=== PATIENT | male | born 1940 | race Caucasian/White ===

== ENCOUNTER 2016-11-15 06:06 | Day surgery (SDC) | payer MEDICARE, MEDICAID ==
[2016-11-15] MEDS ORDERED: LIDOCAINE 1% 50 ML VIAL INJ ONE (07:49)
[2016-11-15] MEDS ORDERED: SODIUM BICARBONATE VIAL 50 MEQ/50 ML VIAL ONE (07:49)
[2016-11-15] MEDS ORDERED: NEOMYCIN-BACITRACIN-POLYMYXIN 0.9 GM UD TOP ONE (10:30)
[2016-11-15 11:06] VITALS: BP 183/75; TEMP 98.1; O2SAT 96
--- NOTE | 2016-11-15 12:01 | OP ---
DATE OF PROCEDURE: 11/15/16 PREOPERATIVE DIAGNOSIS: 1. Lesion, preauricular, left ear. POSTOPERATIVE DIAGNOSIS: 1. Lesions, preauricular, left ear. PROCEDURE: 1. Excision, preauricular lesion, left ear. SURGEON: Rashaun Brown MD. ANESTHESIA: Local infiltration of 1% lidocaine with bicarb. INDICATION: The patient is a 76-year-old male who has a mass in the preauricular area that extends to the edge of the ear canal. It is soft, mildly tender, but causes problems when he sleeps on that side. It actually extends into his ear canal, blocking off his ear causing discomfort. He was brought to the Surgical Suite today for excision of same after the risks, benefits and alternatives to the procedure were discussed and accepted. FINDINGS: Pathology is pending. The closed incision is approximately 1.2 cm. PROCEDURE: After the patient was brought to the Surgical Suite and placed in the supine position, surgical time-out was taken. The patient was then prepped with Betadine and draped with towels. A sterile cotton ball was stuck into the ear. Local infiltration of anesthesia was obtained with 1% lidocaine after the incision was marked with a marking pen. The skin was then incised with a knife and dissection was carried down through the skin and subcutaneous tissue to excise the lesion using electrocautery. Hemostasis was then obtained with electrocautery and the wound was then loosely approximated with interrupted 5-0 Prolene vertical mattress sutures. There was a small area in the ear canal which was not approximated at all. Hemostasis was noted to be adequate. The wound was dressed with triple antibiotic ointment and the patient was then taken back to the Ambulatory Unit in stable condition. Estimated blood loss was less than 25 mL. All sponge, needle and instrument counts were correct. #[id number] [facility]
== END 2016-11-15 10:20 | disposition home or self-care (01) ==
LOC: AMB 06:06
PROVIDERS: ATTEND Surgery
DX: D23.22 Other benign neoplasm of skin of left ear and external auricular canal (principal); J44.9 Chronic obstructive pulmonary disease, unspecified; E03.9 Hypothyroidism, unspecified; E11.9 Type 2 diabetes mellitus without complications; E78.5 Hyperlipidemia, unspecified; F32.9 Major depressive disorder, single episode, unspecified; I50.9 Heart failure, unspecified; K21.9 Gastro-esophageal reflux disease without esophagitis; I25.10 Atherosclerotic heart disease of native coronary artery without angina pectoris; Z95.5 Presence of coronary angioplasty implant and graft; Z86.73 Personal history of transient ischemic attack (TIA), and cerebral infarction without residual deficits; Z88.8 Allergy status to other drugs, medicaments and biological substances; Z79.02 Long term (current) use of antithrombotics/antiplatelets; Z79.82 Long term (current) use of aspirin; Z79.899 Other long term (current) drug therapy

== ENCOUNTER → 2016-11-22 | Outpatient (CLI) | payer MEDICARE, OTHER | END | disposition home or self-care (01) | LOC: BFHH 10:10 | PROVIDERS: ATTEND Nurse Practitioner Family | DX: I11.0 Hypertensive heart disease with heart failure (principal); I50.9 Heart failure, unspecified; E11.40 Type 2 diabetes mellitus with diabetic neuropathy, unspecified ==

== ENCOUNTER 2016-12-05 13:23 | Emergency (ER) | payer MEDICARE, MEDICAID ==
--- NOTE | 2016-12-05 13:43 | ED.PDOC ---
History of Present Illness - General Chief Complaint: Trauma Stated Complaint: fall Time Seen by Provider: 12/05/16 13:32 Source: patient Exam Limitations: no limitations - History of Present Illness Initial Comments: Patient complains of right hip and lower back pain after a fall. He lost his balance at home and fell, landing on his right side. The pain is in the lumbar area and right hip with radiation down the right leg to the ankle. Worse with movement, better with rest. Multiple previous episodes of back and hip pain. No associated symptoms. Patient was unable to get up on his own. Timing/Duration: 1/2 hour Severity: moderate Improving Factors: rest Worsening Factors: movement Associated Symptoms: denies symptoms Allergies/Adverse Reactions: Allergies NO KNOWN ALLERGY Allergy (Verified 12/05/16 13:34) Home Medications: Ambulatory Orders Glipizide 10 mg PO BID 11/06/13 Lisinopril 40 mg PO DAILY 11/06/13 hydrALAZINE HCl [HydrALAzine HCl] 50 mg PO TID 11/06/13 Isosorbide Mononitrate [Imdur] 60 mg PO DAILY 06/24/14 amLODIPine BESYLATE [Norvasc] 10 mg PO DAILY 06/24/14 Albuterol Sulfate [Proair Hfa] 2 puff INH Q6H PRN #1 04/25/16 Furosemide [Lasix] 40 mg PO DAILY 04/25/16 Levothyroxine Sodium [Synthroid] 50 mcg PO DAILY 04/25/16 Citalopram Hydrobromide [Celexa] 30 mg PO DAILY 07/27/16 Ranolazine [Ranexa] 500 mg PO BID 07/27/16 Carvedilol [Coreg] 25 mg PO BID 08/01/16 Pregabalin [Lyrica] 75 mg PO BID 08/01/16 Aspirin [Nancy Low Dose] 162 mg PO DAILY 08/15/16 Clopidogrel Bisulfate [Plavix] 75 mg PO BEDTIME 08/15/16 Duloxetine HCl [Cymbalta] 60 mg PO 11/12/16 Pantoprazole Sodium 40 mg PO 11/12/16 Ranitidine HCl 150 mg PO 11/12/16 Simvastatin [Zocor] 40 mg PO 11/12/16 Review of Systems - Review of Systems Constitutional: States: no symptoms reported EENTM: States: no symptoms reported Respiratory: States: no symptoms reported Cardiology: States: no symptoms reported Gastrointestinal/Abdominal: States: no symptoms reported Genitourinary: States: no symptoms reported Musculoskeletal: States: see HPI Skin: States: no symptoms reported Neurological: States: no symptoms reported Endocrine: States: no symptoms reported Hematologic/Lymphatic: States: no symptoms reported Past Medical History (General) - Patient Medical History Hx Seizures: No Hx Stroke: Yes - 2013, Jun 2016 Hx Dementia: No Hx Asthma: No Hx of COPD: No Hx Cardiac Disorders: Yes - 15 cardiac stents Hx Congestive Heart Failure: No Hx Pacemaker: No Hx Hypertension: Yes Hx Thyroid Disease: No Hx Diabetes: Yes Hx Gastroesophageal Reflux: Yes Hx Renal Disease: No Hx Cancer: No Hx of HIV: No Hx Hepatitis C: No Hx MRSA: No Surgical History: cholecystectomy, other - Vaccination History Hx Tetanus, Diphtheria Vaccination: - unknown Hx Influenza Vaccination: - unknown Hx Pneumococcal Vaccination: - unknown - Social History Hx Tobacco Use: No Hx Chewing Tobacco Use: No Hx Alcohol Use: No Hx Substance Use: No Hx Substance Use Treatment: No Hx Depression: No Hx Physical Abuse: No Hx Emotional Abuse: No Hx Suspected Abuse: No - Activities of Daily Living Hospice Agency (if applicable):: None - Female History Patient is a Female of Child Bearing Age (10 -59 yrs old): No Patient : No Family Medical History - Family History Mother Family History: Unknown Age (years): 86 Living Status: Age at (years of age): 86 Cause of : [place] Hx Family Asthma: No Hx Family Congestive Heart Failure: No Hx Family Hypertension: No Hx Family Stroke: No Hx Cardiac Disease: Yes - Mother Hx Family Diabetes: Yes - Sons Hx Family Cancer: No Physical Exam - Physical Exam General Appearance: Alert Respiratory: lungs clear Cardiovascular/Chest: regular rate, rhythm Gastrointestinal/Abdominal: normal bowel sounds, non tender, soft Extremity: other - Flexion of the right hip elicits lumbar pain. Straight and cross leg raises are positive. Valgus and varus tests are negative. Juan F's negative. Ankle is NTTP both medially and laterally. Full AROM and PROM of the right hip,knee, ankle, and foot. Neurologic: no motor/sensory deficits Progress - Progress Progress: 12/05/16 16:57 5 view of the lumbar vertebrae and left hip 2 view were negative for acute fracture. Patient was able to ambulate well and without pain after 30 mg of toradol. Departure - Departure Clinical Impression: Lumbar pain Disposition: Discharge to Home or Self Care Condition: Good Departure Forms: ED Discharge - Pt. Copy, Patient Portal Self Enrollment Diet: resume usual diet Activity: increase activity as tolerated Home Medications: Ambulatory Orders Glipizide 10 mg PO BID 11/06/13 Lisinopril 40 mg PO DAILY 11/06/13 hydrALAZINE HCl [HydrALAzine HCl] 50 mg PO TID 11/06/13 Isosorbide Mononitrate [Imdur] 60 mg PO DAILY 06/24/14 amLODIPine BESYLATE [Norvasc] 10 mg PO DAILY 06/24/14 Albuterol Sulfate [Proair Hfa] 2 puff INH Q6H PRN #1 04/25/16 Furosemide [Lasix] 40 mg PO DAILY 04/25/16 Levothyroxine Sodium [Synthroid] 50 mcg PO DAILY 04/25/16 Citalopram Hydrobromide [Celexa] 30 mg PO DAILY 07/27/16 Ranolazine [Ranexa] 500 mg PO BID 07/27/16 Carvedilol [Coreg] 25 mg PO BID 08/01/16 Pregabalin [Lyrica] 75 mg PO BID 08/01/16 Aspirin [Nancy Low Dose] 162 mg PO DAILY 08/15/16 Clopidogrel Bisulfate [Plavix] 75 mg PO BEDTIME 08/15/16 Duloxetine HCl [Cymbalta] 60 mg PO 11/12/16 Pantoprazole Sodium 40 mg PO 11/12/16 Ranitidine HCl 150 mg PO 11/12/16 Simvastatin [Zocor] 40 mg PO 11/12/16 Additional Instructions: Follow up with your primary doctor this week.
[2016-12-05] MEDS ORDERED: KETOROLAC TROMETHAMINE INJ 30 MG/ML VIAL IM ONE (15:38)
--- NOTE | 2016-12-05 15:57 | RAD ---
PROCEDURE: Hip,Right 2 Views Clinical History: fall, pain Indication: Status post fall and right hip pain Comparison: None. Technique: 2.0 views of the right hip. Findings: There is no evidence of acute fractures or dislocations involving the bones of the right hip joint and the adjacent pelvic bones. There are no visualization of radiopaque foreign bodies visualized in the soft tissues. The bone mineralization is normal for patient's age and sex. The right femoral acetabular joint space is well-maintained. There are no periosteal reactions. The soft tissues are radiographically unremarkable. Impression: Negative for acute bony trauma involving the right hip. Location of Interpretation: Teleradiology Electronically signed by: Abdi Plaza MD 12/05/2016 3:57 PM [employer]
[2016-12-05 17:59] VITALS: BP 138/72; TEMP 98.5; O2SAT 95
--- NOTE | 2016-12-13 00:27 | RAD ---
PROCEDURE: Lumbar Spine 5 Views Clinical History: back pain after fall Indication: Same as above Comparison: None . Technique: 5.0 views of the lumbar spine were done. Findings: There is no loss of vertebral body height. There is no evidence of spondylolisthesis or spondylolyses in the lumbosacral spine. There is reduction in the intervertebral disc space height at L5/S1 level along with significant anterolateral osteophyte formation seen at this level. Anterolateral osteophyte formation is additionally seen at multiple levels in the lower thoracic and the upper lumbar spine. Right facet arthropathy seen at L5/S1 level. Bilateral facet arthropathy seen at L4/L5 level There is no significant scoliotic curvature of the lumbar spine. The bone mineralization is normal for patient's age. The thoracolumbar and the lumbosacral junction are intact. The visualized portions of the bilateral sacroiliac joints are unremarkable. The paravertebral soft tissues are radiographically unremarkable. The posterior elements are normal. There is no visualization of any radiopaque foreign bodies in the soft tissues. Impression: Negative for acute bony trauma involving the lumbar spine. Degenerative changes in the lumbar spine, as described above Location of Interpretation: Teleradiology Electronically signed by: Abdi Plaza MD 12/05/2016 2:17 PM FINANCIAL DIRECTOR
--- NOTE | 2016-12-13 00:28 | RAD ---
PROCEDURE: X-ray left hip two views Clinical History: Left hip pain following fall Indication: Same as above Comparison: None. Technique: 2.0 views of the left hip. Findings: There is no evidence of acute fractures or dislocations involving the bones of the left hip joint and the adjacent pelvic bones. There are no visualization of radiopaque foreign bodies visualized in the soft tissues. The bone mineralization is normal for patient's age and sex. Mild degenerative changes seen in the greater trochanter There are no periosteal reactions. The soft tissues are radiographically unremarkable. Impression: Negative for acute bony trauma involving the left hip joint Location of Interpretation: Teleradiology Electronically signed by: Abdi Plaza MD 12/05/2016 2:14 PM ASSISTANT ANALYST
== END 2016-12-05 17:10 | disposition home or self-care (01) ==
LOC: ER 13:23
DX: M54.5 Low back pain (principal); M25.551 Pain in right hip; I10 Essential (primary) hypertension; E11.9 Type 2 diabetes mellitus without complications; Z79.899 Other long term (current) drug therapy; Z86.73 Personal history of transient ischemic attack (TIA), and cerebral infarction without residual deficits; Z98.61 Coronary angioplasty status; Z79.82 Long term (current) use of aspirin; W01.0XXA Fall on same level from slipping, tripping and stumbling without subsequent striking against object, initial encounter; Y92.009 Unspecified place in unspecified non-institutional (private) residence as the place of occurrence of the external cause
CPT/HCPCS: 72114; 73502; J1885

== ENCOUNTER → 2017-01-04 | Outpatient (CLI) | payer MEDICARE, OTHER | LOC: BFHH 09:41 | PROVIDERS: ATTEND Nurse Practitioner Family | DX: R30.0 Dysuria (principal) ==

== ENCOUNTER 2017-02-09 13:32 | Emergency (ER) | payer MEDICARE, OTHER ==
[2017-02-09 14:01] VITALS: TEMP 96.7; O2SAT 97
[2017-02-09] MEDS ORDERED: SODIUM CHLORIDE 0.9% (FLUSH) 10 ML SYG IV PRN (14:28)
[2017-02-09] MEDS ORDERED: ASPIRIN TABLET 325 MG TAB PO ONE (14:28)
[2017-02-09] MEDS ORDERED: MORPHINE SULFATE INJ 10 MG/ML VIAL IV ONE ×2 (14:41→16:30)
--- NOTE | 2017-02-09 14:44 | ED.PDOC ---
History of Present Illness - General Chief Complaint: Chest Pain/MO Stated Complaint: chest pain Time Seen by Provider: 02/09/17 14:28 Source: patient, family Exam Limitations: no limitations - History of Present Illness Initial Comments: 76 YO MALE WHO REPORTS ONSET OF LEFT SIDED CHEST PAIN DESCRIBED SHARP, SHOOTING, AND INTERMITTENT, ASSOCIATED WITH DULL CONSTANT PAIN IN THE L ARM AND JAW. ALSO ASSOCIATED WITH SOB AND DIAPHORESIS. PT HAS H/O OF SEVERAL MO'S AND 15 STENTS. PT REPORTS PAIN IS SIMILAR TO CARDIAC CHEST PAIN IN THE PAST. Timing/Duration: 1-3 hours Severity/Quality: moderate - 6/10 Location: substernal Chest Pain Radiation: jaw, arms Activities at Onset: none, emotional stress Improving Factors: nothing - PT TOOK 4 SL NTG AT HOME WITHOUT RELIEF. Worsening Factors: nothing Nitro Today/Relief: 0.4 mg x 4 Aspirin Treatment Today: unknown Associated Symptoms: diaphoresis, shortness of breath Allergies/Adverse Reactions: Allergies NO KNOWN ALLERGY Allergy (Verified 12/05/16 13:34) Home Medications: Ambulatory Orders Glipizide 10 mg PO BID 11/06/13 Lisinopril 40 mg PO DAILY 11/06/13 hydrALAZINE HCl [HydrALAzine HCl] 50 mg PO TID 11/06/13 Isosorbide Mononitrate [Imdur] 60 mg PO DAILY 06/24/14 amLODIPine BESYLATE [Norvasc] 10 mg PO DAILY 06/24/14 Albuterol Sulfate [Proair Hfa] 2 puff INH Q6H PRN #1 04/25/16 Furosemide [Lasix] 40 mg PO DAILY 04/25/16 Levothyroxine Sodium [Synthroid] 50 mcg PO DAILY 04/25/16 Citalopram Hydrobromide [Celexa] 30 mg PO DAILY 07/27/16 Ranolazine [Ranexa] 500 mg PO BID 07/27/16 Carvedilol [Coreg] 25 mg PO BID 08/01/16 Pregabalin [Lyrica] 75 mg PO BID 08/01/16 Aspirin [Nancy Low Dose] 162 mg PO DAILY 08/15/16 Clopidogrel Bisulfate [Plavix] 75 mg PO BEDTIME 08/15/16 Duloxetine HCl [Cymbalta] 60 mg PO 11/12/16 Pantoprazole Sodium 40 mg PO 11/12/16 Ranitidine HCl 150 mg PO 11/12/16 Simvastatin [Zocor] 40 mg PO 11/12/16 Past Medical History (General) - Patient Medical History Hx Seizures: No Hx Stroke: Yes - 2013, Jun 2016 Hx Dementia: No Hx Asthma: No Hx of COPD: No Hx Cardiac Disorders: Yes - 15 cardiac stents, SEVERAL MO'S Hx Congestive Heart Failure: No Hx Pacemaker: No Hx Hypertension: Yes Hx Thyroid Disease: No Hx Diabetes: Yes Hx Gastroesophageal Reflux: Yes Hx Renal Disease: No Hx Cancer: No Hx of HIV: No Hx Hepatitis C: No Hx MRSA: No Surgical History: cholecystectomy - Vaccination History Hx Tetanus, Diphtheria Vaccination: - unknown Hx Influenza Vaccination: No Hx Pneumococcal Vaccination: Yes - Social History Hx Tobacco Use: Yes Hx Chewing Tobacco Use: No Hx Alcohol Use: No Hx Substance Use: No Hx Substance Use Treatment: No Hx Depression: No Hx Physical Abuse: No Hx Emotional Abuse: No Hx Suspected Abuse: No - Female History Patient : No Family Medical History - Family History Mother Family History: Unknown Age (years): 86 Living Status: Age at (years of age): 86 Cause of : [place] Hx Family Asthma: No Hx Family Congestive Heart Failure: No Hx Family Hypertension: No Hx Family Stroke: No Hx Cardiac Disease: Yes - Mother Hx Family Diabetes: Yes - Sons Hx Family Cancer: No Physical Exam - Physical Exam General Appearance: Alert, Obese Eyes, Ears, Nose, Throat Exam: normal ENT inspection Neck: full range of motion Respiratory: normal breath sounds, no respiratory distress Cardiovascular/Chest: regular rate, rhythm, no murmur Gastrointestinal/Abdominal: non tender, soft Extremity: normal range of motion, normal inspection Neurologic: alert, normal mood/affect, oriented x 3 Skin Exam: normal color, warm/dry Progress - Progress Progress: 02/09/17 16:08 PT REPORTS ONLY MINIMAL IMPROVEMENT IN PAIN FROM 6/10 TO 5/10 AFTER 4MG IV MORPHINE. ARRANGEMENTS MADE TO TRANSFER PT TO [facility]. - EKG/XRAY/CT EKG: Sinus - 60BPM, Abnormal Q waves - IN THE INFERIOR/ANTERIOR LEADS, Unchanged from 08/15/2016 Comments: NL INTERVAL, NL AXIS Xray Comments: UNREMARKABLE PER RAD Departure - Departure Clinical Impression: Acute angina, Coronary arteriosclerosis Time of Disposition: 15:50 - CASE DISCUSSED WITH DR. CEDILLO WHO AGREES TO ACCEPT PT IN TRANSFER Disposition: Transfer to Hospital Condition: Fair Departure Forms: ED Discharge - Pt. Copy, Patient Portal Self Enrollment Referrals: Lashay Levy NP [Primary Care Provider] - 1-2 Weeks Home Medications: Ambulatory Orders Glipizide 10 mg PO BID 11/06/13 Lisinopril 40 mg PO DAILY 11/06/13 hydrALAZINE HCl [HydrALAzine HCl] 50 mg PO TID 11/06/13 Isosorbide Mononitrate [Imdur] 60 mg PO DAILY 06/24/14 amLODIPine BESYLATE [Norvasc] 10 mg PO DAILY 06/24/14 Albuterol Sulfate [Proair Hfa] 2 puff INH Q6H PRN #1 04/25/16 Furosemide [Lasix] 40 mg PO DAILY 04/25/16 Levothyroxine Sodium [Synthroid] 50 mcg PO DAILY 04/25/16 Citalopram Hydrobromide [Celexa] 30 mg PO DAILY 07/27/16 Ranolazine [Ranexa] 500 mg PO BID 07/27/16 Carvedilol [Coreg] 25 mg PO BID 08/01/16 Pregabalin [Lyrica] 75 mg PO BID 08/01/16 Aspirin [Nancy Low Dose] 162 mg PO DAILY 08/15/16 Clopidogrel Bisulfate [Plavix] 75 mg PO BEDTIME 08/15/16 Duloxetine HCl [Cymbalta] 60 mg PO 11/12/16 Pantoprazole Sodium 40 mg PO 11/12/16 Ranitidine HCl 150 mg PO 11/12/16 Simvastatin [Zocor] 40 mg PO 11/12/16 Transfer to Outside Facility - Transfer Information Accepting Provider:: DR. CEDILLO Accepting Facility: [facility] Reason for Transfer: required specialist not available - [facility], DR. TERRELL.
--- NOTE | 2017-02-09 14:47 | RAD ---
EXAM DESCRIPTION: Chest,1 View CLINICAL HISTORY: 76 years,Male,chest pain COMPARISON: August 15, 2016 FINDINGS: Lung allred are clear, no consolidation, effusions, or nodules. Heart size and pulmonary vascularity are normal. Bony elements are unremarkable for age. IMPRESSION: Unremarkable chest. Stable Electronically signed by: Michael Vega MD 02/09/2017 2:46 PM CDT
[2017-02-09 17:52] VITALS: BP 148/68
== END 2017-02-09 17:52 | disposition short-term general hospital (02) ==
LOC: ER 13:32
DX: I20.9 Angina pectoris, unspecified (principal); I10 Essential (primary) hypertension; I25.2 Old myocardial infarction; E11.9 Type 2 diabetes mellitus without complications; K21.9 Gastro-esophageal reflux disease without esophagitis; Z98.61 Coronary angioplasty status; Z79.82 Long term (current) use of aspirin; Z79.899 Other long term (current) drug therapy; Z86.73 Personal history of transient ischemic attack (TIA), and cerebral infarction without residual deficits; Z87.891 Personal history of nicotine dependence
CPT/HCPCS: 36415; 71010; 80048; 82550; 82553; 83880; 84484; 85025; 85610; 85730; 93005; J2270

== ENCOUNTER 2017-02-21 13:27 | Emergency (ER) | payer MEDICARE, OTHER ==
--- NOTE | 2017-02-21 14:11 | CT ---
EXAM DESCRIPTION: Cervical Spine CLINICAL HISTORY: 76 years,Male,fall from own height COMPARISON: None TECHNIQUE: CT performed multiple axial helical tomographic images of the cervical spine from the skull base through C7-T1. Then reconstructed sagittal coronal planes. This exam was performed using radiation doses that are As Low As Reasonably Achievable (ALARA). FINDINGS: No evidence of fracture of the cervical spine. Surrounding soft tissues unremarkable. Dense and arch of C1: Demonstrates severe hypertrophy and ossified changes. The lung apices and superior mediastinum unremarkable. Skull base and included paranasal sinuses unremarkable. On the left at C4-C6-7 there is moderate facet sclerosis and hypertrophy and on the right only mild. There is moderate loss of disc height at C5-6 and mild at C4-5. There is mild foreshortening of the C4-5 and six vertebral body most likely degenerative. And mild neuroforaminal stenosis on the left at C5-6 and to lesser degree C4-5. IMPRESSION: No acute findings seen in the cervical spine. There are severe arthritic changes seen in the arch C1 and the dens. And moderate facet nephropathy on the left at C4 through C6-7. With some mild neural foraminal stenosis at C4-5 and C5-6. And moderate disc disease at C5-6. Electronically signed by: Michael Vega MD 02/21/2017 2:11 PM CDT
--- NOTE | 2017-02-21 14:12 | RAD ---
EXAM DESCRIPTION: Humerus,Right CLINICAL HISTORY: 76 years, Male, fall from own height COMPARISON: None. FINDINGS: No acute fracture seen in the right humerus. Patchy cloudlike opacifications in the medullary canal of the proximal third of the diaphysis. Soft tissues unremarkable IMPRESSION: No acute lines. 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 Electronically signed by: Michael Vega MD 02/21/2017 2:11 PM CDT
--- NOTE | 2017-02-21 14:12 | CT ---
EXAM DESCRIPTION: Head CLINICAL HISTORY: fall from own height COMPARISON: 07/27/2016 TECHNIQUE: Multiple axial images of the head without contrast. This exam was performed according to our departmental dose-optimization program, which includes automated exposure control, adjustment of the mA and/or kV according to patient size and/or use of iterative reconstruction technique. FINDINGS: There is no CT evidence of intracranial hemorrhage, mass effect, or large territory infarction. Moderate to severe supratentorial white matter hypodensities. Mild generalized volume loss. There are no abnormal extra-axial fluid collections. Calcific plaque in the visualized arteries. There is no acute calvarial defect. The visualized paranasal sinuses and the mastoids are clear. IMPRESSION: 1. No CT evidence of an acute intracranial abnormality. 2. Senescent changes. Electronically signed by: Angelo Diallo MD 02/21/2017 2:11 PM CDT
--- NOTE | 2017-02-21 14:13 | RAD ---
EXAM DESCRIPTION: Shoulder,Right 2 or More Views CLINICAL HISTORY: 76 years,Male,fall from own height COMPARISON: None FINDINGS: The right shoulder demonstrates no evidence of fractures or dislocations or acute abnormalities. The acromial clavicular joint mildly hypertrophic. The included lung allred are unremarkable. There is no significant lateral down sloping of the acromion with no significant narrowing of the supraspinatus outlet. Small enchondromas in the proximal humerus. IMPRESSION: Right shoulder demonstrates no acute findings. Electronically signed by: Michael Vega MD 02/21/2017 2:12 PM CDT
[2017-02-21] MEDS ORDERED: KETOROLAC TROMETHAMINE INJ 30 MG/ML VIAL IM ONE (14:33)
--- NOTE | 2017-02-21 14:39 | ED.PDOC ---
History of Present Illness - General Chief Complaint: Trauma Stated Complaint: FALL Time Seen by Provider: 02/21/17 13:31 Source: patient Exam Limitations: no limitations - History of Present Illness Initial Comments: The patient is a 76-year-old male presenting to the emergency room by EMS after having fallen at home while going down his whole with his walker. The patient had a stroke not too long ago and has had a difficult time getting around since then. He did not pass out but did hit his right shoulder on the wall in the ground and is having some pain there. There is no obvious deformity. He does appear to be neurovascularly intact in that upper extremity. He also did bump the right side of his head for there is a small contusion. He is also reporting some mild diffuse neck pain. He does take blood thinners. No other injuries are obvious. The patient is able to convey his discomforts pretty well. Allergies/Adverse Reactions: Allergies NO KNOWN ALLERGY Allergy (Verified 12/05/16 13:34) Home Medications: Ambulatory Orders Glipizide 10 mg PO BID 11/06/13 Lisinopril 40 mg PO DAILY 11/06/13 hydrALAZINE HCl [HydrALAzine HCl] 50 mg PO TID 11/06/13 Isosorbide Mononitrate [Imdur] 60 mg PO DAILY 06/24/14 amLODIPine BESYLATE [Norvasc] 10 mg PO DAILY 06/24/14 Albuterol Sulfate [Proair Hfa] 2 puff INH Q6H PRN #1 04/25/16 Furosemide [Lasix] 40 mg PO DAILY 04/25/16 Levothyroxine Sodium [Synthroid] 50 mcg PO DAILY 04/25/16 Citalopram Hydrobromide [Celexa] 30 mg PO DAILY 07/27/16 Ranolazine [Ranexa] 500 mg PO BID 07/27/16 Carvedilol [Coreg] 25 mg PO BID 08/01/16 Pregabalin [Lyrica] 75 mg PO BID 08/01/16 Aspirin [Nancy Low Dose] 162 mg PO DAILY 08/15/16 Clopidogrel Bisulfate [Plavix] 75 mg PO BEDTIME 08/15/16 Duloxetine HCl [Cymbalta] 60 mg PO 11/12/16 Pantoprazole Sodium 40 mg PO 11/12/16 Ranitidine HCl 150 mg PO 11/12/16 Simvastatin [Zocor] 40 mg PO 11/12/16 Review of Systems - Review of Systems Constitutional: States: no symptoms reported EENTM: States: no symptoms reported Respiratory: States: no symptoms reported Cardiology: States: no symptoms reported Gastrointestinal/Abdominal: States: no symptoms reported Genitourinary: States: no symptoms reported Musculoskeletal: States: see HPI Skin: States: see HPI Neurological: States: see HPI All other Systems: No Change from Baseline Past Medical History (General) - Patient Medical History Hx Seizures: No Hx Stroke: Yes - 2013, Jun 2016 Hx Dementia: No Hx Asthma: No Hx of COPD: No Hx Cardiac Disorders: Yes - 15 cardiac stents, SEVERAL [place]'S Hx Congestive Heart Failure: No Hx Pacemaker: No Hx Hypertension: Yes Hx Thyroid Disease: No Hx Diabetes: Yes Hx Gastroesophageal Reflux: Yes Hx Renal Disease: No Hx Cancer: No Hx of HIV: No Hx Hepatitis C: No Hx MRSA: No - Vaccination History Hx Tetanus, Diphtheria Vaccination: - unknown Hx Influenza Vaccination: No Hx Pneumococcal Vaccination: Yes - Social History Hx Tobacco Use: Yes Hx Chewing Tobacco Use: No Hx Alcohol Use: No Hx Substance Use: No Hx Substance Use Treatment: No Hx Depression: No Hx Physical Abuse: No Hx Emotional Abuse: No Hx Suspected Abuse: No - Female History Patient : No Family Medical History - Family History Mother Family History: Unknown Age (years): 86 Living Status: Age at (years of age): 86 Cause of : [place] Hx Family Asthma: No Hx Family Congestive Heart Failure: No Hx Family Hypertension: No Hx Family Stroke: No Hx Cardiac Disease: Yes - Mother Hx Family Diabetes: Yes - Sons Hx Family Cancer: No Physical Exam - Physical Exam General Appearance: Alert, Anxious, No apparent distress Eye Exam: bilateral normal Ears, Nose, Throat: hearing grossly normal, normal ENT inspection, normal pharynx, other - speech is slowed but this is apparently been that way since the stroke Neck: full range of motion, supple, other - mild diffuse discomfort to palpation around the neck but no gross deformity. No bruising. No new neurological changes. Respiratory: chest non-tender, lungs clear, normal breath sounds, no respiratory distress, no accessory muscle use Cardiovascular/Chest: normal peripheral pulses, no edema Peripheral Pulses: radial,right: 2+, radial,left: 2+, dorsalis pedis,right: 2+, dorsalis pedis,left: 2+ Gastrointestinal/Abdominal: non tender, soft Rectal Exam: deferred Back Exam: normal inspection, no CVA tenderness, no vertebral tenderness Extremity: other - right shoulder is uncomfortable to palpation. There is some mild superficial bruising. Passive range of motion appears to be preserved. He is neurovascularly intact otherwise, at his new baseline since his stroke. Neurologic: alert, oriented x 3 Skin Exam: normal color - with the exception of the bruising as stated above Comments: Vital Signs - 24 hr 02/21/17 13:30 Temperature 99.0 F Pulse Rate [ 16 L RIGHT BRACHIAL] Respiratory 20 Rate Blood Pressure 152/66 [RIGHT BRACHIAL ] O2 Sat by Pulse 96 Oximetry Progress - Progress Progress: 02/21/17 14:41 the patient is a 76-year-old male presenting after a fall at home. He does not appear to have any significant dislocation or fractures present. there appears to only be soft tissue injury of the right shoulder. No evidence of intracranial bleed or cervical spine fracture. The patient will be allowed to go back home. He does need ambulate carefully with his walker to prevent further falls or use a wheelchair. ER warnings were given for any acute worsening. he can follow-up with his primary care doctor towards the end of the week. - Results/Orders Results/Orders: head CT shows no evidence of any acute trauma but there are chronic senescent changes .CT scan of the cervical spine shows no evidence of fracture or acute dislocation. There are multiple degenerative changes present. X-ray of the right shoulder and humerus show no evidence of fracture or dislocation. There does appear to be evidence of an endochondroma present. Departure - Departure Clinical Impression: Contusion, shoulder or upper arm Fall at home Qualifiers: Encounter type: initial encounter Qualified Code(s): W19.XXXA - Unspecified fall, initial encounter Disposition: Discharge to Home or Self Care Condition: Fair Departure Forms: ED Discharge - Pt. Copy, Patient Portal Self Enrollment Instructions: How to Prevent Falls Diet: regular diet Activity: ambulate only with walker Referrals: Lashay Levy NP [Primary Care Provider] - 1-5 Days Home Medications: Ambulatory Orders Glipizide 10 mg PO BID 11/06/13 Lisinopril 40 mg PO DAILY 01/21/14 hydrALAZINE HCl [HydrALAzine HCl] 50 mg PO TID 11/06/13 Isosorbide Mononitrate [Imdur] 60 mg PO DAILY 06/24/14 amLODIPine BESYLATE [Norvasc] 10 mg PO DAILY 06/24/14 Albuterol Sulfate [Proair Hfa] 2 puff INH Q6H PRN #1 04/25/16 Furosemide [Lasix] 40 mg PO DAILY 04/25/16 Levothyroxine Sodium [Synthroid] 50 mcg PO DAILY 04/25/16 Citalopram Hydrobromide [Celexa] 30 mg PO DAILY 07/27/16 Ranolazine [Ranexa] 500 mg PO BID 07/27/16 Carvedilol [Coreg] 25 mg PO BID 08/01/16 Pregabalin [Lyrica] 75 mg PO BID 08/01/16 Aspirin [Nancy Low Dose] 162 mg PO DAILY 08/15/16 Clopidogrel Bisulfate [Plavix] 75 mg PO BEDTIME 08/15/16 Duloxetine HCl [Cymbalta] 60 mg PO 11/12/16 Pantoprazole Sodium 40 mg PO 11/12/16 Ranitidine HCl 150 mg PO 11/12/16 Simvastatin [Zocor] 40 mg PO 11/12/16 Additional Instructions: the patient is a 76-year-old male presenting after a fall at home. He does not appear to have any significant dislocation or fractures present. there appears to only be soft tissue injury of the right shoulder. No evidence of intracranial bleed or cervical spine fracture. The patient will be allowed to go back home. He does need ambulate carefully with his walker to prevent further falls or use a wheelchair. ER warnings were given for any acute worsening. he can follow-up with his primary care doctor towards the end of the week.
[2017-02-21 15:09] VITALS: BP 122/74; TEMP 98; O2SAT 99
== END 2017-02-21 15:09 | disposition home or self-care (01) ==
LOC: ER 13:27
DX: S40.011A Contusion of right shoulder, initial encounter (principal); I25.2 Old myocardial infarction; I10 Essential (primary) hypertension; E11.9 Type 2 diabetes mellitus without complications; K21.9 Gastro-esophageal reflux disease without esophagitis; Z86.73 Personal history of transient ischemic attack (TIA), and cerebral infarction without residual deficits; Z98.61 Coronary angioplasty status; Z87.891 Personal history of nicotine dependence; Y92.008 Other place in unspecified non-institutional (private) residence as the place of occurrence of the external cause; Z79.899 Other long term (current) drug therapy; Z79.02 Long term (current) use of antithrombotics/antiplatelets; Z79.82 Long term (current) use of aspirin; W19.XXXA Unspecified fall, initial encounter
CPT/HCPCS: 70450; 72125; 73030; 73060; J1885

== ENCOUNTER 2017-03-31 13:48 | Emergency (ER) | payer MEDICARE, MEDICAID ==
[2017-03-31] MEDS ORDERED: ASPIRIN TABLET 325 MG TAB PO ONE (13:57)
[2017-03-31] MEDS ORDERED: SODIUM CHLORIDE 0.9% (FLUSH) 10 ML SYG IV PRN (13:57)
[2017-03-31] MEDS ORDERED: NITROGLYCERIN 0.4 MG 25 EA TAB SL ONE (13:57)
--- NOTE | 2017-03-31 13:57 | ED.PDOC ---
History of Present Illness - General Chief Complaint: Cardiovascular Problem Stated Complaint: chest pain Time Seen by Provider: 03/31/17 13:55 Source: patient Exam Limitations: no limitations - History of Present Illness Initial Comments: Bonifacio Reyna 76 y/o male with recent cardiac stents one week ago stated that while he was at home resting had onset of chest heaviness and had taken 2 nitro and aspirin but symptoms not better so decided to come here.Also was short of breath.Had total of 17 stents overall. he has dm2,cad,htn,old cva. Timing/Duration: 1-3 hours Severity: moderate Location: central Activities at Onset: rest Prior Chest Pain/Cardiac Workup: other - recent cardiac stent one week ago Improving Factors: nothing Worsening Factors: nothing Nitro Today/Relief: 0.4 mg x 3 Aspirin Treatment Today: 325 mg x 1, provided at home, provided by ED Associated Symptoms: shortness of breath Allergies/Adverse Reactions: Allergies NO KNOWN ALLERGY Allergy (Verified 03/31/17 14:07) Home Medications: Ambulatory Orders Glipizide 10 mg PO BID 11/06/13 Lisinopril 40 mg PO DAILY 11/06/13 hydrALAZINE HCl [HydrALAzine HCl] 50 mg PO TID 11/06/13 Isosorbide Mononitrate [Imdur] 60 mg PO DAILY 06/24/14 amLODIPine BESYLATE [Norvasc] 10 mg PO DAILY 06/24/14 Albuterol Sulfate [Proair Hfa] 2 puff INH Q6H PRN #1 04/25/16 Furosemide [Lasix] 40 mg PO DAILY 04/25/16 Levothyroxine Sodium [Synthroid] 50 mcg PO DAILY 04/25/16 Citalopram Hydrobromide [Celexa] 30 mg PO DAILY 07/27/16 Ranolazine [Ranexa] 500 mg PO BID 07/27/16 Carvedilol [Coreg] 25 mg PO BID 08/01/16 Pregabalin [Lyrica] 75 mg PO BID 08/01/16 Aspirin [Nancy Low Dose] 162 mg PO DAILY 08/15/16 Clopidogrel Bisulfate [Plavix] 75 mg PO BEDTIME 08/15/16 Duloxetine HCl [Cymbalta] 60 mg PO 11/12/16 Pantoprazole Sodium 40 mg PO 11/12/16 Ranitidine HCl 150 mg PO 11/12/16 Simvastatin [Zocor] 40 mg PO 11/12/16 Review of Systems - Review of Systems Constitutional: States: no symptoms reported EENTM: States: no symptoms reported Respiratory: States: no symptoms reported Cardiology: States: see HPI Gastrointestinal/Abdominal: States: no symptoms reported Genitourinary: States: no symptoms reported Musculoskeletal: States: no symptoms reported Skin: States: no symptoms reported Neurological: States: no symptoms reported Endocrine: States: no symptoms reported Hematologic/Lymphatic: States: no symptoms reported Past Medical History (General) - Patient Medical History Hx Seizures: No Hx Stroke: Yes - 2013, Jun 2016 Hx Dementia: No Hx Asthma: No Hx of COPD: No Hx Cardiac Disorders: Yes - 15 cardiac stents, SEVERAL [place]'S Hx Congestive Heart Failure: No Hx Pacemaker: No Hx Hypertension: Yes Hx Thyroid Disease: No Hx Diabetes: Yes Hx Gastroesophageal Reflux: Yes Hx Renal Disease: No Hx Cancer: No Hx of HIV: No Hx Hepatitis C: No Hx MRSA: No Surgical History: cholecystectomy, other - cataract,middle finger - Vaccination History Hx Tetanus, Diphtheria Vaccination: - unknown Hx Influenza Vaccination: No Hx Pneumococcal Vaccination: Yes - Social History Hx Tobacco Use: Yes - quit 30 years ago Hx Chewing Tobacco Use: No Hx Alcohol Use: No Hx Substance Use: No Hx Substance Use Treatment: No Hx Depression: No Hx Physical Abuse: No Hx Emotional Abuse: No Hx Suspected Abuse: No - Activities of Daily Living Patient Lives Alone: No - family Grooming Ability: Independent Eating (Feeding) Ability: Independent Toileting Ability: Independent - Female History Patient : No Family Medical History - Family History Mother Family History: Unknown Age (years): 86 Living Status: Age at (years of age): 86 Cause of : [place] Hx Family Asthma: No Hx Family Congestive Heart Failure: No Hx Family Hypertension: No Hx Family Stroke: No Hx Cardiac Disease: Yes - Mother Hx Family Diabetes: Yes - Sons Hx Family Cancer: Yes - cervical cancer-mom Physical Exam - Physical Exam General Appearance: Alert, No apparent distress Eyes, Ears, Nose, Throat Exam: PERRL/EOMI, normal ENT inspection, TMs normal, pharynx normal Neck: non-tender, full range of motion, supple, normal inspection Respiratory: chest non-tender, lungs clear, normal breath sounds, no respiratory distress Cardiovascular/Chest: normal peripheral pulses, regular rate, rhythm, no edema, no murmur Peripheral Pulses: radial,right: 2+, radial,left: 2+ Gastrointestinal/Abdominal: normal bowel sounds, non tender, soft, no organomegaly Extremity: normal range of motion, non-tender, no calf tenderness, pedal edema - +1 bilaterally Neurologic: alert, oriented x 3 Skin Exam: normal color, warm/dry Lymphatic: no adenopathy Progress - Progress Progress: 03/31/17 15:46 Vital Signs - 8 hr 03/31/17 03/31/17 13:55 14:07 Temperature 97.7 F Pulse Rate [ 62 pulse ox] Respiratory 20 22 Rate Blood Pressure 152/75 [Left Arm] O2 Sat by Pulse 94 L Oximetry - Results/Orders Results/Orders: 03/31/17 13:57 IV Care:Saline Lock per Protoc QSHIFT Telemetry .ONCE Sodium Chloride 0.9% (Flush) [Saline Flush Syringe] 10 ml IV PRN PRN EKG Stat Pulse Ox Stat 03/31/17 16:15 Heparin Premix [Heparin/D5w 25,000U/500ML] 25,000 units Premix Bag 1 bag IVS PRN 03/31/17 16:30 Nitroglycerin/D5w IV 50,000 mcg Premix Bottle 1 bottle IVS PRN Laboratory Results - last 24 hr 03/31/17 03/31/17 14:15 14:15 WBC 7.8 RBC 3.88 L Hgb 10.9 L Hct 32.3 L MCV 83.3 MCH 28.0 MCHC 33.8 RDW 14.5 Plt Count 159 MPV 8.7 Absolute Neuts (auto) 4.50 Absolute Lymphs (auto) 2.10 Absolute Monos (auto) 0.70 Absolute Eos (auto) 0.40 Absolute Basos (auto) 0.10 Neutrophils % 58.0 Lymphocytes % 26.9 Monocytes % 8.8 Eosinophils % 5.2 H Basophils % 1.1 PT 11.7 INR 1.040 PTT (SP) 31.9 D-Dimer, Quantitative 298 H* Sodium 139 Potassium 3.8 Chloride 104 Carbon Dioxide 26 Anion Gap 12.8 BUN 19 H Creatinine 1.88 H BUN/Creatinine Ratio 10.1 Random Glucose 175 H Serum Osmolality 284.0 Calcium 8.8 Magnesium 1.8 Total Bilirubin 0.5 Direct Bilirubin < 0.1 Indirect Bilirubin 0.4 AST 14 ALT 15 Alkaline Phosphatase 69 Creatine Kinase 69 CK-MB (CK-2) 1.8 CK-MB (CK-2) % Not Reportable Troponin I 0.03 B-Natriuretic Peptide 96.6 Serum Total Protein 6.9 Albumin 3.7 - EKG/XRAY/CT EKG: Sinus, nonspecific ST T wave Chg Comments: heart rate 64 XRAY: chest - no acute changes Departure - Departure Clinical Impression: Acute coronary syndrome Coronary artery disease Qualifiers: Coronary Disease-Associated Artery/Lesion type: unspecified vessel or lesion type [place] vs. transplanted heart: [place] heart Associated angina: with unstable angina Qualified Code(s): I25.110 - Atherosclerotic heart disease of [place] coronary artery with unstable angina pectoris Time of Disposition: 17:43 - D/[facility] Disposition: Transfer to Hospital Condition: Fair Referrals: Lashay Levy, [employer] [Primary Care Provider] - 1-2 Weeks Home Medications: Ambulatory Orders Glipizide 10 mg PO BID 11/06/13 Lisinopril 40 mg PO DAILY 11/06/13 hydrALAZINE HCl [HydrALAzine HCl] 50 mg PO TID 11/06/13 Isosorbide Mononitrate [Imdur] 60 mg PO DAILY 06/24/14 amLODIPine BESYLATE [Norvasc] 10 mg PO DAILY 06/24/14 Albuterol Sulfate [Proair Hfa] 2 puff INH Q6H PRN #1 04/25/16 Furosemide [Lasix] 40 mg PO DAILY 04/25/16 Levothyroxine Sodium [Synthroid] 50 mcg PO DAILY 04/25/16 Citalopram Hydrobromide [Celexa] 30 mg PO DAILY 07/27/16 Ranolazine [Ranexa] 500 mg PO BID 07/27/16 Carvedilol [Coreg] 25 mg PO BID 08/01/16 Pregabalin [Lyrica] 75 mg PO BID 08/01/16 Aspirin [Nancy Low Dose] 162 mg PO DAILY 08/15/16 Clopidogrel Bisulfate [Plavix] 75 mg PO BEDTIME 08/15/16 Duloxetine HCl [Cymbalta] 60 mg PO 11/12/16 Pantoprazole Sodium 40 mg PO 11/12/16 Ranitidine HCl 150 mg PO 11/12/16 Simvastatin [Zocor] 40 mg PO 11/12/16
--- NOTE | 2017-03-31 14:24 | RAD ---
Portable chest INDICATION: Chest pain COMPARISON: February 09, 2017 IMPRESSION: Normal heart size. Lungs are clear. No acute chest process. Stable chest Electronically signed by: Aubrey Gupta MD 03/31/2017 2:23 PM CDT
[2017-03-31] MEDS ORDERED: HEPARIN PREMIX 500 ML ONE (16:08)
[2017-03-31] MEDS ORDERED: HEPARIN PREMIX 25,000 UNITS in PREMIX BAG 1 BAG IVS SCH (16:15)
[2017-03-31] MEDS ORDERED: NITROGLYCERIN/D5W IV 250 ML IVS ONE (16:29)
[2017-03-31] MEDS ORDERED: NITROGLYCERIN/D5W IV 50,000 MCG in PREMIX BOTTLE 1 BOTTLE IVS SCH (16:30)
[2017-03-31] MEDS ORDERED: MORPHINE SULFATE INJ 10 MG/ML VIAL IV ONE (17:39)
[2017-03-31 18:34] VITALS: BP 153/75; TEMP 98.5; O2SAT 95
== END 2017-03-31 19:00 | disposition short-term general hospital (02) ==
LOC: ER 13:48
DX: I24.9 Acute ischemic heart disease, unspecified (principal); I25.110 Atherosclerotic heart disease of native coronary artery with unstable angina pectoris; I25.2 Old myocardial infarction; I10 Essential (primary) hypertension; E11.9 Type 2 diabetes mellitus without complications; K21.9 Gastro-esophageal reflux disease without esophagitis; Z87.891 Personal history of nicotine dependence; Z86.73 Personal history of transient ischemic attack (TIA), and cerebral infarction without residual deficits; Z98.61 Coronary angioplasty status; Z79.82 Long term (current) use of aspirin; Z79.02 Long term (current) use of antithrombotics/antiplatelets; Z79.899 Other long term (current) drug therapy
CPT/HCPCS: 36415; 71010; 80048; 80076; 82550; 82553; 83880; 84484; 85025; 85379; 85610; 85730; 93005; J1644; J2270

== ENCOUNTER 2017-05-03 15:15 | Emergency (ER) | payer MEDICARE, MEDICAID ==
[2017-05-03] MEDS ORDERED: SODIUM CHLORIDE 0.9% (FLUSH) 10 ML SYG IV PRN (15:28)
--- NOTE | 2017-05-03 15:45 | RAD ---
Study: Single Frontal View of the Chest. Indication:SOB Comparison: March 31, 2017. Impression: Mild cardiomegaly without failure. Lungs clear. No acute osseous abnormality. Electronically signed by: Peter Monsalve MD 05/03/2017 3:42 PM CDT
[2017-05-03 16:14] VITALS: TEMP 98.6
--- NOTE | 2017-05-03 16:27 | ED.PDOC ---
History of Present Illness - General Chief Complaint: General Stated Complaint: dizziness,fever,shortness of breath Time Seen by Provider: 05/03/17 15:28 Source: patient Exam Limitations: no limitations - History of Present Illness Initial Comments: SX STARTED TODAY. LIGHT HEADEDNESS WITH STANDING AND WALKING. NO LIGHT HEADEDNESS AT REST. C/O EARS AND NOSE FEELING "PLUGGED" STARTING TODAY. Improving Factors: rest Worsening Factors: nothing Allergies/Adverse Reactions: Allergies NO KNOWN ALLERGY Allergy (Verified 03/31/17 14:07) Home Medications: Ambulatory Orders Glipizide 10 mg PO BID 11/06/13 Lisinopril 40 mg PO DAILY 11/06/13 hydrALAZINE HCl [HydrALAzine HCl] 50 mg PO TID 11/06/13 Isosorbide Mononitrate [Imdur] 60 mg PO DAILY 06/24/14 amLODIPine BESYLATE [Norvasc] 10 mg PO DAILY 06/24/14 Albuterol Sulfate [Proair Hfa] 2 puff INH Q6H PRN #1 04/25/16 Furosemide [Lasix] 40 mg PO DAILY 04/25/16 Levothyroxine Sodium [Synthroid] 50 mcg PO DAILY 04/25/16 Citalopram Hydrobromide [Celexa] 30 mg PO DAILY 07/27/16 Ranolazine [Ranexa] 500 mg PO BID 07/27/16 Carvedilol [Coreg] 25 mg PO BID 08/01/16 Pregabalin [Lyrica] 75 mg PO BID 08/01/16 Aspirin [Nancy Low Dose] 162 mg PO DAILY 08/15/16 Clopidogrel Bisulfate [Plavix] 75 mg PO BEDTIME 08/15/16 Duloxetine HCl [Cymbalta] 60 mg PO 11/12/16 Pantoprazole Sodium 40 mg PO 11/12/16 Ranitidine HCl 150 mg PO 11/12/16 Simvastatin [Zocor] 40 mg PO 11/12/16 Amoxicillin & Pot Clavulanate [Augmentin] 875 mg PO BID #20 tab 05/03/17 Review of Systems - Review of Systems Constitutional: Denies: diaphoresis, fever EENTM: States: ear pain, nose congestion. Denies: throat pain Respiratory: States: short of breath. Denies: cough, stridor, wheezing Cardiology: Denies: chest pain, palpitations Gastrointestinal/Abdominal: States: no symptoms reported Genitourinary: States: no symptoms reported Musculoskeletal: States: no symptoms reported Skin: States: no symptoms reported Neurological: States: no symptoms reported Endocrine: States: no symptoms reported Hematologic/Lymphatic: States: no symptoms reported All other Systems: Reviewed and Negative Past Medical History (General) - Patient Medical History Hx Seizures: No Hx Stroke: Yes - 2013, Jun 2016 Hx Dementia: No Hx Asthma: No Hx of COPD: No Hx Cardiac Disorders: Yes - 15 cardiac stents, SEVERAL [place]'S Hx Congestive Heart Failure: No Hx Pacemaker: No Hx Hypertension: Yes Hx Thyroid Disease: No Hx Diabetes: Yes Hx Gastroesophageal Reflux: Yes Hx Renal Disease: No Hx Cancer: No Hx of HIV: No Hx Hepatitis C: No Hx MRSA: No Surgical History: cholecystectomy - Vaccination History Hx Tetanus, Diphtheria Vaccination: - unknown Hx Influenza Vaccination: No Hx Pneumococcal Vaccination: Yes - Social History Hx Tobacco Use: Yes - quit 30 years ago Hx Chewing Tobacco Use: No Hx Alcohol Use: No Hx Substance Use: No Hx Substance Use Treatment: No Hx Depression: No Hx Physical Abuse: No Hx Emotional Abuse: No Hx Suspected Abuse: No - Female History Patient : No Family Medical History - Family History Mother Family History: Unknown Age (years): 86 Living Status: Age at (years of age): 86 Cause of : [place] Hx Family Asthma: No Hx Family Congestive Heart Failure: No Hx Family Hypertension: No Hx Family Stroke: No Hx Cardiac Disease: Yes - Mother Hx Family Diabetes: Yes - Sons Hx Family Cancer: Yes - cervical cancer-mom Physical Exam - Physical Exam General Appearance: Alert, Well Nourished Eye Exam: bilateral normal Ears, Nose, Throat: hearing grossly normal, normal pharynx, sinus pain/drainage - BL MAXILLARY SINUSES TTP. Neck: non-tender, full range of motion, supple Respiratory: chest non-tender, lungs clear, normal breath sounds, no respiratory distress, no accessory muscle use Cardiovascular/Chest: normal peripheral pulses, regular rate, rhythm, no edema, no gallop, no JVD, no murmur Peripheral Pulses: radial,right: 2+, radial,left: 2+ Gastrointestinal/Abdominal: normal bowel sounds, non tender, soft Extremity: normal range of motion, normal inspection, no calf tenderness Neurologic: claim rep [id number] nml as tested, alert, oriented x 3 Skin Exam: normal color, warm/dry Lymphatic: no adenopathy Progress - Progress Progress: 05/03/17 16:29 ORTHOSTATICS NEG. 05/03/17 16:55 CBC: HGB 11.3 (MILE ANEMIA). WBC NL. CMP UNREMARKABLE (GLUCOSE 238, HAS DM). BNP NEG, CXR NEG, EKG NSR. DYSPNEA - O2 SATS NL, NO TACHYCARDIA, NO HYPOXIA, THUS NOT CLINICALLY C/W PE THUS D-DIMER NOT INDICATED. PT HAS EXTENSIVE COMORBIDITIES THUS EXTENSIVE DYSPNEA W/U WAS INDICATED. SX D/ T BL ACUTE MAX SINUSITIS. RX ABX. - EKG/XRAY/CT EKG: Sinus Departure - Departure Clinical Impression: Acute maxillary sinusitis, Light-headedness, Dyspnea Disposition: Discharge to Home or Self Care Condition: Good Departure Forms: ED Discharge - Pt. Copy, Patient Portal Self Enrollment Instructions: DI for Sinusitis Diet: resume usual diet Activity: increase activity as tolerated Referrals: Lashay Levy NP [Primary Care Provider] - 1 Week Prescriptions: Amoxicillin & Pot Clavulanate [Augmentin] 875 mg PO BID #20 tab Home Medications: Ambulatory Orders Glipizide 10 mg PO BID 11/06/13 Lisinopril 40 mg PO DAILY 11/06/13 hydrALAZINE HCl [HydrALAzine HCl] 50 mg PO TID 11/06/13 Isosorbide Mononitrate [Imdur] 60 mg PO DAILY 06/24/14 amLODIPine BESYLATE [Norvasc] 10 mg PO DAILY 06/24/14 Albuterol Sulfate [Proair Hfa] 2 puff INH Q6H PRN #1 04/25/16 Furosemide [Lasix] 40 mg PO DAILY 04/25/16 Levothyroxine Sodium [Synthroid] 50 mcg PO DAILY 04/25/16 Citalopram Hydrobromide [Celexa] 30 mg PO DAILY 07/27/16 Ranolazine [Ranexa] 500 mg PO BID 07/27/16 Carvedilol [Coreg] 25 mg PO BID 08/01/16 Pregabalin [Lyrica] 75 mg PO BID 08/01/16 Aspirin [Nancy Low Dose] 162 mg PO DAILY 08/15/16 Clopidogrel Bisulfate [Plavix] 75 mg PO BEDTIME 08/15/16 Duloxetine HCl [Cymbalta] 60 mg PO 11/12/16 Pantoprazole Sodium 40 mg PO 11/12/16 Ranitidine HCl 150 mg PO 11/12/16 Simvastatin [Zocor] 40 mg PO 11/12/16 Amoxicillin & Pot Clavulanate [Augmentin] 875 mg PO BID #20 tab 05/03/17
[2017-05-03 17:01] VITALS: BP 137/65; O2SAT 95
[2017-05-03] MEDS ORDERED: AMOXICILLIN & POT CLAVULANATE 875 MG TAB PO ONE (17:10)
== END 2017-05-03 17:23 | disposition home or self-care (01) ==
LOC: ER 15:15
DX: J01.00 Acute maxillary sinusitis, unspecified (principal); R42 Dizziness and giddiness; R06.00 Dyspnea, unspecified; I25.2 Old myocardial infarction; I10 Essential (primary) hypertension; E11.9 Type 2 diabetes mellitus without complications; K21.9 Gastro-esophageal reflux disease without esophagitis; Z86.73 Personal history of transient ischemic attack (TIA), and cerebral infarction without residual deficits; Z98.61 Coronary angioplasty status; Z87.891 Personal history of nicotine dependence; Z79.899 Other long term (current) drug therapy; Z79.82 Long term (current) use of aspirin; Z79.02 Long term (current) use of antithrombotics/antiplatelets

== ENCOUNTER 2017-05-17 10:12 | Observation (INO) | payer MEDICARE, MEDICAID ==
[2017-05-17] MEDS ORDERED: NITROGLYCERIN 0.4 MG 25 EA TAB SL ONE (10:24)
[2017-05-17] MEDS ORDERED: ASPIRIN (CHEWABLE) 81 MG TAB PO ONE (10:24)
--- NOTE | 2017-05-17 10:27 | ED.PDOC ---
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 Timing/Duration: 1-3 hours Location: substernal, shoulder Activities at Onset: rest Prior Chest Pain/Cardiac Workup: angina, cardiac cath, cardiolye scan, heart attack Improving Factors: nothing Worsening Factors: nothing Nitro Today/Relief: provided at home Aspirin Treatment Today: provided at home Associated Symptoms: shortness of breath Allergies/Adverse Reactions: Allergies NO KNOWN ALLERGY Allergy (Verified 03/31/17 14:07) Home Medications: Ambulatory Orders Lisinopril 40 mg PO DAILY 11/06/13 hydrALAZINE HCl [HydrALAzine HCl] 50 mg PO TID 11/06/13 Isosorbide Mononitrate [Imdur] 60 mg PO BEDTIME 06/24/14 amLODIPine BESYLATE [Norvasc] 10 mg PO DAILY 06/24/14 Furosemide [Lasix] 40 mg PO DAILY 04/25/16 Levothyroxine Sodium [Synthroid] 50 mcg PO DAILY 04/25/16 Citalopram Hydrobromide [Celexa] 30 mg PO DAILY 07/27/16 Ranolazine [Ranexa] 500 mg PO BID 07/27/16 Carvedilol [Coreg] 25 mg PO BID 08/01/16 Pregabalin [Lyrica] 75 mg PO BID 08/01/16 Aspirin [Nancy Low Dose] 325 mg PO DAILY 08/15/16 Clopidogrel Bisulfate [Plavix] 75 mg PO BEDTIME 08/15/16 Pantoprazole Sodium 40 mg PO BEDTIME 11/12/16 Albuterol Sulfate [Proair Hfa] 1 puff INH Q6H PRN 05/17/17 Docusate Sodium 100 mg PO DAILY 05/17/17 Ferrous Sulfate [Iron] 65 mg PO DAILY 05/17/17 Insulin Glargine [Lantus Solostar] 26 unit SC .EVENING 05/17/17 Insulin Glargine [Lantus Solostar] 27 unit SC DAILY 05/17/17 Meclizine HCl 25 mg PO DAILY PRN 05/17/17 Nitroglycerin 0.4 mg Tab [Nitrostat] 1 ea SL PRN 05/17/17 Polyethylene Glycol 3350 [Miralax] 17 gm PO DAILY PRN 05/17/17 Review of Systems - Review of Systems Constitutional: States: no symptoms reported EENTM: States: no symptoms reported Respiratory: States: no symptoms reported Cardiology: States: see HPI Gastrointestinal/Abdominal: States: no symptoms reported Genitourinary: States: no symptoms reported Musculoskeletal: States: no symptoms reported Skin: States: no symptoms reported Neurological: States: other - neuropathy Endocrine: States: no symptoms reported Past Medical History (General) - Patient Medical History Hx Seizures: No Hx Stroke: Yes - 2013, Jun 2016 Hx Dementia: No Hx Asthma: No Hx of COPD: No Hx Cardiac Disorders: Yes - 15 cardiac stents, SEVERAL [place]'S Hx Congestive Heart Failure: No Hx Pacemaker: No Hx Hypertension: Yes Hx Thyroid Disease: No Hx Diabetes: Yes Hx Gastroesophageal Reflux: Yes Hx Renal Disease: No Hx Cancer: No Hx of HIV: No Hx Hepatitis C: No Hx MRSA: No Surgical History: other - cardiac stent,finger,cataract - Vaccination History Hx Tetanus, Diphtheria Vaccination: - unknown Hx Influenza Vaccination: No Hx Pneumococcal Vaccination: Yes - Social History Hx Tobacco Use: Yes - quit 30 years ago Hx Chewing Tobacco Use: No Hx Alcohol Use: No Hx Substance Use: No Hx Substance Use Treatment: No Hx Depression: No Hx Physical Abuse: No Hx Emotional Abuse: No Hx Suspected Abuse: No - Activities of Daily Living Patient Lives Alone: No - Grooming Ability: Independent Eating (Feeding) Ability: Independent Toileting Ability: Independent - Female History Patient : No Family Medical History - Family History Mother Family History: Unknown Age (years): 86 Living Status: Age at (years of age): 86 Cause of : [place] Hx Family Asthma: No Hx Family Congestive Heart Failure: No Hx Family Hypertension: No Hx Family Stroke: No Hx Cardiac Disease: Yes - Mother Hx Family Diabetes: Yes - Sons Hx Family Cancer: Yes - cervical cancer-mom Physical Exam - Physical Exam General Appearance: Alert, No apparent distress Eyes, Ears, Nose, Throat Exam: PERRL/EOMI, normal ENT inspection Neck: non-tender, full range of motion Respiratory: chest non-tender, lungs clear, normal breath sounds Cardiovascular/Chest: normal peripheral pulses, regular rate, rhythm, no murmur Peripheral Pulses: radial,right: 1+, radial,left: 1+ Gastrointestinal/Abdominal: non tender, soft, no organomegaly Extremity: normal range of motion, non-tender, no calf tenderness Neurologic: no motor/sensory deficits, alert, oriented x 3 Skin Exam: normal color, warm/dry Lymphatic: no adenopathy Progress - Progress Progress: 05/17/17 12:18 Vital Signs - 8 hr 05/17/17 10:34 Temperature 97.8 F Pulse Rate [ 64 Left Brachial] Respiratory 20 Rate Blood Pressure 132/57 [Left Arm] O2 Sat by Pulse 95 Oximetry - Results/Orders Results/Orders: Laboratory Tests 05/17/17 05/17/17 05/17/17 10:30 10:30 10:30 WBC 9.5 RBC 4.15 L Hgb 11.5 L Hct 34.6 L MCV 83.3 MCH 27.7 MCHC 33.2 RDW 15.2 H Plt Count 189 MPV 8.5 Absolute Neuts (auto) 6.40 Absolute Lymphs (auto) 2.00 Absolute Monos (auto) 0.80 Absolute Eos (auto) 0.20 Absolute Basos (auto) 0.10 Neutrophils % 67.8 Lymphocytes % 20.8 Monocytes % 8.1 Eosinophils % 2.5 Basophils % 0.8 PT 12.1 INR 1.070 PTT (SP) 31.9 D-Dimer, Quantitative < 200 Sodium 139 Potassium 3.7 Chloride 105 Carbon Dioxide 24 Anion Gap 13.7 BUN 15 Creatinine 1.87 H BUN/Creatinine Ratio 8.0 L Random Glucose 229 H Serum Osmolality 285.6 Calcium 8.6 Magnesium 1.7 L Total Bilirubin 0.6 Direct Bilirubin < 0.1 Indirect Bilirubin 0.5 AST 16 ALT 12 Alkaline Phosphatase 72 Creatine Kinase 69 CK-MB (CK-2) 1.6 CK-MB (CK-2) % Not Reportable Troponin I < 0.02 B-Natriuretic Peptide 35.9 Serum Total Protein 7.1 Albumin 3.8 05/17/17 12:30 WBC RBC Hgb Hct MCV MCH MCHC RDW Plt Count MPV Absolute Neuts (auto) Absolute Lymphs (auto) Absolute Monos (auto) Absolute Eos (auto) Absolute Basos (auto) Neutrophils % Lymphocytes % Monocytes % Eosinophils % Basophils % PT INR PTT (SP) D-Dimer, Quantitative Sodium Potassium Chloride Carbon Dioxide Anion Gap BUN Creatinine BUN/Creatinine Ratio Random Glucose Serum Osmolality Calcium Magnesium Total Bilirubin Direct Bilirubin Indirect Bilirubin AST ALT Alkaline Phosphatase Creatine Kinase CK-MB (CK-2) CK-MB (CK-2) % Troponin I < 0.02 B-Natriuretic Peptide Serum Total Protein Albumin - EKG/XRAY/CT EKG: Sinus, nonspecific ST T wave Chg Comments: Heart rate -60 XRAY: chest - stable chest Departure - Departure Clinical Impression: Chest pain Qualifiers: Chest pain type: chest pain due to myocardial ischemia Ischemic chest pain type : unspecified angina pectoris type Qualified Code(s): I20.9 - Angina pectoris, unspecified Coronary atherosclerosis Qualifiers: Coronary Disease-Associated Artery/Lesion type: unspecified vessel or lesion type [place] vs. transplanted heart: koi heart Associated angina: with unspecified angina Qualified Code(s): I25.119 - Atherosclerotic heart disease of koi coronary artery with unspecified angina pectoris Time of Disposition: 14:09 - D/W Dr. Abraham-Hospitalist for admit Disposition: Admit Patient Referrals: Lashay Levy NP [Primary Care Provider] - 1-2 Weeks Home Medications: Ambulatory Orders Lisinopril 40 mg PO DAILY 11/06/13 hydrALAZINE HCl [HydrALAzine HCl] 50 mg PO TID 11/06/13 Isosorbide Mononitrate [Imdur] 60 mg PO BEDTIME 06/24/14 amLODIPine BESYLATE [Norvasc] 10 mg PO DAILY 06/24/14 Furosemide [Lasix] 40 mg PO DAILY 04/25/16 Levothyroxine Sodium [Synthroid] 50 mcg PO DAILY 04/25/16 Citalopram Hydrobromide [Celexa] 30 mg PO DAILY 07/27/16 Ranolazine [Ranexa] 500 mg PO BID 07/27/16 Carvedilol [Coreg] 25 mg PO BID 08/01/16 Pregabalin [Lyrica] 75 mg PO BID 08/01/16 Aspirin [Nancy Low Dose] 325 mg PO DAILY 08/15/16 Clopidogrel Bisulfate [Plavix] 75 mg PO BEDTIME 08/15/16 Pantoprazole Sodium 40 mg PO BEDTIME 11/12/16 Albuterol Sulfate [Proair Hfa] 1 puff INH Q6H PRN 05/17/17 Docusate Sodium 100 mg PO DAILY 05/17/17 Ferrous Sulfate [Iron] 65 mg PO DAILY 05/17/17 Insulin Glargine [Lantus Solostar] 26 unit SC .EVENING 05/17/17 Insulin Glargine [Lantus Solostar] 27 unit SC DAILY 05/17/17 Meclizine HCl 25 mg PO DAILY PRN 05/17/17 Nitroglycerin 0.4 mg Tab [Nitrostat] 1 ea SL PRN 05/17/17 Polyethylene Glycol 3350 [Miralax] 17 gm PO DAILY PRN 05/17/17
[2017-05-17] MEDS ORDERED: NITROGLYCERIN 0.4 MG/HR PATCH TOP ONE (10:45)
--- NOTE | 2017-05-17 10:53 | RAD ---
EXAM DESCRIPTION: Chest,1 View CLINICAL HISTORY: pain COMPARISON: May 03, 2017 FINDINGS: The heart is at the upper limits of normal size for AP technique. Mediastinal contours are otherwise unremarkable. There is no airspace consolidation or pleural effusion. The bronchovascular markings are within normal limits, and the lungs are not hyperinflated. There is no pneumothorax or acute fracture. IMPRESSION: Stable borderline heart size, otherwise unremarkable exam. Electronically signed by: Luis Alberto Johnson MD 05/17/2017 10:52 AM CDT Workstation: [email or web address]
[2017-05-17] MEDS ORDERED: LISINOPRIL 10 MG TAB PO ONE (12:33)
--- NOTE | 2017-05-17 14:39 | HP ---
HISTORY OF PRESENT ILLNESS: This 76 year-old white male is placed in the hospital for overnight observation because of significant chest pain. Onset of the left anterior chest discomfort was noted last evening and persisted today. He lives at home with his . He had associated shortness of breath and it awoke him while he was sleeping. He is on oxygen at home and required extra oxygen. Some light-headedness yet no syncope evident. No palpitations or rhythm changes noted. He is a diabetic on twice daily insulin dosing. He has had a significant history of coronary artery disease with at least 3 myocardial infarctions and vessels that have required at least 17 stents and at this time his cardiology team states that nothing further can be done. The patient is quite anxious and is concerned about the presence of his discomfort. Nitroglycerin and aspirin had no significant effect. Slight tenderness is noted over the left anterior lateral chest wall upon palpation. Initial enzymes were within normal limits and the patient is placed in the hospital for overnight stay and to more adequately determine whether ischemic conditions are contributing to his current symptoms. Most recently in July of last year he had Tenecteplase for right sided weakness requiring shelter placement and rehabilitation following his acute treatment at [facility]. He is now better though still weak. PAST MEDICAL HISTORY: 1. Diabetes mellitus on insulin. 2. Hypertension. 3. Myocardial infarction in 1999, also in April of 2015 and another one even before that. 4. Gastroesophageal reflux disease. 5. History of an acute cerebrovascular accident with right sided weakness. 6. Bilateral cataracts. 7. Arthritis. 8. Multiple stents. PAST SURGICAL HISTORY: 1. Gallbladder removal. 2. Metacarpal phalangeal joint replacement on the right middle finger. 3. Colonoscopy. 4. Multiple cardiac catheterizations with approximately 17 stents. 5. Cataract surgery. CURRENT MEDICATIONS: Please refer to nurses' notes for an up to date verified list of home medications. ALLERGIES: PLEASE REFER TO LIST. CODE STATUS: FULL CODE. FAMILY HISTORY: Unknown as far as his father knows and his mother from heavy smoking in her 80s. SOCIAL HISTORY: He is . 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 Stopped smoking about 30 years ago. REVIEW OF SYSTEMS: Weight is stable. No fever or chills. HEENT: Vision is better after the cataract surgery. Hearing is fairly good. LUNGS: Shortness of breath with the patient getting tired and dyspneic quite easily. He coughs but no sputum produced. No hemoptysis. CARDIOVASCULAR: History of recurrent chest pains with no arrhythmia. History of recurring strokes and unstable angina by history with medical treatment being offered. GASTROINTESTINAL: Appetite is fairly good. No vomiting and no blood in the stools. GENITOURINARY: No dysuria. EXTREMITIES: Trace of edema noted chronically. NEUROLOGIC: No headaches. No focal weakness other than his right sided weakness which has shown some improvement after rehabilitation last fall. PHYSICAL EXAMINATION: VITAL SIGNS: Afebrile, pulse 57, blood pressure 165/74, room air saturation 97% . Weight 111.8 kilos. GENERAL: The patient is awake, alert and oriented and communicative. He was feeling a little bit better after resting in the Emergency Room and is placed in the hospital for overnight observation with repeat enzymes and EKG in the morning. HEENT: Within normal limits. NECK: Supple. No adenopathy. CHEST: Lungs have diminished breath sounds, otherwise clear. CARDIOVASCULAR: Heart tones regular. There is some slight chest discomfort upon palpation over the upper as well as inferolateral chest watkins. ABDOMEN: Slightly obese yet soft. No organomegaly evident. EXTREMITIES: 1+ pitting edema, good range of motion otherwise. NEUROLOGIC: No focal neurological deficits otherwise evident. The patient is awake, alert and oriented, and communicative. LABORATORY: White count 9,500, hemoglobin 11.5. INR 1.07, D-dimer zero. Chemistry shows potassium 3.7, BUN 15, creatinine elevated at 1.87, glucose 229 , calcium 8.6, magnesium 1.7 with normal 1.8 to 2.5. Liver enzymes normal. Troponin zero on repeat. Beta natriuretic peptide 36, albumin 3.8. Await urinalysis. No cultures obtained. Chest x-ray shows slight enlargement of the heart. ASSESSMENT: 1. Acute chest pain with serial EKG and cardiac enzymes to assist with ruling out underlying ischemic coronary disease contributing to his current symptoms. 2. Significant coronary artery disease with multiple stents and now being offered medical treatment since the cardiology group is unable to provide any additional interventional treatments at this time. Close followup necessary. 3. History of angina, unstable. 4. Anxiety disorder. 5. Chronic diabetes mellitus on insulin therapy. 6. History of hypertension. 7. History of gastroesophageal reflux disease. 8. History of cerebrovascular accident last fall with right sided weakness. PLAN: The patient will be observed overnight with repeat enzymes in the morning and EKG. Observe closely for any progression of symptoms. Continue current home medications and follow closely in diabetes control. Will have close followup with Dr. Gibson, corporate director talent assessment, and with Susan Levy in the [facility] upon discharge. Close followup necessary. #[id number] [facility]
[2017-05-17] MEDS ORDERED: NITROGLYCERIN 0.4 MG 25 EA TAB SL PRN (16:56)
[2017-05-17] MEDS ORDERED: ACETAMINOPHEN 325 MG TAB PO PRN (16:56)
[2017-05-17] MEDS ORDERED: MORPHINE SULFATE INJ 10 MG/ML VIAL IV PRN (16:56)
[2017-05-17] MEDS ORDERED: DEXTROSE 50% 25 GM/50 ML SYG IV PRN (16:56)
[2017-05-17] MEDS ORDERED: GLUCAGON INJ 1 MG VIAL SUBCU PRN (16:56)
[2017-05-17] MEDS ORDERED: SODIUM CHLORIDE 0.9% (FLUSH) 10 ML SYG IV PRN (16:56)
[2017-05-17] MEDS ORDERED: IV SET AND CAP CHANGE INJ INJ SCH (17:00)
[2017-05-17] MEDS ORDERED: CARBOXYMETHYLCELLULOSE 0.5% OPHTH SOL 0.4 ML UD BOTH_EYES PRN (17:08)
[2017-05-17] MEDS ORDERED: POLYETHYLENE GLYCOL 3350 17 GM PCKT PO PRN (17:12)
--- NOTE | 2017-05-17 17:17 | PCM.CORE ---
Physician DVT/VTE - Prophylaxis Currently: Patient already on anticoagulation therapy - Nurse DVT Assessment & Total Each Risk Factor Represents 3 Points: Age over 75 years, Medical PT with Hx of [place], CHF, Severe infection/sepsis Each Risk Factor is 1 Point: Obesity (BMI >25) DVT Assessment Score: 7
[2017-05-17] MEDS ORDERED: ENOXAPARIN SODIUM 40 MG/0.4 ML SYG SUBCU SCH (17:30)
[2017-05-17] MEDS: LEVALBUTEROL NEBS 1.25 MG/3 ML VIAL NEB SCH ×2 (17:43→23:50)
[2017-05-17] MEDS ORDERED: CARVEDILOL 12.5 MG TAB ONE (19:24)
[2017-05-17] MEDS ORDERED: ISOSORBIDE MONONITRATE (IMDUR) 30 MG TAB ONE (19:25)
[2017-05-17] MEDS ORDERED: CLOPIDOGREL 75 MG TAB PO SCH (21:00)
[2017-05-17] MEDS ORDERED: INSULIN DETEMIR 100 UNITS/ML PEN SUBCU SCH (21:00)
[2017-05-17] MEDS ORDERED: ISOSORBIDE MONONITRATE 60 MG PO SCH (21:00)
[2017-05-17] MEDS ORDERED: NON-FORMULARY MEDICATION 1 EA MIS (Carvedilol [Coreg] 25 MG) PO SCH (21:00)
[2017-05-17] MEDS: RANOLAZINE 500 MG TAB PO SCH (21:16)
[2017-05-17] MEDS: PREGABALIN 75 MG CAP PO SCH (21:17)
[2017-05-17] MEDS: LISINOPRIL 10 MG TAB PO SCH (21:17)
[2017-05-17] MEDS: INSULIN LISPRO 100 UNITS/ML PEN SUBCU SCH (21:19)
[2017-05-17] MEDS: SODIUM CHLORIDE 0.9% (FLUSH) 10 ML SYG IV SCH (21:20)
[2017-05-18] MEDS ORDERED: OMEPRAZOLE CAP 20 MG CAP PO SCH (06:30)
[2017-05-18] MEDS: INSULIN LISPRO 100 UNITS/ML PEN SUBCU SCH (07:12)
[2017-05-18] MEDS: LEVALBUTEROL NEBS 1.25 MG/3 ML VIAL NEB SCH (08:30)
[2017-05-18] MEDS: LISINOPRIL 10 MG TAB PO SCH (08:41)
[2017-05-18] MEDS: PREGABALIN 75 MG CAP PO SCH (08:42)
[2017-05-18] MEDS: RANOLAZINE 500 MG TAB PO SCH (08:42)
[2017-05-18] MEDS: SODIUM CHLORIDE 0.9% (FLUSH) 10 ML SYG IV SCH (08:43)
[2017-05-18] MEDS ORDERED: FUROSEMIDE 40 MG TAB PO SCH (09:00)
[2017-05-18] MEDS ORDERED: LEVOTHYROXINE SODIUM 0.025 MG TAB PO SCH (09:00)
[2017-05-18] MEDS ORDERED: DOCUSATE SODIUM 100 MG CAP PO SCH (09:00)
[2017-05-18] MEDS ORDERED: INSULIN DETEMIR 100 UNITS/ML PEN SUBCU SCH (09:00)
[2017-05-18] MEDS ORDERED: CITALOPRAM HBR 20 MG TAB PO SCH (09:00)
[2017-05-18] MEDS ORDERED: CARVEDILOL 12.5 MG TAB PO SCH (09:00)
[2017-05-18] MEDS ORDERED: amLODIPine BESYLATE 5 MG TAB PO SCH (09:00)
[2017-05-18] MEDS ORDERED: ASPIRIN TABLET 325 MG TAB PO SCH (09:00)
[2017-05-18] MEDS ORDERED: POTASSIUM CHLORIDE 20 MEQ TAB PO ONE (09:59)
[2017-05-18 10:21] VITALS: BP 154/79; TEMP 97.1; O2SAT 96
[2017-05-18] MEDS ORDERED: ISOSORBIDE MONONITRATE (IMDUR) 30 MG TAB PO SCH (21:00)
--- NOTE | 2017-05-19 08:37 | DS ---
SUPERVISING PHYSICIAN: Chauncey Hurst MD DISCHARGE DIAGNOSIS: 1. Chest pains with no evidence of acute ischemic changes as noted with negative cardiac enzymes and serial EKGs. 2. History of significant coronary artery disease with multiple stents on medical treatment since the cardiology group is unable to provide any additional interventional treatments, requiring close followup. 3. History of angina, unstable. 4. Anxiety disorder. 5. Chronic diabetes mellitus on insulin therapy. 6. History of hypertension. 7. History of gastroesophageal reflux disease. 8. History of cerebrovascular accident last fall with right sided weakness. HISTORY OF PRESENT ILLNESS: Mr. Reyna is a 76-year-old, male patient who is followed by [facility], Lashay Levy, Nurse Practitioner. He presented to the Emergency Room on 05/17/17 complaining of chest pain on the left anterior chest wall that had started the evening prior to admission and presented to the Emergency Room for examination. He lives at home with his . He had associated shortness of breath and it awoke him while he was sleeping. He is on oxygen at home and required extra oxygen. He had some light-headedness, yet no syncope evident. He reported no palpitations or rhythm changes noted. He is a diabetic on twice daily insulin dosing. He has had a significant history of coronary artery disease with at least 3 myocardial infarctions and vessels that have required at least 17 stents and at this time his cardiology team states that nothing further can be done interventionally. The patient is quite anxious and is concerned about the presence of his discomfort. He was given nitroglycerin and aspirin, which had no significant effect. He had some slight tenderness noted over the left anterior lateral chest wall upon palpation. Initial enzymes were within normal limits. The patient was placed in observation overnight to more adequately determine whether ischemic conditions were contributing to his current symptoms. Most recently in July of last year he had Tenecteplase for right sided weakness requiring snf placement and rehabilitation following his acute treatment at [facility]. He was placed in observation in stable condition. LABORATORY: CBC on admission showed white count 9.5, at discharge 7.8. Hemoglobin and hematocrit were slightly low with discharge hemoglobin of 10.6, hematocrit 32.5, platelet count 170,000, differential within normal limits. Coagulation studies showed a normal PT, PT-T and D-dimer less than 200. Chemistries on admission showed normal electrolytes. At discharge , he had a low potassium of 3.5. Creatinine initially was elevated on admission at 1.87, but by discharge had decreased to 1.65. BUN 15. Glucose was 229 on admission and ranged from 102 to 229 through hospitalization. Hemoglobin A1c 6.9. Calcium 8.6 on admission and discharge. Magnesium low at 1.7. Liver functions all within normal limits. He had three sets of cardiac enzymes. Initial cardiac enzymes were less than 0.02 and at discharge, troponin was 0.03. Creatinine 1.59. Liver panel showed triglycerides 182, cholesterol normal at 127, HDL low at 21, LDL 73. Urinalysis on admission showed glucose 250, otherwise within normal limits. RADIOLOGY: Chest x-ray in the Emergency Department prior to admission, single view, per radiologic interpretation showed stable borderline heart size, otherwise unremarkable exam. HOSPITAL COURSE: Mr. Reyna was admitted on 05/17/17 as noted in history of present illness. Initially in the Emergency Room, he was given nitroglycerin and aspirin which did not resolve his pain. Again, he was having some chest wall discomfort with palpation. He was given some morphine which did resolve his pain completely. He was placed on telemetry for cardiac monitoring, oxygen per protocol and had cardiac enzymes which were all negative. He had no recurrence of his chest pains. 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 His potassium was noted to be low on the day of discharge, and therefore he was given potassium replacement prior to discharge. PLAN: Mr. Reyna was discharged on 05/18/17 with instructions to followup with [facility] next week and to call for an appointment for followup and to followup with his drywall taper, Dr. Gibson, on 05/30/17 at 11 :30. He was to resume his home medications as directed and start new prescriptions as instructed. He was told to return to the hospital should he have any return of his chest pains or any other concerning symptoms. Prescription at discharge was K-Dur 20 mEq daily. All other medications prior to admission were to resume as per prior to hospitalization. Diet at discharge was low salt, ADA 1800 calorie diet. Activities to increase as tolerated. Condition at discharge was stable and improved. #[id number] [facility]
== END 2017-05-18 11:04 | disposition home health service (06) ==
LOC: ER 10:12 → MS 14:38
PROVIDERS: ADMIT Emergency Medicine; ATTEND Nurse Practitioner Family
DX: I25.110 Atherosclerotic heart disease of native coronary artery with unstable angina pectoris (principal); R07.89 Other chest pain; F41.9 Anxiety disorder, unspecified; E11.9 Type 2 diabetes mellitus without complications; I10 Essential (primary) hypertension; K21.9 Gastro-esophageal reflux disease without esophagitis; I69.351 Hemiplegia and hemiparesis following cerebral infarction affecting right dominant side; E87.6 Hypokalemia; R06.02 Shortness of breath; I25.2 Old myocardial infarction; M19.90 Unspecified osteoarthritis, unspecified site; Z95.5 Presence of coronary angioplasty implant and graft; Z99.81 Dependence on supplemental oxygen; Z79.4 Long term (current) use of insulin; Z79.02 Long term (current) use of antithrombotics/antiplatelets; Z79.82 Long term (current) use of aspirin; Z79.899 Other long term (current) drug therapy; Z87.891 Personal history of nicotine dependence; Z90.49 Acquired absence of other specified parts of digestive tract
CPT/HCPCS: 36415 ×5; 36416 ×2; 71010; 80048 ×2; 80061; 80076; 81001; 82550 ×2; 82553 ×2; 82948 ×2; 83036; 83880; 84484 ×3; 85025 ×2; 85379; 85610; 85730; 93005 ×2; 94640 ×2; 94760 ×2; 96372 ×2; 96374; 99284; G0378; J1650; J1815 ×2; J2270; J7614 ×3

== ENCOUNTER 2017-05-19 11:45 | Emergency (ER) | payer MEDICARE, MEDICAID ==
[2017-05-19] MEDS ORDERED: NITROGLYCERIN 0.4 MG 25 EA TAB SL ONE (11:46)
[2017-05-19] MEDS ORDERED: ASPIRIN TABLET 325 MG TAB PO ONE (11:46)
--- NOTE | 2017-05-19 12:00 | RAD ---
EXAM DESCRIPTION: Chest,1 View CLINICAL HISTORY: 76 years Male, chest pain COMPARISON: May 17, 2017 TECHNIQUE: AP portable chest. FINDINGS: Little change in the appearance of the chest is noted with fair inspiration, accentuating the cardiac silhouette and central vascularity. No infiltrates or effusions or masses are noted. The aorta is tortuous. Overt pulmonary edema or cardiac decompensation is not apparent. IMPRESSION: Poor inspiration with no acute abnormality or interval change from two days earlier Electronically signed by: Chauncey Lawler MD 05/19/2017 11:59 AM CDT
--- NOTE | 2017-05-19 12:00 | ED.PDOC ---
History of Present Illness - General Chief Complaint: Chest Pain/AR Stated Complaint: chest pain Time Seen by Provider: 05/19/17 11:54 Source: patient, RN notes reviewed, EMS notes reviewed Exam Limitations: no limitations - History of Present Illness Initial Comments: Bonifacio Reyna 76 y/o male stated that he was sent home from hospital following obs for chest pain symptoms r/o mi .This morning he again had onset of sharp / stabbing pains left side chest with radiation to left arm took 2 NTG and his aspirin but continue to have the symptoms so he called up ems and one NTG was again given.Also according to him he was told that he passed out for few minutes and woke up when ambulance got to his house.Mentioned that blood sugar was 98 finger stick Timing/Duration: 1-3 hours Severity: moderate Location: other - left side Activities at Onset: rest Prior Chest Pain/Cardiac Workup: cardiac cath, cardiolye scan, echocardiography Improving Factors: nothing Worsening Factors: nothing Nitro Today/Relief: 0.4 mg x 3, provided by EMS, provided at home Aspirin Treatment Today: 325 mg x 1, provided at home Associated Symptoms: shortness of breath Allergies/Adverse Reactions: Allergies NO KNOWN ALLERGY Allergy (Verified 05/19/17 12:00) Home Medications: Ambulatory Orders Lisinopril 40 mg PO TID 11/06/13 hydrALAZINE HCl [HydrALAzine HCl] 50 mg PO TID 11/06/13 Isosorbide Mononitrate [Imdur] 60 mg PO BEDTIME 06/24/14 amLODIPine BESYLATE [Norvasc] 10 mg PO DAILY 06/24/14 Furosemide [Lasix] 40 mg PO DAILY 04/25/16 Levothyroxine Sodium [Synthroid] 50 mcg PO DAILY 04/25/16 Citalopram Hydrobromide [Celexa] 30 mg PO DAILY 07/27/16 Ranolazine [Ranexa] 500 mg PO BID 07/27/16 Carvedilol [Coreg] 25 mg PO BID 08/01/16 Pregabalin [Lyrica] 75 mg PO BID 08/01/16 Aspirin [Nancy Low Dose] 325 mg PO DAILY 08/15/16 Clopidogrel Bisulfate [Plavix] 75 mg PO BEDTIME 08/15/16 Pantoprazole Sodium 40 mg PO BEDTIME 11/12/16 Albuterol Sulfate [Proair Hfa] 1 puff INH Q6H PRN 05/17/17 Docusate Sodium 100 mg PO DAILY 05/17/17 Ferrous Sulfate [Iron] 65 mg PO DAILY 05/17/17 Insulin Glargine [Lantus Solostar] 26 unit SC .EVENING 05/17/17 Insulin Glargine [Lantus Solostar] 27 unit SC DAILY 05/17/17 Meclizine HCl 25 mg PO DAILY PRN 05/17/17 Nitroglycerin 0.4 mg Tab [Nitrostat] 1 ea SL PRN 05/17/17 Polyethylene Glycol 3350 [Miralax] 17 gm PO DAILY PRN 05/17/17 Potassium Chloride Tab [K-Dur] 20 meq PO DAILY #30 tab 05/18/17 Review of Systems - Review of Systems Constitutional: States: no symptoms reported EENTM: States: no symptoms reported Respiratory: States: no symptoms reported Cardiology: States: see HPI Gastrointestinal/Abdominal: States: no symptoms reported Genitourinary: States: no symptoms reported Musculoskeletal: States: no symptoms reported Skin: States: no symptoms reported Neurological: States: numbness, weakness - left side Endocrine: States: no symptoms reported Hematologic/Lymphatic: States: no symptoms reported Past Medical History (General) - Patient Medical History Hx Seizures: No Hx Stroke: Yes - 2013, Jun 2016 Hx Dementia: No Hx Asthma: No Hx of COPD: No Hx Cardiac Disorders: Yes - 15 cardiac stents, SEVERAL AR'S Hx Congestive Heart Failure: Yes Hx Pacemaker: No Hx Hypertension: Yes Hx Thyroid Disease: No Hx Diabetes: Yes Hx Gastroesophageal Reflux: Yes Hx Renal Disease: No Hx Cancer: No Hx of HIV: No Hx Hepatitis C: No Hx MRSA: No Surgical History: cholecystectomy, other - cataract,finger,cardiac stent - Vaccination History Hx Tetanus, Diphtheria Vaccination: - unknown Hx Influenza Vaccination: No Hx Pneumococcal Vaccination: Yes - Social History Hx Tobacco Use: Yes - quit 30 years ago Hx Chewing Tobacco Use: No Hx Alcohol Use: No Hx Substance Use: No Hx Substance Use Treatment: No Hx Depression: No Hx Physical Abuse: No Hx Emotional Abuse: No Hx Suspected Abuse: No - Activities of Daily Living Patient Lives Alone: No - Home Health Agency (if applicable): [facility] Grooming Ability: Independent Eating (Feeding) Ability: Independent Toileting Ability: Independent - Female History Patient : No Family Medical History - Family History Mother Family History: Unknown Age (years): 86 Living Status: Age at (years of age): 86 Cause of : AR Hx Family Asthma: No Hx Family Congestive Heart Failure: No Hx Family Hypertension: No Hx Family Stroke: No Hx Cardiac Disease: Yes - mother/son Hx Family Diabetes: Yes - Sons Hx Family Cancer: Yes - cervical cancer-mom Physical Exam - Physical Exam General Appearance: Alert, Anxious, No apparent distress Eyes, Ears, Nose, Throat Exam: PERRL/EOMI, TMs normal, pharynx normal Neck: non-tender, full range of motion, normal inspection Respiratory: chest non-tender, lungs clear, normal breath sounds Cardiovascular/Chest: normal peripheral pulses, regular rate, rhythm, no murmur Peripheral Pulses: radial,right: 1+, radial,left: 1+ Gastrointestinal/Abdominal: normal bowel sounds, non tender, soft Extremity: normal range of motion, no pedal edema, no calf tenderness Neurologic: motor weakness - left upper extremity 4/5 Skin Exam: normal color Lymphatic: no adenopathy Progress - Progress Progress: 05/19/17 12:28 Vital Signs - 8 hr 05/19/17 11:48 Temperature 98.1 F Pulse Rate [ 63 pulse ox] Respiratory 20 Rate Blood Pressure 127/68 [Left Arm] O2 Sat by Pulse 96 Oximetry Laboratory Tests 05/19/17 05/19/17 11:45 11:45 WBC 8.4 RBC 4.30 L Hgb 11.8 L Hct 35.7 L MCV 83.0 MCH 27.4 MCHC 33.0 RDW 15.4 H Plt Count 192 MPV 9.2 Absolute Neuts (auto) 5.20 Absolute Lymphs (auto) 2.10 Absolute Monos (auto) 0.70 Absolute Eos (auto) 0.30 Absolute Basos (auto) 0.10 Neutrophils % 62.4 Lymphocytes % 24.8 Monocytes % 8.1 Eosinophils % 3.7 Basophils % 1.0 PT 11.8 INR 1.040 PTT (SP) 32.8 D-Dimer, Quantitative < 200 Sodium 137 Potassium 3.8 Chloride 103 Carbon Dioxide 24 Anion Gap 13.8 BUN 16 Creatinine 1.82 H BUN/Creatinine Ratio 8.8 L Random Glucose 214 H D Serum Osmolality 281.4 Calcium 8.5 Magnesium 1.9 Creatine Kinase 70 CK-MB (CK-2) 1.7 CK-MB (CK-2) % Not Reportable Troponin I < 0.02 - EKG/XRAY/CT EKG: Sinus, nonspecific ST T wave Chg Comments: Heart rate-63 Departure - Departure Clinical Impression: Renal insufficiency, Coronary arteriosclerosis in [place] artery, Left arm weakness Chest pain Qualifiers: Chest pain type: chest pain due to myocardial ischemia Ischemic chest pain type : other angina pectoris type Qualified Code(s): I20.8 - Other forms of angina pectoris Syncopal episodes Qualifiers: Syncope type: unspecified Qualified Code(s): R55 - Syncope and collapse Time of Disposition: 15:16 Disposition: Transfer to Hospital Condition: Fair Departure Forms: Patient Portal Self Enrollment Referrals: Lashay Levy NP [Primary Care Provider] - 1-2 Weeks Home Medications: Ambulatory Orders Lisinopril 40 mg PO TID 11/06/13 hydrALAZINE HCl [HydrALAzine HCl] 50 mg PO TID 11/06/13 Isosorbide Mononitrate [Imdur] 60 mg PO BEDTIME 06/24/14 amLODIPine BESYLATE [Norvasc] 10 mg PO DAILY 06/24/14 Furosemide [Lasix] 40 mg PO DAILY 04/25/16 Levothyroxine Sodium [Synthroid] 50 mcg PO DAILY 04/25/16 Citalopram Hydrobromide [Celexa] 30 mg PO DAILY 07/27/16 Ranolazine [Ranexa] 500 mg PO BID 07/27/16 Carvedilol [Coreg] 25 mg PO BID 08/01/16 Pregabalin [Lyrica] 75 mg PO BID 08/01/16 Aspirin [Nancy Low Dose] 325 mg PO DAILY 08/15/16 Clopidogrel Bisulfate [Plavix] 75 mg PO BEDTIME 08/15/16 Pantoprazole Sodium 40 mg PO BEDTIME 11/12/16 Albuterol Sulfate [Proair Hfa] 1 puff INH Q6H PRN 05/17/17 Docusate Sodium 100 mg PO DAILY 05/17/17 Ferrous Sulfate [Iron] 65 mg PO DAILY 05/17/17 Insulin Glargine [Lantus Solostar] 26 unit SC .EVENING 05/17/17 Insulin Glargine [Lantus Solostar] 27 unit SC DAILY 05/17/17 Meclizine HCl 25 mg PO DAILY PRN 05/17/17 Nitroglycerin 0.4 mg Tab [Nitrostat] 1 ea SL PRN 05/17/17 Polyethylene Glycol 3350 [Miralax] 17 gm PO DAILY PRN 05/17/17 Potassium Chloride Tab [K-Dur] 20 meq PO DAILY #30 tab 05/18/17 Transfer to Outside Facility - Transfer Information Accepting Provider:: Dr.Myers-ER BANKS Accepting Facility: [facility] Reason for Transfer: required specialist not available
[2017-05-19] MEDS ORDERED: NITROGLYCERIN/D5W IV 250 ML IVS ONE (13:16)
[2017-05-19] MEDS ORDERED: NITROGLYCERIN/D5W IV 50,000 MCG in PREMIX BOTTLE 1 BOTTLE IVS SCH (13:30)
--- NOTE | 2017-05-19 13:56 | CT ---
EXAM DESCRIPTION: Head CLINICAL HISTORY: weakness arm COMPARISON: February 2017 TECHNIQUE: Noncontrast transaxial CT images of the head are obtained from base to vertex. This exam was performed according to our departmental dose-optimization program, which includes automated exposure control, adjustment of the mA and/or kV according to patient size and/or use of iterative reconstruction technique. FINDINGS: The midline structures are not displaced. Sulci are age-appropriate. There are areas of decreased attenuation in the periventricular white matter and the white matter of the centrum semiovale. There is no evidence of mass, mass-effect, hydrocephalus, or acute intracranial hemorrhage. No abnormal extra axial fluid collection is seen. Bone windows show no evidence of depressed skull fracture. Moderate calcifications of the intracranial carotid arteries are seen. Mild mucosal thickening or polyps in the ethmoid to frontal sinus region with mild mucosal thickening in the ethmoid air cells stable from previous.. IMPRESSION: 1. Age-appropriate atrophy with evidence of old small vessel ischemic type changes seen. 2. No acute abnormality is seen on noncontrast CT of the head. No significant interval change. Electronically signed by: Jamari Hill MD 05/19/2017 1:55 PM CDT
--- NOTE | 2017-05-19 14:01 | CT ---
EXAM DESCRIPTION: Cervical Spine CLINICAL HISTORY: fall,syncope/weakness left shoulder COMPARISON: None Available. TECHNIQUE: Cervical CT is performed with thin-section axial imaging. MPRs are created and reviewed as well. This exam was performed according to our departmental dose-optimization program, which includes automated exposure control, adjustment of the mA and/or kV according to patient size and/or use of iterative reconstruction technique. FINDINGS: CT of the cervical spine shows a normal loss of cervical lordosis with advanced hypertrophic degenerative changes involving the atlantoaxial articulation at C1-2 anteriorly without underlying fracture of the odontoid or ring of C1 and no malalignment of the craniocervical junction. One or 2 mm of degenerative subluxation at the C4-5 level with significant at degenerative disc narrowing and anterior spurring at C5-6 is noted. On the left the facet arthropathy is most prominent at C4-5 and C5-6 and to a lesser extent C6-7. On the right less severe degenerative facet arthropathy is noted. No fracture or deformity is seen. The bony spinal canal is preserved without fracture. IMPRESSION: Degenerative disc disease most prominent at C5-6 and predominant left-sided facet arthropathy with no acute injury with additional degenerative changes anteriorly at the C1-2 articulation. Electronically signed by: Chauncey Lawler MD 05/19/2017 2:00 PM CDT
--- NOTE | 2017-05-19 14:02 | RAD ---
EXAM DESCRIPTION: Shoulder,Left 2 or More Views CLINICAL HISTORY: pain/weakness left shoulder COMPARISON: None Available. TECHNIQUE: Two views of the left shoulder. FINDINGS: The bones are osteopenic with moderate degenerative changes at the AC joint articulation and mild superior migration of the humeral head suggesting significant rotator cuff degeneration and thinning in the possibility of a rotator cuff tear. The chest wall is intact and no fracture or dislocation is seen. IMPRESSION: 1. Osteopenia and degenerative changes with superior migration of the humeral head suggesting at degeneration and thinning of the rotator cuff. Electronically signed by: Chauncey Lawler MD 05/19/2017 2:01 PM CDT
[2017-05-19 15:23] VITALS: TEMP 97
[2017-05-19 16:28] VITALS: BP 121/51; O2SAT 94
== END 2017-05-19 16:27 | disposition short-term general hospital (02) ==
LOC: ER 11:45
DX: I25.118 Atherosclerotic heart disease of native coronary artery with other forms of angina pectoris (principal); N28.9 Disorder of kidney and ureter, unspecified; M62.81 Muscle weakness (generalized); R55 Syncope and collapse; Z87.891 Personal history of nicotine dependence; I25.2 Old myocardial infarction; Z98.61 Coronary angioplasty status; I11.0 Hypertensive heart disease with heart failure; I50.9 Heart failure, unspecified; E11.9 Type 2 diabetes mellitus without complications; K21.9 Gastro-esophageal reflux disease without esophagitis; Z86.73 Personal history of transient ischemic attack (TIA), and cerebral infarction without residual deficits; Z79.82 Long term (current) use of aspirin; Z79.02 Long term (current) use of antithrombotics/antiplatelets; Z79.4 Long term (current) use of insulin; Z79.899 Other long term (current) drug therapy

== ENCOUNTER → 2017-06-27 | Outpatient (CLI) | payer MEDICARE, OTHER | LOC: YCFC.O 11:32 | PROVIDERS: ATTEND Nurse Practitioner Family | DX: I11.0 Hypertensive heart disease with heart failure (principal); I50.9 Heart failure, unspecified; E11.40 Type 2 diabetes mellitus with diabetic neuropathy, unspecified; E61.1 Iron deficiency | CPT/HCPCS: 36415; 80053; 82728; 83036; 83540; 83880; 85025; G0103 ==

== ENCOUNTER 2017-07-14 23:31 | Emergency (ER) | payer MEDICARE, OTHER ==
[2017-07-14] MEDS ORDERED: SODIUM CHLORIDE 0.9% (FLUSH) 10 ML SYG IV PRN (23:44)
[2017-07-14] MEDS ORDERED: MORPHINE SULFATE INJ 10 MG/ML VIAL IV ONE (23:50)
[2017-07-14] MEDS ORDERED: ONDANSETRON INJ 4 MG/2 ML VIAL IV ONE (23:51)
--- NOTE | 2017-07-14 23:54 | ED.PDOC ---
History of Present Illness - General Chief Complaint: Chest Pain/ID Stated Complaint: chest pain Time Seen by Provider: 07/14/17 23:49 Source: patient Exam Limitations: no limitations Additional Information: HAS BEEN HAVING CHEST PAIN SINCE 2230 HRS TONIGHT. HAS KNOWN CAD AND VOICES THAT HE HAS [address] TERRELL IS HIS [employer]. THE PAIN IS DESCRIBED AN ELECTRICAL PAIN THAT COMES INTERMITTENTLY AND LAST 3 -4 SECONDS AND THEN DISAPPEARS. THE PAIN IS 5-6/10. HE TOOK 5 NTG AT HOME AND THEN THE AMBULANCE GAVE IN ONE MORE. - History of Present Illness Timing/Duration: 1-3 hours Severity/Quality: moderate, other - ELECTROCAL PAIN Location: substernal Chest Pain Radiation: no radiation Activities at Onset: none Prior Chest Pain/Cardiac Workup: cardiac cath Improving Factors: nothing Worsening Factors: nothing Nitro Today/Relief: 0.4 mg x 4, provided at home Aspirin Treatment Today: 325 mg x 1 Associated Symptoms: denies symptoms Allergies/Adverse Reactions: Allergies NO KNOWN ALLERGY Allergy (Verified 05/19/17 12:00) Home Medications: Ambulatory Orders Lisinopril 40 mg PO TID 11/06/13 hydrALAZINE HCl [HydrALAzine HCl] 50 mg PO TID 11/06/13 Isosorbide Mononitrate [Imdur] 60 mg PO BEDTIME 06/24/14 amLODIPine BESYLATE [Norvasc] 10 mg PO DAILY 06/24/14 Furosemide [Lasix] 40 mg PO DAILY 04/25/16 Levothyroxine Sodium [Synthroid] 50 mcg PO DAILY 04/25/16 Citalopram Hydrobromide [Celexa] 30 mg PO DAILY 07/27/16 Ranolazine [Ranexa] 500 mg PO BID 07/27/16 Carvedilol [Coreg] 25 mg PO BID 08/01/16 Pregabalin [Lyrica] 75 mg PO BID 08/01/16 Aspirin [Nancy Low Dose] 325 mg PO DAILY 08/15/16 Clopidogrel Bisulfate [Plavix] 75 mg PO BEDTIME 08/15/16 Pantoprazole Sodium 40 mg PO BEDTIME 11/12/16 Albuterol Sulfate [Proair Hfa] 1 puff INH Q6H PRN 05/17/17 Docusate Sodium 100 mg PO DAILY 05/17/17 Ferrous Sulfate [Iron] 65 mg PO DAILY 05/17/17 Insulin Glargine [Lantus Solostar] 26 unit SC .EVENING 05/17/17 Insulin Glargine [Lantus Solostar] 27 unit SC DAILY 05/17/17 Meclizine HCl 25 mg PO DAILY PRN 05/17/17 Nitroglycerin 0.4 mg Tab [Nitrostat] 1 ea SL PRN 05/17/17 Polyethylene Glycol 3350 [Miralax] 17 gm PO DAILY PRN 05/17/17 Potassium Chloride Tab [K-Dur] 20 meq PO DAILY #30 tab 05/18/17 Review of Systems - Review of Systems Constitutional: States: malaise EENTM: States: no symptoms reported Respiratory: States: short of breath Cardiology: States: chest pain Gastrointestinal/Abdominal: States: no symptoms reported Genitourinary: States: no symptoms reported Musculoskeletal: States: no symptoms reported Skin: States: no symptoms reported Neurological: States: no symptoms reported Endocrine: States: no symptoms reported Hematologic/Lymphatic: States: no symptoms reported Past Medical History (General) - Patient Medical History Hx Seizures: No Hx Stroke: Yes - 2013, Jun 2016 Hx Dementia: No Hx Asthma: No Hx of COPD: No Hx Cardiac Disorders: Yes - 15 cardiac stents, SEVERAL ID'S Hx Congestive Heart Failure: Yes Hx Pacemaker: No Hx Hypertension: Yes Hx Thyroid Disease: No Hx Diabetes: Yes Hx Gastroesophageal Reflux: Yes Hx Renal Disease: No Hx Cancer: No Hx of HIV: No Hx Hepatitis C: No Hx MRSA: No - Vaccination History Hx Tetanus, Diphtheria Vaccination: - unknown Hx Influenza Vaccination: No Hx Pneumococcal Vaccination: Yes - Social History Hx Tobacco Use: Yes - quit 30 years ago Hx Chewing Tobacco Use: No Hx Alcohol Use: No Hx Substance Use: No Hx Substance Use Treatment: No Hx Depression: No Hx Physical Abuse: No Hx Emotional Abuse: No Hx Suspected Abuse: No - Female History Patient : No Family Medical History - Family History Mother Family History: Unknown Age (years): 86 Living Status: Age at (years of age): 86 Cause of : ID Hx Family Asthma: No Hx Family Congestive Heart Failure: No Hx Family Hypertension: No Hx Family Stroke: No Hx Cardiac Disease: Yes - mother/son Hx Family Diabetes: Yes - Sons Hx Family Cancer: Yes - cervical cancer-mom Physical Exam - Physical Exam General Appearance: Anxious, Well Groomed Eyes, Ears, Nose, Throat Exam: PERRL/EOMI, normal ENT inspection, TMs normal, pharynx normal Neck: non-tender, full range of motion, supple, normal inspection Respiratory: chest non-tender, lungs clear, normal breath sounds, no respiratory distress, no accessory muscle use Cardiovascular/Chest: normal peripheral pulses, regular rate, rhythm, no edema, no gallop, no JVD, no murmur Peripheral Pulses: radial,right: 2+, radial,left: 2+ Gastrointestinal/Abdominal: normal bowel sounds, non tender, soft, no organomegaly, no pulsatile mass Rectal Exam: deferred Extremity: normal range of motion, non-tender, normal inspection Neurologic: alert, normal mood/affect, oriented x 3 Skin Exam: normal color, warm/dry Lymphatic: no adenopathy Progress - Progress Progress: 07/15/17 01:20 HE IS NOW PAIN FREE. EKG HAS A HR OF 61, SD INTERVAL OF 192, QRS OF 106, QTC OF 402 AND AXES OF -9 DEGREES. IMPRESSION: SINUS RHYTHM, NO ACUTE INJURY PATTERN. COMPARISON MAY 18/2017 THERE ARE NO INTERVAL CHANGES NOTED. TROPONIN I WAS 0.02, CREATININE WAS 1.86 07/15/17 01:25 CXR WITH CARDIOMEGALY NO ACUTE PROCESS - EKG/XRAY/CT Xray Comments: NO ACUTE PROCESS Departure - Departure Clinical Impression: Atypical chest pain CAD (coronary artery disease) Qualifiers: Coronary Disease-Associated Artery/Lesion type: unspecified vessel or lesion type [place] vs. transplanted heart: [place] heart Associated angina: with stable angina Qualified Code(s): I25.118 - Atherosclerotic heart disease of [place] coronary artery with other forms of angina pectoris Time of Disposition: :28 Disposition: Discharge to Home or Self Care Condition: Fair Departure Forms: ED Discharge - Pt. Copy, Patient Portal Self Enrollment Diet: resume usual diet - FOLLOW UP WITH DR. TERRELL Referrals: Lashay Levy NP [Primary Care Provider] - 1-2 Weeks Home Medications: Ambulatory Orders Lisinopril 40 mg PO TID 11/06/13 hydrALAZINE HCl [HydrALAzine HCl] 50 mg PO TID 11/06/13 Isosorbide Mononitrate [Imdur] 60 mg PO BEDTIME 06/24/14 amLODIPine BESYLATE [Norvasc] 10 mg PO DAILY 06/24/14 Furosemide [Lasix] 40 mg PO DAILY 04/25/16 Levothyroxine Sodium [Synthroid] 50 mcg PO DAILY 04/25/16 Citalopram Hydrobromide [Celexa] 30 mg PO DAILY 07/27/16 Ranolazine [Ranexa] 500 mg PO BID 07/27/16 Carvedilol [Coreg] 25 mg PO BID 08/01/16 Pregabalin [Lyrica] 75 mg PO BID 08/01/16 Aspirin [Nancy Low Dose] 325 mg PO DAILY 08/15/16 Clopidogrel Bisulfate [Plavix] 75 mg PO BEDTIME 08/15/16 Pantoprazole Sodium 40 mg PO BEDTIME 11/12/16 Albuterol Sulfate [Proair Hfa] 1 puff INH Q6H PRN 05/17/17 Docusate Sodium 100 mg PO DAILY 05/17/17 Ferrous Sulfate [Iron] 65 mg PO DAILY 05/17/17 Insulin Glargine [Lantus Solostar] 26 unit SC .EVENING 05/17/17 Insulin Glargine [Lantus Solostar] 27 unit SC DAILY 05/17/17 Meclizine HCl 25 mg PO DAILY PRN 05/17/17 Nitroglycerin 0.4 mg Tab [Nitrostat] 1 ea SL PRN 05/17/17 Polyethylene Glycol 3350 [Miralax] 17 gm PO DAILY PRN 05/17/17 Potassium Chloride Tab [K-Dur] 20 meq PO DAILY #30 tab 05/18/17
--- NOTE | 2017-07-15 00:09 | RAD ---
Examination: XR CHEST 1 VIEW dated 07/14/2017 11:44 PM CDT History: chest pain Comparison: 05/19/2017 Technique: Frontal view of the chest Findings: Low inspiratory volumes. No focal airspace consolidation. No pneumothorax or pleural effusion. Stable cardiac silhouette. Impression: Stable examination. No acute disease. Electronically signed by: Jed Frausto MD 07/15/2017 12:07 AM CDT
[2017-07-15 01:31] VITALS: O2SAT 97
[2017-07-15 01:50] VITALS: BP 145/56; TEMP 97
== END 2017-07-15 01:50 | disposition home or self-care (01) ==
LOC: ER 23:31
DX: I25.119 Atherosclerotic heart disease of native coronary artery with unspecified angina pectoris (principal); I25.2 Old myocardial infarction; Z98.61 Coronary angioplasty status; I11.0 Hypertensive heart disease with heart failure; I50.9 Heart failure, unspecified; E11.9 Type 2 diabetes mellitus without complications; Z86.73 Personal history of transient ischemic attack (TIA), and cerebral infarction without residual deficits; Z79.82 Long term (current) use of aspirin; Z79.4 Long term (current) use of insulin; Z79.02 Long term (current) use of antithrombotics/antiplatelets; Z79.899 Other long term (current) drug therapy
CPT/HCPCS: 36415; 71010; 80048; 82550; 82553; 83880; 84484; 85025; 85610; 85730; 93005; 94760; J2270; J2405

== ENCOUNTER 2017-07-22 14:07 | Observation (INO) | payer MEDICARE, OTHER ==
[2017-07-22] MEDS ORDERED: SODIUM CHLORIDE 0.9% (FLUSH) 10 ML SYG IV PRN ×2 (14:37→21:35)
--- NOTE | 2017-07-22 15:08 | ED.PDOC ---
History of Present Illness - General Chief Complaint: Neuro Symptoms/Deficits Stated Complaint: numbness left arm and left side of face Time Seen by Provider: 07/22/17 14:37 Source: patient Exam Limitations: no limitations - History of Present Illness Initial Comments: PT PRESENTS TO THE ED WITH COMPLAINT OF LEFT ARM, LEFT NECK/FACIAL PAIN ASSOCIATED WITH NUMBNESS. PT REPORTS PAIN WAS 8/10 AT ONSET. HE STATES HE TOOK 2 ALEVE AT HOME WITH RELIEF. PT WAS SENT HERE FOR EVALUATION AFTER PRESENTING IN [facility] OFFICE. PT DENIES CHEST PAIN BUT DOES COMPLAIN OF SORENESS TO LEFT ANTERIOR SHOULDER. Timing/Duration: 1-3 hours Severity: moderate Improving Factors: nothing Worsening Factors: nothing Associated Symptoms: weakness - OF THE LUE Allergies/Adverse Reactions: Allergies NO KNOWN ALLERGY Allergy (Verified 05/19/17 12:00) Home Medications: Ambulatory Orders Lisinopril 40 mg PO TID 11/06/13 hydrALAZINE HCl [HydrALAzine HCl] 50 mg PO TID 11/06/13 Isosorbide Mononitrate [Imdur] 60 mg PO BEDTIME 06/24/14 amLODIPine BESYLATE [Norvasc] 10 mg PO DAILY 06/24/14 Furosemide [Lasix] 40 mg PO DAILY 04/25/16 Levothyroxine Sodium [Synthroid] 50 mcg PO DAILY 04/25/16 Citalopram Hydrobromide [Celexa] 30 mg PO DAILY 07/27/16 Ranolazine [Ranexa] 500 mg PO BID 07/27/16 Carvedilol [Coreg] 25 mg PO BID 08/01/16 Pregabalin [Lyrica] 75 mg PO BID 08/01/16 Aspirin [Nancy Low Dose] 325 mg PO DAILY 08/15/16 Clopidogrel Bisulfate [Plavix] 75 mg PO BEDTIME 08/15/16 Pantoprazole Sodium 40 mg PO BEDTIME 11/12/16 Albuterol Sulfate [Proair Hfa] 1 puff INH Q6H PRN 05/17/17 Docusate Sodium 100 mg PO DAILY 05/17/17 Ferrous Sulfate [Iron] 65 mg PO DAILY 05/17/17 Insulin Glargine [Lantus Solostar] 26 unit SC .EVENING 05/17/17 Insulin Glargine [Lantus Solostar] 27 unit SC DAILY 05/17/17 Meclizine HCl 25 mg PO DAILY PRN 05/17/17 Nitroglycerin 0.4 mg Tab [Nitrostat] 1 ea SL PRN 05/17/17 Polyethylene Glycol 3350 [Miralax] 17 gm PO DAILY PRN 05/17/17 Potassium Chloride Tab [K-Dur] 20 meq PO DAILY #30 tab 05/18/17 Review of Systems - Review of Systems Constitutional: Denies: chills, fever EENTM: Denies: double vision, nose congestion Respiratory: Denies: cough, short of breath Cardiology: Denies: chest pain, palpitations Gastrointestinal/Abdominal: Denies: diarrhea, nausea, vomiting Genitourinary: Denies: dysuria, frequency Musculoskeletal: States: see HPI, joint pain, muscle pain, neck pain Skin: Denies: dryness, lesions Neurological: States: numbness - LUE, weakness - LUE. Denies: headache Endocrine: States: no symptoms reported Hematologic/Lymphatic: States: no symptoms reported Past Medical History (General) - Patient Medical History Hx Seizures: No Hx Stroke: Yes - 2013, Jun 2016 Hx Dementia: No Hx Asthma: No Hx of COPD: No Hx Cardiac Disorders: Yes - 17 cardiac stents, SEVERAL TX'S Hx Congestive Heart Failure: Yes Hx Pacemaker: No Hx Hypertension: Yes Hx Thyroid Disease: No Hx Diabetes: Yes Hx Gastroesophageal Reflux: Yes Hx Renal Disease: No Hx Cancer: No Hx of HIV: No Hx Hepatitis C: No Hx MRSA: No Surgical History: cholecystectomy - Vaccination History Hx Tetanus, Diphtheria Vaccination: - unknown Hx Influenza Vaccination: Yes Hx Pneumococcal Vaccination: Yes - Social History Hx Tobacco Use: Yes Hx Chewing Tobacco Use: No Hx Alcohol Use: No Hx Substance Use: No Hx Substance Use Treatment: No Hx Depression: No Hx Physical Abuse: No Hx Emotional Abuse: No Hx Suspected Abuse: No - Female History Patient : No Family Medical History - Family History Mother Family History: Unknown Age (years): 86 Living Status: Age at (years of age): 86 Cause of : [place] Hx Family Asthma: No Hx Family Congestive Heart Failure: No Hx Family Hypertension: No Hx Family Stroke: No Hx Cardiac Disease: Yes - mother/son Hx Family Diabetes: Yes - Sons Hx Family Cancer: Yes - cervical cancer-mom Physical Exam - Physical Exam General Appearance: Alert, Comfortable, No apparent distress, Obese, Well Developed, Well Groomed, Well Hydrated Eye Exam: bilateral normal Ears, Nose, Throat: hearing grossly normal Neck: supple, normal inspection, tender lateral - LEFT Respiratory: lungs clear, normal breath sounds, no respiratory distress Cardiovascular/Chest: regular rate, rhythm, no edema, no murmur Gastrointestinal/Abdominal: non tender, soft Back Exam: normal inspection Extremity: non-tender, normal inspection, normal capillary refill Neurologic: alert, normal mood/affect, oriented x 3, motor weakness - 4/5 STRENGTH TO THE LUE, 5/5 STRENGTH TO ALL OTHER EXTREMITIES, NO FACIAL DROOP OR SLURRED SPEECH NOTED. Progress - Progress Progress: 07/22/17 17:01 PT RESTING COMFORTABLY ON RE-EVAL, CONTINUES TO COMPLAIN OF LUE NUMBNESS, ABLE TO MOVE AND USE LUE. LABS AND CT FINDINGS DISCUSSED. PT AGREES WITH PLAN TO BE ADMITTED. - Results/Orders Results/Orders: Laboratory Tests 07/22/17 07/22/17 07/22/17 14:50 14:50 14:50 WBC 8.7 RBC 4.46 L Hgb 12.4 L Hct 36.9 L MCV 82.7 MCH 27.8 MCHC 33.7 RDW 15.6 H Plt Count 186 MPV 8.8 Absolute Neuts (auto) 5.30 Absolute Lymphs (auto) 2.10 Absolute Monos (auto) 0.80 Absolute Eos (auto) 0.30 Absolute Basos (auto) 0.10 Neutrophils % 61.1 Lymphocytes % 24.4 Monocytes % 9.5 H Eosinophils % 3.9 Basophils % 1.1 PT 11.3 INR 1.000 PTT (SP) 30.2 Sodium 137 Potassium 3.5 L Chloride 102 Carbon Dioxide 27 Anion Gap 11.5 L BUN 19 H Creatinine 1.87 H BUN/Creatinine Ratio 10.2 POC Glucose Random Glucose 106 H Serum Osmolality 276.5 Calcium 8.7 Total Bilirubin 0.5 AST 15 ALT 16 Alkaline Phosphatase 76 Creatine Kinase 63 CK-MB (CK-2) 1.2 CK-MB (CK-2) % Not Reportable Troponin I < 0.02 Serum Total Protein 7.1 Albumin 3.8 Globulin 3.3 Albumin/Globulin Ratio 1.2 07/22/17 14:50 WBC RBC Hgb Hct MCV MCH MCHC RDW Plt Count MPV Absolute Neuts (auto) Absolute Lymphs (auto) Absolute Monos (auto) Absolute Eos (auto) Absolute Basos (auto) Neutrophils % Lymphocytes % Monocytes % Eosinophils % Basophils % PT INR PTT (SP) Sodium Potassium Chloride Carbon Dioxide Anion Gap BUN Creatinine BUN/Creatinine Ratio POC Glucose 106 H Random Glucose Serum Osmolality Calcium Total Bilirubin AST ALT Alkaline Phosphatase Creatine Kinase CK-MB (CK-2) CK-MB (CK-2) % Troponin I Serum Total Protein Albumin Globulin Albumin/Globulin Ratio - EKG/XRAY/CT EKG: Sinus - @68BPM, NL INTERVALS, NL AXIS, nonspecific ST T wave Chg, Unchanged from - 07/14/17 XRAY: chest - NO ACUTE FINDINGS PER RAD CT: HEAD- NO ACUTE FINDINGS PER RAD CT Ordered: Yes CT Interpretation Call Back: No Departure - Departure Clinical Impression: Left upper arm pain, Left upper extremity numbness, CAD (coronary artery disease), Left arm weakness Time of Disposition: 17:06 Disposition: Admit Patient Condition: Fair Departure Forms: ED Discharge - Pt. Copy, Patient Portal Self Enrollment Referrals: Radha Hernandez [employer] [Primary Care Provider] - 1-2 Weeks Home Medications: Ambulatory Orders Lisinopril 40 mg PO TID 11/06/13 hydrALAZINE HCl [HydrALAzine HCl] 50 mg PO TID 11/06/13 Isosorbide Mononitrate [Imdur] 60 mg PO BEDTIME 06/24/14 amLODIPine BESYLATE [Norvasc] 10 mg PO DAILY 06/24/14 Furosemide [Lasix] 40 mg PO DAILY 04/25/16 Levothyroxine Sodium [Synthroid] 50 mcg PO DAILY 04/25/16 Citalopram Hydrobromide [Celexa] 30 mg PO DAILY 07/27/16 Ranolazine [Ranexa] 500 mg PO BID 07/27/16 Carvedilol [Coreg] 25 mg PO BID 08/01/16 Pregabalin [Lyrica] 75 mg PO BID 08/01/16 Aspirin [Nancy Low Dose] 325 mg PO DAILY 08/15/16 Clopidogrel Bisulfate [Plavix] 75 mg PO BEDTIME 08/15/16 Pantoprazole Sodium 40 mg PO BEDTIME 11/12/16 Albuterol Sulfate [Proair Hfa] 1 puff INH Q6H PRN 05/17/17 Docusate Sodium 100 mg PO DAILY 05/17/17 Ferrous Sulfate [Iron] 65 mg PO DAILY 05/17/17 Insulin Glargine [Lantus Solostar] 26 unit SC .EVENING 05/17/17 Insulin Glargine [Lantus Solostar] 27 unit SC DAILY 05/17/17 Meclizine HCl 25 mg PO DAILY PRN 05/17/17 Nitroglycerin 0.4 mg Tab [Nitrostat] 1 ea SL PRN 05/17/17 Polyethylene Glycol 3350 [Miralax] 17 gm PO DAILY PRN 05/17/17 Potassium Chloride Tab [K-Dur] 20 meq PO DAILY #30 tab 05/18/17 Decision To Admit - Decistion To Admit Decision to Admit Reason: Admit from ER Decision to Admit Date: 07/22/17 Decision to Admit Time: 17:07 - CASE DISCUSSED WITH REGGIE LOVING NP WHO AGREES TO ADMIT PATIENT
--- NOTE | 2017-07-22 15:17 | RAD ---
EXAM DESCRIPTION: Chest,1 View CLINICAL HISTORY: 76 years Male, LUE PAIN/WEAKNESS COMPARISON: July 14, 2017 TECHNIQUE: AP portable chest. FINDINGS: A single view of the chest demonstrates mildly elevated right hemidiaphragm. The lung allred are clear. No effusions or infiltrate or masses are noted. Heart size is upper normal with normal vascularity allowing for the portable technique. The aorta is tortuous and calcified. IMPRESSION: Normal chest, one view Electronically signed by: Chauncey Lawler MD 07/22/2017 3:15 PM CDT
--- NOTE | 2017-07-22 15:28 | CT ---
EXAM DESCRIPTION: Head CLINICAL HISTORY: 76 years, Male, LUE PAIN/WEAKNESS COMPARISON: None TECHNIQUE: Head CT was performed without IV contrast. This exam was performed according to our departmental dose-optimization program, which includes automated exposure control, adjustment of the mA and/or kV according to patient size and/or use of iterative reconstruction technique. FINDINGS: There is no acute intracranial hemorrhage. No midline shift or other mass effect. Is only slight ventricular prominence, probably ex vacuo and stable from May 19. Mild age-related volume loss is noted. There are chronic ischemic changes in the perirenal right matter, but no cortical edema or sulcal effacement is seen to suggest acute cortical infarct. The basal ganglia are unremarkable. No posterior fossa lesion. Visualized paranasal sinuses and orbits are unremarkable except for small polyps or mucosal thickening in the right ethmoid air cells anteriorly, stable. No calvarial lesion. Vascular calcifications are noted. IMPRESSION: Vascular calcifications and chronic ischemic changes, but no acute intracranial abnormality. Electronically signed by: Luis Alberto Johnson MD 07/22/2017 3:26 PM CDT
[2017-07-22] MEDS ORDERED: HYDROcodone 10MG/APAP 325MG 1 EA TAB PO ONE (17:35)
--- NOTE | 2017-07-22 19:07 | HP ---
SUPERVISING PHYSICIAN: Jed Triana MD CHIEF COMPLAINT: Numbness of left arm and left side of face. HISTORY OF PRESENT ILLNESS: Mr. Reyna is a 76 year-old male patient who presented to the Emergency Department from [facility] today with complaints of left arm, left neck and facial pain associated with some numbness. He notes the pain was 8/10 on the pain scale and he had taken Aleve at home which did provide significant relief. After he presented to the [facility] he was sent to to the Emergency Department for further evaluation. In the Emergency Department, the patient did denies any chest pain but noted he had some soreness to the left anterior portion of his shoulder. He does have a significant history of multiple myocardial infarctions with multiple stent placements. The patient notes that the pain is not similar to any previous episodes he has had In the past for chest pain. He had not weakness neurologically in the Emergency Department. Laboratory studies showed he had a normal white count of 8,700 with normal differential. Chemistries showed a low potassium of 3.5 and liver functions all within normal limits. Initial troponin was less than 0.02. His 12-lead EKG showed normal sinus rhythm. Radiographic studies completed in the Emergency Department included a chest x-ray that showed normal chest, single view, per radiology interpretation as well as he had a head CT without contrast and per radiology interpretation there was vascular calcifications and chronic ischemic changes but no acute intracranial abnormalities identified. Given the patient's past history of multiple myocardial infarctions as well as a previous cerebrovascular accident that left him with left-sided weakness, Dr. Jimenez, Emergency Room physician, requested the patient be placed in observation to further rule out any acute cardiac event and for close neurological observation. The patient was placed in observation in stable.condition. PAST MEDICAL HISTORY: 1. Diabetes mellitus type 2. 2. Hypertension. 3. Myocardial infarction in 1999, also in April of 2015.. 4. Gastroesophageal reflux disease. 5. Cerebrovascular accidents with left-sided weakness. 6. Bilateral cataracts. 7. Arthritis. PAST SURGICAL HISTORY: 1. Cholecystectomy. 2. Metacarpal phalangeal joint replacement. 3. Colonoscopy in 2004. 4. Multiple cardiac catheterizations and multiple stents. 5. Cataract surgery. CURRENT MEDICATIONS: 1. Pantoprazole 40 mg at bedtime. 2. Nitrostat 1 sublingual p.r.n. 3. Meclizine 25 mg daily. 4. Lisinopril 40 mg 3 times a day. 5. Imdur 60 mg at bedtime. 6. Lantus Solostar 27 units daily. 7. Lantus Solostar 26 units in the evening. 8. Lasix 40 mg daily. 9. Iron sulfate 54 mg daily. 10. Docusate 100 mg daily 11. Plavix 75 mg at bedtime. 12. Celexa 30 mg daily. 13. Coreg 25 mg b.i.d. 14. Aspirin 325 mg daily. 15. Albuterol inhaler, 1 puff every 6 hours as needed. 16. Synthroid 50 mcg daily. 17. Potassium chloride 20 mEq daily. 18. Norvasc 10 mg daily. 19. Lyrica 75 mg twice a day. 20. Ranexa 500 mg twice a day. 21. Hydralazine 50 mg 3 times a day. 22. Miralax p.r.n. ] ALLERGIES: NO KNOWN DRUG ALLERGIES. FAMILY HISTORY: Father , unknown cause. Mother , unknown cause. SOCIAL HISTORY: He is , lives in [place]. He does have a history of smoking but quit 16 years previously. He denies any alcohol or illicit drug use REVIEW OF SYSTEMS: CONSTITUTIONAL: Denies any chills or fevers, unintentional weight loss or gain. HEENT: Denies nasal congestion, sore throat, vision changes. RESPIRATORY: Denies cough, shortness of breath, congestion. CARDIOVASCULAR: Denies chest pains, palpitations or syncopal episodes. GASTROINTESTINAL: Denies diarrhea, nausea or vomiting or constipation. GENITOURINARY: Denies dysuria or hematuria or other urinary symptoms. MUSCULOSKELETAL As noted in history of present illness. Left shoulder pain and muscle pain and neck pain. NEUROLOGIC: Numbness of left upper extremity, weakness of left upper extremity which is a residual from previous cerebrovascular accident. Denies headaches or syncopal episodes. ENDOCRINE: Has a history of diabetes mellitus. PHYSICAL EXAMINATION: VITAL SIGNS: Temperature 98.5, pulse 72, blood pressure 147/76, saturation 96% on room air with respirations 16. Admission weight 108.9 kg. GENERAL: The patient appears to be comfortable and in no acute distress. Well- hydrated and well-nourished. HEENT: Tympanic membranes clear bilaterally. Oropharynx pink and moist without lesions. NECK: Supple with no obvious trauma. Some tenderness noted to the left lateral aspect with full range of motion with some slight discomfort reported on rotation to the lateral aspect radiating to the shoulder. No jugular venous distention. CHEST: Lungs clear to auscultation. Chest wall was without any obvious trauma. CARDIOVASCULAR: Regular rate and rhythm without appreciable murmurs, rubs, or gallops. ABDOMEN: Obese, soft, non-tender, positive bowel sounds. EXTREMITIES: There is some tenderness overlying the right shoulder AC joint, has somewhat limited range of motion with 4/5 strength to the left upper extremity with 5/5 strength in all other extremities. There is no cyanosis, clubbing, or edema but there was some tenderness on range of motion to the right upper shoulder as well as some tenderness overlying the AC joint. No obvious deformities. NEUROLOGIC: Facial features symmetrical. Extraocular movement within normal limits. Cranial nerves II through XII grossly intact as test. He was alert and oriented x 3. LABORATORY: CBC on admission showed a white count of 8,700 with hemoglobin 12.4 and hematocrit 36.9, platelet count 186,000. Differential showed to be within normal limits. Coagulation studies showed normal PT/PTT. Chemistries showed just a mild hyponatremia with potassium of 3.5, BUN 19, creatinine 1.87. Glucose 106. Liver functions all within normal limits. Initial troponin less than 0.02. RADIOLOGY: Chest x-ray, single view, that showed normal chest per radiology interpretation. He also had a head CT without contrast and per radiology interpretation showed vascular calcifications with chronic ischemic changes but no acute intracranial abnormalities. ASSESSMENT: 1. Left neck, shoulder pain with some reported left upper extremity paresthesia with patient having a significant cardiac history and multiple myocardial infarctions as well as CVA with current pain being reproducible with rotation of shoulder and examination felt to be possibly related to a cervical radiculopathy versus strain to the left shoulder. 2. Diabetes mellitus type 2. 3. Myocardial infarction history in 1999 and 2015 with multiple stent placements. 4. Past cerebrovascular accident with some left-sided weakness which appears to be residual. 5. Gastroesophageal reflux disease. 6. Arthritis. PLAN: The patient will be placed in observation for close cardiac monitoring and neurological assessments to further rule out acute stroke versus possible acute myocardial infarction, although first set of enzymes have been negative as well as EKG showing normal sinus rhythm. The patient will be on DVT prophylaxis as per protocol. He will also be started on some sliding scale as per protocol. We will resume his home medications once those have been updated and verified. Certainly with consideration for a cervical radiculopathy, will plan to do a CT of his neck tomorrow as well a radiographic series on his left shoulder versus a CT depending on clinical evaluation in the morning. Will plan to follow his cardiac enzymes every 6 hours as well as with EKG. He did get significant pain relief with Aleve and was given [place] in the Emergency Room and upon admission to the medical/surgical floor was noted that he was without any significant pain. Will plan to continue pain control with [place] if needed. Anticipate length of stay to be 1 to 2 days. Until discharge, we will continue to monitor and treat appropriately. Once discharged, he will need close clinical followup with [facility]. #[id number]
[2017-07-22] MEDS ORDERED: CLOPIDOGREL 75 MG TAB PO SCH (21:00)
[2017-07-22] MEDS ORDERED: ISOSORBIDE MONONITRATE 60 MG PO SCH (21:00)
[2017-07-22] MEDS ORDERED: PANTOPRAZOLE SODIUM TAB 40 MG PO SCH (21:00)
[2017-07-22] MEDS ORDERED: ACETAMINOPHEN 325 MG TAB PO PRN (21:35)
[2017-07-22] MEDS ORDERED: NITROGLYCERIN 0.4 MG 25 EA TAB SL PRN (21:35)
[2017-07-22] MEDS ORDERED: KCL 20MEQ/0.45% NS 1,000 ML IVS PRN (21:38)
[2017-07-22] MEDS ORDERED: HYDROcodone 5MG/APAP 325MG 1 EA TAB PO PRN (21:40)
[2017-07-22] MEDS ORDERED: IV SET AND CAP CHANGE INJ INJ SCH (22:00)
[2017-07-22] MEDS ORDERED: GLUCAGON INJ 1 MG VIAL SUBCU PRN (22:45)
[2017-07-22] MEDS ORDERED: DEXTROSE 50% 25 GM/50 ML SYG IV PRN (22:45)
[2017-07-22] MEDS ORDERED: NON-FORMULARY MEDICATION 1 EA MIS (Carvedilol [Coreg] 25 MG) PO SCH (23:00)
[2017-07-22] MEDS ORDERED: NON-FORMULARY MEDICATION 1 EA MIS (Lisinopril [Lisinopril] 40 MG) PO SCH (23:00)
[2017-07-22] MEDS ORDERED: LISINOPRIL 10 MG TAB ONE (23:25)
[2017-07-22] MEDS ORDERED: CARVEDILOL 12.5 MG TAB ONE (23:25)
[2017-07-22] MEDS ORDERED: ISOSORBIDE MONONITRATE (IMDUR) 30 MG TAB ONE (23:26)
[2017-07-22] MEDS ORDERED: INSULIN DETEMIR 100 UNITS/ML PEN SUBCU SCH (23:30)
[2017-07-22] MEDS: RANOLAZINE 500 MG TAB PO SCH (23:39)
[2017-07-22] MEDS: PREGABALIN 75 MG CAP PO SCH (23:39)
[2017-07-22] MEDS: INSULIN LISPRO 100 UNITS/ML PEN SUBCU SCH (23:45)
--- NOTE | 2017-07-23 07:07 | RAD ---
Procedure: XR SHOULDER 2 OR MORE VIEWS Exam Date: 07/23/2017 Ordering Provider: Sunny Schneider NP Clinical Indication: left shoulder pain Comparison: 05/19/2017 FINDINGS: There is no fracture or dislocation. The subacromial space is preserved. Degenerative changes at the acromioclavicular and glenohumeral joints. No lytic or sclerotic lesions. IMPRESSION: 1. No acute fracture or dislocation of the left shoulder. Electronically signed by: Wilfrido Martin MD 07/23/2017 7:05 AM CDT
[2017-07-23] MEDS: INSULIN LISPRO 100 UNITS/ML PEN SUBCU SCH ×2 (07:28→11:42)
--- NOTE | 2017-07-23 07:36 | CT ---
Procedure: CT CERVICAL SPINE WITHOUT IV CONTRAST Exam Date: 07/23/2017 Ordering Provider: Sunny Schneider NP Clinical Indication: left sided neck pain Comparison: 05/19/2017 Technique: Using a multislice scanner, sequential axial imaging was obtained from the skull base to the T1 level. Sagittal and coronal reformatted images were generated. This exam was performed according to our departmental dose optimization program which includes use of automated exposure control, adjustment of the mA and/or kV according to patient size and/or use of iterative reconstruction technique. Findings: There is no acute fracture or subluxation. Straightening of the normal cervical lordosis. Multilevel facet arthropathy, intervertebral disc space narrowing and endplate osteophyte formation.. There is no lytic or sclerotic lesion. The prevertebral soft tissues are normal. IMPRESSION: 1. No acute fracture or subluxation of the cervical spine. Electronically signed by: Wilfrido Martin MD 07/23/2017 7:34 AM CDT
[2017-07-23] MEDS ORDERED: ASPIRIN (ENTERIC COATED) 325 MG TAB PO ONE (07:40)
[2017-07-23] MEDS ORDERED: LISINOPRIL 10 MG TAB ONE (07:40)
[2017-07-23] MEDS ORDERED: CARVEDILOL 12.5 MG TAB ONE (07:40)
[2017-07-23] MEDS: RANOLAZINE 500 MG TAB PO SCH (08:28)
[2017-07-23] MEDS: PREGABALIN 75 MG CAP PO SCH (08:29)
[2017-07-23] MEDS ORDERED: CITALOPRAM HBR 20 MG TAB PO SCH (09:00)
[2017-07-23] MEDS ORDERED: FUROSEMIDE 40 MG TAB PO SCH (09:00)
[2017-07-23] MEDS ORDERED: LISINOPRIL 10 MG TAB PO SCH (09:00)
[2017-07-23] MEDS ORDERED: FERROUS SULFATE 325 MG TAB PO SCH (09:00)
[2017-07-23] MEDS ORDERED: LEVOTHYROXINE SODIUM 0.025 MG TAB PO SCH (09:00)
[2017-07-23] MEDS ORDERED: DOCUSATE SODIUM 100 MG CAP PO SCH (09:00)
[2017-07-23] MEDS ORDERED: CARVEDILOL 12.5 MG TAB PO SCH (09:00)
[2017-07-23] MEDS ORDERED: amLODIPine BESYLATE 5 MG TAB PO SCH (09:00)
[2017-07-23] MEDS ORDERED: ASPIRIN EC 81 MG TAB PO SCH (09:00)
[2017-07-23] MEDS ORDERED: POTASSIUM CHLORIDE 20 MEQ TAB PO SCH (09:00)
[2017-07-23] MEDS ORDERED: SODIUM CHLORIDE 0.9% (FLUSH) 10 ML SYG IV SCH (09:00)
[2017-07-23] MEDS ORDERED: ASPIRIN (ENTERIC COATED) 325 MG TAB PO SCH (09:00)
[2017-07-23 10:28] VITALS: BP 138/65; TEMP 97.4; O2SAT 96
[2017-07-23] MEDS ORDERED: ISOSORBIDE MONONITRATE (IMDUR) 30 MG TAB PO SCH (21:00)
== END 2017-07-23 11:56 | disposition home or self-care (01) ==
LOC: ER 14:07 → MS 19:06
PROVIDERS: ADMIT Nurse Practitioner Family; ATTEND Nurse Practitioner Family
DX: M54.2 Cervicalgia (principal); M25.512 Pain in left shoulder; R20.2 Paresthesia of skin; E87.6 Hypokalemia; E87.1 Hypo-osmolality and hyponatremia; I69.354 Hemiplegia and hemiparesis following cerebral infarction affecting left non-dominant side; E11.9 Type 2 diabetes mellitus without complications; I10 Essential (primary) hypertension; I25.10 Atherosclerotic heart disease of native coronary artery without angina pectoris; K21.9 Gastro-esophageal reflux disease without esophagitis; M19.90 Unspecified osteoarthritis, unspecified site; I25.2 Old myocardial infarction; Z95.5 Presence of coronary angioplasty implant and graft; Z79.4 Long term (current) use of insulin; Z79.02 Long term (current) use of antithrombotics/antiplatelets; Z79.82 Long term (current) use of aspirin; Z79.899 Other long term (current) drug therapy; Z87.891 Personal history of nicotine dependence
CPT/HCPCS: 36415 ×4; 36416; 70450; 71010; 72125; 73030; 80053 ×2; 80061; 82550 ×3; 82553 ×3; 82947; 82948 ×2; 84484 ×3; 85025 ×2; 85610; 85730; 93005 ×3; 94762; 96372; 96374; 96376; 99284; G0378; J1815 ×2; J3480

== ENCOUNTER 2017-08-18 12:50 | Emergency (ER) | payer MEDICARE, MEDICAID ==
[2017-08-18 13:22] VITALS: TEMP 97.6
--- NOTE | 2017-08-18 13:33 | CT ---
EXAM DESCRIPTION: Head. CT head without contrast. CLINICAL HISTORY: right sided weakness COMPARISON: 07/22/2017 TECHNIQUE: Multiple axial images of the head without contrast. Multiplanar reformatted images. This exam was performed according to our departmental dose-optimization program, which includes automated exposure control, adjustment of the mA and/or kV according to patient size and/or use of iterative reconstruction technique. FINDINGS: There is no CT evidence of intracranial hemorrhage, mass effect, or large territory infarction. Moderate generalized volume loss is present. Moderate patchy supratentorial white matter hypodensities. There are no abnormal extra-axial fluid collections. Calcific plaque in the visualized arteries. There is no acute calvarial defect. The visualized paranasal sinuses and the mastoids are clear. IMPRESSION: 1. No CT evidence of an acute intracranial abnormality. If there is concern for an acute or subacute infarct, consider follow-up MRI. 2. Advanced senescent changes. Electronically signed by: Angelo Diallo MD 08/18/2017 1:32 PM CDT
[2017-08-18] MEDS ORDERED: SODIUM CHLORIDE 0.9% 500ML 500 ML IVS ONE (14:00)
[2017-08-18] MEDS ORDERED: ACETAMINOPHEN 500 MG TAB PO ONE (15:10)
--- NOTE | 2017-08-18 15:19 | ED.PDOC ---
History of Present Illness - General Chief Complaint: Neuro Symptoms/Deficits Stated Complaint: right sided weakness Time Seen by Provider: 08/18/17 13:57 Source: patient, EMS notes reviewed, family - History of Present Illness Initial Comments: Bonifacio Reyna 76 y/o male brought by EMS after he fell and passed out; called up ems and on arrival he was somnolent but able to move arms/legs.No slurred speech,daughter stated has walker at home but dont use it.Denies chest pain symptoms.Denies neck pains Occurred: just prior to arrival Severity: moderate Injuries/Pain Location: head Reason for Fall: unknown Loss of Consciousness: brief (seconds) Improving Factors: nothing Worsening Factors: nothing Associated Symptoms (Fall): other - see hpi Allergies/Adverse Reactions: Allergies NO KNOWN ALLERGY Allergy (Verified 05/19/17 12:00) Home Medications: Ambulatory Orders Lisinopril 40 mg PO TID 11/06/13 hydrALAZINE HCl [HydrALAzine HCl] 50 mg PO TID 11/06/13 Isosorbide Mononitrate [Imdur] 60 mg PO BEDTIME 06/24/14 amLODIPine BESYLATE [Norvasc] 10 mg PO DAILY 06/24/14 Furosemide [Lasix] 40 mg PO DAILY 04/25/16 Levothyroxine Sodium [Synthroid] 50 mcg PO DAILY 04/25/16 Citalopram Hydrobromide [Celexa] 30 mg PO DAILY 07/27/16 Ranolazine [Ranexa] 500 mg PO BID 07/27/16 Carvedilol [Coreg] 25 mg PO BID 08/01/16 Pregabalin [Lyrica] 75 mg PO BID 08/01/16 Aspirin [Nancy Low Dose] 325 mg PO DAILY 08/15/16 Clopidogrel Bisulfate [Plavix] 75 mg PO BEDTIME 08/15/16 Pantoprazole Sodium 40 mg PO BEDTIME 11/12/16 Albuterol Sulfate [Proair Hfa] 1 puff INH Q6H PRN 05/17/17 Docusate Sodium 100 mg PO DAILY 05/17/17 Ferrous Sulfate [Iron] 65 mg PO DAILY 05/17/17 Insulin Glargine [Lantus Solostar] 26 unit SC .EVENING 05/17/17 Insulin Glargine [Lantus Solostar] 27 unit SC DAILY 05/17/17 Meclizine HCl 25 mg PO DAILY PRN 05/17/17 Nitroglycerin 0.4 mg Tab [Nitrostat] 1 ea SL PRN 05/17/17 Polyethylene Glycol 3350 [Miralax] 17 gm PO DAILY PRN 05/17/17 Potassium Chloride Tab [K-Dur] 20 meq PO DAILY #30 tab 05/18/17 Review of Systems - Review of Systems Constitutional: States: no symptoms reported EENTM: States: no symptoms reported Respiratory: States: no symptoms reported Cardiology: States: no symptoms reported Gastrointestinal/Abdominal: States: no symptoms reported Genitourinary: States: no symptoms reported Musculoskeletal: States: no symptoms reported Skin: States: no symptoms reported Neurological: States: see HPI Past Medical History (General) - Patient Medical History Hx Seizures: No Hx Stroke: Yes - 2016 Hx Dementia: No Hx Asthma: No Hx of COPD: No Hx Cardiac Disorders: Yes - 17 cardiac stents, SEVERAL MA'S Hx Congestive Heart Failure: Yes Hx Pacemaker: No Hx Hypertension: Yes Hx Thyroid Disease: No Hx Diabetes: Yes Hx Gastroesophageal Reflux: Yes Hx Renal Disease: No Hx Cancer: No Hx of HIV: No Hx Hepatitis C: No Hx MRSA: No Surgical History: cholecystectomy, other - cataract,finger,multiple cardiac stent - Vaccination History Hx Tetanus, Diphtheria Vaccination: - unknown Hx Influenza Vaccination: Yes Hx Pneumococcal Vaccination: Yes - Social History Hx Tobacco Use: Yes Hx Chewing Tobacco Use: No Hx Alcohol Use: No Hx Substance Use: No Hx Substance Use Treatment: No Hx Depression: No Hx Physical Abuse: No Hx Emotional Abuse: No Hx Suspected Abuse: No - Female History Patient : No Physical Exam - Physical Exam General Appearance: Alert, Comfortable, No apparent distress Head Injury: other - scalp hematoma occipital area Eye Exam: right normal, left other - blurry vision left ENT Exam: hearing grossly normal, no evidence of ENT injury, no dental injury Peripheral Pulses: radial,right: 2+, radial,left: 2+ Cardiovascular/Respiratory: regular rate, rhythm, no M/R/G, normal peripheral pulses, no JVD Gastrointestinal/Abdominal: normal bowel sounds, non tender, soft Back Exam: no CVA tenderness, no vertebral tenderness, other - no c-spine tenderness Extremity Exam: no evidence of injury, normal range of motion, non-tender, no pedal edema, pelvis stable 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, no motor/sensory deficits, alert, normal mood/affect, oriented x 3 Skin Exam: normal color, warm/dry - [place] Coma Score Best Eye Response ([place]): (4) open spontaneously Best Verbal Response ([place]): (5) oriented Best Motor Response ([place]): (6) obeys commands [place] Total: 15 Progress - Progress Progress: 08/18/17 15:22 Vital Signs - 8 hr 08/18/17 13:18 Temperature 97.6 F Pulse Rate [ 62 Left Brachial] Respiratory 20 Rate Blood Pressure 128/51 [Left Arm] O2 Sat by Pulse 98 Oximetry - Results/Orders Results/Orders: Laboratory Tests 08/18/17 08/18/17 08/18/17 14:00 14:32 15:08 WBC 9.4 RBC 4.48 L Hgb 12.6 L Hct 37.2 L MCV 83.0 MCH 28.1 MCHC 33.7 RDW 15.4 H Plt Count 183 MPV 8.8 Absolute Neuts (auto) 5.80 Absolute Lymphs (auto) 2.10 Absolute Monos (auto) 0.70 Absolute Eos (auto) 0.60 H Absolute Basos (auto) 0.10 Neutrophils % 61.8 Lymphocytes % 22.9 Monocytes % 8.0 Eosinophils % 5.9 H Basophils % 1.4 PT 12.1 INR 1.070 PTT (SP) 32.3 Sodium 135 Potassium 3.5 L Chloride 102 Carbon Dioxide 27 Anion Gap 9.5 L BUN 18 Creatinine 1.78 H BUN/Creatinine Ratio 10.1 Random Glucose 163 H Serum Osmolality 275.6 Calcium 8.6 Magnesium 1.8 Total Bilirubin 0.3 Direct Bilirubin < 0.1 Indirect Bilirubin 0.2 AST 15 ALT 14 Alkaline Phosphatase 77 Creatine Kinase 49 CK-MB (CK-2) 1.1 CK-MB (CK-2) % Not Reportable Troponin I < 0.02 Serum Total Protein 6.8 Albumin 3.7 Urine Color Yellow Urine Appearance Clear Urine pH 5.0 Ur Specific [place] 1.010 Urine Protein Negative Urine Glucose (UA) Negative Urine Ketones Negative Urine Blood Negative Urine Nitrite Negative Urine Bilirubin Negative Urine Urobilinogen 0.2 Ur Leukocyte Esterase Negative Urine RBC 0 Urine WBC 0-1 Ur Epithelial Cells 0 Urine Bacteria 0 Urine Opiates Screen Negative Urine Barbiturates Negative Ur Phencyclidine Scrn Negative U Amphetamin/Meth Scrn Negative U Benzodiazepines Scrn Negative U Cocaine Metab Screen Negative U Cannabinoids Screen Negative More alert talking to families just have pain on scalp hematoma - EKG/XRAY/CT CT Ordered: Yes CT Interpretation Call Back: Yes Departure - Departure Clinical Impression: Fall Qualifiers: Encounter type: initial encounter Qualified Code(s): W19.XXXA - Unspecified fall, initial encounter Scalp contusion Qualifiers: Encounter type: initial encounter Qualified Code(s): S00.03XA - Contusion of scalp, initial encounter Concussion Qualifiers: Encounter type: initial encounter Loss of consciousness presence/duration: with LOC of 30 min or less Qualified Code(s): S06.0X1A - Concussion with loss of consciousness of 30 minutes or less, initial encounter Time of Disposition: 15:49 Disposition: Discharge to Home or Self Care Condition: Fair Departure Forms: ED Discharge - Pt. Copy, Patient Portal Self Enrollment Referrals: Radha Hernandez, DESKTOP SUPPORT SPECIALIST [Primary Care Provider] - 1-2 Weeks Home Medications: Ambulatory Orders Lisinopril 40 mg PO TID 11/06/13 hydrALAZINE HCl [HydrALAzine HCl] 50 mg PO TID 11/06/13 Isosorbide Mononitrate [Imdur] 60 mg PO BEDTIME 06/24/14 amLODIPine BESYLATE [Norvasc] 10 mg PO DAILY 06/24/14 Furosemide [Lasix] 40 mg PO DAILY 04/25/16 Levothyroxine Sodium [Synthroid] 50 mcg PO DAILY 04/25/16 Citalopram Hydrobromide [Celexa] 30 mg PO DAILY 07/27/16 Ranolazine [Ranexa] 500 mg PO BID 07/27/16 Carvedilol [Coreg] 25 mg PO BID 08/01/16 Pregabalin [Lyrica] 75 mg PO BID 08/01/16 Aspirin [Nancy Low Dose] 325 mg PO DAILY 08/15/16 Clopidogrel Bisulfate [Plavix] 75 mg PO BEDTIME 08/15/16 Pantoprazole Sodium 40 mg PO BEDTIME 11/12/16 Albuterol Sulfate [Proair Hfa] 1 puff INH Q6H PRN 05/17/17 Docusate Sodium 100 mg PO DAILY 05/17/17 Ferrous Sulfate [Iron] 65 mg PO DAILY 05/17/17 Insulin Glargine [Lantus Solostar] 26 unit SC .EVENING 05/17/17 Insulin Glargine [Lantus Solostar] 27 unit SC DAILY 05/17/17 Meclizine HCl 25 mg PO DAILY PRN 05/17/17 Nitroglycerin 0.4 mg Tab [Nitrostat] 1 ea SL PRN 05/17/17 Polyethylene Glycol 3350 [Miralax] 17 gm PO DAILY PRN 05/17/17 Potassium Chloride Tab [K-Dur] 20 meq PO DAILY #30 tab 05/18/17 Additional Instructions: Continue with all home medications;Return to emergency room as needed;Ice pack to affected area 15 mintues 3 x a day during waking hours nly for 3 days;Tyleno 500 mg one tablet 3 x a day as needed for headache
--- NOTE | 2017-08-18 15:42 | RAD ---
EXAM DESCRIPTION: Chest,1 View CLINICAL HISTORY: pain COMPARISON: July 22, 2017 IMPRESSION: Single AP portable upright view of the chest shows enlargement of the cardiac silhouette without pulmonary vascular congestion. Lungs are normally aerated. Increased interstitial markings are seen in the periphery of the line similar to previous exam without acute appearing infiltrate or consolidation. No obvious pleural effusion or pneumothorax is seen. Electronically signed by: Jamari Hill MD 08/18/2017 3:40 PM CDT
[2017-08-18 16:07] VITALS: BP 152/71; O2SAT 97
== END 2017-08-18 16:07 | disposition home or self-care (01) ==
LOC: ER 12:50
DX: S00.03XA Contusion of scalp, initial encounter (principal); S06.0X1A Concussion with loss of consciousness of 30 minutes or less, initial encounter; I25.2 Old myocardial infarction; I11.0 Hypertensive heart disease with heart failure; I50.9 Heart failure, unspecified; E11.9 Type 2 diabetes mellitus without complications; Z79.82 Long term (current) use of aspirin; Z79.02 Long term (current) use of antithrombotics/antiplatelets; Z79.4 Long term (current) use of insulin; Z79.899 Other long term (current) drug therapy; Z98.61 Coronary angioplasty status; W19.XXXA Unspecified fall, initial encounter; Y92.9 Unspecified place or not applicable
CPT/HCPCS: 70450; 71010; 80048; 80076; 80307; 81001; 82550; 82553; 84484; 85025; 85610; 85730; 93005; J7040

== ENCOUNTER → 2018-02-10 | Outpatient (CLI) | payer MEDICARE, MEDICAID | LOC: NC 11:16 | PROVIDERS: ATTEND General Practice | DX: R30.0 Dysuria (principal) ==

== ENCOUNTER 2018-03-19 14:03 | Emergency (ER) | payer MEDICARE, MEDICAID ==
[2018-03-19] MEDS ORDERED: NITROGLYCERIN 0.4 MG 25 EA TAB SL ONE (14:27)
--- NOTE | 2018-03-19 14:31 | ED.PDOC ---
History of Present Illness - General Chief Complaint: Chest Pain/[place] Stated Complaint: chest pain Time Seen by Provider: 03/19/18 14:25 Source: patient - History of Present Illness Timing/Duration: days - three Severity/Quality: severe, pressure - and pleuritic Location: other - L chest Chest Pain Radiation: no radiation Activities at Onset: none Prior Chest Pain/Cardiac Workup: cardiac cath, other - "17 stents" Improving Factors: nothing Worsening Factors: nothing Nitro Today/Relief: 0.4 mg x 3, no relief Aspirin Treatment Today: no aspirin today Associated Symptoms: edema, shortness of breath, weakness Allergies/Adverse Reactions: Allergies NO KNOWN ALLERGY Allergy (Verified 05/19/17 12:00) Home Medications: Ambulatory Orders Lisinopril 40 mg PO TID 11/06/13 hydrALAZINE HCl [HydrALAzine HCl] 50 mg PO TID 11/06/13 Isosorbide Mononitrate [Imdur] 60 mg PO BEDTIME 06/24/14 amLODIPine BESYLATE [Norvasc] 10 mg PO DAILY 06/24/14 Furosemide [Lasix] 40 mg PO DAILY 04/25/16 Levothyroxine Sodium [Synthroid] 50 mcg PO DAILY 04/25/16 Citalopram Hydrobromide [Celexa] 30 mg PO DAILY 07/27/16 Ranolazine [Ranexa] 500 mg PO BID 07/27/16 Carvedilol [Coreg] 25 mg PO BID 08/01/16 Pregabalin [Lyrica] 75 mg PO BID 08/01/16 Aspirin [Nancy Low Dose] 325 mg PO DAILY 08/15/16 Clopidogrel Bisulfate [Plavix] 75 mg PO BEDTIME 08/15/16 Pantoprazole Sodium 40 mg PO BEDTIME 11/12/16 Albuterol Sulfate [Proair Hfa] 1 puff INH Q6H PRN 05/17/17 Docusate Sodium 100 mg PO DAILY 05/17/17 Ferrous Sulfate [Iron] 65 mg PO DAILY 05/17/17 Insulin Glargine [Lantus Solostar] 26 unit SC .EVENING 05/17/17 Insulin Glargine [Lantus Solostar] 27 unit SC DAILY 05/17/17 Meclizine HCl 25 mg PO DAILY PRN 05/17/17 Nitroglycerin 0.4 mg Tab [Nitrostat] 1 ea SL PRN 05/17/17 Polyethylene Glycol 3350 [Miralax] 17 gm PO DAILY PRN 05/17/17 Potassium Chloride Tab [K-Dur] 20 meq PO DAILY #30 tab 05/18/17 Review of Systems - Review of Systems Constitutional: States: malaise, weakness. Denies: diaphoresis EENTM: States: no symptoms reported Respiratory: States: short of breath. Denies: cough, orthopnea Cardiology: States: chest pain, edema Gastrointestinal/Abdominal: Denies: abdominal pain, nausea, vomiting Musculoskeletal: States: no symptoms reported Skin: States: no symptoms reported Neurological: States: no symptoms reported Endocrine: States: no symptoms reported Hematologic/Lymphatic: States: no symptoms reported Past Medical History (General) - Patient Medical History Hx Seizures: No Hx Stroke: Yes - 2015 Hx Dementia: No Hx Asthma: No Hx of COPD: No Hx Cardiac Disorders: Yes - 17 cardiac stents, SEVERAL GA'S Hx Congestive Heart Failure: Yes Hx Pacemaker: No Hx Hypertension: Yes Hx Thyroid Disease: No Hx Diabetes: Yes Hx Gastroesophageal Reflux: Yes Hx Renal Disease: No Hx Cancer: No Hx of HIV: No Hx Hepatitis C: No Hx MRSA: No - Vaccination History Hx Tetanus, Diphtheria Vaccination: - unknown Hx Influenza Vaccination: Yes Hx Pneumococcal Vaccination: Yes - Social History Hx Tobacco Use: Yes Hx Chewing Tobacco Use: No Hx Alcohol Use: No Hx Substance Use: No Hx Substance Use Treatment: No Hx Depression: No Hx Physical Abuse: No Hx Emotional Abuse: No Hx Suspected Abuse: No - Female History Patient : No Family Medical History - Family History Mother Family History: Unknown Age (years): 86 Living Status: Age at (years of age): 86 Cause of : [place] Hx Family Asthma: No Hx Family Congestive Heart Failure: No Hx Family Hypertension: No Hx Family Stroke: No Hx Cardiac Disease: Yes - mother/son Hx Family Diabetes: Yes - Sons Hx Family Cancer: Yes - cervical cancer-mom Physical Exam - Physical Exam General Appearance: Alert, Anxious, Lethargic Eyes, Ears, Nose, Throat Exam: PERRL/EOMI, pharynx normal, other - mucosa is moderately dry Neck: non-tender, full range of motion Respiratory: normal breath sounds, no respiratory distress Cardiovascular/Chest: regular rate, rhythm, no edema Gastrointestinal/Abdominal: normal bowel sounds, non tender, soft Rectal Exam: normal exam Neurologic: alert, oriented x 3 Skin Exam: normal color, warm/dry Lymphatic: no adenopathy Progress - EKG/XRAY/CT EKG: Sinus, nonspecific ST T wave Chg Comments: rate 64, SD 198, QRS 84 Departure - Departure Clinical Impression: Atypical chest pain Coronary artery disease Qualifiers: Coronary Disease-Associated Artery/Lesion type: unspecified vessel or lesion type [place] vs. transplanted heart: [place] heart Associated angina: angina presence unspecified Qualified Code(s): I25.10 - Atherosclerotic heart disease of [place] coronary artery without angina pectoris Disposition: Transfer to Hospital Condition: Fair Departure Forms: ED Discharge - Pt. Copy, Patient Portal Self Enrollment Instructions: DI for Chest Pain Referrals: Lashay Levy NP [Primary Care Provider] - 1-2 Weeks Home Medications: Ambulatory Orders Lisinopril 40 mg PO TID 11/06/13 hydrALAZINE HCl [HydrALAzine HCl] 50 mg PO TID 11/06/13 Isosorbide Mononitrate [Imdur] 60 mg PO BEDTIME 06/24/14 amLODIPine BESYLATE [Norvasc] 10 mg PO DAILY 06/24/14 Furosemide [Lasix] 40 mg PO DAILY 04/25/16 Levothyroxine Sodium [Synthroid] 50 mcg PO DAILY 04/25/16 Citalopram Hydrobromide [Celexa] 30 mg PO DAILY 07/27/16 Ranolazine [Ranexa] 500 mg PO BID 07/27/16 Carvedilol [Coreg] 25 mg PO BID 08/01/16 Pregabalin [Lyrica] 75 mg PO BID 08/01/16 Aspirin [Nancy Low Dose] 325 mg PO DAILY 08/15/16 Clopidogrel Bisulfate [Plavix] 75 mg PO BEDTIME 08/15/16 Pantoprazole Sodium 40 mg PO BEDTIME 11/12/16 Albuterol Sulfate [Proair Hfa] 1 puff INH Q6H PRN 05/17/17 Docusate Sodium 100 mg PO DAILY 05/17/17 Ferrous Sulfate [Iron] 65 mg PO DAILY 05/17/17 Insulin Glargine [Lantus Solostar] 26 unit SC .EVENING 05/17/17 Insulin Glargine [Lantus Solostar] 27 unit SC DAILY 05/17/17 Meclizine HCl 25 mg PO DAILY PRN 05/17/17 Nitroglycerin 0.4 mg Tab [Nitrostat] 1 ea SL PRN 05/17/17 Polyethylene Glycol 3350 [Miralax] 17 gm PO DAILY PRN 05/17/17 Potassium Chloride Tab [K-Dur] 20 meq PO DAILY #30 tab 05/18/17
--- NOTE | 2018-03-19 14:46 | RAD ---
EXAM DESCRIPTION: Chest,1 View CLINICAL HISTORY: SOB COMPARISON: August 18, 2017 FINDINGS: Cardiac silhouette is within normal limits. There is central pulmonary vascular engorgement and mild atelectasis at the lung bases. No definite consolidation. IMPRESSION: Mild pulmonary edema. Electronically signed by: Maldonado Hinojosa 03/19/2018 2:45 PM CDT
[2018-03-19] MEDS ORDERED: MORPHINE SULFATE INJ 10 MG/ML VIAL IV ONE ×2 (15:18→17:19)
[2018-03-19] MEDS ORDERED: ONDANSETRON INJ 4 MG/2 ML VIAL IV ONE (15:18)
[2018-03-19] MEDS ORDERED: FUROSEMIDE INJ 40 MG/4 ML VIAL IV ONE (15:29)
[2018-03-19] MEDS ORDERED: ALUM & MAG HYDROX-SIMETHICONE 30 ML, LIDOCAINE VISCOUS 2% 15 ML PO ONE ×2 (15:34)
[2018-03-19] MEDS ORDERED: ALUM & MAG HYDROX-SIMETHICONE 30 ML UD ONE (15:38)
[2018-03-19] MEDS ORDERED: LIDOCAINE HCL 2% (MOUTH-THROAT) 15 ML UD ONE (15:38)
[2018-03-19 15:49] VITALS: O2SAT 95
[2018-03-19] MEDS ORDERED: ENOXAPARIN SODIUM 100 MG/ML SYG SUBCU ONE (17:24)
[2018-03-19 18:03] VITALS: BP 166/83; TEMP 96.7
== END 2018-03-19 18:03 | disposition short-term general hospital (02) ==
LOC: ER 14:03
DX: I25.10 Atherosclerotic heart disease of native coronary artery without angina pectoris (principal); R07.89 Other chest pain; I25.2 Old myocardial infarction; I11.0 Hypertensive heart disease with heart failure; I50.9 Heart failure, unspecified; E11.9 Type 2 diabetes mellitus without complications; Z87.891 Personal history of nicotine dependence; Z86.73 Personal history of transient ischemic attack (TIA), and cerebral infarction without residual deficits; Z79.02 Long term (current) use of antithrombotics/antiplatelets; Z79.4 Long term (current) use of insulin
CPT/HCPCS: 36415; 71045; 80053; 83880; 84484; 85025; 93005; J1650; J1940; J2060; J2270; J2405

== ENCOUNTER → 2018-04-07 | Outpatient (CLI) | payer MEDICARE, OTHER | LOC: NC 08:14 | PROVIDERS: ATTEND General Practice | DX: I10 Essential (primary) hypertension (principal); E11.40 Type 2 diabetes mellitus with diabetic neuropathy, unspecified; N42.9 Disorder of prostate, unspecified; F32.9 Major depressive disorder, single episode, unspecified ==

== ENCOUNTER 2018-05-05 02:59 | Emergency (ER) | payer MEDICARE, MEDICAID ==
--- NOTE | 2018-05-05 03:26 | ED.PDOC ---
History of Present Illness - General Chief Complaint: Respiratory Problem Stated Complaint: shortness of breath Time Seen by Provider: 05/05/18 03:17 Source: patient Exam Limitations: no limitations - History of Present Illness Initial Comments: THIS PATIENT COMES TO THE ED WITH A PRODUCTIVE COUGH AND SOB, ONSET LAST NIGHT. DENIES ANY FEVER. Timing/Duration: 24 hours Severity: moderate Improving Factors: nothing Worsening Factors: nothing Associated Symptoms: anxiety Respiratory Risk Factors: no cause identified Allergies/Adverse Reactions: Allergies NO KNOWN ALLERGY Allergy (Verified 05/19/17 12:00) Home Medications: Ambulatory Orders Lisinopril 40 mg PO TID 11/06/13 hydrALAZINE HCl [HydrALAzine HCl] 50 mg PO TID 11/06/13 Isosorbide Mononitrate [Imdur] 60 mg PO BEDTIME 06/24/14 amLODIPine BESYLATE [Norvasc] 10 mg PO DAILY 06/24/14 Furosemide [Lasix] 40 mg PO DAILY 04/25/16 Levothyroxine Sodium [Synthroid] 50 mcg PO DAILY 04/25/16 Citalopram Hydrobromide [Celexa] 30 mg PO DAILY 07/27/16 Ranolazine [Ranexa] 500 mg PO BID 07/27/16 Carvedilol [Coreg] 25 mg PO BID 08/01/16 Pregabalin [Lyrica] 75 mg PO BID 08/01/16 Aspirin [Nancy Low Dose] 325 mg PO DAILY 08/15/16 Clopidogrel Bisulfate [Plavix] 75 mg PO BEDTIME 08/15/16 Pantoprazole Sodium 40 mg PO BEDTIME 11/12/16 Albuterol Sulfate [Proair Hfa] 1 puff INH Q6H PRN 05/17/17 Docusate Sodium 100 mg PO DAILY 05/17/17 Ferrous Sulfate [Iron] 65 mg PO DAILY 05/17/17 Insulin Glargine [Lantus Solostar] 26 unit SC .EVENING 05/17/17 Insulin Glargine [Lantus Solostar] 27 unit SC DAILY 05/17/17 Meclizine HCl 25 mg PO DAILY PRN 05/17/17 Nitroglycerin 0.4 mg Tab [Nitrostat] 1 ea SL PRN 05/17/17 Polyethylene Glycol 3350 [Miralax] 17 gm PO DAILY PRN 05/17/17 Potassium Chloride Tab [K-Dur] 20 meq PO DAILY #30 tab 05/18/17 Azithromycin [Zithromax Z-Jose] 250 mg PO DAILY #5 tab 05/05/18 Review of Systems - Review of Systems Constitutional: States: no symptoms reported EENTM: States: no symptoms reported Respiratory: States: cough Cardiology: States: no symptoms reported Gastrointestinal/Abdominal: States: no symptoms reported Genitourinary: States: no symptoms reported Musculoskeletal: States: no symptoms reported Skin: States: no symptoms reported Neurological: States: no symptoms reported Endocrine: States: no symptoms reported Hematologic/Lymphatic: States: no symptoms reported Past Medical History (General) - Patient Medical History Hx Seizures: No Hx Stroke: Yes - 2016 Hx Dementia: No Hx Asthma: No Hx of COPD: No Hx Cardiac Disorders: Yes - 17 cardiac stents, SEVERAL [place]'S Hx Congestive Heart Failure: Yes Hx Pacemaker: No Hx Hypertension: Yes Hx Thyroid Disease: No Hx Diabetes: Yes Hx Gastroesophageal Reflux: Yes Hx Renal Disease: No Hx Cancer: No Hx of HIV: No Hx Hepatitis C: No Hx MRSA: No Surgical History: other - Vaccination History Hx Tetanus, Diphtheria Vaccination: - unknown Hx Influenza Vaccination: Yes Hx Pneumococcal Vaccination: Yes - Social History Hx Tobacco Use: Yes Hx Chewing Tobacco Use: No Hx Alcohol Use: No Hx Substance Use: No Hx Substance Use Treatment: No Hx Depression: No Hx Physical Abuse: No Hx Emotional Abuse: No Hx Suspected Abuse: No - Female History Patient : No Family Medical History - Family History Mother Family History: Unknown Age (years): 86 Living Status: Age at (years of age): 86 Cause of : [place] Hx Family Asthma: No Hx Family Congestive Heart Failure: No Hx Family Hypertension: No Hx Family Stroke: No Hx Cardiac Disease: Yes - mother/son Hx Family Diabetes: Yes - Sons Hx Family Cancer: Yes - cervical cancer-mom Physical Exam - Physical Exam General Appearance: Alert, Comfortable, Well Developed, Well Hydrated Eyes, Ears, Nose, Throat Exam: PERRL/EOMI Neck: non-tender, normal inspection Respiratory: chest non-tender, normal breath sounds, no respiratory distress, rhonchi Cardiovascular/Chest: normal peripheral pulses, no edema Peripheral Pulses: radial,right: 2+, radial,left: 2+ Gastrointestinal/Abdominal: normal bowel sounds, non tender, no organomegaly, no pulsatile mass Rectal Exam: deferred Extremity: normal range of motion, non-tender, normal inspection, no pedal edema Neurologic: no motor/sensory deficits, normal mood/affect, oriented x 3 Skin Exam: normal color Lymphatic: no adenopathy Progress - Results/Orders Results/Orders: EKG: HR OF 68, MA INTERVAL OF 180, QRS OF 106, QTC OF 482, AXES OF -15 DEGREES. IMPRESSION: SINUS RHYTHM, EVIDENCE OF ANTERIOR INFARCTION, AGE UNDETERMINED. CXR: NO ACUTE PROCESS NOTED. BNP 26 Departure - Departure Clinical Impression: Bronchitis Time of Disposition: 04:29 Disposition: Discharge to Home or Self Care Condition: Good Departure Forms: ED Discharge - Pt. Copy, Patient Portal Self Enrollment Instructions: Acute Bronchitis Referrals: Lashay Levy NP [Primary Care Provider] - 1-2 Weeks Prescriptions: Azithromycin [Zithromax Z-Jose] 250 mg PO DAILY #5 tab Home Medications: Ambulatory Orders Lisinopril 40 mg PO TID 11/06/13 hydrALAZINE HCl [HydrALAzine HCl] 50 mg PO TID 11/06/13 Isosorbide Mononitrate [Imdur] 60 mg PO BEDTIME 06/24/14 amLODIPine BESYLATE [Norvasc] 10 mg PO DAILY 06/24/14 Furosemide [Lasix] 40 mg PO DAILY 04/25/16 Levothyroxine Sodium [Synthroid] 50 mcg PO DAILY 04/25/16 Citalopram Hydrobromide [Celexa] 30 mg PO DAILY 07/27/16 Ranolazine [Ranexa] 500 mg PO BID 07/27/16 Carvedilol [Coreg] 25 mg PO BID 08/01/16 Pregabalin [Lyrica] 75 mg PO BID 08/01/16 Aspirin [Nancy Low Dose] 325 mg PO DAILY 08/15/16 Clopidogrel Bisulfate [Plavix] 75 mg PO BEDTIME 08/15/16 Pantoprazole Sodium 40 mg PO BEDTIME 11/12/16 Albuterol Sulfate [Proair Hfa] 1 puff INH Q6H PRN 05/17/17 Docusate Sodium 100 mg PO DAILY 05/17/17 Ferrous Sulfate [Iron] 65 mg PO DAILY 05/17/17 Insulin Glargine [Lantus Solostar] 26 unit SC .EVENING 05/17/17 Insulin Glargine [Lantus Solostar] 27 unit SC DAILY 05/17/17 Meclizine HCl 25 mg PO DAILY PRN 05/17/17 Nitroglycerin 0.4 mg Tab [Nitrostat] 1 ea SL PRN 05/17/17 Polyethylene Glycol 3350 [Miralax] 17 gm PO DAILY PRN 05/17/17 Potassium Chloride Tab [K-Dur] 20 meq PO DAILY #30 tab 05/18/17 Azithromycin [Zithromax Z-Jose] 250 mg PO DAILY #5 tab 05/05/18
--- NOTE | 2018-05-05 04:02 | RAD ---
Chest single view on 05/05/2018 CLINICAL INDICATION: Shortness of breath, cough COMPARISON: 03/19/2018 FINDINGS: Heart is borderline in size. There is slight elevation of the right hemidiaphragm. The lungs are clear. Hilar and mediastinal contours are within normal limits. Pulmonary vascularity is within normal limits. IMPRESSION: No acute disease. Electronically signed by: Nash Sesay 05/05/2018 4:01 AM CDT
[2018-05-05] MEDS ORDERED: cefTRIAXone SODIUM 1 GM in SODIUM CHL 0.9% 50ML MIN-BAG+ 50 ML IVPB ONE (04:15)
[2018-05-05] MEDS ORDERED: cefTRIAXone SODIUM 1 GM VIAL ONE (04:26)
[2018-05-05] MEDS ORDERED: SODIUM CHL 0.9% 50ML MIN-BAG+ 50 ML IVPB ONE (04:27)
[2018-05-05] MEDS ORDERED: cefTRIAXone SODIUM 1 GM VIAL IM ONE (04:30)
[2018-05-05] MEDS ORDERED: LIDOCAINE 1% 2 ML VIAL INJ ONE (04:32)
[2018-05-05 04:47] VITALS: BP 120/47; TEMP 97.9; O2SAT 96
== END 2018-05-05 04:47 | disposition home or self-care (01) ==
LOC: ER 02:59
DX: J40 Bronchitis, not specified as acute or chronic (principal); I25.2 Old myocardial infarction; I11.0 Hypertensive heart disease with heart failure; I50.9 Heart failure, unspecified; E11.9 Type 2 diabetes mellitus without complications; K21.9 Gastro-esophageal reflux disease without esophagitis; Z87.891 Personal history of nicotine dependence; Z86.73 Personal history of transient ischemic attack (TIA), and cerebral infarction without residual deficits; Z98.61 Coronary angioplasty status; Z79.4 Long term (current) use of insulin; Z79.02 Long term (current) use of antithrombotics/antiplatelets; Z79.82 Long term (current) use of aspirin
CPT/HCPCS: 36415; 71045; 80048; 83880; 85025; 93005; J0696

== ENCOUNTER 2018-05-10 09:00 | Emergency (ER) | payer MEDICARE, MEDICAID ==
[2018-05-10 09:17] VITALS: TEMP 98.3
--- NOTE | 2018-05-10 09:39 | ED.PDOC ---
History of Present Illness - General Chief Complaint: General Time Seen by Provider: 05/10/18 09:36 Source: patient, Vital Signs reviewed Additional Information: 77 YEAR OLD COMPLAINTS OF 3 DAY HISTORY OF SWELLING AND PAIN IN THE LEFT LOWER EXTREMITY DENIES CHEST PAIN SHORTNESS OF BREATH HE ALSO REPORTS CHRONIC NUMBNESS IN TH ELOWER LOWER EXTREMITIES WORSE ON THE LEFT HE HAD SOUGHT MEDICAL HELP 2 YEARDS AGO SOMEONE HAD GIVEN BACK INJECTIONS BUT STATES TAT DID NOT HELP HE STATES THE PAIN IS WORSE WITH CHANGE IN POSITION OF HIS LEG SOMETIMES HE WAKES UP FROM SLEEP DUE TO LEFT LEG PAIN FOR THE PAST SEVERAL MONTHS HE HAS NO HISTORY OF TRAUMA NO DVT NO KNOWN PVD - History of Present Illness Timing/Duration: getting worse Severity: moderate Improving Factors: nothing Worsening Factors: nothing Associated Symptoms: denies symptoms Allergies/Adverse Reactions: Allergies NO KNOWN ALLERGY Allergy (Verified 05/19/17 12:00) Home Medications: Ambulatory Orders Lisinopril 40 mg PO TID 11/06/13 hydrALAZINE HCl [HydrALAzine HCl] 50 mg PO TID 11/06/13 Isosorbide Mononitrate [Imdur] 60 mg PO BEDTIME 06/24/14 amLODIPine BESYLATE [Norvasc] 10 mg PO DAILY 06/24/14 Furosemide [Lasix] 40 mg PO DAILY 04/25/16 Levothyroxine Sodium [Synthroid] 50 mcg PO DAILY 04/25/16 Citalopram Hydrobromide [Celexa] 30 mg PO DAILY 07/27/16 Ranolazine [Ranexa] 500 mg PO BID 07/27/16 Carvedilol [Coreg] 25 mg PO BID 08/01/16 Pregabalin [Lyrica] 75 mg PO BID 08/01/16 Aspirin [Nancy Low Dose] 325 mg PO DAILY 08/15/16 Clopidogrel Bisulfate [Plavix] 75 mg PO BEDTIME 08/15/16 Pantoprazole Sodium 40 mg PO BEDTIME 11/12/16 Albuterol Sulfate [Proair Hfa] 1 puff INH Q6H PRN 05/17/17 Docusate Sodium 100 mg PO DAILY 05/17/17 Ferrous Sulfate [Iron] 65 mg PO DAILY 05/17/17 Insulin Glargine [Lantus Solostar] 26 unit SC .EVENING 05/17/17 Insulin Glargine [Lantus Solostar] 27 unit SC DAILY 05/17/17 Meclizine HCl 25 mg PO DAILY PRN 05/17/17 Nitroglycerin 0.4 mg Tab [Nitrostat] 1 ea SL PRN 05/17/17 Polyethylene Glycol 3350 [Miralax] 17 gm PO DAILY PRN 05/17/17 Potassium Chloride Tab [K-Dur] 20 meq PO DAILY #30 tab 05/18/17 Azithromycin [Zithromax Z-Jose] 250 mg PO DAILY #5 tab 05/05/18 Review of Systems - Review of Systems Constitutional: States: no symptoms reported EENTM: States: no symptoms reported Respiratory: States: no symptoms reported Cardiology: States: no symptoms reported Gastrointestinal/Abdominal: States: no symptoms reported Genitourinary: States: no symptoms reported Musculoskeletal: States: no symptoms reported Skin: States: no symptoms reported Neurological: States: no symptoms reported Endocrine: States: no symptoms reported Hematologic/Lymphatic: States: no symptoms reported Past Medical History (General) - Patient Medical History Hx Seizures: No Hx Stroke: Yes Hx Dementia: No Hx Asthma: No Hx of COPD: No Hx Cardiac Disorders: Yes Hx Congestive Heart Failure: Yes Hx Pacemaker: No Hx Hypertension: No Hx Thyroid Disease: No Hx Diabetes: Yes Hx Gastroesophageal Reflux: No Hx Renal Disease: No Hx Cancer: No Hx of HIV: No Hx Hepatitis C: No Hx MRSA: No Surgical History: cholecystectomy - Vaccination History Hx Tetanus, Diphtheria Vaccination: Yes Hx Influenza Vaccination: Yes Hx Pneumococcal Vaccination: No Immunizations Up to Date: Yes - Social History Hx Tobacco Use: No Hx Chewing Tobacco Use: No Hx Alcohol Use: No Hx Substance Use: No Hx Substance Use Treatment: No Hx Depression: No Feels Threatened In Home Enviroment: No Feels Threatened In a Relationship: No Hx Physical Abuse: No Hx Emotional Abuse: No Hx Suspected Abuse: No - Activities of Daily Living Hospice Agency (if applicable):: None - Female History Patient is a Female of Child Bearing Age (10 -59 yrs old): No Patient : No Family Medical History - Family History Mother Family History: Unknown Age (years): 86 Living Status: Age at (years of age): 86 Cause of : [place] Hx Family Asthma: No Hx Family Congestive Heart Failure: No Hx Family Hypertension: No Hx Family Stroke: No Hx Cardiac Disease: Yes - mother/son Hx Family Diabetes: Yes - Sons Hx Family Cancer: Yes - cervical cancer-mom Physical Exam - Physical Exam General Appearance: Alert, Comfortable Eye Exam: bilateral normal Ears, Nose, Throat: hearing grossly normal, normal ENT inspection, normal pharynx, abnormal TM (R) Neck: non-tender, full range of motion, supple Cardiovascular/Chest: normal peripheral pulses, regular rate, rhythm, no edema, no gallop, no JVD Peripheral Pulses: radial,right: 2+, radial,left: 2+, femoral,right: 2+, femoral ,left: 2+, popliteal,right: 2+, popliteal,left: 2+, dorsalis pedis,right: 2+, dorsalis pedis,left: 2+, posterior tibialis,right: 2+, posterior tibialis,left: 2+ Gastrointestinal/Abdominal: normal bowel sounds, non tender, soft, no organomegaly Back Exam: normal inspection, no CVA tenderness Extremity: normal range of motion, non-tender, normal inspection, no pedal edema 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: 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 as tested, no motor/sensory deficits, alert, normal mood/affect, oriented x 3 Skin Exam: normal color, warm/dry Lymphatic: no adenopathy Progress - Results/Orders Results/Orders: DOPPLER IS NEG FOR DVT WILL ARRANGE MRI OF THE LUMBAR SPINE AND THEN FOLLOW UP WITH HIS PCP REFERAL TO NEUROLOGY THE MRI REPORT MAY INDICATE THERE IS NO EVIDENCE OF EMERGENT NEUROLOGICAL SIGNS AT THIS TIME - EKG/XRAY/CT CT Ordered: No CT Interpretation Call Back: No Departure - Departure Clinical Impression: Neuropathy, Lumbar radiculopathy, acute, Coronary atherosclerosis, Coronary arteriosclerosis, Hypertensive heart disease Time of Disposition: 10:14 Disposition: Discharge to Home or Self Care Condition: Good Departure Forms: ED Discharge - Pt. Copy, Patient Portal Self Enrollment Referrals: Lashay Levy NP [Primary Care Provider] - 1-2 Weeks Home Medications: Ambulatory Orders Lisinopril 40 mg PO TID 11/06/13 hydrALAZINE HCl [HydrALAzine HCl] 50 mg PO TID 11/06/13 Isosorbide Mononitrate [Imdur] 60 mg PO BEDTIME 06/24/14 amLODIPine BESYLATE [Norvasc] 10 mg PO DAILY 06/24/14 Furosemide [Lasix] 40 mg PO DAILY 04/25/16 Levothyroxine Sodium [Synthroid] 50 mcg PO DAILY 04/25/16 Citalopram Hydrobromide [Celexa] 30 mg PO DAILY 07/27/16 Ranolazine [Ranexa] 500 mg PO BID 07/27/16 Carvedilol [Coreg] 25 mg PO BID 08/01/16 Pregabalin [Lyrica] 75 mg PO BID 08/01/16 Aspirin [Nancy Low Dose] 325 mg PO DAILY 08/15/16 Clopidogrel Bisulfate [Plavix] 75 mg PO BEDTIME 08/15/16 Pantoprazole Sodium 40 mg PO BEDTIME 11/12/16 Albuterol Sulfate [Proair Hfa] 1 puff INH Q6H PRN 05/17/17 Docusate Sodium 100 mg PO DAILY 05/17/17 Ferrous Sulfate [Iron] 65 mg PO DAILY 05/17/17 Insulin Glargine [Lantus Solostar] 26 unit SC .EVENING 05/17/17 Insulin Glargine [Lantus Solostar] 27 unit SC DAILY 05/17/17 Meclizine HCl 25 mg PO DAILY PRN 05/17/17 Nitroglycerin 0.4 mg Tab [Nitrostat] 1 ea SL PRN 05/17/17 Polyethylene Glycol 3350 [Miralax] 17 gm PO DAILY PRN 05/17/17 Potassium Chloride Tab [K-Dur] 20 meq PO DAILY #30 tab 05/18/17 Azithromycin [Zithromax Z-Jose] 250 mg PO DAILY #5 tab 05/05/18
--- NOTE | 2018-05-10 10:20 | US ---
EXAM DESCRIPTION: Venous,Lower Extremity LT: ULTRASOUND. CLINICAL HISTORY: Leg pain - from ankle to groin; r/o DVT COMPARISON: None Available. TECHNIQUE: Cosby-scale and doppler sonographic evaluation of the deep venous system of the left lower extremity. FINDINGS: Doppler evaluation shows normal color flow and normal phasicity and augmentation of the left common femoral vein, femoral vein, popliteal vein, greater saphenous vein, peroneal, and posterior tibial vein. The left lower extremity deep veins showed normal occlusion with transducer pressure. Cosby-scale survey showed no echogenic thrombus within these veins. IMPRESSION: 1. Duplex ultrasound evaluation of the left lower extremity deep venous system showing no evidence of thrombosis. Electronically signed by: Maldonado Joel MD 05/10/2018 10:19 AM CDT
[2018-05-10 10:22] VITALS: BP 163/78; O2SAT 18
== END 2018-05-10 10:21 | disposition home or self-care (01) ==
LOC: ER 09:00
DX: E11.40 Type 2 diabetes mellitus with diabetic neuropathy, unspecified (principal); I25.10 Atherosclerotic heart disease of native coronary artery without angina pectoris; M54.16 Radiculopathy, lumbar region; I11.0 Hypertensive heart disease with heart failure; I50.9 Heart failure, unspecified; Z79.82 Long term (current) use of aspirin; Z79.02 Long term (current) use of antithrombotics/antiplatelets; Z79.4 Long term (current) use of insulin; Z86.73 Personal history of transient ischemic attack (TIA), and cerebral infarction without residual deficits

== ENCOUNTER → 2018-05-12 | Outpatient (CLI) | payer MEDICARE, MEDICAID ==
--- NOTE | 2018-05-12 15:26 | MRI ---
EXAM DESCRIPTION: Lumbar Spine w/o Contrast : Magnetic Resonance Imaging. CLINICAL HISTORY: M51.26 COMPARISON: Lumbar spine x-rays 12/05/2016. CTA thorax 08/15/2016. CT scan of the lumbar spine 04/14/2015. CT abdomen and pelvis 01/29/2011. CT scan cervical spine 02/21/2017. Prior report is not available for the CT scan of the lumbar spine. TECHNIQUE: Multiplanar, multiple standard sequences, non contrast MRI, lumbar spine. FINDINGS: Assuming the lowermost visualized rib pair are the 12th ribs originating from the T12 thoracic vertebra, there are 4 lumbar type vertebra with the fifth vertebra is a transitional lumbo-sacral vertebra which will be designated a sacralized L5. The numbering of the thoracic vertebra is confirmed on prior CT scans of the cervical spine, CTA chest, CT abdomen and pelvis, and CT lumbar spine. For the purposes of this report, the designated L4-5 disc space is visible on T2 axial series image 3. L5-S1: Not completely imaged on the axial series. Rudimentary disc. Sacralized facets with canal and foramina are patent. L4-5: Disc desiccation and minimal disc space loss to the left of midline with Schmorl's node superior L5 endplate. Bulging disc and the left abutting the exiting left L5 nerve. Modic type II endplate reactive changes on the right with disc spur complex encroaching on the right foramen which is stenotic and impingement of the exiting right L4 nerve. Bilateral flavum ligament hypertrophy and facet arthrosis more advanced on the right. Minimal disc bulging into the canal. L3-4: Minimal disc desiccation with small Schmorl's nodes superior and inferior endplate. Disc space preserved. No bulging into the canal. Posterior Modic type I endplate reactive changes. Moderate flavum ligament hypertrophy and bilateral facet arthrosis more on the left. AP canal diameter 10 mm. Hounsfield right foraminal narrowing with disc bulging into the foramen. Moderate to severe left foraminal narrowing. L2-3: Disc desiccation and minimal disc space loss posterior. Tiny posterior disc bulge into the canal and the bases of the bilateral foramina more on the right. Bilateral flavum ligament hypertrophy minimal arthrosis of the facets. AP canal diameter 11 mm. Moderate foraminal narrowing on the right and mild foraminal narrowing on the left. L1-2: Normal signal in the disc with no bulging and disc space preserved. Posterior elements unremarkable. Canal and foramina are patent. Conus terminates at L1. T12-L1: Disc desiccation anterior right disc bulge and spur formation. No posterior bulging. Posterior elements unremarkable. Canal and foramina are patent. Desiccation of T11-12 and T10-11 discs. Anterior bulging and spur formation at these levels as well. No significant scoliosis. Lordosis is maintained. Paravertebral soft tissues show muscle atrophy.. Normal marrow signal in the remaining vertebral bodies and the posterior elements. Vertebral bodies are not compressed at any level. IMPRESSION: 1. 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 This is based upon review of multiple prior CT scans, including lumbar CT scan (of which No report is available.) L5-S1 disc is rudimentary with sacralized facets and foramina, no canal or foraminal stenosis. Transitional vertebra can contribute to abnormal biomechanics and be a source of back pain. 2. Moderate spondylosis L4-5 to the right of midline with disc spur complex encroaching on the foramen which is stenotic and the exiting right L4 nerve. Correlate for right L4 radiculopathy. 3. Posterior L3-4 mild spondylosis with borderline mild canal narrowing mainly due to posterior element degenerative changes. Moderate severe left foraminal narrowing. Correlate for left L3 radiculopathy. 4. Moderate canal narrowing L2-3 and moderate foraminal narrowing on the right, due to facet arthrosis and bulging disc. Electronically signed by: Maldonado Joel MD 05/12/2018 3:24 PM CDT
== END ==
LOC: MRI 09:00
PROVIDERS: ATTEND Nurse Practitioner Family
DX: M51.26 Other intervertebral disc displacement, lumbar region (principal)

== ENCOUNTER → 2018-07-19 | Outpatient (CLI) | payer MEDICARE, MEDICAID ==
--- NOTE | 2018-07-19 12:17 | CT ---
EXAM DESCRIPTION: Head CLINICAL HISTORY: EVALUATE FOR ACUTE CVA COMPARISON: CT head dated 08/18/2017. TECHNIQUE: Contiguous axial images through the head were obtained without intravenous contrast administration. Sagittal and coronal reconstructions were reviewed. FINDINGS: Moderate periventricular white matter ischemia and moderate diffuse cortical volume loss is noted. No evidence of acute major vascular territorial infarct or intraparenchymal hemorrhage. No intra-axial or extra-axial fluid collections are identified. The ventricles and cisterns appear normal in caliber. The sella and suprasellar regions appear normal. The structures of the posterior fossa are intact. The globes are intact bilaterally. The visualized paranasal sinuses and mastoid air cells are well-aerated. Review of the bones demonstrates no gross instability. IMPRESSION: No CT evidence of acute intracranial process. This exam was performed according to our departmental dose-optimization program, which includes automated exposure control, adjustment of the mA and/or kV according to patient size and/or use of iterative reconstruction technique. Electronically signed by: Nisreen Rowe MD 07/19/2018 12:15 PM CDT
== END ==
LOC: CT 11:50
PROVIDERS: ATTEND Nurse Practitioner Family
DX: E11.22 Type 2 diabetes mellitus with diabetic chronic kidney disease (principal)

== ENCOUNTER 2018-10-10 13:36 | Emergency (ER) | payer MEDICARE, OTHER ==
--- NOTE | 2018-10-10 14:00 | ED.PDOC ---
History of Present Illness - General Chief Complaint: General Stated Complaint: L side discomfort w/breathing Time Seen by Provider: 10/10/18 13:46 Source: patient Exam Limitations: no limitations - History of Present Illness Initial Comments: Bonifacio Reyna 78 y/o male cmae to ER with non productive cough for 2 weeks seen by primary Md was prescribed steroids and antibiotics but for the last 3 days had been having sharp pains left lower rib cage during coughing episodes with sob.Denies chills ,has low grade fever,and feeling weak all over with some loss of appetite.No N/V,had regular BM. Timing/Duration: constant, other - see hpi Severity: moderate Improving Factors: nothing Worsening Factors: other - see hpi Associated Symptoms: other - see hpi Allergies/Adverse Reactions: Allergies NO KNOWN ALLERGY Allergy (Verified 10/10/18 13:51) Home Medications: Ambulatory Orders Lisinopril 40 mg PO TID 11/06/13 Isosorbide Mononitrate [Imdur] 60 mg PO BEDTIME 06/24/14 amLODIPine BESYLATE [Norvasc] 10 mg PO DAILY 06/24/14 Furosemide [Lasix] 40 mg PO DAILY 04/25/16 Levothyroxine Sodium [Synthroid] 50 mcg PO DAILY 04/25/16 Ranolazine [Ranexa] 500 mg PO BID 07/27/16 Pregabalin [Lyrica] 75 mg PO BID 08/01/16 Aspirin [Nancy Low Dose] 325 mg PO DAILY 08/15/16 Clopidogrel Bisulfate [Plavix] 75 mg PO BEDTIME 08/15/16 Pantoprazole Sodium 40 mg PO BEDTIME 11/12/16 Albuterol Sulfate [Proair Hfa] 1 puff INH Q6H PRN 05/17/17 Nitroglycerin 0.4 mg Tab [Nitrostat] 1 ea SL PRN 05/17/17 Potassium Chloride Tab [K-Dur] 20 meq PO DAILY #30 tab 05/18/17 Glipizide 10 mg PO DAILY 05/10/18 Insulin Detemir [Levemir Pen] 0 unit SUBCU DAILY 05/10/18 Sertraline HCl 25 mg PO DAILY 05/10/18 Simvastatin 20 mg PO BEDTIME 05/10/18 Review of Systems - Review of Systems Constitutional: States: weakness EENTM: States: no symptoms reported Respiratory: States: see HPI Cardiology: States: no symptoms reported Gastrointestinal/Abdominal: States: no symptoms reported Genitourinary: States: no symptoms reported Skin: States: no symptoms reported Neurological: States: no symptoms reported Past Medical History (General) - Patient Medical History Hx Seizures: No Hx Stroke: Yes Hx Dementia: No Hx Asthma: No Hx of COPD: No Hx Cardiac Disorders: Yes - [place]; cardiac stents Hx Congestive Heart Failure: Yes Hx Pacemaker: No Hx Hypertension: No Hx Thyroid Disease: No Hx Diabetes: Yes Hx Gastroesophageal Reflux: No Hx Renal Disease: No Hx Cancer: No Hx of HIV: No Hx Hepatitis C: No Hx MRSA: No Surgical History: cholecystectomy, other - cataract,multiple cardiac stent,finger - Vaccination History Hx Tetanus, Diphtheria Vaccination: Yes Hx Influenza Vaccination: Yes Hx Pneumococcal Vaccination: No - Social History Hx Tobacco Use: No Hx Chewing Tobacco Use: No Hx Alcohol Use: No Hx Substance Use: No Hx Substance Use Treatment: No Hx Depression: No Hx Physical Abuse: No Hx Emotional Abuse: No Hx Suspected Abuse: No - Activities of Daily Living Grooming Ability: Independent Eating (Feeding) Ability: Independent Toileting Ability: Independent - Female History Patient : No Family Medical History - Family History Mother Family History: Unknown Age (years): 86 Living Status: Age at (years of age): 86 Cause of : [place] Hx Family Asthma: No Hx Family Congestive Heart Failure: No Hx Family Hypertension: No Hx Family Stroke: No Hx Cardiac Disease: Yes - mother/son Hx Family Diabetes: Yes - Sons Hx Family Cancer: Yes - cervical cancer-mom;sister Physical Exam - Physical Exam General Appearance: Alert, Comfortable, Frail, No apparent distress Eye Exam: bilateral normal Ears, Nose, Throat: hearing grossly normal, normal ENT inspection, normal pharynx Neck: supple, normal inspection Respiratory: chest non-tender, rales - bases bilateral Cardiovascular/Chest: normal peripheral pulses, regular rate, rhythm, no murmur Peripheral Pulses: radial,right: 2+, radial,left: 2+ Gastrointestinal/Abdominal: non tender, soft, no organomegaly Back Exam: no CVA tenderness, no vertebral tenderness Extremity: no pedal edema, no calf tenderness Neurologic: alert, oriented x 3 Skin Exam: normal color, warm/dry Lymphatic: no adenopathy Progress - Progress Progress: 10/10/18 14:07 Vital Signs - 8 hr 10/10/18 13:40 Temperature 99.5 F Pulse Rate [ 68 Left Radial] Respiratory 20 Rate Blood Pressure 161/70 [Left Arm] O2 Sat by Pulse 94 L Oximetry - Results/Orders Results/Orders: 10/10/18 13:58 IV Care:Saline Lock per Protoc QSHIFT B-TYPE NATRIURETIC PEPTIDE/BNP Stat CARDIAC PANEL,ER Stat CRP [C-REACTIVE PROTEIN] Stat HEPATIC FUNCTION PANEL Stat THYROID STIMULATING HORMONE Stat URINALYSIS Stat 10/10/18 14:00 EKG STAT Laboratory Results - last 24 hr 10/10/18 10/10/18 13:58 13:58 WBC 10.1 RBC 4.35 L Hgb 12.3 L Hct 37.2 L MCV 85.5 MCH 28.2 MCHC 33.0 RDW 15.9 H Plt Count 182 MPV 9.0 Absolute Neuts (auto) 6.60 Absolute Lymphs (auto) 2.20 Absolute Monos (auto) 1.00 H Absolute Eos (auto) 0.20 Absolute Basos (auto) 0.10 Neutrophils % 65.6 Lymphocytes % 21.3 Monocytes % 10.3 H Eosinophils % 1.7 Basophils % 1.1 PT 10.4 INR 1.04 PTT (SP) 25.5 Sodium 137 Potassium 3.9 Chloride 105 Carbon Dioxide 25 Anion Gap 10.9 L BUN 19 H Creatinine 1.75 H BUN/Creatinine Ratio 10.9 Random Glucose 247 H Serum Osmolality 284.3 Lactic Acid 1.4 Calcium 8.5 Magnesium 1.9 Total Bilirubin 0.6 Direct Bilirubin 0.1 Indirect Bilirubin 0.5 AST 14 ALT 15 Alkaline Phosphatase 88 Creatine Kinase 50 CK-MB (CK-2) 1.8 Troponin I < 0.02 C-Reactive Protein 0.8 B-Natriuretic Peptide 57.9 Serum Total Protein 6.3 L Albumin 3.4 TSH 4.31 Discuss all test result blood test and CXR with patient no PNA noted on chest x- ray but with mild fluid overload stating and no acute abnormalities on all his blood test he is already taking water pill and does not want bumex iv - EKG/XRAY/CT EKG: Sinus, Unchanged from - 19 March 2018 Comments: HR-63;Q-wave lead 3 only Departure - Departure Clinical Impression: Upper respiratory infection, viral, SOB (shortness of breath), Chest pain, pleuritic, Diabetes 1.5, managed as type 1, CKD (chronic kidney disease) stage 3, GFR 30-59 ml/min Fluid overload Qualifiers: Hypervolemia type: unspecified Qualified Code(s): E87.70 - Fluid overload, unspecified Time of Disposition: 15:13 Disposition: Discharge to Home or Self Care Condition: Fair Departure Forms: ED Discharge - Pt. Copy, Patient Portal Self Enrollment Instructions: DASH Diet Referrals: Lashay Levy NP [Primary Care Provider] - 1-2 Weeks Home Medications: Ambulatory Orders Lisinopril 40 mg PO TID 11/06/13 Isosorbide Mononitrate [Imdur] 60 mg PO BEDTIME 06/24/14 amLODIPine BESYLATE [Norvasc] 10 mg PO DAILY 06/24/14 Furosemide [Lasix] 40 mg PO DAILY 04/25/16 Levothyroxine Sodium [Synthroid] 50 mcg PO DAILY 04/25/16 Ranolazine [Ranexa] 500 mg PO BID 07/27/16 Pregabalin [Lyrica] 75 mg PO BID 08/01/16 Aspirin [Nancy Low Dose] 325 mg PO DAILY 08/15/16 Clopidogrel Bisulfate [Plavix] 75 mg PO BEDTIME 08/15/16 Pantoprazole Sodium 40 mg PO BEDTIME 11/12/16 Albuterol Sulfate [Proair Hfa] 1 puff INH Q6H PRN 05/17/17 Nitroglycerin 0.4 mg Tab [Nitrostat] 1 ea SL PRN 05/17/17 Potassium Chloride Tab [K-Dur] 20 meq PO DAILY #30 tab 05/18/17 Glipizide 10 mg PO DAILY 05/10/18 Insulin Detemir [Levemir Pen] 0 unit SUBCU DAILY 05/10/18 Sertraline HCl 25 mg PO DAILY 05/10/18 Simvastatin 20 mg PO BEDTIME 05/10/18 Additional Instructions: Follow up with your primary Md 11 Oct 2018 for re-check;Continue with all home medication ;Return to Emergency Room as needed.
--- NOTE | 2018-10-10 14:44 | RAD ---
EXAM DESCRIPTION: Chest,1 View CLINICAL HISTORY: 78 years Male cough COMPARISON: Portable chest 05/05/2018 TECHNIQUE: A single frontal projection of the chest is obtained. FINDINGS: Heart: Allowing for magnification factors related to AP portable technique and large body habitus , the heart is mildly enlarged and there is mild prominence of the pulmonary vascularity. Vasculature: The aorta is unremarkable. Mediastinum: Unremarkable []. No evidence of mass or adenopathy. Lungs: The study is obtained during a suboptimal depth of inspiration with resultant decreased lung volumes and crowding of the bronchovascular markings in the lower lobes. No definite gross consolidation is seen, allowing for these factors. Pleural spaces: No evidence of pleural fluid or pneumothorax. Osseous structures: The osseous structures show no discernible acute fractures or areas of osseous destruction or blastic change, although assessment of the spine is limited by underpenetration. There are diffuse enthesopathic changes including a rolling pattern of ossification in the thoracic spine consistent with diffuse idiopathic skeletal hyperostosis (DISH). Tubes and catheters: None. Upper abdomen: No acute findings. IMPRESSION: Suspect mild fluid overload. Remainder of findings as described above. Electronically signed by: Hayley Bauer MD 10/10/2018 2:42 PM [employer]
[2018-10-10] MEDS ORDERED: BUMETANIDE 0.25 MG/ML VIAL IV ONE (14:55)
[2018-10-10] MEDS ORDERED: BUMETANIDE TAB 2 MG TAB ONE (15:15)
[2018-10-10 15:18] VITALS: BP 149/67; TEMP 99; O2SAT 97
[2018-10-11] MEDS ORDERED: BUMETANIDE TAB 2 MG TAB PO SCH (09:00)
== END 2018-10-10 15:21 | disposition home or self-care (01) ==
LOC: ER 13:36
DX: J06.9 Acute upper respiratory infection, unspecified (principal); E87.70 Fluid overload, unspecified; R07.1 Chest pain on breathing; N18.3 Chronic kidney disease, stage 3 (moderate); E10.22 Type 1 diabetes mellitus with diabetic chronic kidney disease; I25.2 Old myocardial infarction; Z95.5 Presence of coronary angioplasty implant and graft; Z86.73 Personal history of transient ischemic attack (TIA), and cerebral infarction without residual deficits; Z79.4 Long term (current) use of insulin; Z79.899 Other long term (current) drug therapy; Z79.82 Long term (current) use of aspirin

== ENCOUNTER 2018-10-17 12:09 | Emergency (ER) | payer MEDICARE, OTHER ==
[2018-10-17] MEDS ORDERED: IPRATROPIUM/ALBUTEROL 3 ML VIAL NEB ONE (12:18)
[2018-10-17 12:31] VITALS: TEMP 98.6
--- NOTE | 2018-10-17 12:50 | RAD ---
EXAM:Chest,2 Views CLINICAL INDICATION: Patient fell, rib pain COMPARISON: 10/10/2018 FINDINGS:Two views of the chest were obtained. The heart size is normal. The pulmonary vascularity is unremarkable. The lungs are clear. There is no consolidation, infiltrate, pleural effusion, or pneumothorax. The visualized osseous structures are grossly unremarkable. IMPRESSION: No evidence of active pulmonary disease. Electronically signed by: Juanpablo Linares MD 10/17/2018 12:48 PM [facility]
[2018-10-17] MEDS ORDERED: AZITHROMYCIN 250 MG TAB PO ONE (13:41)
[2018-10-17] MEDS ORDERED: predniSONE 20 MG TAB PO ONE (13:41)
--- NOTE | 2018-10-17 13:44 | ED.PDOC ---
History of Present Illness - General Chief Complaint: Respiratory Problem Stated Complaint: does not feel good Time Seen by Provider: 10/17/18 12:10 Source: patient Exam Limitations: no limitations - History of Present Illness Initial Comments: the patient is an 78-year-old male presenting to the emergency room secondary to some cough and mild shortness of breath. The patient reports that he has experienced this ever since he fell a little more than a week ago. He did actually present at the time and was evaluated. No pneumothorax and no significant rib fractures were found. He is obviously still sore to the right side of the chest and does still have splinting while breathing. Lung sounds are actually clear but he does not want to take a deep breath. No obvious fevers. He does appear to have a viral upper respiratory tract infection as well. Nares are red with clear rhinorrhea and posterior oropharynx is mildly red. Timing/Duration: 1 week Severity: moderate Improving Factors: nothing Worsening Factors: nothing Associated Symptoms: chest pain Allergies/Adverse Reactions: Allergies NO KNOWN ALLERGY Allergy (Verified 10/10/18 13:51) Home Medications: Ambulatory Orders Lisinopril 40 mg PO TID 11/06/13 Isosorbide Mononitrate [Imdur] 60 mg PO BEDTIME 06/24/14 amLODIPine BESYLATE [Norvasc] 10 mg PO DAILY 06/24/14 Furosemide [Lasix] 40 mg PO DAILY 04/25/16 Levothyroxine Sodium [Synthroid] 50 mcg PO DAILY 04/25/16 Ranolazine [Ranexa] 500 mg PO BID 07/27/16 Pregabalin [Lyrica] 75 mg PO BID 08/01/16 Aspirin [Nancy Low Dose] 325 mg PO DAILY 08/15/16 Clopidogrel Bisulfate [Plavix] 75 mg PO BEDTIME 08/15/16 Pantoprazole Sodium 40 mg PO BEDTIME 11/12/16 Albuterol Sulfate [Proair Hfa] 1 puff INH Q6H PRN 05/17/17 Nitroglycerin 0.4 mg Tab [Nitrostat] 1 ea SL PRN 05/17/17 Potassium Chloride Tab [K-Dur] 20 meq PO DAILY #30 tab 05/18/17 Glipizide 10 mg PO DAILY 05/10/18 Insulin Detemir [Levemir Pen] 0 unit SUBCU DAILY 05/10/18 Sertraline HCl 25 mg PO DAILY 05/10/18 Simvastatin 20 mg PO BEDTIME 05/10/18 Azithromycin 500 mg PO DAILY #5 tab 10/17/18 Review of Systems - Review of Systems Constitutional: States: malaise EENTM: States: nose congestion Respiratory: States: cough, short of breath - mild but normal vitals Cardiology: States: chest pain Gastrointestinal/Abdominal: States: no symptoms reported Genitourinary: States: no symptoms reported Musculoskeletal: States: no symptoms reported Skin: States: no symptoms reported Neurological: States: no symptoms reported Endocrine: States: no symptoms reported - he is anxious All other Systems: No Change from Baseline Past Medical History (General) - Patient Medical History Hx Seizures: No Hx Stroke: Yes Hx Dementia: No Hx Asthma: No Hx of COPD: No Hx Cardiac Disorders: Yes - [place]; cardiac stents Hx Congestive Heart Failure: Yes Hx Pacemaker: No Hx Hypertension: No Hx Thyroid Disease: No Hx Diabetes: Yes Hx Gastroesophageal Reflux: No Hx Renal Disease: No Hx Cancer: No Hx of HIV: No Hx Hepatitis C: No Hx MRSA: No Surgical History: cholecystectomy - Vaccination History Hx Tetanus, Diphtheria Vaccination: Yes Hx Influenza Vaccination: Yes Hx Pneumococcal Vaccination: No - Social History Hx Tobacco Use: No Hx Chewing Tobacco Use: No Hx Alcohol Use: No Hx Substance Use: No Hx Substance Use Treatment: No Hx Depression: No Hx Physical Abuse: No Hx Emotional Abuse: No Hx Suspected Abuse: No - Female History Patient : No Family Medical History - Family History Mother Family History: Unknown Age (years): 86 Living Status: Age at (years of age): 86 Cause of : OR Hx Family Asthma: No Hx Family Congestive Heart Failure: No Hx Family Hypertension: No Hx Family Stroke: No Hx Cardiac Disease: Yes - mother/son Hx Family Diabetes: Yes - Sons Hx Family Cancer: Yes - cervical cancer-mom;sister Physical Exam - Physical Exam General Appearance: Alert, Comfortable, No apparent distress Eye Exam: bilateral normal Ears, Nose, Throat: nasal congestion, pharyngeal erythema - mild Neck: full range of motion, supple - mild Respiratory: lungs clear, normal breath sounds, no respiratory distress, no accessory muscle use, other - right lateral chest wall is tender to palpation but no crepitus and no obvious deformity. 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 He does appear to have a viral upper respiratory tract infection but has tested negative for the flu. Due to the continued shallow breathing due to rib pain from the fall last week, the patient is going to be placed on prophylactic azithromycin to prevent pneumonia. Chest x-ray is clear today. He was given 1 dose of oral prednisone. ER warnings were given. He can follow up with his primary care doctor later this week. Motrin can also be used to help reduce inflammatory symptoms from the cold and the rib pain. - Results/Orders Results/Orders: chest x-ray shows no evidence of any pneumothorax or significant infiltrate. Rapid flu is negative. Departure - Departure Clinical Impression: Chest wall discomfort Upper respiratory infection Qualifiers: URI type: unspecified viral URI Qualified Code(s): J06.9 - Acute upper respiratory infection, unspecified Disposition: Discharge to Home or Self Care Condition: Fair Departure Forms: ED Discharge - Pt. Copy, Patient Portal Self Enrollment Instructions: Cough, Runny Nose, and the Common Cold (DC), Bruised Rib (DC) Diet: regular diet Activity: increase activity as tolerated Referrals: Lashay Levy NP [Primary Care Provider] - 1-5 Days Prescriptions: Azithromycin 500 mg PO DAILY #5 tab Home Medications: Ambulatory Orders Lisinopril 40 mg PO TID 11/06/13 Isosorbide Mononitrate [Imdur] 60 mg PO BEDTIME 06/24/14 amLODIPine BESYLATE [Norvasc] 10 mg PO DAILY 06/24/14 Furosemide [Lasix] 40 mg PO DAILY 04/25/16 Levothyroxine Sodium [Synthroid] 50 mcg PO DAILY 04/25/16 Ranolazine [Ranexa] 500 mg PO BID 07/27/16 Pregabalin [Lyrica] 75 mg PO BID 08/01/16 Aspirin [Nancy Low Dose] 325 mg PO DAILY 08/15/16 Clopidogrel Bisulfate [Plavix] 75 mg PO BEDTIME 08/15/16 Pantoprazole Sodium 40 mg PO BEDTIME 11/12/16 Albuterol Sulfate [Proair Hfa] 1 puff INH Q6H PRN 05/17/17 Nitroglycerin 0.4 mg Tab [Nitrostat] 1 ea SL PRN 05/17/17 Potassium Chloride Tab [K-Dur] 20 meq PO DAILY #30 tab 05/18/17 Glipizide 10 mg PO DAILY 05/10/18 Insulin Detemir [Levemir Pen] 0 unit SUBCU DAILY 05/10/18 Sertraline HCl 25 mg PO DAILY 05/10/18 Simvastatin 20 mg PO BEDTIME 05/10/18 Azithromycin 500 mg PO DAILY #5 tab 10/17/18 Additional Instructions: the patient's 78-year-old male presenting mainly due to a feeling of shortness of breath. He does appear to have a viral upper respiratory tract infection but has tested negative for the flu. Due to the continued shallow breathing due to rib pain from the fall last week, the patient is going to be placed on prophylactic azithromycin to prevent pneumonia. Chest x-ray is clear today. He was given 1 dose of oral prednisone. ER warnings were given. He can follow up with his primary care doctor later this week. Motrin can also be used to help reduce inflammatory symptoms from the cold and the rib pain.
[2018-10-17 14:05] VITALS: BP 165/81; O2SAT 97
== END 2018-10-17 14:02 | disposition home or self-care (01) ==
LOC: ER 12:09
DX: J06.9 Acute upper respiratory infection, unspecified (principal); R07.1 Chest pain on breathing; I25.2 Old myocardial infarction; E11.9 Type 2 diabetes mellitus without complications; I50.9 Heart failure, unspecified; Z95.5 Presence of coronary angioplasty implant and graft; Z79.4 Long term (current) use of insulin; Z79.899 Other long term (current) drug therapy; Z79.82 Long term (current) use of aspirin; Z86.73 Personal history of transient ischemic attack (TIA), and cerebral infarction without residual deficits
CPT/HCPCS: 71046; 87502; 94640; J7512; J7620; Q0144

== ENCOUNTER 2018-11-01 08:35 | Observation (INO) | payer MEDICARE, OTHER ==
--- NOTE | 2018-11-01 08:47 | ED.PDOC ---
History of Present Illness - General Chief Complaint: GI Problem Stated Complaint: N/V/D Time Seen by Provider: 11/01/18 08:44 Source: patient, RN notes reviewed, Vital Signs reviewed, EMS notes reviewed Additional Information: 78 YEAR OLD WHITE MALE WITH MULTIPLE MEDICAL PROBLEMS PRESENTS WITH VOMITING DIARRHEA UNCONTROLLED BLOOD SUGAR NASUEA VOMITING DIARRHEA FOR SEVERAL DAYS NOW HE HAS NO ABDOMINAL PAIN NO DIZZINESS NO BLOOD OR MUCOUS IN STOOLS PMH DM HTN CAD SEVERAL STENTS A TOTAL OF 17 - History of Present Illness Timing/Duration: 1 week Severity: moderate Improving Factors: nothing Worsening Factors: nothing Associated Symptoms: denies symptoms Allergies/Adverse Reactions: Allergies NO KNOWN ALLERGY Allergy (Verified 10/10/18 13:51) Home Medications: Ambulatory Orders Lisinopril 40 mg PO TID 11/06/13 Isosorbide Mononitrate [Imdur] 60 mg PO BEDTIME 06/24/14 amLODIPine BESYLATE [Norvasc] 10 mg PO DAILY 06/24/14 Furosemide [Lasix] 40 mg PO DAILY 04/25/16 Levothyroxine Sodium [Synthroid] 50 mcg PO DAILY 04/25/16 Ranolazine [Ranexa] 500 mg PO BID 07/27/16 Pregabalin [Lyrica] 75 mg PO BID 08/01/16 Aspirin [Nancy Low Dose] 325 mg PO DAILY 08/15/16 Clopidogrel Bisulfate [Plavix] 75 mg PO BEDTIME 08/15/16 Pantoprazole Sodium 40 mg PO BEDTIME 11/12/16 Albuterol Sulfate [Proair Hfa] 1 puff INH Q6H PRN 05/17/17 Nitroglycerin 0.4 mg Tab [Nitrostat] 1 ea SL PRN 05/17/17 Potassium Chloride Tab [K-Dur] 20 meq PO DAILY #30 tab 05/18/17 Glipizide 10 mg PO DAILY 05/10/18 Insulin Detemir [Levemir Pen] 0 unit SUBCU DAILY 05/10/18 Sertraline HCl 25 mg PO DAILY 05/10/18 Simvastatin 20 mg PO BEDTIME 05/10/18 Azithromycin 500 mg PO DAILY #5 tab 10/17/18 Review of Systems - Review of Systems Constitutional: States: no symptoms reported EENTM: States: no symptoms reported Respiratory: States: no symptoms reported Cardiology: States: no symptoms reported Gastrointestinal/Abdominal: States: see HPI, diarrhea, nausea, vomiting Genitourinary: States: no symptoms reported Skin: States: no symptoms reported Neurological: States: no symptoms reported Endocrine: States: no symptoms reported Hematologic/Lymphatic: States: no symptoms reported Past Medical History (General) - Patient Medical History Hx Seizures: No Hx Stroke: Yes Hx Dementia: No Hx Asthma: No Hx of COPD: No Hx Cardiac Disorders: Yes - [place]; cardiac stents Hx Congestive Heart Failure: Yes Hx Pacemaker: No Hx Hypertension: No Hx Thyroid Disease: No Hx Diabetes: Yes Hx Gastroesophageal Reflux: No Hx Renal Disease: No Hx Cancer: No Hx of HIV: No Hx Hepatitis C: No Hx MRSA: No - Vaccination History Hx Tetanus, Diphtheria Vaccination: Yes Hx Influenza Vaccination: Yes Hx Pneumococcal Vaccination: No - Social History Hx Tobacco Use: No Hx Chewing Tobacco Use: No Hx Alcohol Use: No Hx Substance Use: No Hx Substance Use Treatment: No Hx Depression: No Hx Physical Abuse: No Hx Emotional Abuse: No Hx Suspected Abuse: No - Female History Patient : No Family Medical History - Family History Mother Family History: Unknown Age (years): 86 Living Status: Age at (years of age): 86 Cause of : [place] Hx Family Asthma: No Hx Family Congestive Heart Failure: No Hx Family Hypertension: No Hx Family Stroke: No Hx Cardiac Disease: Yes - mother/son Hx Family Diabetes: Yes - Sons Hx Family Cancer: Yes - cervical cancer-mom;sister Physical Exam - Physical Exam General Appearance: Alert, No apparent distress Eye Exam: bilateral normal Ears, Nose, Throat: hearing grossly normal, normal ENT inspection, normal pharynx, other - VERY DRY TONGUE Neck: non-tender, full range of motion, supple Respiratory: chest non-tender, lungs clear, normal breath sounds, no respiratory distress, no accessory muscle use Cardiovascular/Chest: normal peripheral pulses, regular rate, rhythm, no edema, no gallop, no JVD, no murmur Gastrointestinal/Abdominal: normal bowel sounds, non tender, soft, no organomegaly, no pulsatile mass Back Exam: normal inspection, no CVA tenderness, no vertebral tenderness Extremity: normal range of motion, non-tender, normal inspection, no pedal edema, no calf tenderness 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 Copy, Patient Portal Self Enrollment Referrals: Lashay Levy NP [Primary Care Provider] - 1-2 Weeks Home Medications: Ambulatory Orders Lisinopril 40 mg PO TID 11/06/13 Isosorbide Mononitrate [Imdur] 60 mg PO BEDTIME 06/24/14 amLODIPine BESYLATE [Norvasc] 10 mg PO DAILY 06/24/14 Furosemide [Lasix] 40 mg PO DAILY 04/25/16 Levothyroxine Sodium [Synthroid] 50 mcg PO DAILY 04/25/16 Ranolazine [Ranexa] 500 mg PO BID 07/27/16 Pregabalin [Lyrica] 75 mg PO BID 08/01/16 Aspirin [Nancy Low Dose] 325 mg PO DAILY 08/15/16 Clopidogrel Bisulfate [Plavix] 75 mg PO BEDTIME 08/15/16 Pantoprazole Sodium 40 mg PO BEDTIME 11/12/16 Albuterol Sulfate [Proair Hfa] 1 puff INH Q6H PRN 05/17/17 Nitroglycerin 0.4 mg Tab [Nitrostat] 1 ea SL PRN 05/17/17 Potassium Chloride Tab [K-Dur] 20 meq PO DAILY #30 tab 05/18/17 Glipizide 10 mg PO DAILY 05/10/18 Insulin Detemir [Levemir Pen] 0 unit SUBCU DAILY 05/10/18 Sertraline HCl 25 mg PO DAILY 05/10/18 Simvastatin 20 mg PO BEDTIME 05/10/18 Azithromycin 500 mg PO DAILY #5 tab 10/17/18 Comments: DISCUSSED WITH MS NICOLE LIU INSIDE TRUCKER AT 10 40 AM WILL ADMIT FOR IV HYDRATION AND G LYCEMIC CONTROL
[2018-11-01] MEDS ORDERED: ONDANSETRON INJ 4 MG/2 ML VIAL IV ONE (08:58)
[2018-11-01] MEDS ORDERED: SODIUM CHLORIDE 0.9% 1000ML 1,000 ML IVS ONE (08:58)
--- NOTE | 2018-11-01 09:20 | RAD ---
EXAM DESCRIPTION: Chest,1 View CLINICAL HISTORY: 78 years Male, r/o pneumonia COMPARISON: October 17, 2018 TECHNIQUE: AP portable chest. FINDINGS: Fair expansion of the lungs is evident without consolidation, layering effusion, or large mass. Heart size and vascularity appear upper normal for AP technique and degree of inspiration. The aortic arch and descending aorta are modestly tortuous. No gross bony, hilar, or mediastinal abnormalities are noted. No significant change from recent prior study noted. IMPRESSION: Heart size and vascularity upper normal without acute or dense infiltrate noted. Electronically signed by: Chauncey Lawler MD 11/01/2018 9:19 AM [employer]
[2018-11-01] MEDS ORDERED: INSULIN, REG.(HUMAN) 100 U/ML VIAL SUBCU ONE (10:56)
--- NOTE | 2018-11-01 11:27 | HP ---
SUPERVISING PHYSICIAN: Chauncey Hurst MD HISTORY OF PRESENT ILLNESS: This is an 78 year-old male patient who has multiple medical problems. He came to the Emergency Room today presenting with nausea and vomiting with diarrhea x3 weeks. In the Emergency Room he was also found to have an elevated blood sugar of 420. He had no abdominal pain or dizziness. He reported no blood in his stools. His vital signs were temperature of 98.3 with heart rate of 71. Blood pressure 189/87, respiratory rte 20, 02 saturation 97% on room air. Lab was done. His sodium was 135, potassium 4, carbon dioxide 26, BUN 20, creatinine 1.38. Baseline creatinine is about 1.5. Glucose 420 with serum osmolality of 290, magnesium 2. WBC 8.2 with hemoglobin of 13.4 and hematocrit 40.4. Urinalysis was within normal limits with exception of serum glucose of 500. Chest x-ray showed heart size and vascularity upper normal limits without acute or dense infiltrate noted. Abdominal x-ray shows noncontributory abdomen, 2 view, with no evidence of free abdominal air or obstruction. I was called to admit the patient for observation. PAST MEDICAL HISTORY: 1. Diabetes mellitus type 2. 2. Hypertension. 3. Myocardial infarction in 1999 and 2015. 4. Gastroesophageal reflux disease. 5. Cerebrovascular accident with mild left-sided weakness. 6. Bilateral cataracts. 7. Arthritis. 8. Renal insufficiency. PAST SURGICAL HISTORY: 1. Cholecystectomy. 2. Metacarpal phalangeal joint replacement. 3. Multiple catheter catheterizations and multiple stints. 4. Cataract surgery. OUTPATIENT MEDICATIONS: 1. Albuterol sulfate. 2. Nitroglycerin. 3. Potassium chloride. 4. Ranexa. 5. Aspirin. 6. Glipizide. 7. Levemir insulin. 8. Pantoprazole. 9. Amlodipine. 10. Plavix. 11. Furosemide. 12. Imdur. 13. Levothyroxine. 14. Lisinopril. 15. Pregabalin. 16. Sertraline. 17. Simvastatin. ALLERGIES: No know3n drug allergies. FAMILY HISTORY: Unknown. SOCIAL HISTORY: He is , he lives in [place]. He has a history of smoking but he quit 15+ years ago. He denies alcohol or illicit drug use. REVIEW OF SYSTEMS: GENERAL: Positive for a subjective fever and fatigue. Negative for weight changes. HEENT: Positive for nasal congestion negative for vision changes, ear pain or sore throat. RESPIRATORY: Negative for coughing, wheezing, shortness of breath. CARDIAC: Negative for chest pain, palpitations, tachycardia. GI: Positive for nausea, vomiting, diarrhea, negative for constipation. GENITOURINARY: Negative for hematuria, polyuria, dysuria. SKIN: Negative for lesions or rashes. NEUROLOGICAL: Negative for dizziness, headaches or seizures. PHYSICAL EXAMINATION: VITAL SIGNS: Temperature 97.5, heart rate 63, blood pressure 181/68, respiratory rate 16, 02 saturation 97% on room air. GENERAL: This is an 78 year-old male patient who is lying in his hospital bed. He appears moderately ill. HEENT: Normocephalic and atraumatic. Pupils equal and reactive. Oropharynx clear. NECK: Supple without mass. There is no discernible jugular venous distention. CHEST: Essential clear to auscultation bilaterally. Chest has equal rise and fall with inspiration and expiration. CARDIOVASCULAR: Regular rate and rhythm. ABDOMEN: Soft, nondistended, non-tender. Bowel sounds are positive. EXTREMITIES: No sign of cyanosis, clubbing, or edema. NEUROLOGIC: He is awake, alert and oriented x 3. Cranial nerves II through XII are grossly intact. Skin is warm and dry. Laboratory and films are as per the history of present illness. ASSESSMENT: 1. Nausea, vomiting and diarrhea x3 weeks. May be due to gastritis. 2. Hyperglycemia without acidosis. Blood sugar on admission was 420. 3. Chronic renal insufficiency. 4. Diabetes mellitus type 2. 5. Gastroesophageal reflux disease. 6. History of CVAs with mild left-sided weakness. 7. Hypertension. PLAN: We will place the patient in observation. He will receive IV fluids overnight. I will recheck his labs in the morning. He is on a PPI for ulcer prophylaxis and Lovenox for DVT prophylaxis. I will give him clear liquids today and he will be n.p.o. at midnight. He will have a CT of the abdomen and pelvis in the morning. I have also given him an antiemetic for nausea. If there is no nausea or vomiting in the morning we will advance his diet after his CT scan. He is also on sliding scale NovoLog insulin covering his ac and hs blood sugars. I restarted his home medications and we have encouraged good pulmonary hygiene and will continue to monitor him closely and follow as needed. #[id number] [facility]
[2018-11-01] MEDS ORDERED: ONDANSETRON INJ 4 MG/2 ML VIAL IV PRN (12:01)
[2018-11-01] MEDS ORDERED: SODIUM CHLORIDE 0.9% (FLUSH) 10 ML SYG IV PRN (12:01)
[2018-11-01] MEDS ORDERED: DEXTROSE 50% 25 GM/50 ML SYG IV PRN (12:09)
[2018-11-01] MEDS ORDERED: GLUCAGON INJ 1 MG VIAL SUBCU PRN (12:09)
[2018-11-01] MEDS ORDERED: IV SET AND CAP CHANGE INJ INJ SCH (12:30)
--- NOTE | 2018-11-01 13:13 | RAD ---
EXAM DESCRIPTION: Abdomen Flat Upright CLINICAL HISTORY: 78 years Male, abd pain COMPARISON: None. FINDINGS: Two views of the abdomen demonstrate clear lung bases and no free abdominal air. Bowel gas pattern is normal with a small amount of gastric air and right and transverse colonic stool and left colonic air. Surgical clips from prior cholecystectomy are noted. Pattern to suggest high-grade obstruction is not apparent. No unusual soft tissue masses or calculi noted. IMPRESSION: Nonspecific abdomen two views with no evidence of free abdominal air or obstruction Electronically signed by: Chauncey Lawler MD 11/01/2018 1:12 PM [employer]
[2018-11-01] MEDS: SODIUM CHLORIDE 0.45% 1000ML 1,000 ML IVS PRN ×2 (13:57→21:18)
[2018-11-01] MEDS: PANTOPRAZOLE SODIUM IV 40 MG VIAL IV SCH (13:57)
[2018-11-01] MEDS: INSULIN LISPRO 100 UNITS/ML PEN SUBCU SCH ×2 (17:29→21:06)
[2018-11-01] MEDS: NYSTATIN POWDER 15GM BTTL TOP SCH ×2 (17:56→21:19)
[2018-11-01] MEDS ORDERED: SODIUM CHLORIDE 0.9% 1000ML 0 ML ONE (20:06)
[2018-11-01] MEDS ORDERED: ACETAMINOPHEN 325 MG TAB PO PRN (21:00)
[2018-11-01] MEDS ORDERED: ACETAMINOPHEN 325 MG TAB ONE (21:09)
[2018-11-01] MEDS: SODIUM CHLORIDE 0.9% (FLUSH) 10 ML SYG IV SCH (21:10)
[2018-11-01] MEDS ORDERED: ISOSORBIDE MONONITRATE 60 MG PO SCH (22:03)
[2018-11-01] MEDS ORDERED: ALBUTEROL SULFATE 2.5 MG/3 ML VIAL NEB PRN (22:20)
[2018-11-01] MEDS ORDERED: ENOXAPARIN SODIUM 40 MG/0.4 ML SYG SUBCU SCH (22:30)
[2018-11-01] MEDS ORDERED: LISINOPRIL 10 MG TAB ONE (22:34)
[2018-11-01] MEDS ORDERED: ISOSORBIDE MONONITRATE (IMDUR) 30 MG TAB ONE (22:35)
[2018-11-01] MEDS: NON-FORMULARY MEDICATION 1 EA MIS (Lisinopril [Lisinopril] 40 MG) PO SCH (22:36)
[2018-11-01] MEDS: CLOPIDOGREL 75 MG TAB PO SCH (22:37)
[2018-11-02] MEDS: SODIUM CHLORIDE 0.45% 1000ML 1,000 ML IVS PRN (04:45)
[2018-11-02] MEDS: LEVOTHYROXINE SODIUM 0.025 MG TAB PO SCH (06:05)
[2018-11-02] MEDS ORDERED: NITROGLYCERIN 0.4 MG 25 EA TAB SL ONE (07:06)
[2018-11-02] MEDS: INSULIN LISPRO 100 UNITS/ML PEN SUBCU SCH ×4 (07:24→20:53)
[2018-11-02] MEDS ORDERED: LISINOPRIL 10 MG TAB ONE (07:30)
[2018-11-02] MEDS ORDERED: SERTRALINE HCL 50 MG TAB ONE (07:31)
[2018-11-02] MEDS: FUROSEMIDE 40 MG TAB PO SCH (08:29)
[2018-11-02] MEDS: amLODIPine BESYLATE 5 MG TAB PO SCH (08:29)
[2018-11-02] MEDS: RANOLAZINE 500 MG TAB PO SCH ×2 (08:30→20:49)
[2018-11-02] MEDS: NON-FORMULARY MEDICATION 1 EA MIS (Lisinopril [Lisinopril] 40 MG) PO SCH (08:30)
[2018-11-02] MEDS: NYSTATIN POWDER 15GM BTTL TOP SCH ×4 (08:31→20:48)
[2018-11-02] MEDS: SODIUM CHLORIDE 0.9% (FLUSH) 10 ML SYG IV SCH ×2 (08:35→20:49)
[2018-11-02] MEDS ORDERED: MAGNESIUM SULFATE PREMIX 2GM 2 GM in PREMIX BAG 1 BAG IVPB ONE (08:38)
[2018-11-02] MEDS ORDERED: SERTRALINE HCL 50 MG PO SCH (09:00)
[2018-11-02] MEDS ORDERED: MAGNESIUM SULFATE PREMIX 2GM 50 ML IVPB ONE (09:29)
[2018-11-02] MEDS: PREGABALIN 75 MG CAP PO SCH ×2 (09:32→20:48)
--- NOTE | 2018-11-02 10:17 | CT ---
EXAM DESCRIPTION: Abdomen/Pelvis w/wo Contrast: Computed Tomography. CLINICAL HISTORY: abd pain COMPARISON: None. TECHNIQUE: Spiral-axial scans at 5 x 5 mm intervals through the abdomen and pelvis before and after standard dose nonionic IV contrast. Arterial and venous phases were performed. No oral contrast. Coronal and sagittal 2.0 mm reconstructions. 5 mm Delayed helical-axial scans, liver through the pubic symphysis. Patient became nauseated during the arterial phase scans with vomiting. Total Exam DLP 4674.19 mGy - cm. This exam was performed according to our departmental CT dose-optimization program which includes automated exposure control, adjustment of the mA and/or kV according to patient size and/or use of iterative reconstruction technique; to reduce radiation dose to as low as reasonably achievable (ALARA). FINDINGS: Lung bases and pleura: Minimal atelectasis in the bilateral bases. Coronary artery stents/calcifications.. Liver, Stomach, Spleen, Adrenal Glands: No focal lesions. No gastric or duodenal distention. Pancreas, Gallbladder, Ducts: Surgical clips in the gallbladder fossa with no fluid. No duct dilation. Minimal fatty infiltration of the pancreas. Kidneys and Ureters: Atherosclerotic calcification in a branch of the left renal artery and also distal right renal artery. No stones or hydronephrosis bilaterally in the kidneys or ureters. Mesentery: Negative. Aorta: Moderate atherosclerotic calcification predominantly distally with calcification of the ostia of the major branch vessels. Small Bowel: Unremarkable. Terminal Ileum/Cecum: Normal caliber. Normal caliber of the appendix. Normal density of the surrounding fat. Colon: Scattered fecal material but increased in the rectosigmoid, sigmoid is mildly moderately redundant. Pelvic Organs: Enlarged prostate gland abutting the base of the urinary bladder and the pelvic side watkins. Largest transverse dimension 5.7 x 4 point a centimeters. In the mid prostate gland there is a peripheral zone, subcapsular lesion, oval-shaped with decreased enhancement compared to the remainder of the peripheral zone. The capsule is abutting the left pelvic sidewall muscle at this level. Dimensions are 1.5 x 0.8 cm. No calcifications, axial series 6, image 83. Spine and Bony Pelvis: Spondylosis inferior thoracic spine more on the right and also bilateral L5-S1 with levoscoliosis. Abdominal Wall/Back Soft Tissues: Subcutaneous air in the left lower quadrant of the abdomen may be from recent subcutaneous injection. Minimal diastases at the umbilicus not containing bowel. Multiple bilateral axillary lymph nodes appear mostly fatty. IMPRESSION: 1. Possible prostate lesion left lateral peripheral zone subcapsular and abutting the left pelvic sidewall. Prostate gland is enlarged. No obvious pelvic adenopathy. Consider urologic consult. 2. No other organomegaly, no free fluid or free air. No inflammatory or infectious changes in the soft tissues. Electronically signed by: Maldonado Joel MD 11/02/2018 10:16 AM [facility]
[2018-11-02] MEDS: PANTOPRAZOLE SODIUM IV 40 MG VIAL IV SCH (11:43)
[2018-11-02] MEDS ORDERED: MAGNESIUM HYDROXIDE 30 ML UD PO ONE (12:51)
[2018-11-02] MEDS ORDERED: INSULIN DETEMIR 100 UNITS/ML PEN SUBCU ONE (13:11)
[2018-11-02] MEDS: LISINOPRIL 10 MG TAB PO SCH ×2 (15:10→20:49)
--- NOTE | 2018-11-02 15:53 | PN ---
SUPERVISING PHYSICIAN: Jed Triana MD DATE: 11/02/18 SUBJECTIVE: The patient is lying in bed. He still feels somewhat queasy but he has tolerated his clear liquid meal without problem. We discussed his CT scan results and I recommended he have a urology consult. He expressed wishes that he would like Dr. Monsalve and he would like to see Lashay Levy as his primary care provider at discharge. He denies any shortness of breath or chest pain, but he does continue with some nausea, but no vomiting. OBJECTIVE: VITAL SIGNS: Afebrile with temperature 98. Heart rate 56. Blood pressure 177/72. Respiratory rate 18. O2 saturation 97% on room air. RESPIRATORY: Essentially clear to auscultation bilaterally. CARDIAC: Regular rate and rhythm. GASTROINTESTINAL: Abdomen is soft, nondistended, nontender. Bowel sounds are positive. NEUROLOGIC: Awake, alert and oriented times three. LABORATORY: WBCs 6.7, hemoglobin 12.2, hematocrit 36.8. Blood sugars have run between 214 and 248. Electrolytes are basically within normal limits with the exception of his calcium at 7.9, magnesium 1.7. Hemoglobin A1c is 8.8. CT of the abdomen and pelvis shows 1) Possible prostate lesion, left lateral peripheral zone, subscapular and abutting the left pelvis sidewall. Prostate gland is enlarged. No obvious pelvic adenopathy. Consider urologic consult. 2) No other organomegaly. No free fluid or free air. No inflammatory or infectious changes in the soft tissue. His abdominal x-ray shows nonspecific abdomen in two views with no evidence of free abdominal air or obstruction. All other labs and films have been reviewed via the EMR. ASSESSMENT: 1. Nausea, vomiting and diarrhea x3 weeks. May be due to gastritis or gastroparesis from uncontrolled diabetes. 2. Hyperglycemia without acidosis. Blood sugar on admission was 420. It is now in the low 200s. His hemoglobin A1c was 8.8. 3. Chronic renal insufficiency. 4. Constipation. 5. Diabetes mellitus, type 2. 6. Gastroesophageal reflux disease. 7. History of cerebrovascular accident with mild left-sided weakness. 8. Hypertension. 9. Possible prostate lesion on the left peripheral zone of the prostate, needs urologic consult. PLAN: We will continue present supportive care. His nausea and abdominal symptoms may be due to gastroparesis due to his poorly controlled diabetes. I put him on Reglan and advanced his diet to a bland diet. We will watch him overnight to see how he clinically responds to the Reglan. Given his CT scan results, he will need a urology consult on discharge. I have also given him some Milk of Magnesia for his constipation. I discontinued his IV fluids. Hopefully he can be discharged tomorrow with close followup with Lashay Levy. He continues to show some mild symptoms of nausea, but no vomiting. #[id number] [facility]
[2018-11-02] MEDS: METOCLOPRAMIDE HCL 5 MG TAB PO SCH ×2 (17:13→20:49)
[2018-11-02] MEDS: CLOPIDOGREL 75 MG TAB PO SCH (20:49)
[2018-11-02] MEDS ORDERED: SIMVASTATIN 20 MG TAB PO SCH (21:00)
[2018-11-02] MEDS ORDERED: ENOXAPARIN SODIUM 40 MG/0.4 ML SYG SUBCU SCH (21:00)
[2018-11-02] MEDS ORDERED: ISOSORBIDE MONONITRATE (IMDUR) 30 MG TAB PO SCH (21:00)
[2018-11-02] MEDS ORDERED: CARVEDILOL 3.125 MG TAB PO SCH (21:00)
[2018-11-03 05:35] VITALS: TEMP 98.1
[2018-11-03] MEDS: LEVOTHYROXINE SODIUM 0.025 MG TAB PO SCH (06:02)
[2018-11-03] MEDS: METOCLOPRAMIDE HCL 5 MG TAB PO SCH (06:02)
[2018-11-03] MEDS ORDERED: SERTRALINE HCL 50 MG TAB ONE (06:48)
[2018-11-03] MEDS: INSULIN LISPRO 100 UNITS/ML PEN SUBCU SCH (07:03)
[2018-11-03] MEDS: RANOLAZINE 500 MG TAB PO SCH (08:03)
[2018-11-03] MEDS: amLODIPine BESYLATE 5 MG TAB PO SCH (08:04)
[2018-11-03] MEDS: LISINOPRIL 10 MG TAB PO SCH (08:04)
[2018-11-03] MEDS: PREGABALIN 75 MG CAP PO SCH (08:04)
[2018-11-03] MEDS: FUROSEMIDE 40 MG TAB PO SCH (08:04)
[2018-11-03] MEDS: NYSTATIN POWDER 15GM BTTL TOP SCH (08:05)
[2018-11-03] MEDS: SODIUM CHLORIDE 0.9% (FLUSH) 10 ML SYG IV SCH (08:05)
[2018-11-03] MEDS ORDERED: SERTRALINE HCL 50 MG TAB PO SCH (09:00)
[2018-11-03] MEDS ORDERED: INSULIN DETEMIR 100 UNITS/ML PEN SUBCU SCH (09:00)
[2018-11-03 11:03] VITALS: BP 154/79; O2SAT 97
== END 2018-11-03 11:14 | disposition home or self-care (01) ==
LOC: ER 08:35 → MS 11:26
PROVIDERS: ADMIT Nurse Practitioner Acute Care; ATTEND Nurse Practitioner Acute Care
DX: E11.65 Type 2 diabetes mellitus with hyperglycemia (principal); K52.9 Noninfective gastroenteritis and colitis, unspecified; I12.9 Hypertensive chronic kidney disease with stage 1 through stage 4 chronic kidney disease, or unspecified chronic kidney disease; E11.22 Type 2 diabetes mellitus with diabetic chronic kidney disease; N18.9 Chronic kidney disease, unspecified; K59.00 Constipation, unspecified; K21.9 Gastro-esophageal reflux disease without esophagitis; I69.354 Hemiplegia and hemiparesis following cerebral infarction affecting left non-dominant side; E83.42 Hypomagnesemia; I25.10 Atherosclerotic heart disease of native coronary artery without angina pectoris; I25.2 Old myocardial infarction; Z79.4 Long term (current) use of insulin; Z79.02 Long term (current) use of antithrombotics/antiplatelets; Z79.82 Long term (current) use of aspirin; Z79.899 Other long term (current) drug therapy; Z87.891 Personal history of nicotine dependence
CPT/HCPCS: 96361 ×2; 96365; 96375; 96376; 96372 ×3; J2405; J7799 ×3; J7030; J1650 ×2; J3475; J1815 ×2; 80048 ×2; 80053; 82948 ×7; 83036; 36415 ×4; 81001; 85025 ×3; 83735 ×3; 36416 ×6; 74019; 71045; 74178; 94760 ×4; 99285; G0378

== ENCOUNTER 2018-11-12 15:10 | Observation (INO) | payer MEDICARE, OTHER ==
[2018-11-12] MEDS ORDERED: ONDANSETRON INJ 4 MG/2 ML VIAL IV ONE (15:25)
[2018-11-12] MEDS ORDERED: MORPHINE SULFATE INJ 10 MG/ML VIAL IV ONE (15:27)
--- NOTE | 2018-11-12 15:47 | ED.PDOC ---
History of Present Illness - General Chief Complaint: Chest Pain/HI Stated Complaint: chest pain,left arm pain Time Seen by Provider: 11/12/18 15:45 Source: patient, RN notes reviewed Additional Information: 78 YEAR OLD HERE FOR EVALUATION OF CHEST PAIN RADIATING TOT HE LEFT ARM ONSET YESTERDAY CONSTANT ASSOCIATED WITH NAUSEA AND HEADACHE HE HAS KNOWN HISTORY OF CAD SP STENT SUPPORTED ANGIOPLASTY - History of Present Illness Timing/Duration: 24 hours Severity: moderate Improving Factors: nothing Worsening Factors: nothing Associated Symptoms: chest pain, headaches, nausea/vomiting Allergies/Adverse Reactions: Allergies NO KNOWN ALLERGY Allergy (Verified 10/10/18 13:51) Home Medications: Ambulatory Orders Lisinopril 40 mg PO TID 11/06/13 Isosorbide Mononitrate [Imdur] 60 mg PO BEDTIME 06/24/14 amLODIPine BESYLATE [Norvasc] 10 mg PO DAILY 06/24/14 Furosemide [Lasix] 40 mg PO DAILY 04/25/16 Levothyroxine Sodium [Synthroid] 50 mcg PO DAILY 04/25/16 Ranolazine [Ranexa] 500 mg PO BID 07/27/16 Pregabalin [Lyrica] 75 mg PO BID 08/01/16 Aspirin [Nancy Low Dose] 325 mg PO DAILY 08/15/16 Clopidogrel Bisulfate [Plavix] 75 mg PO BEDTIME 08/15/16 Pantoprazole Sodium 40 mg PO BEDTIME 11/12/16 Albuterol Sulfate [Proair Hfa] 1 puff INH Q6H PRN 05/17/17 Nitroglycerin 0.4 mg Tab [Nitrostat] 1 ea SL PRN 05/17/17 Potassium Chloride Tab [K-Dur] 20 meq PO DAILY #30 tab 05/18/17 Insulin Detemir [Levemir Pen] 37 unit SUBCU DAILY 05/10/18 Sertraline HCl 50 mg PO DAILY 05/10/18 Simvastatin 20 mg PO BEDTIME 05/10/18 Azithromycin 500 mg PO DAILY #5 tab 10/17/18 Carvedilol [Coreg] 3.125 mg PO BEDTIME 11/02/18 Review of Systems - Review of Systems Constitutional: States: no symptoms reported EENTM: States: no symptoms reported Respiratory: States: no symptoms reported Cardiology: States: no symptoms reported Gastrointestinal/Abdominal: States: no symptoms reported Genitourinary: States: no symptoms reported Musculoskeletal: States: no symptoms reported Skin: States: no symptoms reported Neurological: States: no symptoms reported Endocrine: States: no symptoms reported Hematologic/Lymphatic: States: no symptoms reported Past Medical History (General) - Patient Medical History Hx Seizures: No Hx Stroke: Yes - about 3 years ago. Hx Dementia: No Hx Asthma: No Hx of COPD: No Hx Cardiac Disorders: Yes - HI X2 Hx Congestive Heart Failure: Yes Hx Pacemaker: No Hx Hypertension: Yes Hx Thyroid Disease: No Hx Diabetes: Yes - insulin dependent Hx Gastroesophageal Reflux: Yes Hx Renal Disease: Yes Hx Cancer: No Hx of HIV: No Hx Hepatitis C: No Hx MRSA: No Surgical History: cholecystectomy - Vaccination History Hx Tetanus, Diphtheria Vaccination: Yes Hx Influenza Vaccination: Yes Hx Pneumococcal Vaccination: No - Social History Hx Tobacco Use: No Hx Chewing Tobacco Use: No Hx Alcohol Use: No Hx Substance Use: No Hx Substance Use Treatment: No Hx Depression: No Hx Physical Abuse: No Hx Emotional Abuse: No Hx Suspected Abuse: No - Female History Patient : No Family Medical History - Family History Mother Family History: Unknown Age (years): 86 Living Status: Age at (years of age): 86 Cause of : HI Hx Family Asthma: No Hx Family Congestive Heart Failure: No Hx Family Hypertension: No Hx Family Stroke: No Hx Cardiac Disease: Yes - mother/son Hx Family Diabetes: Yes - Sons Hx Family Cancer: Yes - cervical cancer-mom;sister Physical Exam - Physical Exam General Appearance: Alert, Comfortable Eye Exam: bilateral normal Ears, Nose, Throat: hearing grossly normal, normal ENT inspection, normal pharynx Neck: non-tender, full range of motion, supple Respiratory: chest non-tender, lungs clear, normal breath sounds, no respiratory distress, no accessory muscle use Cardiovascular/Chest: normal peripheral pulses, regular rate, rhythm, no edema, no gallop, no JVD, no murmur Peripheral Pulses: radial,right: 2+, radial,left: 2+, femoral,right: 2+, femoral,left: 2+ Gastrointestinal/Abdominal: soft, no organomegaly, no pulsatile mass Back Exam: normal inspection, no CVA tenderness, no vertebral tenderness Extremity: normal range of motion, non-tender, normal inspection, no pedal edema, no calf tenderness Neurologic: pea viner mechanic II-XII nml as tested, no motor/sensory deficits, alert, normal mood/affect, oriented x 3 Departure - Departure Clinical Impression: Acute angina, Coronary arteriosclerosis, Diabetes mellitus type 2 in nonobese, Chest pain at rest, CAD in [place] artery Time of Disposition: 19:20 Disposition: Admit Patient Departure Forms: ED Discharge - Pt. Copy, Patient Portal Self Enrollment Instructions: DI for Chest Pain Referrals: Lashay Levy, ROBERT [Primary Care Provider] - 1-2 Weeks Home Medications: Ambulatory Orders Lisinopril 40 mg PO TID 11/06/13 Isosorbide Mononitrate [Imdur] 60 mg PO BEDTIME 06/24/14 amLODIPine BESYLATE [Norvasc] 10 mg PO DAILY 06/24/14 Furosemide [Lasix] 40 mg PO DAILY 04/25/16 Levothyroxine Sodium [Synthroid] 50 mcg PO DAILY 04/25/16 Ranolazine [Ranexa] 500 mg PO BID 07/27/16 Pregabalin [Lyrica] 75 mg PO BID 08/01/16 Aspirin [Nancy Low Dose] 325 mg PO DAILY 08/15/16 Clopidogrel Bisulfate [Plavix] 75 mg PO BEDTIME 08/15/16 Pantoprazole Sodium 40 mg PO BEDTIME 11/12/16 Albuterol Sulfate [Proair Hfa] 1 puff INH Q6H PRN 05/17/17 Nitroglycerin 0.4 mg Tab [Nitrostat] 1 ea SL PRN 05/17/17 Potassium Chloride Tab [K-Dur] 20 meq PO DAILY #30 tab 05/18/17 Insulin Detemir [Levemir Pen] 37 unit SUBCU DAILY 05/10/18 Sertraline HCl 50 mg PO DAILY 05/10/18 Simvastatin 20 mg PO BEDTIME 05/10/18 Azithromycin 500 mg PO DAILY #5 tab 10/17/18 Carvedilol [Coreg] 3.125 mg PO BEDTIME 11/02/18 Comments: DISCUSSED WITH MS NICOLE LIU SKI LIFT OPERATOR HOSPITALIST WILL ADMIT FOR CHEST PAIN UNCONTROLLED TYPE II DM
--- NOTE | 2018-11-12 15:55 | RAD ---
EXAM DESCRIPTION: Chest,1 View CLINICAL HISTORY: 78 years Male, chest pain COMPARISON: November 01, 2018 TECHNIQUE: Single view portable chest FINDINGS: Cardiac silhouette and mediastinum are unchanged. No infiltrates have developed. No pleural effusions. Bony thorax is intact IMPRESSION: No significant changes. No infiltrates Electronically signed by: Juan Luis Chadwick 11/12/2018 3:54 PM CREDIT OPERATIONS SPECIALIST
[2018-11-12] MEDS ORDERED: INSULIN, REG.(HUMAN) 100 U/ML VIAL SUBCU ONE (16:19)
[2018-11-12] MEDS ORDERED: NITROGLYCERIN 0.4 MG 25 EA TAB SL ONE (16:48)
[2018-11-12] MEDS ORDERED: PROMETHAZINE HCL INJ 25 MG/ML VIAL IM ONE (16:56)
[2018-11-12] MEDS ORDERED: PROMETHAZINE HCL INJ 25 MG/ML VIAL ONE (16:57)
--- NOTE | 2018-11-12 19:32 | HP ---
SUPERVISING PHYSICIAN: Evelyn Holley MD CHIEF COMPLAINT: Chest pain. HISTORY OF PRESENT ILLNESS: This is an 78-year-old male patient who presented to the Emergency Room today due to chest pain. The patient stated midsternal like chest pain started yesterday. It has been constant. He has also had some nausea with dry heaves as well as the daily. He does have a history of coronary artery disease and is status post stent as well as angioplasty. He actually was recently in the hospital and was discharged approximately 11 day ago. He was here for gastroenteritis. He has poorly controlled diabetes mellitus, type 2. In the Emergency Room, his initial vital signs were temperature 98.8, heart rate 80, blood pressure 183/81, respiratory rate 10, O2 saturation 97% on room air. There were no EKG changes on his EKG. His labs showed an initial CBC basically within normal limits. PT and PTT were within normal limits. Sodium was slightly low at 131 with potassium 4.2 and chloride 96, carbon dioxide 25. Creatinine 1.38, baseline creatinine is actually about 1.6 to 1.8. His initial glucose was 475 and his initial set of cardiac enzymes was negative. His subsequent troponin 2 hours later was also negative. BNP was 52.4. Chest x-ray showed no significant changes or infiltrates. In the Emergency Room, he was given some Zofran and Phenergan as well as nitroglycerin and morphine. He was also given 10 units of insulin. His initial blood sugar was 464 and I was called for admission for chest pain as well as hypoglycemia and nausea and vomiting. PAST MEDICAL HISTORY: 1. Diabetes mellitus, type 2. 2. Hypertension. 3. Myocardial infarction in 1999 and 2014. 4. Gastroesophageal reflux disease. 5. Cerebrovascular accident with mild left sided weakness. 6. Bilateral cataracts. 7. Arthritis. 8. Renal insufficiency. 9. Hypothyroidism. 10. Depression and anxiety. PAST SURGICAL HISTORY: 1. Cholecystectomy. 2. Metacarpophalangeal joint replacement. 3. Multiple cardiac catheterizations with stents. 4. Cataract surgery. OUTPATIENT MEDICATIONS: 1. Albuterol sulfate. 2. Amlodipine. 3. Aspirin. 4. Carvedilol. 5. Plavix. 6. Furosemide. 7. Levemir insulin. 8. Isosorbide. 9. Levothyroxine. 10. Lisinopril. 11. Nitroglycerin. 12. Pantoprazole. 13. Potassium chloride. 14. Lyrica. 15. Ranexa. 16. Sertraline. 17. Simvastatin. ALLERGIES: NO KNOWN DRUG ALLERGIES. CODE STATUS: The patient is still a full code, but he has expressed his wishes to be a DNR. FAMILY HISTORY: Noncontributory. SOCIAL HISTORY: He is and lives in [place]. He has a distant history of smoking, but he quit over 15 years ago. He denies any alcohol or illicit drug use. REVIEW OF SYSTEMS: GENERAL: Positive for fatigue. Negative for fever or weight changes. HEENT: Negative for sinus symptoms, ear pain, vision changes or sore throat. RESPIRATORY: Positive for shortness of breath. Negative for wheezing, coughing. CARDIAC: Positive for chest pain. Negative for palpitations or tachycardia. GASTROINTESTINAL: Positive for nausea and dry heaves. Negative for diarrhea, constipation. GENITOURINARY: Negative for hematuria, dysuria or polyuria. SKIN: Negative for lesions or rashes. NEUROLOGIC: Negative for headache, dizziness or seizures. PHYSICAL EXAMINATION: VITAL SIGNS: Temperature 97.7. Heart rate 81. Blood pressure 177/89. Respiratory rate 18. O2 saturation 97% on room air. GENERAL: This is an 78-year-old male patient lying in his hospital bed. He is in no acute distress. HEENT: Normocephalic, atraumatic. Pupils are equal and reactive. Oropharynx is clear. NECK: Supple without mass. RESPIRATORY: Essentially clear to auscultation bilaterally. CHEST: There is equal rise and fall of the chest with inspiration and expiration. CARDIOVASCULAR: Regular rate and rhythm. GASTROINTESTINAL: Abdomen is soft, nondistended, nontender. Bowel sounds are positive. EXTREMITIES: No cyanosis, clubbing or edema. NEUROLOGIC: Awake, alert and oriented times three. Cranial nerves II-XII are grossly intact. SKIN: Warm and dry. LABORATORY: Labs and films are as per history of present illness. IMPRESSION: 1. Chest pain, rule out myocardial infarction. Initial cardiac enzymes were negative. 2. Hyperglycemia with history of diabetes mellitus, type 2, poorly controlled blood sugars. Hemoglobin A1c on 11/02/17 was 8.8. 3. Nausea and vomiting, most likely secondary to #2. 4. Chronic renal insufficiency. 5. Diabetes mellitus, type 2. 6. Gastroesophageal reflux disease. 7. Hypertension. 8. History of hypothyroidism on supplementation. 9. History of cerebrovascular accidents. PLAN: We will place the patient in Observation. He will receive fluids overnight and I will check his blood sugars a.c. and h.s. with sliding scale coverage. I will also do two extra blood sugars overnight with correction. I have initiated the chest pain guidelines and he will have antiemetics for his nausea. I have also consulted Senior Net Engineer tomorrow in regards to his frequent readmissions to the hospital as well as poor self-care. The patient may need assistance with being admitted to a residential as he supposedly takes care of his at home and I do not believe their living situation is helping their health issues. I will restart his home medications as soon as they have been verified. We will continue to monitor the patient closely and follow as needed. #[id number] [facility]
[2018-11-12] MEDS ORDERED: MORPHINE SULFATE INJ 10 MG/ML VIAL IV PRN (21:06)
[2018-11-12] MEDS ORDERED: NITROGLYCERIN 0.4 MG 25 EA TAB SL PRN (21:06)
[2018-11-12] MEDS ORDERED: ACETAMINOPHEN 325 MG TAB PO PRN (21:06)
[2018-11-12] MEDS ORDERED: SODIUM CHLORIDE 0.9% (FLUSH) 10 ML SYG IV PRN (21:06)
[2018-11-12] MEDS ORDERED: GLUCAGON INJ 1 MG VIAL SUBCU PRN (21:13)
[2018-11-12] MEDS ORDERED: DEXTROSE 50% 25 GM/50 ML SYG IV PRN (21:13)
[2018-11-12] MEDS ORDERED: IV SET AND CAP CHANGE INJ INJ SCH (21:30)
[2018-11-12] MEDS ORDERED: ENOXAPARIN SODIUM 30 MG/0.3 ML SYG SUBCU ONE (21:54)
[2018-11-12] MEDS: INSULIN LISPRO 100 UNITS/ML PEN SUBCU SCH (22:02)
[2018-11-13] MEDS: INSULIN LISPRO 100 UNITS/ML PEN SUBCU SCH ×3 (01:33→07:32)
[2018-11-13] MEDS ORDERED: PANTOPRAZOLE SODIUM IV 40 MG VIAL IV SCH (06:30)
[2018-11-13] MEDS ORDERED: ASPIRIN TABLET 325 MG TAB PO SCH (09:00)
[2018-11-13] MEDS ORDERED: SODIUM CHLORIDE 0.9% (FLUSH) 10 ML SYG IV SCH (09:00)
[2018-11-13 10:17] VITALS: BP 173/77; TEMP 98.1; O2SAT 95
--- NOTE | 2018-11-13 13:20 | DS ---
SUPERVISING PHYSICIAN: Jed Triana MD ADMISSION DIAGNOSIS: 1. Chest pain, rule out myocardial infarction. 2. Hyperglycemia with history of diabetes mellitus with hemoglobin A1c 8.8. 3. Nausea and vomiting. 4. Chronic renal insufficiency. 5. Diabetes mellitus, type 2. 6. Gastroesophageal reflux disease. 7. Hypertension. 8. History of hypothyroidism on supplementation. 9. History of cerebrovascular accidents. DISCHARGE DIAGNOSIS: 1. Chest pain, rule out myocardial infarction. 2. Hyperglycemia with history of diabetes mellitus with hemoglobin A1c 8.8. 3. Nausea and vomiting. 4. Chronic renal insufficiency. 5. Diabetes mellitus, type 2. 6. Gastroesophageal reflux disease. 7. Hypertension. 8. History of hypothyroidism on supplementation. 9. History of cerebrovascular accidents. HOSPITAL COURSE: This is an 78-year-old male patient who presented to the Emergency Room with chest pain. He described the chest pain as midsternal chest pain which started the day before admission. It was constant. He has also had some nausea and dry heaves. He does have a history of coronary artery disease and is status post stent in the past. He was recently in the hospital and was discharged approximately 11 day prior to this emergency room visit. He was there for gastroenteritis. He is also noted to have poorly controlled diabetes mellitus with hemoglobin a1c of 8.8. When he came to the Emergency Room, cardiac enzymes as well as EKG were done. EKG was negative for any acute findings. Troponin was negative. He was noted to have elevated glucose at 475. All other labs seem to be relatively normal. He was given IV insulin in the Emergency Room and then referred for admission. During his stay overnight, he had no further nausea or vomiting and did not have any diarrhea. This morning, I evaluated the patient. He was stable with glucoses down to the 200s. He states they are normally in the 150s. He is also able to tell me he takes 37 units twice a day of insulin, but could not tell me what kind. I discussed with him whether or not he had a primary care provider and he says he sees Lashay Levy at the Urgent Care. I asked him if he sees her for chronic illnesses and he states yes. At this point, due to the improved glucose and lack of any other complications on labs and clinically, he is being discharged today in stable condition. My recommendation at this time would be to probably add a sliding scale to his scheduled insulin, however, given the patient's history of medical noncompliance, I am not sure he will abide by this. It was brought to him by the provider yesterday that he may need fdc assistance due to the fact that he does not really take care of himself very well and he adamantly declined that today. I recommend followup with his primary care provider in one to two weeks. Diet should be the same, diabetic diet. We will keep all his medications the same at this time and will allow his primary care provider to make any adjustments she deems necessary. #[id number] [facility]
[2018-11-13] MEDS ORDERED: ENOXAPARIN SODIUM 40 MG/0.4 ML SYG SUBCU SCH (21:00)
== END 2018-11-13 12:05 | disposition home or self-care (01) ==
LOC: ER 15:10 → MS 19:30 → INTOOBSV 19:30
PROVIDERS: ADMIT Nurse Practitioner Acute Care; ATTEND Nurse Practitioner
DX: E11.65 Type 2 diabetes mellitus with hyperglycemia (principal); R07.89 Other chest pain; R11.2 Nausea with vomiting, unspecified; I12.9 Hypertensive chronic kidney disease with stage 1 through stage 4 chronic kidney disease, or unspecified chronic kidney disease; E11.22 Type 2 diabetes mellitus with diabetic chronic kidney disease; N18.9 Chronic kidney disease, unspecified; K21.9 Gastro-esophageal reflux disease without esophagitis; E03.9 Hypothyroidism, unspecified; I25.10 Atherosclerotic heart disease of native coronary artery without angina pectoris; I69.354 Hemiplegia and hemiparesis following cerebral infarction affecting left non-dominant side; I25.2 Old myocardial infarction; F32.9 Major depressive disorder, single episode, unspecified; F41.9 Anxiety disorder, unspecified; Z79.4 Long term (current) use of insulin; Z79.02 Long term (current) use of antithrombotics/antiplatelets; Z79.82 Long term (current) use of aspirin; Z79.899 Other long term (current) drug therapy; Z95.5 Presence of coronary angioplasty implant and graft; Z87.891 Personal history of nicotine dependence
CPT/HCPCS: 96374; 96375 ×2; 96372 ×2; J1650; J2270; J2405; J2550; J1815; 82553 ×3; 80053; 82948 ×4; 80061; 36415 ×6; 82550 ×3; 80048; 85025 ×2; 85730; 85610; 84484 ×4; 80076; 82947; 83880; 36416; 71045; 94760 ×2; 99285; 93005 ×3; G0378

== ENCOUNTER → 2019-02-07 | Outpatient (CLI) | payer MEDICARE, MEDICAID | LOC: YCFC.O 11:10 | PROVIDERS: ATTEND Family Medicine | DX: M26.629 Arthralgia of temporomandibular joint, unspecified side (principal); I50.9 Heart failure, unspecified ==

== ENCOUNTER → 2019-02-19 | Outpatient (CLI) | payer MEDICARE, MEDICAID ==
--- NOTE | 2019-02-19 12:17 | RAD ---
EXAM DESCRIPTION: Chest,2 Views CLINICAL HISTORY: 78 years Male, COUGH COMPARISON: 11/12/2018 IMPRESSION: The heart is enlarged, without failure. The lungs are hyperexpanded. Coarsened bilateral interstitial markings again demonstrated, likely secondary to mild fibrosis/scarring. No confluent airspace consolidation, pleural effusion, or pneumothorax. No acute osseous abnormality. Electronically signed by: Angelo Diallo MD 02/19/2019 12:15 PM CDT
== END ==
LOC: YCFC.O 11:33
PROVIDERS: ATTEND Nurse Practitioner
DX: R50.9 Fever, unspecified (principal); J98.4 Other disorders of lung; I51.7 Cardiomegaly; R09.89 Other specified symptoms and signs involving the circulatory and respiratory systems

== ENCOUNTER 2019-03-25 10:26 | Emergency (ER) | payer MEDICARE, MEDICAID ==
--- NOTE | 2019-03-25 10:40 | ED.PDOC ---
History of Present Illness - General Chief Complaint: Trauma Stated Complaint: tripped over dog landed on face and knee Time Seen by Provider: 03/25/19 10:35 Source: patient, EMS Exam Limitations: no limitations - History of Present Illness Initial Comments: patient comes in today for injury secondary to fall. Patient states he did not get weak or dizzy but tripped over his dog and fell on the ground hitting his forehead and his knee. He has some nausea but no vision change. He denies any loss of consciousness. Patient states he is on blood thinners however secondary to coronary artery disease and multiple stents in place. He has a history of stroke and acute [place] as well as hypertension. Occurred: just prior to arrival Severity: moderate Injuries/Pain Location: head, lower extremity Reason for Fall: tripped Loss of Consciousness: no loss of consciousness Improving Factors: nothing Worsening Factors: nothing Associated Symptoms (Fall): nausea/vomiting Allergies/Adverse Reactions: Allergies NO KNOWN ALLERGY Allergy (Verified 10/10/18 13:51) Home Medications: Ambulatory Orders Lisinopril 40 mg PO DAILY 11/06/13 Isosorbide Mononitrate [Imdur] 60 mg PO BEDTIME 06/24/14 amLODIPine BESYLATE [Norvasc] 10 mg PO DAILY 06/24/14 Furosemide [Lasix] 40 mg PO BID 04/25/16 Levothyroxine Sodium [Synthroid] 50 mcg PO DAILY 04/25/16 Ranolazine [Ranexa] 500 mg PO BID 07/27/16 Pregabalin [Lyrica] 75 mg PO BID 08/01/16 Clopidogrel Bisulfate [Plavix] 75 mg PO BEDTIME 08/15/16 Pantoprazole Sodium 40 mg PO BEDTIME 11/12/16 Albuterol Sulfate [Proair Hfa] 2 puff INH Q4H PRN 05/17/17 Nitroglycerin 0.4 mg Tab [Nitrostat] 1 ea SL PRN 05/17/17 Insulin Detemir [Levemir Pen] 40 unit SUBCU BID 05/10/18 Sertraline HCl 50 mg PO DAILY 05/10/18 Simvastatin 20 mg PO BEDTIME 05/10/18 Carvedilol [Coreg] 12.5 mg PO BID 11/02/18 Hydralazine HCl 50 mg PO TID 03/02/19 Insulin Aspart [Novolog] 100 unit SC PRN 03/02/19 Meloxicam 15 mg PO DAILY 03/02/19 Metoclopramide HCl 5 mg PO TID 03/02/19 Review of Systems - Review of Systems Constitutional: States: no symptoms reported. Denies: chills, fever EENTM: States: no symptoms reported. Denies: blurred vision, double vision, ear pain Respiratory: States: no symptoms reported. Denies: cough, short of breath Cardiology: States: no symptoms reported. Denies: chest pain Gastrointestinal/Abdominal: States: no symptoms reported. Denies: abdominal pain, diarrhea, nausea Genitourinary: States: no symptoms reported Musculoskeletal: States: see HPI Skin: States: see HPI Neurological: States: headache, pre-existing deficit - right sided weakness from CVA Past Medical History (General) - Patient Medical History Hx Seizures: No Hx Stroke: Yes - about 3 years ago. Hx Dementia: No Hx Asthma: No Hx of COPD: No Hx Cardiac Disorders: Yes - [place] X2 Hx Congestive Heart Failure: Yes Hx Pacemaker: No Hx Hypertension: Yes Hx Thyroid Disease: No Hx Diabetes: Yes - insulin dependent Hx Gastroesophageal Reflux: Yes Hx Renal Disease: Yes Hx Cancer: No Hx of HIV: No Hx Hepatitis C: No Hx MRSA: No - Vaccination History Hx Tetanus, Diphtheria Vaccination: Yes Hx Influenza Vaccination: Yes Hx Pneumococcal Vaccination: No - Social History Hx Tobacco Use: No Hx Chewing Tobacco Use: No Hx Alcohol Use: No Hx Substance Use: No Hx Substance Use Treatment: No Hx Depression: No Hx Physical Abuse: No Hx Emotional Abuse: No Hx Suspected Abuse: No - Female History Patient : No Physical Exam - Physical Exam General Appearance: Alert, Comfortable, No apparent distress Head Injury: other - superficial laceration 4.5 cm to forehead and abrasion to bridge of nose, no instability Eye Exam: bilateral normal ENT Exam: hearing grossly normal, no evidence of ENT injury, no dental injury Peripheral Pulses: radial,right: 2+, radial,left: 2+ Cardiovascular/Respiratory: regular rate, rhythm, no M/R/G, normal peripheral pulses, no JVD, normal breath sounds, no respiratory distress Gastrointestinal/Abdominal: normal bowel sounds, non tender, soft Back Exam: no CVA tenderness Extremity Exam: other - right knee with TTP and abrasion, no deformity no instability Neurologic: alert, oriented x 3, motor weakness - right sided weakness and drift (old deficit) with no other deficits Skin Exam: normal color Progress - Results/Orders Results/Orders: Patient Name: SERVANDO GALLEGO Gender: Male Date of : 1940 Referring Physician: OSVALDO LANE Organization: [facility] Accession Number: [id number] Requested Date: March 25, 2019 10:35 Report Status: Final Requested Procedure: 1 Procedure Description: Cervical Spine Modality: CT Findings Reporting MD: Hui Dailey MD: Not available Dictation Time: Care Worker: Not available Non Destructive Testing Engineer Date: EXAM: CT Cervical Spine Without Intravenous Contrast CLINICAL HISTORY: 78 years old and is Male; fall with injury TECHNIQUE: Axial computed tomography images of the cervical spine without intravenous contrast. Sagittal and coronal reformatted images were created and reviewed. This CT exam was performed using one or more of the following dose reduction techniques: automated exposure control, adjustment of the mA and/or kV according to patient size, and/or use of iterative reconstruction technique. COMPARISON: No relevant prior studies available. FINDINGS: Limitations: None. Vertebrae: There is mild multilevel spondylosis and facet arthrosis. No acute fracture. Discs/spinal canal/neural foramina: Severe disc space narrowing C5-C6. Narrowing to a lesser extent seen at C7-T1. Soft tissues: Unremarkable. Lung apices: Subpleural fibrotic changes present in the visualized portion of the left upper lobe. IMPRESSION: No acute findings Patient Name: SERVANDO GALLEGO Gender: Male Date of : 1940 Referring Physician: OSVALDO LANE Organization: [facility] Accession Number: [id number] Requested Date: March 25, 2019 10:36 Report Status: Final Requested Procedure: 1 Procedure Description: Head Modality: CT Findings Reporting MD: Hui Dailey Fellow MD: Not available Dictation Time: Care Worker: Not available Non Destructive Testing Engineer Date: EXAM: CT Head Without Intravenous Contrast CLINICAL HISTORY: 78 years old and is Male; fall on plavix with head injury TECHNIQUE: Axial computed tomography images of the head/brain without intravenous contrast. Sagittal and coronal reformatted images were created and reviewed. This CT exam was performed using one or more of the following dose reduction techniques: automated exposure control, adjustment of the mA and/or kV according to patient size, and/or use of iterative reconstruction technique. COMPARISON: No relevant prior studies available. FINDINGS: Limitations: None. Brain: There is age related cortical atrophy and periventricular white matter hypodensity most consistent with chronic small ischemic change. No acute infarct, hemorrhage or mass. Ventricles: Unremarkable. No ventriculomegaly. Bones/joints: Unremarkable. No acute fracture. Soft tissues: Unremarkable. Sinuses: No acute sinusitis. Small retention cysts or polyps in the right maxillary and frontal sinuses. Mastoid air cells: Unremarkable as visualized. No mastoid effusion. IMPRESSION: No acute findings. Departure - Departure Clinical Impression: Contusion of head Qualifiers: Encounter type: initial encounter Contusion of head detail: other part of head Qualified Code(s): S00.83XA - Contusion of other part of head, initial encounter Abrasion of knee, right Qualifiers: Encounter type: initial encounter Qualified Code(s): S80.211A - Abrasion, right knee, initial encounter Disposition: Discharge to Home or Self Care Condition: Good Departure Forms: ED Discharge - Pt. Copy, Patient Portal Self Enrollment Instructions: DI for Trauma Referrals: Tenzin Hatch MD [Primary Care Provider] - 1-2 Weeks Home Medications: Ambulatory Orders Lisinopril 40 mg PO DAILY 11/06/13 Isosorbide Mononitrate [Imdur] 60 mg PO BEDTIME 06/24/14 amLODIPine BESYLATE [Norvasc] 10 mg PO DAILY 06/24/14 Furosemide [Lasix] 40 mg PO BID 04/25/16 Levothyroxine Sodium [Synthroid] 50 mcg PO DAILY 04/25/16 Ranolazine [Ranexa] 500 mg PO BID 07/27/16 Pregabalin [Lyrica] 75 mg PO BID 08/01/16 Clopidogrel Bisulfate [Plavix] 75 mg PO BEDTIME 08/15/16 Pantoprazole Sodium 40 mg PO BEDTIME 11/12/16 Albuterol Sulfate [Proair Hfa] 2 puff INH Q4H PRN 05/17/17 Nitroglycerin 0.4 mg Tab [Nitrostat] 1 ea SL PRN 05/17/17 Insulin Detemir [Levemir Pen] 40 unit SUBCU BID 05/10/18 Sertraline HCl 50 mg PO DAILY 05/10/18 Simvastatin 20 mg PO BEDTIME 05/10/18 Carvedilol [Coreg] 12.5 mg PO BID 11/02/18 Hydralazine HCl 50 mg PO TID 03/02/19 Insulin Aspart [Novolog] 100 unit SC PRN 03/02/19 Meloxicam 15 mg PO DAILY 03/02/19 Metoclopramide HCl 5 mg PO TID 03/02/19 Additional Instructions: return to ER for altered LOC, emesis, vision change. Follow up with PCP in 2-3 days. Clean area with warm soapy water and pat dry BID and use Neosporin topically
--- NOTE | 2019-03-25 11:15 | CT ---
EXAM: CT Cervical Spine Without Intravenous Contrast CLINICAL HISTORY: 78 years old and is Male; fall with injury TECHNIQUE: Axial computed tomography images of the cervical spine without intravenous contrast. Sagittal and coronal reformatted images were created and reviewed. This CT exam was performed using one or more of the following dose reduction techniques: automated exposure control, adjustment of the mA and/or kV according to patient size, and/or use of iterative reconstruction technique. COMPARISON: No relevant prior studies available. FINDINGS: Limitations: None. Vertebrae: There is mild multilevel spondylosis and facet arthrosis. No acute fracture. Discs/spinal canal/neural foramina: Severe disc space narrowing C5-C6. Narrowing to a lesser extent seen at C7-T1. Soft tissues: Unremarkable. Lung apices: Subpleural fibrotic changes present in the visualized portion of the left upper lobe. IMPRESSION: No acute findings. Electronically signed by: Hui Dailey MD 03/25/2019 11:13 AM CDT
--- NOTE | 2019-03-25 11:20 | CT ---
EXAM: CT Head Without Intravenous Contrast CLINICAL HISTORY: 78 years old and is Male; fall on plavix with head injury TECHNIQUE: Axial computed tomography images of the head/brain without intravenous contrast. Sagittal and coronal reformatted images were created and reviewed. This CT exam was performed using one or more of the following dose reduction techniques: automated exposure control, adjustment of the mA and/or kV according to patient size, and/or use of iterative reconstruction technique. COMPARISON: No relevant prior studies available. FINDINGS: Limitations: None. Brain: There is age related cortical atrophy and periventricular white matter hypodensity most consistent with chronic small ischemic change. No acute infarct, hemorrhage or mass. Ventricles: Unremarkable. No ventriculomegaly. Bones/joints: Unremarkable. No acute fracture. Soft tissues: Unremarkable. Sinuses: No acute sinusitis. Small retention cysts or polyps in the right maxillary and frontal sinuses. Mastoid air cells: Unremarkable as visualized. No mastoid effusion. IMPRESSION: No acute findings. Electronically signed by: Hui Dailey MD 03/25/2019 11:18 AM CDT
--- NOTE | 2019-03-25 11:26 | RAD ---
EXAM: XR Right Knee, 1 or 2 views CLINICAL HISTORY: 78 years old and is Male; fall with injury TECHNIQUE: Frontal and/or lateral views of the right knee. COMPARISON: No relevant prior studies available. FINDINGS: Limitations: None. Bones/joints: There is mild spurring of the medial femoral condyle. Soft tissues: There is mild edema likely representing contusion of the soft tissues of the anteromedial distal thigh. Vasculature: Atherosclerotic calcification present. IMPRESSION: There is soft tissue swelling without acute bony abnormality. Electronically signed by: Hui Dailey MD 03/25/2019 11:24 AM CDT
[2019-03-25] MEDS ORDERED: ACETAMINOPHEN 500 MG TAB PO ONE (11:30)
[2019-03-25 12:00] VITALS: BP 177/72; TEMP 97.2; O2SAT 97
== END 2019-03-25 11:50 | disposition home or self-care (01) ==
LOC: ER 10:26
DX: S00.83XA Contusion of other part of head, initial encounter (principal); S80.211A Abrasion, right knee, initial encounter; S01.81XA Laceration without foreign body of other part of head, initial encounter; S00.31XA Abrasion of nose, initial encounter; R11.0 Nausea; M47.812 Spondylosis without myelopathy or radiculopathy, cervical region; I50.9 Heart failure, unspecified; E11.22 Type 2 diabetes mellitus with diabetic chronic kidney disease; I13.0 Hypertensive heart and chronic kidney disease with heart failure and stage 1 through stage 4 chronic kidney disease, or unspecified chronic kidney disease; I25.10 Atherosclerotic heart disease of native coronary artery without angina pectoris; I25.2 Old myocardial infarction; I69.351 Hemiplegia and hemiparesis following cerebral infarction affecting right dominant side; Z95.5 Presence of coronary angioplasty implant and graft; Z79.899 Other long term (current) drug therapy; Z79.4 Long term (current) use of insulin; Z79.02 Long term (current) use of antithrombotics/antiplatelets; W01.0XXA Fall on same level from slipping, tripping and stumbling without subsequent striking against object, initial encounter; Y92.9 Unspecified place or not applicable

== ENCOUNTER → 2019-03-27 | Outpatient (CLI) | payer MEDICARE, MEDICAID ==
--- NOTE | 2019-03-28 11:06 | MRI ---
EXAM DESCRIPTION: Cervical Spine: MRI. CLINICAL HISTORY: 78 years Male CERVICAL DISC DISORDER COMPARISON: Noncontrast cervical MRI scan 01/23/2015. TECHNIQUE: Multiplanar, high-field MRI, multiple sequences, non-contrast Cervical spine. FINDINGS: C2-C3: Minimal desiccation of the disc but disc space maintained. Posterior elements are unremarkable. Canal and neural foramina are patent. Stable since the prior study. C3-C4: Desiccation of the disc and posterior broad-based bulge abutting the cord. Grade 1 retrolisthesis. Small bilateral uncinate spurs and minimal bilateral neural foraminal narrowing. Minimal arthrosis of the left facet.. Mild canal narrowing. Minimal posterior ligament thickening. No change from the prior study. C4-C5: Disc desiccation and minimal posterior bulge not abutting the cord, and left uncinate spur. Mild right neural foraminal narrowing and moderate left neural foraminal narrowing. Disc space maintained. Posterior ligament thickening. Mild canal narrowing. Left facet arthrosis. No change since the prior study. C5-C6: Prior partial fusion since the prior study. Anterior endplate spurs. Significant disc space narrowing. Posterior decompression. Partial fusion of the left facet. Canal and neural foramina are patent. C6-C7: Disc desiccation posterior broad-based bulge not abutting the cord. Bilateral posterior ligament thickening with mild canal narrowing. Mild disc bulge at the foramina. Mild narrowing left neural foramina. No change since the prior study. Minimal disc space loss with desiccation at T2-T3 and tiny posterior bulge. Normal signal in the C7-T1 disc and T1-T2 disc with no bulging. Disc spaces preserved. Canal and neural foramina are patent. Facet joints unremarkable. Stable since the prior study. Spinal alignment with reduced lordosis. No cord compression or cord edema. Atlantoaxial joint minimal hypertrophic arthrosis. Base of the cerebellar tonsils is above the foramen magnum. Paravertebral soft tissues negative.. Vertebral bodies are not compressed at any level. Normal marrow signal in the remaining vertebral bodies and the posterior elements. IMPRESSION: 1. Grade 1 retrolisthesis at C3-C4. Mild bilateral neural foraminal narrowing. Posterior desiccated disc bulge abutting the cord. No change from the prior study. 2. Prior partial fusion since the prior study. No complications. Posterior decompression. Partial fusion of the left facet. Canal and neural foramina are patent. 3. C4-C5 disc desiccation and minimal posterior bulge. Left uncinate spur and moderate left neural foraminal narrowing. Stable since the prior study. Electronically signed by: Maldonado Joel MD 03/28/2019 11:04 AM CDT
== END ==
LOC: MRI 09:00
PROVIDERS: ATTEND Family Medicine
DX: M50.321 Other cervical disc degeneration at C4-C5 level (principal); M43.12 Spondylolisthesis, cervical region; Z98.1 Arthrodesis status

== ENCOUNTER 2019-05-04 10:15 | Emergency (ER) | payer MEDICARE, MEDICAID ==
[2019-05-04] MEDS ORDERED: cloNIDine HCL 0.1 MG TAB PO ONE (10:41)
--- NOTE | 2019-05-04 11:10 | ED.PDOC ---
History of Present Illness - General Chief Complaint: Chest Pain/ID Stated Complaint: Chest pain Time Seen by Provider: 05/04/19 11:04 Source: patient Exam Limitations: other - POOR HISTORIAN Additional Information: THIS PATIENT COMES TO THE ED WITH A HX OF HTN AND CHEST PAIN. HE VOICES THAT AROUND 0700 HE NOTICED CHEST PAIN. 7/10 LEFT SIDED SHARP AND TIGHT. EVIDENTLY HOME HEALTH NURSE CAME TO THE HOUSE AND ALSO NOTED THAT HIS BP WAS ELEVATED AND SENT THE PATITNET TO THE ED. ALSO VOICES SOB, NUT NO NAUSEA OR VOMITING AND NO DIAPHORESIS. HE TOOK TWO NTG AND A TYLENOL # 3. THE PAIN IS UNCHANGED. HE DOES HAVE A HX OF CAD AND HAS 17 STENTS. 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 TERRELL FROM [place]. - History of Present Illness Timing/Duration: 4-6 hours Severity/Quality: moderate Location: other - LEFT SIDED CHEST REGION Chest Pain Radiation: no radiation Activities at Onset: rest Prior Chest Pain/Cardiac Workup: other - KNOWN CAD, WITH MULTIPLE CORONARY STENTS Improving Factors: nothing Nitro Today/Relief: 0.4 mg x 2 Allergies/Adverse Reactions: Allergies NO KNOWN ALLERGY Allergy (Verified 05/04/19 10:27) Home Medications: Ambulatory Orders Lisinopril 40 mg PO DAILY 11/06/13 Isosorbide Mononitrate [Imdur] 60 mg PO BEDTIME 06/24/14 amLODIPine BESYLATE [Norvasc] 10 mg PO DAILY 06/24/14 Furosemide [Lasix] 40 mg PO BID 04/25/16 Levothyroxine Sodium [Synthroid] 50 mcg PO DAILY 04/25/16 Ranolazine [Ranexa] 500 mg PO BID 07/27/16 Pregabalin [Lyrica] 75 mg PO BID 08/01/16 Clopidogrel Bisulfate [Plavix] 75 mg PO BEDTIME 08/15/16 Pantoprazole Sodium 40 mg PO BEDTIME 11/12/16 Albuterol Sulfate [Proair Hfa] 2 puff INH Q4H PRN 05/17/17 Nitroglycerin 0.4 mg Tab [Nitrostat] 1 ea SL PRN 05/17/17 Insulin Detemir [Levemir Pen] 40 unit SUBCU BID 05/10/18 Sertraline HCl 50 mg PO DAILY 05/10/18 Simvastatin 20 mg PO BEDTIME 05/10/18 Carvedilol [Coreg] 12.5 mg PO BID 11/02/18 Hydralazine HCl 50 mg PO TID 03/02/19 Insulin Aspart [Novolog] 100 unit SC PRN 03/02/19 Meloxicam 15 mg PO DAILY 03/02/19 Metoclopramide HCl 5 mg PO TID 03/02/19 Review of Systems - Review of Systems Constitutional: States: other EENTM: States: no symptoms reported Respiratory: States: short of breath Cardiology: States: chest pain Gastrointestinal/Abdominal: States: no symptoms reported Genitourinary: States: no symptoms reported Musculoskeletal: States: no symptoms reported Skin: States: no symptoms reported Neurological: States: no symptoms reported Endocrine: States: no symptoms reported Past Medical History (General) - Patient Medical History Hx Seizures: No Hx Stroke: Yes - about 3 years ago. Hx Dementia: No Hx Asthma: No Hx of COPD: No Hx Cardiac Disorders: Yes - [place] X2 Hx Congestive Heart Failure: Yes Hx Pacemaker: No Hx Hypertension: Yes Hx Thyroid Disease: No Hx Diabetes: Yes - insulin dependent Hx Gastroesophageal Reflux: Yes Hx Renal Disease: Yes Hx Cancer: No Hx of HIV: No Hx Hepatitis C: No Hx MRSA: No - Vaccination History Hx Tetanus, Diphtheria Vaccination: Yes Hx Influenza Vaccination: Yes Hx Pneumococcal Vaccination: No - Social History Hx Tobacco Use: Yes Hx Chewing Tobacco Use: No Hx Alcohol Use: No Hx Substance Use: No Hx Substance Use Treatment: No Hx Depression: No Hx Physical Abuse: No Hx Emotional Abuse: No Hx Suspected Abuse: No - Female History Patient : No Family Medical History - Family History Mother Family History: Unknown Age (years): 86 Living Status: Age at (years of age): 86 Cause of : ID Hx Family Asthma: No Hx Family Congestive Heart Failure: No Hx Family Hypertension: No Hx Family Stroke: No Hx Cardiac Disease: Yes - mother/son Hx Family Diabetes: Yes - Sons Hx Family Cancer: Yes - cervical cancer-mom;sister Physical Exam - Physical Exam General Appearance: Alert, No apparent distress, Well Developed Eyes, Ears, Nose, Throat Exam: normal ENT inspection Neck: non-tender, full range of motion, supple Respiratory: chest non-tender, lungs clear, normal breath sounds, no respiratory distress, no accessory muscle use Cardiovascular/Chest: normal peripheral pulses, regular rate, rhythm, no edema, no gallop, no JVD, other - THERE IS LEFT SIDED CHEST WALL TENDERNESS ON PALPATION ON THE ANTERIOR CHEST WALL. Peripheral Pulses: radial,right: 2+, radial,left: 2+ Gastrointestinal/Abdominal: soft Extremity: normal range of motion, non-tender, normal inspection, no pedal edema Neurologic: no motor/sensory deficits, alert, oriented x 3 Skin Exam: normal color Progress - Progress Progress: 05/04/19 12:53 THE BP IS IMPROVED. THE LAB AND IMAGING HAVE RESULTED. TROP I X 2 IS LESS THAT 0.02. THE EKG W/O ACUTE INJURY PATTERN. THE BP IS IMPROVED. HE WILL BE DISCHARGED HOME TO F/U HIS HIS PCP. - Results/Orders Results/Orders: EKG: HR OF 63, MN INTERVAL OF 182, QRS OF 92, QTC OF 431, AXES OF -29 DEGREES. IMPRESSION: SINUS RHYTHM, EVIDENCE OF INF. WALL ID, AGE UNDETERMINED. NO ACUTE INJURY PATTERN. 05/04/19 10:57 Telemetry .ONCE EKG Stat Pulse Ox Stat Laboratory Results WBC 10.3 K/mm3 (4.8-10.8) 05/04/19 10:02 RBC 5.06 M/mm3 (4.70-6.10) 05/04/19 10:02 Hgb 14.1 gm/dL (14.0-18.0) 05/04/19 10:02 Hct 42.8 % (42.0-52.0) 05/04/19 10:02 MCV 84.5 fl (80.0-94.0) 05/04/19 10:02 MCH 27.8 pg (27.0-31.0) 05/04/19 10:02 MCHC 32.9 g/dL (33.0-37.0) L 05/04/19 10:02 RDW 15.4 % (11.5-14.5) H 05/04/19 10:02 Plt Count 178 K/mm3 (130-400) 05/04/19 10:02 MPV 9.8 fl (7.40-10.4) 05/04/19 10:02 Absolute Neuts (auto) 7.00 K/uL (1.8-6.8) H 05/04/19 10:02 Absolute Lymphs (auto) 2.20 K/uL (1.0-3.4) 05/04/19 10:02 Absolute Monos (auto) 0.70 K/uL (0.2-0.8) 05/04/19 10:02 Absolute Eos (auto) 0.20 K/uL (0.0-0.4) 05/04/19 10:02 Absolute Basos (auto) 0.10 K/uL (0.0-0.1) 05/04/19 10:02 Neutrophils % 68.3 % (42.0-78.0) 05/04/19 10:02 Lymphocytes % 21.8 % (20.0-50.0) 05/04/19 10:02 Monocytes % 6.8 % (2.0-9.0) 05/04/19 10:02 Eosinophils % 2.4 % (1.0-5.0) 05/04/19 10:02 Basophils % 0.7 % (0.0-2.0) 05/04/19 10:02 PT 9.7 SECONDS (9.0-10.9) 05/04/19 10:02 INR 0.97 (0.9-1.15) 05/04/19 10:02 PTT (SP) 30.1 SECONDS (21.8-31.6) 05/04/19 10:02 Sodium 139 mmol/L (135-145) 05/04/19 10:02 Potassium 3.6 mmol/L (3.6-5.0) 05/04/19 10:02 Chloride 104 mmol/L (101-111) 05/04/19 10:02 Carbon Dioxide 24 mmol/L (21-31) 05/04/19 10:02 Anion Gap 14.6 (12-18) 05/04/19 10:02 BUN 15 mg/dL (7-18) 05/04/19 10:02 Creatinine 1.36 mg/dL (0.6-1.3) H 05/04/19 10:02 BUN/Creatinine Ratio 11.0 (10-20) 05/04/19 10:02 Random Glucose 253 mg/dL (70-105) H 05/04/19 10:02 Serum Osmolality 287.0 mOsm/L (275-295) 05/04/19 10:02 Calcium 9.0 mg/dL (8.4-10.2) 05/04/19 10:02 Magnesium 2.0 mg/dL (1.8-2.5) 05/04/19 10:02 Creatine Kinase 35 IU/L (38-174) L 05/04/19 10:02 CK-MB (CK-2) 1.8 ng/mL (0.0-4.4) 05/04/19 10:02 CK-MB (CK-2) % Not Reportable 05/04/19 10:02 Troponin I < 0.02 ng/mL (0.01-0.05) 05/04/19 12:15 B-Natriuretic Peptide 35.1 pg/ml (0-100) 05/04/19 10:02 CXR; NO ACUTE PROCESS Departure - Departure Clinical Impression: Chest wall pain Disposition: Discharge to Home or Self Care Condition: Good Departure Forms: ED Discharge - Pt. Copy, Patient Portal Self Enrollment Instructions: DI for Chest Pain Referrals: Tenzin Hatch MD [Primary Care Provider] - 1-2 Weeks Home Medications: Ambulatory Orders Lisinopril 40 mg PO DAILY 11/06/13 Isosorbide Mononitrate [Imdur] 60 mg PO BEDTIME 06/24/14 amLODIPine BESYLATE [Norvasc] 10 mg PO DAILY 06/24/14 Furosemide [Lasix] 40 mg PO BID 04/25/16 Levothyroxine Sodium [Synthroid] 50 mcg PO DAILY 04/25/16 Ranolazine [Ranexa] 500 mg PO BID 07/27/16 Pregabalin [Lyrica] 75 mg PO BID 08/01/16 Clopidogrel Bisulfate [Plavix] 75 mg PO BEDTIME 08/15/16 Pantoprazole Sodium 40 mg PO BEDTIME 11/12/16 Albuterol Sulfate [Proair Hfa] 2 puff INH Q4H PRN 05/17/17 Nitroglycerin 0.4 mg Tab [Nitrostat] 1 ea SL PRN 05/17/17 Insulin Detemir [Levemir Pen] 40 unit SUBCU BID 05/10/18 Sertraline HCl 50 mg PO DAILY 05/10/18 Simvastatin 20 mg PO BEDTIME 05/10/18 Carvedilol [Coreg] 12.5 mg PO BID 11/02/18 Hydralazine HCl 50 mg PO TID 03/02/19 Insulin Aspart [Novolog] 100 unit SC PRN 03/02/19 Meloxicam 15 mg PO DAILY 03/02/19 Metoclopramide HCl 5 mg PO TID 03/02/19
--- NOTE | 2019-05-04 11:46 | RAD ---
EXAM DESCRIPTION: Chest,1 View CLINICAL HISTORY: 78 years Male, Chest pain COMPARISON: Previous study February 19, 2019 TECHNIQUE: AP portable chest. FINDINGS: Heart size is large with centrally prominent pulmonary vascularity. No mando congestive failure. No consolidating infiltrate. No pulmonary mass or worrisome nodule. No pneumothorax or pleural effusion. Bones are unremarkable. IMPRESSION: Large heart without congestive failure. Electronically signed by: Azeem Her MD 05/04/2019 11:44 AM CDT
[2019-05-04 13:17] VITALS: BP 139/78; TEMP 97.4; O2SAT 97
== END 2019-05-04 13:28 | disposition home or self-care (01) ==
LOC: ER 10:15
DX: R07.2 Precordial pain (principal); R06.02 Shortness of breath; I25.10 Atherosclerotic heart disease of native coronary artery without angina pectoris; I25.2 Old myocardial infarction; I50.9 Heart failure, unspecified; N18.9 Chronic kidney disease, unspecified; E11.22 Type 2 diabetes mellitus with diabetic chronic kidney disease; I13.0 Hypertensive heart and chronic kidney disease with heart failure and stage 1 through stage 4 chronic kidney disease, or unspecified chronic kidney disease; K21.9 Gastro-esophageal reflux disease without esophagitis; Z79.4 Long term (current) use of insulin; Z87.891 Personal history of nicotine dependence; Z86.73 Personal history of transient ischemic attack (TIA), and cerebral infarction without residual deficits; Z79.899 Other long term (current) drug therapy; Z95.5 Presence of coronary angioplasty implant and graft

== ENCOUNTER 2019-05-15 12:24 | Observation (INO) | payer MEDICARE, MEDICAID ==
[2019-05-15] MEDS ORDERED: MORPHINE SULFATE INJ 10 MG/ML VIAL IV ONE (12:49)
--- NOTE | 2019-05-15 12:55 | ED.PDOC ---
History of Present Illness - General Chief Complaint: Chest Pain/RI Stated Complaint: left sided chest pain Time Seen by Provider: 05/15/19 12:48 Source: patient, EMS Exam Limitations: no limitations - History of Present Illness Initial Comments: patient comes in today with onset approximately 2 hours ago of left-sided chest pain. The patient feels like a pressure pain that does not radiate but is associated with some diaphoresis earlier in the course. Some nausea but no emesis was reported and no shortness of breath. Patient's had no recent cough or congestion and no falls. He states the areas very tender. Patient does have a long history of angina and coronary artery disease and has had 17 stents placed in his lifetime. He was last seen here on May 04 and was sent home after her normal workup with reproducible chest pain seen on the left side. Patient states he's had 3 nitroglycerin with no improvement of the pain and did receive aspirin in route. Currently he still has moderate pain with no real change from the nitroglycerin. Patient's past medical history is significant for hypertension, coronary artery disease, and diabetes mellitus. Timing/Duration: 1-3 hours Severity/Quality: moderate, pressure Location: other - left lower chest wall Chest Pain Radiation: no radiation Activities at Onset: none Prior Chest Pain/Cardiac Workup: angina, cardiac cath, heart attack Improving Factors: nothing Worsening Factors: nothing Nitro Today/Relief: 0.4 mg x 3, provided by EMS Aspirin Treatment Today: 325 mg x 1 Associated Symptoms: nausea/vomiting, shortness of breath Allergies/Adverse Reactions: Allergies NO KNOWN ALLERGY Allergy (Verified 05/04/19 10:27) Home Medications: Ambulatory Orders Lisinopril 40 mg PO DAILY 11/06/13 Isosorbide Mononitrate [Imdur] 60 mg PO BEDTIME 06/24/14 amLODIPine BESYLATE [Norvasc] 10 mg PO DAILY 06/24/14 Furosemide [Lasix] 40 mg PO BID 04/25/16 Levothyroxine Sodium [Synthroid] 50 mcg PO DAILY 04/25/16 Ranolazine [Ranexa] 500 mg PO BID 07/27/16 Pregabalin [Lyrica] 75 mg PO BID 08/01/16 Clopidogrel Bisulfate [Plavix] 75 mg PO BEDTIME 08/15/16 Pantoprazole Sodium 40 mg PO BEDTIME 01/27/17 Albuterol Sulfate [Proair Hfa] 2 puff INH Q4H PRN 05/17/17 Nitroglycerin 0.4 mg Tab [Nitrostat] 1 ea SL PRN 05/17/17 Insulin Detemir [Levemir Pen] 40 unit SUBCU BID 05/10/18 Sertraline HCl 50 mg PO DAILY 05/10/18 Simvastatin 20 mg PO BEDTIME 05/10/18 Carvedilol [Coreg] 12.5 mg PO BID 11/02/18 Hydralazine HCl 50 mg PO TID 03/02/19 Insulin Aspart [Novolog] 100 unit SC PRN 03/02/19 Meloxicam 15 mg PO DAILY 03/02/19 Metoclopramide HCl 5 mg PO TID 03/02/19 Review of Systems - Review of Systems Constitutional: States: no symptoms reported. Denies: chills, fever, malaise EENTM: States: no symptoms reported. Denies: eye pain, ear pain, nose pain, nose congestion Respiratory: States: short of breath. Denies: cough, wheezing Cardiology: States: chest pain. Denies: edema, palpitations, syncope Gastrointestinal/Abdominal: States: nausea. Denies: abdominal pain, constipation, diarrhea, vomiting Genitourinary: States: no symptoms reported Musculoskeletal: States: see HPI - chest wall pain Skin: States: no symptoms reported Neurological: States: no symptoms reported Past Medical History (General) - Patient Medical History Hx Seizures: No Hx Stroke: Yes - about 3 years ago. Hx Dementia: No Hx Asthma: No Hx of COPD: No Hx Cardiac Disorders: Yes - RI X2 Hx Congestive Heart Failure: Yes Hx Pacemaker: No Hx Hypertension: Yes Hx Thyroid Disease: No Hx Diabetes: Yes - insulin dependent Hx Gastroesophageal Reflux: Yes Hx Renal Disease: Yes Hx Cancer: No Hx of HIV: No Hx Hepatitis C: No Hx MRSA: No Surgical History: cholecystectomy - Vaccination History Hx Tetanus, Diphtheria Vaccination: Yes Hx Influenza Vaccination: Yes Hx Pneumococcal Vaccination: Yes - Social History Hx Tobacco Use: Yes Hx Chewing Tobacco Use: No Hx Alcohol Use: No Hx Substance Use: No Hx Substance Use Treatment: No Hx Depression: No Hx Physical Abuse: No Hx Emotional Abuse: No Hx Suspected Abuse: No - Female History Patient : No Family Medical History - Family History Mother Family History: Unknown Age (years): 86 Living Status: Age at (years of age): 86 Cause of : RI Hx Family Asthma: No Hx Family Congestive Heart Failure: No Hx Family Hypertension: No Hx Family Stroke: No Hx Cardiac Disease: Yes - mother/son Hx Family Diabetes: Yes - Sons Hx Family Cancer: Yes - cervical cancer-mom;sister Physical Exam - Physical Exam General Appearance: Alert, Comfortable, No apparent distress Eyes, Ears, Nose, Throat Exam: PERRL/EOMI, normal ENT inspection, TMs normal, pharynx normal Neck: non-tender, full range of motion, supple, normal inspection Respiratory: lungs clear, normal breath sounds, no respiratory distress, other - tenderness to palpation of left chest wall with no rash/lesions, no crepitus Cardiovascular/Chest: normal peripheral pulses, regular rate, rhythm, no edema, no murmur Peripheral Pulses: radial,right: 2+, radial,left: 2+ Gastrointestinal/Abdominal: normal bowel sounds, non tender, soft Neurologic: alert, oriented x 3 Progress - Progress Progress: 05/15/19 14:12 patient does feel much better and is willing to stay here to recheck enzymes. His D-Dimer is high but he already takes plavix and has chronic renal insufficiency and is stable with no SOB. At this time I think risks of CTA outweigh benefits. BS treated with SQ insulin and case discussed with second class welder CMM INSPECTOR Sunny Keith and will accept for observation. - Results/Orders Results/Orders: Patient Name: SERVANDO GALLEGO Gender: Male Date of : 1940 Referring Physician: OSVALDO LANE Organization: [facility] Accession Number: [id number] Requested Date: May 15, 2019 12:49 Report Status: Final Requested Procedure: 1 Procedure Description: Chest,1 View Modality: CR Findings Reporting MD: Wilfrido Martin Fellow MD: Not available Dictation Time: Catalyst Recovery Operator: Not available Bellhop Captain Date: Procedure: XR CHEST 1 VIEW Exam Date: 05/15/2019 Ordering Provider: OSVALDO LANE Clinical Indication: chest pain Comparison: 05/04/2019 Findings: Cardiomediastinal silhouette is within normal limits. No focal lung consolidation. No pleural effusion. No pneumothorax. No acute osseous abnormality. Impression: 1. No acute abnormality in the chest. Patient Name: EUSEBIO GALLOWAY Gender: Male Date of : July 13, 1996 Referring Physician: OSVALDO LANE Organization: [facility] Accession Number: [id number] Requested Date: May 15, 2019 13:31 Report Status: Final Requested Procedure: 1 Procedure Description: Chest,2 Views Modality: CR Findings Reporting MD: Shalom Whipple Fellow MD: Not available Dictation Time: Catalyst Recovery Operator: Not available Bellhop Captain Date: EXAM DESCRIPTION: Chest,2 Views CLINICAL HISTORY: short of breath, pain on inspiration COMPARISON: None TECHNIQUE: PA/lateral FINDINGS/IMPRESSION: The lungs are hypoventilated, but are otherwise clear. No focal consolidation, significant pneumothorax or pleural effusion. The heart is normal in size. No acute osseous abnormality - EKG/XRAY/CT EKG: Sinus, no ST T wave changes, Unchanged from - 11/04/2018 HR 87 Departure - Departure Clinical Impression: Atypical chest pain, D-dimer, elevated Hyperglycemia due to type 2 diabetes mellitus Qualifiers: Diabetes mellitus supervisor long goods insulin use: unspecified skilled nursing insulin use status Qualified Code(s): E11.65 - Type 2 diabetes mellitus with hyperglycemia Disposition: Admit Patient Departure Forms: ED Discharge - Pt. Copy, Patient Portal Self Enrollment Instructions: DI for Chest Pain Referrals: Tenizn Hatch MD [Primary Care Provider] - 1-2 Weeks Home Medications: Ambulatory Orders Lisinopril 40 mg PO DAILY 11/06/13 Isosorbide Mononitrate [Imdur] 60 mg PO BEDTIME 06/24/14 amLODIPine BESYLATE [Norvasc] 10 mg PO DAILY 06/24/14 Furosemide [Lasix] 40 mg PO BID 04/25/16 Levothyroxine Sodium [Synthroid] 50 mcg PO DAILY 04/25/16 Ranolazine [Ranexa] 500 mg PO BID 07/27/16 Pregabalin [Lyrica] 75 mg PO BID 08/01/16 Clopidogrel Bisulfate [Plavix] 75 mg PO BEDTIME 08/15/16 Pantoprazole Sodium 40 mg PO BEDTIME 11/12/16 Albuterol Sulfate [Proair Hfa] 2 puff INH Q4H PRN 05/17/17 Nitroglycerin 0.4 mg Tab [Nitrostat] 1 ea SL PRN 05/17/17 Insulin Detemir [Levemir Pen] 40 unit SUBCU BID 05/10/18 Sertraline HCl 50 mg PO DAILY 05/10/18 Simvastatin 20 mg PO BEDTIME 05/10/18 Carvedilol [Coreg] 12.5 mg PO BID 11/02/18 Hydralazine HCl 50 mg PO TID 03/02/19 Insulin Aspart [Novolog] 100 unit SC PRN 03/02/19 Meloxicam 15 mg PO DAILY 03/02/19 Metoclopramide HCl 5 mg PO TID 03/02/19 Decision To Admit - Decistion To Admit Decision to Admit Reason: Admit from ER Decision to Admit Date: 05/15/19 Decision to Admit Time: 14:14
--- NOTE | 2019-05-15 13:10 | RAD ---
Procedure: XR CHEST 1 VIEW Exam Date: 05/15/2019 Ordering Provider: OSVALDO LANE Clinical Indication: chest pain Comparison: 05/04/2019 Findings: Cardiomediastinal silhouette is within normal limits. No focal lung consolidation. No pleural effusion. No pneumothorax. No acute osseous abnormality. Impression: 1. No acute abnormality in the chest. Electronically signed by: Wilfrido Martin MD 05/15/2019 1:08 PM CDT
[2019-05-15] MEDS ORDERED: INSULIN, REG.(HUMAN) 100 U/ML VIAL SUBCU ONE (13:35)
[2019-05-15] MEDS ORDERED: ENALAPRILAT INJ 1.25 MG/ML VIAL IV ONE (14:17)
--- NOTE | 2019-05-15 14:59 | HP ---
SUPERVISING PHYSICIAN: Chauncey Hurst M.D. CHIEF COMPLAINT: Chest pain. HISTORY OF PRESENT ILLNESS: This is an 78 year-old male patient who presented to the Emergency Room via ambulance. His home health nurse saw him today and noted that he had a pretty high blood pressure along with hyperglycemia and was complaining of chest pain as well. The chest pain started about 22 hours prior to arrival which would have been about 10:45 this morning. It was a pressure type pain but it did not radiate. He did state that he had some sweating along with it. He had a little bit of nausea as well and some shortness of breath. He does have a significant history of coronary artery disease and reportedly had 17 stents. His most recent visit to the E. R. was back on May 04 where he had a similar presentation and was sent home after getting Nitroglycerin. Anyhow, here in the Emergency Room he was given Nitroglycerin and did not have any significant improvement in pain, therefore he received 2 doses of morphine for which he is not hurting at all right now. He is not in distress and does not have any complaints at this specific time right now. It should be noted also his blood sugar was pretty high in the Emergency Room. On the chemistry, it was 493. In the E. R., he was given 10 units of insulin subcutaneously due to his hyperglycemia. He was also given Vasotec for his blood pressure. PAST MEDICAL HISTORY: 1. Significant coronary artery disease with a history of myocardial infarction and 17 total stents. 2. Diabetes mellitus type 2. 3. Hypertension. 4. Gastroesophageal reflux disease. 5. Cerebrovascular accident with mild left sided weakness. 6. Bilateral cataracts. 7. Arthritis. 8. Chronic renal insufficiency. 9. Hypothyroidism. 10. Depression and anxiety. PAST SURGICAL HISTORY: 1. Cholecystectomy. 2. Metacarpal phalangeal joint replacement. 3. Multiple cardiac catheterizations with stents. 4. Cataract surgery. CURRENT MEDICATIONS: 1. Tylenol with codeine 30 mg every 6 hours p.r.n. for pain. 2. Albuterol HFA 2 puffs every 4 hours p.r.n. for shortness of breath. 3. Amlodipine 10 mg p.o. daily. 4. Carvedilol 12.5 mg p.o. b.i.d. 5. Plavix 75 mg p.o. at bedtime. 6. Lasix 20 mg p.o. b.i.d. 7. Hydralazine 50 mg p.o. t.i.d. 8. Insulin sliding scale. 9. Levemir 40 units subcutaneously. 10. Isosorbide mononitrate 60 mg p.o. at bedtime. 11. Synthroid 50 mcg p.o. daily. 12. Lisinopril 40 mg p.o. daily. 13. Meloxicam 15 mg p.o. daily. 14. Reglan 5 mg p.o. t.i.d. 15. Naproxen 220 mg p.o. p.r.n. 16. Nitro 1 tab sublingual p.r.n. for chest pain. 17. Pantoprazole 40 mg p.o. at bedtime. 18. Lyrica 75 mg p.o. b.i.d. 19. Ranexa 500 mg p.o. b.i.d. 20. Sertraline 50 mg p.o. daily. 21. Simvastatin 40 mg p.o. at bedtime. ALLERGIES: NO KNOWN DRUG ALLERGIES. FAMILY HISTORY: Reviewed. He does have a family history of hypertension and coronary artery disease. SOCIAL HISTORY: The patient is , lives in [place]. Distant history of smoking but quit about 15 to 16 years ago. No alcohol. No illicit drugs. REVIEW OF SYSTEMS: CONSTITUTIONAL: He has had some fatigue. No fever or chills. No recent weight loss or weight gain. HEENT: No headaches. vision changes, ear pain, nasal congestion or throat pain. RESPIRATORY: Positive for shortness of breath. No cough. No hemoptysis. No pleuritic chest pain. CARDIOVASCULAR: Positive for chest pain. No palpitations. No peripheral edema. GASTROINTESTINAL: Positive for some nausea but no vomiting. No abdominal pain. No diarrhea. No constipation. GENITOURINARY: No dysuria, frequency or flank pain. MUSCULOSKELETAL: No joint pain, joint swelling or muscle cramps. NEUROLOGIC: No seizures, paresthesias or syncope. INTEGUMENT: No rashes, lesions or wounds. ENDOCRINE: No polydipsia, polyuria or polyphagia. No heat or cold intolerance. PHYSICAL EXAMINATION: VITAL SIGNS: Blood pressure 168/93, heart rate 84, respiratory rate 20, temperature 97.4, oxygen saturation 99%. GENERAL: Mr. Reyna is an 78 year-old male patient who is in no active distress currently. CHEST: Lungs are clear to auscultation bilaterally. CARDIOVASCULAR: Regular rate and rhythm. Normal S1 and S2. ABDOMEN: Soft. Positive bowel sounds. GENITOURINARY: Exam is deferred. EXTREMITIES: Lower extremities with no edema. NEUROLOGIC: The patient is alert and oriented. RADIOLOGY: Chest x-ray shows no acute abnormalities. LABORATORY: Labs show an elevation in creatinine of 1.55, glucose elevation at 493, CK of 206. D-dimer was actually elevated as well at 0.63. He did have some shortness of breath initially. He does not have any any longer, however we cannot do a CTA given his elevation in creatinine. ASSESSMENT: 1. Chest pain rule out acute coronary syndrome. 2. Uncontrolled diabetes with significant hyperglycemia. 3. Chronic renal insufficiency, possibly acute on chronic. 4. Hypertension, uncontrolled. 5. History of coronary artery disease with 17 stents in the past. 6. Hypothyroidism. 7. Hyperlipidemia. PLAN: At this time the patient will be admitted under chest pain protocol with serial cardiac enzymes to ensure that there is no myocardial infarction. He does wish to be a DNR. Additionally while he is here we need to streamline his insulin to get his blood sugar better under control. Given he has had significant hyperglycemia, I have to assume that he also has had polyuria and he does appear to be a little bit dehydrated, therefore I will give him a liter of normal saline as well. I will check his lipid panel, hemoglobin A1c as well as TSH and free T4 in the morning. I will adjust his medications while he is here to try to get his blood pressure under better control as well. Resume any home medications once they are verified in the computer. #[id number] [facility]
[2019-05-15] MEDS ORDERED: MORPHINE SULFATE INJ 10 MG/ML VIAL IV PRN (15:54)
[2019-05-15] MEDS ORDERED: SODIUM CHLORIDE 0.9% (FLUSH) 10 ML SYG IV PRN (15:54)
[2019-05-15] MEDS ORDERED: ACETAMINOPHEN 325 MG TAB PO PRN (15:54)
[2019-05-15] MEDS ORDERED: NITROGLYCERIN 0.4 MG 25 EA TAB SL PRN (15:54)
[2019-05-15] MEDS ORDERED: DEXTROSE 50% 25 GM/50 ML SYG IV PRN (15:59)
[2019-05-15] MEDS ORDERED: GLUCAGON INJ 1 MG VIAL SUBCU PRN (15:59)
[2019-05-15] MEDS ORDERED: ENOXAPARIN SODIUM 40 MG/0.4 ML SYG SUBCU SCH (16:00)
[2019-05-15] MEDS ORDERED: IV SET AND CAP CHANGE INJ INJ SCH (16:00)
[2019-05-15] MEDS ORDERED: KETOROLAC TROMETHAMINE INJ 30 MG/ML VIAL IV ONE (16:00)
[2019-05-15] MEDS ORDERED: ALBUTEROL INHALER 64 PUFF/8GM INH PRN (16:10)
[2019-05-15] MEDS ORDERED: ACETAMINOPHEN W/COD #3 TAB 1 EA TAB PO PRN (16:10)
[2019-05-15] MEDS: SODIUM CHLORIDE 0.9% 1000ML 1,000 ML IVS PRN (16:32)
[2019-05-15] MEDS: INSULIN LISPRO 100 UNITS/ML PEN SUBCU SCH ×2 (17:18→21:34)
[2019-05-15] MEDS ORDERED: ALBUTEROL SULFATE 2.5 MG/3 ML VIAL NEB PRN (18:42)
[2019-05-15] MEDS: PREGABALIN 75 MG CAP PO SCH (20:09)
[2019-05-15] MEDS: CARVEDILOL 12.5 MG TAB PO SCH (20:10)
[2019-05-15] MEDS: METOCLOPRAMIDE HCL 5 MG TAB PO SCH (20:10)
[2019-05-15] MEDS: RANOLAZINE 500 MG TAB PO SCH (20:11)
[2019-05-15] MEDS ORDERED: ISOSORBIDE MONONITRATE (IMDUR) 30 MG TAB PO SCH (21:00)
[2019-05-15] MEDS ORDERED: PANTOPRAZOLE SODIUM TAB 40 MG PO SCH (21:00)
[2019-05-15] MEDS ORDERED: SIMVASTATIN 20 MG TAB PO SCH (21:00)
[2019-05-15] MEDS ORDERED: CLOPIDOGREL 75 MG TAB PO SCH (21:00)
[2019-05-15] MEDS: INSULIN DETEMIR 100 UNITS/ML PEN SUBCU SCH (21:36)
[2019-05-15] MEDS: SODIUM CHLORIDE 0.9% (FLUSH) 10 ML SYG IV SCH (21:37)
[2019-05-16] MEDS: SODIUM CHLORIDE 0.9% 1000ML 1,000 ML IVS PRN (02:02)
[2019-05-16 02:24] VITALS: O2SAT 95
[2019-05-16] MEDS ORDERED: OMEPRAZOLE CAP 20 MG CAP PO SCH (06:30)
[2019-05-16] MEDS: INSULIN LISPRO 100 UNITS/ML PEN SUBCU SCH (07:10)
[2019-05-16] MEDS: RANOLAZINE 500 MG TAB PO SCH (08:58)
[2019-05-16] MEDS: PREGABALIN 75 MG CAP PO SCH (08:58)
[2019-05-16] MEDS: METOCLOPRAMIDE HCL 5 MG TAB PO SCH (08:58)
[2019-05-16] MEDS: INSULIN DETEMIR 100 UNITS/ML PEN SUBCU SCH (08:59)
[2019-05-16] MEDS: CARVEDILOL 12.5 MG TAB PO SCH (08:59)
[2019-05-16] MEDS ORDERED: amLODIPine BESYLATE 5 MG TAB PO SCH (09:00)
[2019-05-16] MEDS ORDERED: LEVOTHYROXINE SODIUM 0.025 MG TAB PO SCH (09:00)
[2019-05-16] MEDS ORDERED: MELOXICAM 7.5 MG TAB PO SCH (09:00)
[2019-05-16] MEDS ORDERED: LISINOPRIL 10 MG TAB PO SCH (09:00)
[2019-05-16] MEDS ORDERED: ASPIRIN TABLET 325 MG TAB PO SCH (09:00)
[2019-05-16] MEDS ORDERED: SERTRALINE HCL 50 MG TAB PO SCH (09:00)
[2019-05-16] MEDS: SODIUM CHLORIDE 0.9% (FLUSH) 10 ML SYG IV SCH (09:13)
[2019-05-16 10:11] VITALS: BP 158/75; TEMP 98.1
--- NOTE | 2019-05-16 10:28 | DS ---
SUPERVISING PHYSICIAN: Chauncey Hurst MD DISCHARGE DIAGNOSIS: 1. Chest pain, rule out acute coronary syndrome. 2. Uncontrolled diabetes with significant hyperglycemia. 3. Chronic renal insufficiency, possibly acute on chronic. 4. Hypertension, uncontrolled. 5. History of coronary artery disease with 17 stents in the past. 6. Hypothyroidism. 7. Hyperlipidemia. HISTORY OF PRESENT ILLNESS: This is an 78-year-old male patient who came to the Emergency Room via ambulance. His home health nurse had seen him and noted that his blood pressure was very high and he also had some hyperglycemia. He was also complaining of chest pain. The chest pain started about a day before arrival to the Emergency Room. It was a pressure type pain, but it did not radiate. He also had some diaphoresis with it as well as some nausea and shortness of breath. He does have a significant history of coronary artery disease and reportedly has 17 stents. His last visit to the Emergency Room was on 05/04/19 and he had a similar presentation and was sent home after getting Nitroglycerin. He was given Nitroglycerin and did not have any significant improvement in pain. He received morphine. His blood sugars were 493 in the Emergency Room. He was given some insulin. His initial cardiac enzymes were negative. His CBC was unremarkable. His electrolytes were within normal limits. His creatinine was 1.55. His baseline creatinine is about 1.5 to 1.6. Shortly thereafter, his glucose came down to 374. His vital signs were stable. His temperature was 97.4, heart rate 84, blood pressure 168/93, respiratory rate 20, O2 saturation 99% on room air. He was admitted to the hospital for Observation to rule out acute coronary syndrome. HOSPITAL COURSE: Over the next 12 to 24 hours, the patient had no further complaints of chest pain. His serial cardiac enzymes were all negative. He does have an appointment with Dr. Kelly, his performing arts road manager, today here in [place]. At this point, he will be discharged home in stable condition. LABORATORY: Labs are as per history of present illness. His creatinine has improved to 1.46 this morning. His blood glucose did come down to 245. Triglycerides are 321, LDL 59, HDL 20. TSH 10.29, free T4 0.72. RADIOLOGY: Chest x-ray shows no acute abnormal in the chest. DISCHARGE PLAN: The patient will be discharged home in stable condition. He is to resume his home health. He is to increase his activity as tolerated and resume his previous medications as well as his previous diet. He is to followup with Dr. Hatch within the next 1 to 2 weeks. He is to see Dr. Kelly today at 12:15. He is to return to the hospital or followup with Dr. Hatch or Dr. Kelly for any problems or complications. DISCHARGE MEDICATIONS: 1. Lisinopril. 2. Amlodipine. 3. Isosorbide. 4. Levothyroxine. 5. Furosemide. 6. Ranexa. 7. Pregabalin. 8. Plavix. 9. Pantoprazole. 10. Nitroglycerin. 11. Albuterol. 12. Simvastatin. 13. Sertraline. 14. Levemir. 15. Carvedilol. 16. Reglan. 17. Meloxicam. 18. Hydralazine. 19. NovoLog insulin. 20. Acetaminophen with codeine. 21. Aleve. #[id number], #[id number] [facility]
== END 2019-05-16 10:00 | disposition home health service (06) ==
LOC: ER 12:24 → MS 14:46 → INTOOBSV 14:46
PROVIDERS: ADMIT Nurse Practitioner; ATTEND Nurse Practitioner Acute Care
DX: R07.89 Other chest pain (principal); E11.65 Type 2 diabetes mellitus with hyperglycemia; I13.0 Hypertensive heart and chronic kidney disease with heart failure and stage 1 through stage 4 chronic kidney disease, or unspecified chronic kidney disease; E11.22 Type 2 diabetes mellitus with diabetic chronic kidney disease; N18.9 Chronic kidney disease, unspecified; I50.9 Heart failure, unspecified; I25.10 Atherosclerotic heart disease of native coronary artery without angina pectoris; E03.9 Hypothyroidism, unspecified; E78.5 Hyperlipidemia, unspecified; I69.354 Hemiplegia and hemiparesis following cerebral infarction affecting left non-dominant side; K21.9 Gastro-esophageal reflux disease without esophagitis; F32.9 Major depressive disorder, single episode, unspecified; F41.9 Anxiety disorder, unspecified; I25.2 Old myocardial infarction; Z66 Do not resuscitate; Z95.5 Presence of coronary angioplasty implant and graft; Z79.4 Long term (current) use of insulin; Z79.02 Long term (current) use of antithrombotics/antiplatelets; Z79.1 Long term (current) use of non-steroidal anti-inflammatories (NSAID); Z79.899 Other long term (current) drug therapy; Z87.891 Personal history of nicotine dependence; Z90.49 Acquired absence of other specified parts of digestive tract; Z82.49 Family history of ischemic heart disease and other diseases of the circulatory system; Z83.3 Family history of diabetes mellitus; Z80.49 Family history of malignant neoplasm of other genital organs
CPT/HCPCS: 96361 ×2; 96374; 96375; 96372 ×2; J1885; J2270; J7030 ×2; J1650; J1815 ×2; 85379; 80048; 82553 ×3; 82948 ×4; 80053; 83036; 80061; 36415 ×3; 85025; 82550 ×3; 84439; 82947; 83735; 84443; 84484 ×3; 83880; 36416 ×3; 71045; 99285; 93005 ×3; G0378

== ENCOUNTER → 2019-08-18 | Outpatient (CLI) | payer MEDICAID, MEDICARE | LOC: YCFC.O 08:29 | PROVIDERS: ATTEND Family Medicine | DX: E11.9 Type 2 diabetes mellitus without complications (principal); N18.9 Chronic kidney disease, unspecified; E03.9 Hypothyroidism, unspecified; I10 Essential (primary) hypertension; E78.5 Hyperlipidemia, unspecified ==

== ENCOUNTER 2019-09-21 11:25 | Observation (INO) | payer MEDICARE, OTHER ==
[2019-09-21] MEDS ORDERED: MORPHINE SULFATE INJ 10 MG/ML VIAL IV ONE (11:31)
[2019-09-21] MEDS ORDERED: ASPIRIN TABLET 325 MG TAB PO ONE (11:31)
[2019-09-21] MEDS ORDERED: ALUM & MAG HYDROX-SIMETHICONE 30 ML, LIDOCAINE VISCOUS 2% 15 ML PO ONE ×2 (11:31)
[2019-09-21] MEDS ORDERED: IPRATROPIUM/ALBUTEROL 3 ML VIAL NEB ONE (11:32)
[2019-09-21] MEDS ORDERED: LIDOCAINE HCL 2% (MOUTH-THROAT) 15 ML UD ONE (11:58)
[2019-09-21] MEDS ORDERED: ALUM & MAG HYDROX-SIMETHICONE 30 ML UD ONE (11:58)
[2019-09-21] MEDS ORDERED: INSULIN LISPRO 100 UNITS/ML PEN SUBCU ONE (12:18)
--- NOTE | 2019-09-21 12:41 | RAD ---
EXAM DESCRIPTION: Chest,2 Views CLINICAL HISTORY: acute left sided cp most cw pleurisy COMPARISON: May 15, 2019 FINDINGS: Two-view chest x-ray shows mild enlargement of cardiac silhouette without pulmonary vascular congestion.. The lungs are normally aerated and clear. Costophrenic angles are sharp. Moderate disc degenerative changes of the thoracic spine are seen. IMPRESSION: No radiographic evidence of acute cardiopulmonary disease. Stable mild cardiomegaly. Electronically signed by: Jamari Hill MD 09/21/2019 12:39 PM [facility]
[2019-09-21] MEDS ORDERED: cloNIDine HCL 0.1 MG TAB PO ONE (16:07)
[2019-09-21] MEDS ORDERED: KETOROLAC TROMETHAMINE INJ 30 MG/ML VIAL IV ONE (16:07)
[2019-09-21] MEDS ORDERED: ENOXAPARIN SODIUM 100 MG/ML SYG SUBCU ONE (16:37)
--- NOTE | 2019-09-21 17:03 | ED.PDOC ---
History of Present Illness - General Chief Complaint: Chest Pain/OR Time Seen by Provider: 09/21/19 11:26 Source: patient, family Exam Limitations: no limitations - History of Present Illness Initial Comments: the patient is an 78-year-old male presenting to the emergency room secondary to acute onset chest pain while at rest. The patient accidentally took 3 nitroglycerin while at home which did not provide any relief with the chest pain. Chest pain really does seem pleuritic in nature given that it really is only present with movement, taking a deep breath, twisting and turning or coughing. Walking does not seem to bring it on. No nausea or vomiting. No fever. It is very spasmodic in nature. It is sharp and pinching. The patient does however have a significant cardiac history with him reporting having had 17 stents placed in the past. Timing/Duration: 1-3 hours Severity: severe Improving Factors: immobilization Worsening Factors: movement Associated Symptoms: chest pain Allergies/Adverse Reactions: Allergies NO KNOWN ALLERGY Allergy (Verified 05/04/19 10:27) Home Medications: Ambulatory Orders Lisinopril 40 mg PO DAILY 11/06/13 Isosorbide Mononitrate [Imdur] 60 mg PO BEDTIME 06/24/14 amLODIPine BESYLATE [Norvasc] 10 mg PO DAILY 06/24/14 Furosemide [Lasix] 20 mg PO BID 04/25/16 Levothyroxine Sodium [Synthroid] 50 mcg PO DAILY 04/25/16 Ranolazine [Ranexa] 500 mg PO BID 07/27/16 Pregabalin [Lyrica] 75 mg PO BID 08/01/16 Clopidogrel Bisulfate [Plavix] 75 mg PO BEDTIME 08/15/16 Pantoprazole Sodium 40 mg PO BEDTIME 11/12/16 Albuterol Sulfate [Proair Hfa] 2 puff INH Q4H PRN 05/17/17 Nitroglycerin 0.4 mg Tab [Nitrostat] 1 ea SL PRN 05/17/17 Insulin Detemir [Levemir Pen] 40 unit SUBCU BID 05/10/18 Sertraline HCl 50 mg PO DAILY 05/10/18 Simvastatin 40 mg PO BEDTIME 05/10/18 Carvedilol [Coreg] 12.5 mg PO BID 11/02/18 Hydralazine HCl 50 mg PO TID 03/02/19 Insulin Aspart [Novolog] 100 unit SC TID 03/02/19 Meloxicam 15 mg PO DAILY 03/02/19 Metoclopramide HCl 5 mg PO TID 03/02/19 Acetaminophen W/ Codeine [Tylenol W/ CODEINE #3] 1 ea PO Q6H PRN 05/15/19 Naproxen Sodium [Aleve] 220 mg PO PRN 05/15/19 Review of Systems - Review of Systems Constitutional: States: no symptoms reported EENTM: States: no symptoms reported Respiratory: States: no symptoms reported Cardiology: States: chest pain Gastrointestinal/Abdominal: States: no symptoms reported Genitourinary: States: no symptoms reported Musculoskeletal: States: no symptoms reported Skin: States: no symptoms reported Neurological: States: anxiety Endocrine: States: no symptoms reported All other Systems: No Change from Baseline Past Medical History (General) - Patient Medical History Hx Seizures: No Hx Stroke: Yes - about 3 years ago. Hx Dementia: No Hx Asthma: No Hx of COPD: No Hx Cardiac Disorders: Yes - OR X2 Hx Congestive Heart Failure: Yes Hx Pacemaker: No Hx Hypertension: Yes Hx Thyroid Disease: No Hx Diabetes: Yes - insulin dependent Hx Gastroesophageal Reflux: Yes Hx Renal Disease: Yes Hx Cancer: No Hx of HIV: No Hx Hepatitis C: No Hx MRSA: No - Vaccination History Hx Tetanus, Diphtheria Vaccination: Yes Hx Influenza Vaccination: Yes Hx Pneumococcal Vaccination: Yes - Social History Hx Tobacco Use: Yes Hx Chewing Tobacco Use: No Hx Alcohol Use: No Hx Substance Use: No Hx Substance Use Treatment: No Hx Depression: No Hx Physical Abuse: No Hx Emotional Abuse: No Hx Suspected Abuse: No - Female History Patient : No Family Medical History - Family History Mother Family History: Unknown Age (years): 86 Living Status: Age at (years of age): 86 Cause of : OR Hx Family Asthma: No Hx Family Congestive Heart Failure: No Hx Family Hypertension: No Hx Family Stroke: No Hx Cardiac Disease: Yes - mother/son Hx Family Diabetes: Yes - Sons Hx Family Cancer: Yes - cervical cancer-mom;sister Physical Exam - Physical Exam General Appearance: Alert, Anxious, No apparent distress Eye Exam: bilateral normal Ears, Nose, Throat: hearing grossly normal, normal ENT inspection, normal pharynx Neck: full range of motion, supple Respiratory: lungs clear, normal breath sounds, no respiratory distress, no accessory muscle use, other - the left lateral lower chest wall is mildly uncomfortable to palpation. 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 The patient has received a dose of pain medications and the pain is significantly improved but not yet gone. Initial and repeat cardiac enzymes are negative however given the patient's very significant coronary history, the patient is going to be placed in observation for the longer rule out and following on telemetry monitoring. The patient is in agreement with this. He will be placed on Lovenox. He did receive an aspirin. Admit for continued care and monitoring. He did have a significantly elevated blood sugar upon arrival. It has improved significantly. Additionally the patient did receive 1 dose of clonidine for hypertension here. - Results/Orders Results/Orders: 09/21/19 11:45 EKG STAT normal sinus rhythm at 71 bpm. Mild left axis deviation. Poor R-wave progression in anterior leads. Q waves in inferior leads. No definitive ST segment or T-wave changes indicative of acute ischemia. Normal QT interval. Chest x-ray shows chronic changes only. No evidence of pneumothorax or new infiltrate. Laboratory Results - last 24 hr 09/21/19 09/21/19 09/21/19 11:40 11:40 11:40 WBC 9.2 RBC 4.72 Hgb 13.4 L Hct 40.1 L MCV 85.0 MCH 28.4 MCHC 33.4 RDW 14.3 Plt Count 164 MPV 9.5 Absolute Neuts (auto) 5.70 Absolute Lymphs (auto) 2.50 Absolute Monos (auto) 0.60 Absolute Eos (auto) 0.20 Absolute Basos (auto) 0.10 Neutrophils % 62.1 Lymphocytes % 27.0 Monocytes % 7.0 Eosinophils % 2.4 Basophils % 1.5 PT 10.0 INR 1.00 PTT (SP) 25.4 Sodium 137 Potassium 3.6 Chloride 103 Carbon Dioxide 24 Anion Gap 13.6 BUN 13 Creatinine 1.34 H BUN/Creatinine Ratio 9.7 L POC Glucose Random Glucose 448 H* Serum Osmolality 293.5 Calcium 8.3 L Magnesium 1.9 Total Bilirubin 0.6 AST 25 ALT 20 Alkaline Phosphatase 91 Creatine Kinase 43 CK-MB (CK-2) 1.6 CK-MB (CK-2) % Not Reportable Troponin I < 0.02 B-Natriuretic Peptide 47.5 Serum Total Protein 6.2 L Albumin 3.5 Globulin 2.7 Albumin/Globulin Ratio 1.3 09/21/19 09/21/19 14:51 16:05 WBC RBC Hgb Hct MCV MCH MCHC RDW Plt Count MPV Absolute Neuts (auto) Absolute Lymphs (auto) Absolute Monos (auto) Absolute Eos (auto) Absolute Basos (auto) Neutrophils % Lymphocytes % Monocytes % Eosinophils % Basophils % PT INR PTT (SP) Sodium Potassium Chloride Carbon Dioxide Anion Gap BUN Creatinine BUN/Creatinine Ratio POC Glucose 145 H Random Glucose Serum Osmolality Calcium Magnesium Total Bilirubin AST ALT Alkaline Phosphatase Creatine Kinase 45 CK-MB (CK-2) 1.7 CK-MB (CK-2) % Not Reportable Troponin I < 0.02 B-Natriuretic Peptide Serum Total Protein Albumin Globulin Albumin/Globulin Ratio Departure - Departure Clinical Impression: Chest pain in adult, Hyperglycemia Hypertension Qualifiers: Hypertension type: unspecified Qualified Code(s): I10 - Essential (primary) hypertension Disposition: Discharge to Home or Self Care Departure Forms: ED Discharge - Pt. Copy, Patient Portal Self Enrollment Referrals: Tenzin Hatch MD [Primary Care Provider] - 1-2 Weeks Home Medications: Ambulatory Orders Lisinopril 40 mg PO DAILY 11/06/13 Isosorbide Mononitrate [Imdur] 60 mg PO BEDTIME 06/24/14 amLODIPine BESYLATE [Norvasc] 10 mg PO DAILY 06/24/14 Furosemide [Lasix] 20 mg PO BID 04/25/16 Levothyroxine Sodium [Synthroid] 50 mcg PO DAILY 04/25/16 Ranolazine [Ranexa] 500 mg PO BID 07/27/16 Pregabalin [Lyrica] 75 mg PO BID 08/01/16 Clopidogrel Bisulfate [Plavix] 75 mg PO BEDTIME 08/15/16 Pantoprazole Sodium 40 mg PO BEDTIME 11/12/16 Albuterol Sulfate [Proair Hfa] 2 puff INH Q4H PRN 05/17/17 Nitroglycerin 0.4 mg Tab [Nitrostat] 1 ea SL PRN 05/17/17 Insulin Detemir [Levemir Pen] 40 unit SUBCU BID 05/10/18 Sertraline HCl 50 mg PO DAILY 05/10/18 Simvastatin 40 mg PO BEDTIME 05/10/18 Carvedilol [Coreg] 12.5 mg PO BID 11/02/18 Hydralazine HCl 50 mg PO TID 03/02/19 Insulin Aspart [Novolog] 100 unit SC TID 03/02/19 Meloxicam 15 mg PO DAILY 03/02/19 Metoclopramide HCl 5 mg PO TID 03/02/19 Acetaminophen W/ Codeine [Tylenol W/ CODEINE #3] 1 ea PO Q6H PRN 05/15/19 Naproxen Sodium [Aleve] 220 mg PO PRN 05/15/19 Decision To Admit - Decistion To Admit Decision to Admit Reason: Medical Nature Decision to Admit Date: 09/21/19 Decision to Admit Time: 17:07
--- NOTE | 2019-09-21 18:16 | HP ---
SUPERVISING PHYSICIAN: Jed Triana M.D. CHIEF COMPLAINT: Chest pain. HISTORY OF PRESENT ILLNESS: Mr. Reyna is an 78 year-old male patient who presented to the Emergency Room today complaining of some acute onset of chest pain at rest. The patient notes that he took some Nitro at home but did not get any significant relief from the chest pain. It was noted on exam that the patient was having chest pains that seemed to be more pleuritic in nature as they were more reproducible with movement, deep breathing and coughing. The patient had been recently treated for upper respiratory infection within the last 2 weeks on a Z-Jose, but denied any actual coughing, wheezing or shortness of breath. He described the pain as sharp and pinching. There was no reported radiation of the pain. He does have a significant cardiac history with apparently multiple stents in the past. His initial workup showed his cardiac enzymes were negative. CBC was within normal limits. Blood sugar was elevated at 448 as he is a type 2 diabetic and his creatinine was slightly elevated at 1.34. Given his history being a diabetic with multiple stents and cardiac history, the Emergency Room physician, Juan Hurst, requested the patient be placed in observation for further telemetry and close monitoring to rule out acute coronary syndrome. He was placed in observation in stable condition. PAST MEDICAL HISTORY: 1. Significant coronary artery disease with a history of previous myocardial infarctions and 17 total stent placements. 2. Diabetes mellitus type 2. 3. Hypertension. 4. Gastroesophageal reflux disease. 5. 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 6. Bilateral cataracts. 7. Arthritis. 8. Chronic renal insufficiency. 9. Hypothyroidism. 10. Depression and anxiety. PAST SURGICAL HISTORY: 1. Cholecystectomy. 2. Metacarpal phalangeal joint replacement. 3. Multiple cardiac catheterizations with stent placement. 4. Cataract surgery. CURRENT MEDICATIONS: 1. Amlodipine 10 mg daily. 2. Simvastatin 20 mg at bedtime. 3. Sertraline 50 mg daily. 4. Lyrica 75 mg b.i.d. 5. Pantoprazole 40 mg at bedtime. 6. Nitrostat sublingual as needed. 7. Aleve 220 mg every 8 hours as needed. 8. Reglan 5 mg a.c. 9. Meloxicam 15 mg daily. 10. Lisinopril 40 mg daily. 11. Synthroid 50 mcg daily. 12. Imdur 60 mg daily. 13. Levemir 45 units subcutaneous b.i.d. 14. NovoLog 100 units subcue t.i.d. 15. Hydralazine 50 mg t.i.d. 16. Lasix 20 mg b.i.d. 17. Plavix 75 mg daily. 18. Coreg 12.5 mg b.i.d. 19. Albuterol inhaler 2 puffs every 4 hours as needed. 20. Tylenol #3 as needed for pain every 6 hours. ALLERGIES: NO KNOWN DRUG ALLERGIES. FAMILY HISTORY: Positive for hypertension and coronary artery disease. SOCIAL HISTORY: The patient is , lives in [place]. Does report a distant history of smoking but quit about 16 years previously. Denies any alcohol or illicit drug use. REVIEW OF SYSTEMS: Denies any chronic fatigue, chills, rigors or any unexplainable weight gain or loss. HEENT: Denies any headaches, vision changes, sore throat, ear aches or headaches. RESPIRATORY: Positive for some mild shortness of breath with exertion but essentially no change from baseline. No wheezing or coughing. CARDIOVASCULAR: As noted in history of present illness, chest pain that appears to be reproducible with inspiration and coughing and position changes. GASTROINTESTINAL: Negative for any nausea, vomiting, diarrhea or constipation or abdominal pains. GENITOURINARY: Denies any dysuria, hematuria or polyuria. MUSCULOSKELETAL: Negative for any arthralgias or joint swelling. SKIN: Negative for any lesions, rashes, moles or any changes. NEUROLOGIC: Positive for anxiety but negative for any headaches, vision changes or other neurological deficits, ataxia or seizures. HEMATOLOGIC: Denies any easy bruising, unexplained bleeding or transfusion reactions. PHYSICAL EXAMINATION: VITAL SIGNS: Temperature 98.5, pulse 61, blood pressure 180/75, respirations 18, satting 95% on room air. GENERAL: The patient is resting comfortably. Appears to be in no acute distress. He is alert. HEENT: Tympanic membranes are clear bilaterally. Oropharynx was pink and moist without any lesions. NECK: Supple, non-tender. Full range of motion. No jugular venous distention. CHEST: Lung sounds were just diminished towards the bases but no obvious rhonchi, wheezing or rales. CARDIOVASCULAR: Regular rate and rhythm without appreciable murmurs, gallops, or rubs. ABDOMEN: Obese but soft, non-tender. Positive bowel sounds. EXTREMITIES: Without any edema, clubbing or cyanosis. NEUROLOGIC: Cranial nerves II-XII are grossly intact. Facial features were symmetrical. Extraocular movements are within normal limits. There is no notable nystagmus. He is alert and oriented times three. SKIN: Warm, pink and dry. LABORATORY: CBC showed a normal white count at 9,200 without a left shift. Hemoglobin and hematocrit were showing to be within normal limits. Chemistries showed to be unremarkable except just a slightly elevated creatinine at 1.34. Glucose was elevated initially on admission at 448. Calcium 8.3. Liver functions were all within normal limits. She had 3 sets of troponins all less than 0.02. RADIOLOGY: Chest x-ray in the Emergency Room, two view chest, showed no radiographic evidence of acute cardiopulmonary disease. There was stable mild cardiomegaly. ASSESSMENT: 1. Chest pain rule out with the patient having a significant history of coronary artery disease, multiple stents and other risk factors with pain likely due to pleurisy with a recent history of upper respiratory infection. 2. Mild electrolyte imbalance with hypokalemia. 3. Diabetes mellitus type 2 on insulin therapy. 4. Hypertension, controlled. 5. Gastroesophageal reflux disease. 6. Previous cerebrovascular accident with some mild left sided weakness. 7. Chronic renal insufficiency with slight increase in creatinine likely due to some mild prerenal azotemia from dehydration. 8. Hypothyroidism no supplementation. 9. Depression and anxiety. PLAN: Mr. Reyna is going to be placed in observation tonight to continue with cardiac monitoring given his history of coronary artery disease. He was pain free on admission to the Medical/Surgical floor. Will have him on deep venous thrombosis prophylaxis per protocol. Will have him on insulin sliding scale per protocol. Will go ahead and repeat labs in the morning. He will be on telemetry. Anticipate length of stay to be 1 to 2 days and probably discharge him later tomorrow. Until then will continue to monitor and treat as needed. #[id number] [facility]
[2019-09-21] MEDS ORDERED: ACETAMINOPHEN 325 MG TAB PO PRN (19:09)
[2019-09-21] MEDS ORDERED: NITROGLYCERIN 0.4 MG 25 EA TAB SL PRN (19:09)
[2019-09-21] MEDS ORDERED: SODIUM CHLORIDE 0.9% (FLUSH) 10 ML SYG IV PRN (19:09)
[2019-09-21] MEDS ORDERED: MORPHINE SULFATE INJ 10 MG/ML VIAL IV PRN (19:09)
[2019-09-21] MEDS ORDERED: IV SET AND CAP CHANGE INJ INJ SCH (19:30)
[2019-09-21] MEDS ORDERED: DEXTROSE 50% 25 GM/50 ML SYG IV PRN (20:56)
[2019-09-21] MEDS ORDERED: GLUCAGON INJ 1 MG VIAL SUBCU PRN (20:56)
[2019-09-21] MEDS ORDERED: CARVEDILOL 3.125 MG TAB PO SCH (21:00)
[2019-09-21] MEDS ORDERED: FUROSEMIDE 40 MG TAB PO SCH (21:00)
[2019-09-21] MEDS ORDERED: SIMVASTATIN 20 MG TAB PO SCH (21:00)
[2019-09-21] MEDS ORDERED: NON-FORMULARY MEDICATION 1 EA MIS (Hydralazine Hcl [Hydralazine Hcl] 50 MG) PO SCH (21:00)
[2019-09-21] MEDS ORDERED: PANTOPRAZOLE SODIUM TAB 40 MG PO SCH (21:00)
[2019-09-21] MEDS ORDERED: CARVEDILOL 12.5 MG TAB ONE (21:11)
[2019-09-21] MEDS: PREGABALIN 75 MG CAP PO SCH (21:25)
[2019-09-21] MEDS: INSULIN DETEMIR 100 UNITS/ML PEN SUBCU SCH (21:27)
[2019-09-21] MEDS: INSULIN LISPRO 100 UNITS/ML PEN SUBCU SCH (21:35)
[2019-09-21] MEDS: SODIUM CHLORIDE 0.9% (FLUSH) 10 ML SYG IV SCH (21:37)
[2019-09-21] MEDS ORDERED: NITROGLYCERIN 0.4 MG/HR PATCH TOP ONE (21:39)
[2019-09-22 03:28] VITALS: O2SAT 97
[2019-09-22] MEDS ORDERED: METOCLOPRAMIDE HCL 5 MG TAB PO SCH (07:00)
[2019-09-22] MEDS ORDERED: LISINOPRIL 10 MG TAB ONE (07:19)
[2019-09-22] MEDS ORDERED: MELOXICAM 7.5 MG TAB ONE (07:19)
[2019-09-22] MEDS ORDERED: CARVEDILOL 12.5 MG TAB ONE (07:19)
[2019-09-22] MEDS ORDERED: ISOSORBIDE MONONITRATE (IMDUR) 30 MG TAB ONE (07:20)
[2019-09-22] MEDS ORDERED: SERTRALINE HCL 50 MG TAB ONE (07:20)
[2019-09-22] MEDS ORDERED: ACETAMINOPHEN W/COD #3 TAB 1 EA TAB PO PRN (08:27)
[2019-09-22] MEDS: INSULIN DETEMIR 100 UNITS/ML PEN SUBCU SCH (08:49)
[2019-09-22] MEDS: INSULIN LISPRO 100 UNITS/ML PEN SUBCU SCH (08:49)
[2019-09-22] MEDS: PREGABALIN 75 MG CAP PO SCH (08:52)
[2019-09-22] MEDS: SODIUM CHLORIDE 0.9% (FLUSH) 10 ML SYG IV SCH (08:53)
[2019-09-22 08:55] VITALS: BP 159/62; TEMP 97.4
[2019-09-22] MEDS ORDERED: amLODIPine BESYLATE 5 MG TAB PO SCH (09:00)
[2019-09-22] MEDS ORDERED: FUROSEMIDE 40 MG TAB PO SCH (09:00)
[2019-09-22] MEDS ORDERED: SERTRALINE HCL 50 MG TAB PO SCH (09:00)
[2019-09-22] MEDS ORDERED: CLOPIDOGREL 75 MG TAB PO SCH (09:00)
[2019-09-22] MEDS ORDERED: CARVEDILOL 12.5 MG TAB PO SCH (09:00)
[2019-09-22] MEDS ORDERED: LISINOPRIL 10 MG TAB PO SCH (09:00)
[2019-09-22] MEDS ORDERED: REMOVE OLD PATCH TOP ONE (09:00)
[2019-09-22] MEDS ORDERED: LEVOTHYROXINE SODIUM 0.025 MG TAB PO SCH (09:00)
[2019-09-22] MEDS ORDERED: MELOXICAM 7.5 MG TAB PO SCH (09:00)
[2019-09-22] MEDS ORDERED: ISOSORBIDE MONONITRATE (IMDUR) 30 MG TAB PO SCH (09:00)
--- NOTE | 2019-09-25 15:19 | SSS ---
SUPERVISING PHYSICIAN: Jed Triana M.D. DATE OF ADMISSION: 09/21/19 DATE OF DISCHARGE: 09/22/19 ADMISSION DIAGNOSIS: 1. Chest pain rule out with the patient having a significant history of coronary artery disease multiple stents and other risk factors with pain likely due to pleurisy with a recent history of upper respiratory infection. 2. Mild electrolyte imbalance with hypokalemia. 3. Diabetes mellitus type 2 on insulin therapy. 4. Hypertension, controlled. 5. Gastroesophageal reflux disease. 6. Previous cerebrovascular accident with some mild left sided weakness. 7. Chronic renal insufficiency with slight increase in creatinine likely due to some mild prerenal azotemia from dehydration. 8. Hypothyroidism no supplementation. 9. Depression and anxiety. DISCHARGE DIAGNOSIS: 1. Chest pain with no evidence of acute coronary syndrome and history of multiple stents and other risk factors with pain likely due to pleurisy from a recent upper respiratory infection. 2. Mild electrolyte imbalance with hypokalemia, improving. 3. Diabetes mellitus type 2 on insulin therapy. 4. Hypertension, controlled. 5. Gastroesophageal reflux disease. 6. Previous cerebrovascular accident with some mild left sided weakness. 7. Chronic renal insufficiency with slight increase in creatinine likely due to some mild prerenal azotemia from dehydration. 8. Hypothyroidism no supplementation. 9. Depression and anxiety. CHIEF COMPLAINT: Chest pain. HISTORY OF PRESENT ILLNESS: Mr. Reyna is an 78 year-old male patient who presented to the Emergency Room today complaining of some acute onset of chest pain at rest. The patient notes that he took some Nitro at home but did not get any significant relief from the chest pain. It was noted on exam that the patient was having chest pains that seemed to be more pleuritic in nature as they were more reproducible with movement, deep breathing and coughing. The patient had been recently treated for upper respiratory infection within the last 2 weeks on a Z-Jose, but denied any actual coughing, wheezing or shortness of breath. He described the pain as sharp and pinching. There was no reported radiation of the pain. He does have a significant cardiac history with apparently multiple stents in the past. His initial workup showed his cardiac enzymes were negative. CBC was within normal limits. Blood sugar was elevated at 448 as he is a type 2 diabetic and his creatinine was slightly elevated at 1.34. Given his history being a diabetic with multiple stents and cardiac history, the Emergency Room physician, Juan Hurst, requested the patient be placed in observation for further telemetry and close monitoring to rule out acute coronary syndrome. He was placed in observation in stable condition. PAST MEDICAL HISTORY: 1. Significant coronary artery disease with a history of previous myocardial infarctions and 17 total stent placements. 2. Diabetes mellitus type 2. 3. Hypertension. 4. Gastroesophageal reflux disease. 5. 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 6. Bilateral cataracts. 7. Arthritis. 8. Chronic renal insufficiency. 9. Hypothyroidism. 10. Depression and anxiety. PAST SURGICAL HISTORY: 1. Cholecystectomy. 2. Metacarpal phalangeal joint replacement. 3. Multiple cardiac catheterizations with stent placement. 4. Cataract surgery. CURRENT MEDICATIONS: 1. Amlodipine 10 mg daily. 2. Simvastatin 20 mg at bedtime. 3. Sertraline 50 mg daily. 4. Lyrica 75 mg b.i.d. 5. Pantoprazole 40 mg at bedtime. 6. Nitrostat sublingual as needed. 7. Aleve 220 mg every 8 hours as needed. 8. Reglan 5 mg a.c. 9. Meloxicam 15 mg daily. 10. Lisinopril 40 mg daily. 11. Synthroid 50 mcg daily. 12. Imdur 60 mg daily. 13. Levemir 45 units subcutaneous b.i.d. 14. NovoLog 100 units subcue t.i.d. 15. Hydralazine 50 mg t.i.d. 16. Lasix 20 mg b.i.d. 17. Plavix 75 mg daily. 18. Coreg 12.5 mg b.i.d. 19. Albuterol inhaler 2 puffs every 4 hours as needed. 20. Tylenol #3 as needed for pain every 6 hours. ALLERGIES: NO KNOWN DRUG ALLERGIES. FAMILY HISTORY: Positive for hypertension and coronary artery disease. SOCIAL HISTORY: The patient is , lives in [place]. Does report a distant history of smoking but quit about 16 years previously. Denies any alcohol or illicit drug use. REVIEW OF SYSTEMS: Denies any chronic fatigue, chills, rigors or any unexplainable weight gain or loss. HEENT: Denies any headaches, vision changes, sore throat, ear aches or headaches. RESPIRATORY: Positive for some mild shortness of breath with exertion but essentially no change from baseline. No wheezing or coughing. CARDIOVASCULAR: As noted in history of present illness, chest pain that appears to be reproducible with inspiration and coughing and position changes. GASTROINTESTINAL: Negative for any nausea, vomiting, diarrhea or constipation or abdominal pains. GENITOURINARY: Denies any dysuria, hematuria or polyuria. MUSCULOSKELETAL: Negative for any arthralgias or joint swelling. SKIN: Negative for any lesions, rashes, moles or any changes. NEUROLOGIC: Positive for anxiety but negative for any headaches, vision changes or other neurological deficits, ataxia or seizures. HEMATOLOGIC: Denies any easy bruising, unexplained bleeding or transfusion reactions. PHYSICAL EXAMINATION: VITAL SIGNS: Temperature 98.5, pulse 61, blood pressure 180/75, respirations 18, satting 95% on room air. GENERAL: The patient is resting comfortably. Appears to be in no acute distress. He is alert. HEENT: Tympanic membranes are clear bilaterally. Oropharynx was pink and moist without any lesions. NECK: Supple, non-tender. Full range of motion. No jugular venous distention. CHEST: Lung sounds were just diminished towards the bases but no obvious rhonchi, wheezing or rales. CARDIOVASCULAR: Regular rate and rhythm without appreciable murmurs, gallops, or rubs. ABDOMEN: Obese but soft, non-tender. Positive bowel sounds. EXTREMITIES: Without any edema, clubbing or cyanosis. NEUROLOGIC: Cranial nerves II-XII are grossly intact. Facial features were symmetrical. Extraocular movements are within normal limits. There is no notable nystagmus. He is alert and oriented times three. SKIN: Warm, pink and dry. LABORATORY: CBC showed a normal white count at 9,200 without a left shift. Hemoglobin and hematocrit were showing to be within normal limits. Chemistries showed to be unremarkable except just a slightly elevated creatinine at 1.34. Glucose was elevated initially on admission at 448. Calcium 8.3. Liver functions were all within normal limits. She had 3 sets of troponins all less than 0.02. RADIOLOGY: Chest x-ray in the Emergency Room, two view chest, showed no radiographic evidence of acute cardiopulmonary disease. There was stable mild cardiomegaly. DISCHARGE LABORATORY: No additional laboratory other than troponin on date of discharge for total of 3 sets showing troponin 0.02. Blood sugars ranging between 199 and 255. HOSPITAL COURSE: Mr. Reyna was admitted for extended chest pain rule out given his longstanding history of coronary artery disease. He had no recurrence of any symptoms. EKG showed no acute changes from admission. He was not reporting any chest pains. It was felt like he was stable enough to continue with outpatient management. DISCHARGE ASSESSMENT: VITAL SIGNS: Temperature 97.4. Pulse 54. Blood pressure 159/62. Saturation 97% on room air. GENERAL: The patient is resting comfortably. Appears to be in no acute distress. He is alert. HEENT: Tympanic membranes are clear bilaterally. Oropharynx was pink and moist without any lesions. NECK: Supple, non-tender. Full range of motion. No jugular venous distention. CHEST: Lung sounds were just diminished towards the bases but no obvious rhonchi, wheezing or rales. CARDIOVASCULAR: Regular rate and rhythm without appreciable murmurs, gallops, or rubs. ABDOMEN: Obese but soft, non-tender. Positive bowel sounds. EXTREMITIES: Without any edema, clubbing or cyanosis. NEUROLOGIC: Cranial nerves II-XII are grossly intact. Facial features were symmetrical. Extraocular movements are within normal limits. There is no notable nystagmus. He is alert and oriented times three. SKIN: Warm, pink and dry. PLAN: Mr. Reyna is going to be placed in observation tonight to continue with cardiac monitoring given his history of coronary artery disease. He was pain free on admission to the Medical/Surgical floor. Will have him on deep venous thrombosis prophylaxis per protocol. Will have him on insulin sliding scale per protocol. Will go ahead and repeat labs in the morning. He will be on telemetry. Anticipate length of stay to be 1 to 2 days and probably discharge him later tomorrow. Until then will continue to monitor and treat as needed. He is to followup with his primary care provider, Dr. Hatch, in the coming week. He need to followup with his post production assistant which can be arranged through Dr. Hatch's office. He is to resume his home medications as instructed. No new medications were prescribed on discharge. CONDITION ON DISCHARGE: Stable and improved. DISPOSITION: The patient was discharged to care of family members. #[id number] MTDD
== END 2019-09-22 10:05 | disposition home or self-care (01) ==
LOC: ER 11:25 → MS 18:07
PROVIDERS: ADMIT Nurse Practitioner Family; ATTEND Nurse Practitioner Family
DX: R07.9 Chest pain, unspecified (principal); I25.10 Atherosclerotic heart disease of native coronary artery without angina pectoris; E87.8 Other disorders of electrolyte and fluid balance, not elsewhere classified; E87.6 Hypokalemia; I12.9 Hypertensive chronic kidney disease with stage 1 through stage 4 chronic kidney disease, or unspecified chronic kidney disease; E11.22 Type 2 diabetes mellitus with diabetic chronic kidney disease; N18.9 Chronic kidney disease, unspecified; K21.9 Gastro-esophageal reflux disease without esophagitis; E03.9 Hypothyroidism, unspecified; F32.9 Major depressive disorder, single episode, unspecified; F41.9 Anxiety disorder, unspecified; M62.81 Muscle weakness (generalized); I25.2 Old myocardial infarction; Z95.5 Presence of coronary angioplasty implant and graft; Z79.4 Long term (current) use of insulin; Z79.1 Long term (current) use of non-steroidal anti-inflammatories (NSAID); Z79.02 Long term (current) use of antithrombotics/antiplatelets; Z79.899 Other long term (current) drug therapy; Z86.73 Personal history of transient ischemic attack (TIA), and cerebral infarction without residual deficits; Z87.891 Personal history of nicotine dependence; Z90.49 Acquired absence of other specified parts of digestive tract; Z82.49 Family history of ischemic heart disease and other diseases of the circulatory system
CPT/HCPCS: 96374; 96375; 96372 ×2; J1885; J2270; J7620; J1650; J1815 ×2; 82553 ×2; 80053; 82948 ×3; 36415 ×3; 85025; 82550 ×2; 83735; 85730; 85610; 84484 ×3; 83880; 36416; 71046; 94760 ×2; 94640; 99285; 93005; G0378

== ENCOUNTER → 2019-11-13 | Outpatient (CLI) | payer MEDICARE, OTHER ==
--- NOTE | 2019-11-14 08:23 | RAD ---
Study: Frontal and Lateral Radiographs of the Chest. Indication: DYSPNEA Comparison: September 21, 2019 Impression: Mild cardiomegaly. Interstitial markings remain prominent bilaterally and may reflect interstitial scarring or mild interstitial edema. Atypical infection is also a consideration. No pleural effusion or pneumothorax. Degenerative changes of the spine noted. Electronically signed by: Peter Monsalve MD 11/14/2019 8:22 AM MANAGER STRATEGIC
== END ==
LOC: LAB.O 13:24
PROVIDERS: ATTEND Family Medicine
DX: R06.00 Dyspnea, unspecified (principal); R91.8 Other nonspecific abnormal finding of lung field; M47.9 Spondylosis, unspecified; I51.7 Cardiomegaly

== ENCOUNTER 2020-03-06 13:35 | Emergency (ER) | payer MEDICARE, MEDICAID ==
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
[2020-03-06 14:45] VITALS: BP 201/105; TEMP 97.3; O2SAT 97
== END 2020-03-06 14:27 | disposition left against medical advice (07) ==
LOC: ER 13:35
DX: S20.211A Contusion of right front wall of thorax, initial encounter (principal); E11.9 Type 2 diabetes mellitus without complications; I10 Essential (primary) hypertension; I25.2 Old myocardial infarction; Z53.29 Procedure and treatment not carried out because of patient's decision for other reasons; F17.200 Nicotine dependence, unspecified, uncomplicated; Z79.899 Other long term (current) drug therapy; Z86.73 Personal history of transient ischemic attack (TIA), and cerebral infarction without residual deficits; V87.7XXA Person injured in collision between other specified motor vehicles (traffic), initial encounter; Y92.410 Unspecified street and highway as the place of occurrence of the external cause

== ENCOUNTER → 2020-03-12 | Outpatient (CLI) | payer MEDICARE, MEDICAID | LOC: YCFC.O 15:03 | PROVIDERS: ATTEND Family Medicine | DX: E11.9 Type 2 diabetes mellitus without complications (principal); I10 Essential (primary) hypertension; E78.5 Hyperlipidemia, unspecified; R35.0 Frequency of micturition; E03.9 Hypothyroidism, unspecified ==

== ENCOUNTER 2020-07-08 20:09 | Emergency (ER) | payer MEDICARE, MEDICAID ==
[2020-07-08] MEDS ORDERED: INSULIN LISPRO 100 UNITS/ML PEN SUBCU ONE ×2 (20:16→20:57)
[2020-07-08] MEDS ORDERED: INSULIN DETEMIR 100 UNITS/ML PEN SUBCU ONE (20:16)
[2020-07-08] MEDS ORDERED: ISOSORBIDE MONONITRATE (IMDUR) 30 MG TAB PO ONE (20:17)
[2020-07-08] MEDS ORDERED: LISINOPRIL 10 MG TAB PO ONE (20:17)
[2020-07-08] MEDS ORDERED: CARVEDILOL 12.5 MG TAB PO ONE (20:18)
[2020-07-08] MEDS ORDERED: METOCLOPRAMIDE HCL 5 MG TAB PO ONE (20:27)
[2020-07-08] MEDS ORDERED: ONDANSETRON ODT 8 MG TAB SL ONE (20:27)
--- NOTE | 2020-07-08 20:59 | CT ---
EXAM: Head CLINICAL INDICATION: 79-year-old male with confusion. COMPARISON: 04/04/2019. TECHNIQUE: CT brain without contrast. This exam was performed according to our departmental dose optimization program which includes use of automated exposure control, adjustment of the mA and/or kV according to patient size and/or use of iterative reconstruction technique. FINDINGS: Trace acute subdural hemorrhage at the level of the LEFT parafalcine high convexity measuring 3 mm, (series 5, image 54). Trace hemorrhage also outlines the medial aspect of the LEFT side tentorium. Multifocal regions of patchy hypoattenuation are present in a subcortical and periventricular deep white matter distribution, nonspecific; however, most likely represent small vessel ischemic disease, age indeterminate. The ventricles, and sulci are enlarged compatible with underlying volume loss. The newman-white matter differentiation is preserved. There is no mass effect, midline shift, intra- or extra-axial fluid collection/acute hemorrhage. The osseous structures are unremarkable. The paranasal sinuses and mastoid air cells are clear. IMPRESSION: 1. Trace parafalcine and LEFT tentorial acute subdural hematoma measuring up to 3 mm in thickness. 2. Nonspecific white matter change most likely small vessel ischemic disease, age indeterminate. 3. CT is insensitive for early evaluation of acute stroke. If there is clinical concern for acute ischemia, an MRI may be considered. Electronically signed by: Inna Downey MD 07/08/2020 8:58 PM CDT
[2020-07-08] MEDS ORDERED: POTASSIUM CHLORIDE ELIXIR 20 MEQ/15 ML UD PO ONE (21:01)
--- NOTE | 2020-07-08 21:04 | RAD ---
EXAM: Abdomen Series CLINICAL INDICATION: 79-year-old male with confusion. TECHNIQUE: Single view, PA chest was obtained. Two views of the abdomen were obtained in upright and supine positioning. COMPARISON: None. FINDINGS: Chest: Unremarkable cardiac and mediastinal silhouette. Heart size is normal. Low lung volumes grossly clear without focal opacity, pneumothorax or pleural effusions. The visualized bones are within normal limits. Abdomen: Gas is seen within normal caliber small and large bowel. Diffuse paucity of bowel gas however within the central, LEFT hemiabdomen and pelvis. No free air is identified. There are no abnormal calcifications. The osseous structures are within normal limits. Cholecystectomy clips. Round opacity at the level of the pelvis may represent the bladder. IMPRESSION: 1. No acute cardiopulmonary abnormalities. 2. Nonspecific abdominal bowel gas pattern. Electronically signed by: Inna Downey MD 07/08/2020 9:03 PM CDT
[2020-07-08] MEDS: METOPROLOL TARTRATE INJ 5 MG/5 ML VIAL IV ONE ×2 (21:15→21:22)
--- NOTE | 2020-07-08 21:24 | ED.PDOC ---
History of Present Illness - General Chief Complaint: Neuro Symptoms/Deficits Stated Complaint: altered mental status Time Seen by Provider: 07/08/20 20:14 Source: patient Exam Limitations: clinical condition - History of Present Illness Initial Comments: The patient is an 79-year-old male presented emergency room secondary to increased agitation noted by his today. The patient had apparently not been cooperative with taking his diabetes or his hypertension medications. He is simply not taking any of his medications today. He does have a history of some dementia and has had significant agitation issues in the past. I have seen him several times in the past and his mental status does not appear to be greatly different than what I have seen before. He knows who he is and what his birthday is. He is uncertain of the date. He is uncertain why he is here. He is ambulatory with no focal neurological deficits. He is not reporting pain anywhere. No history of any trauma. No history of any syncope. No chest pain. No abdominal pain. He is actually fairly cooperative here today. Blood pressures are markedly elevated and the blood sugar is also markedly elevated. Timing/Duration: other - 12 hrs Severity: mild Improving Factors: nothing Worsening Factors: nothing Associated Symptoms: denies symptoms Allergies/Adverse Reactions: Allergies NO KNOWN ALLERGY Allergy (Verified 03/06/20 14:44) Home Medications: Ambulatory Orders Lisinopril 40 mg PO DAILY 11/06/13 Isosorbide Mononitrate [Imdur] 60 mg PO DAILY 06/24/14 amLODIPine BESYLATE [Norvasc] 10 mg PO DAILY 06/24/14 Furosemide [Lasix] 20 mg PO BID 04/25/16 Levothyroxine Sodium [Synthroid] 50 mcg PO DAILY 04/25/16 Pregabalin [Lyrica] 75 mg PO BID 08/01/16 Clopidogrel Bisulfate [Plavix] 75 mg PO DAILY 08/15/16 Pantoprazole Sodium 40 mg PO BEDTIME 11/12/16 Albuterol Sulfate [Proair Hfa] 2 puff INH Q4H PRN 05/17/17 Nitroglycerin 0.4 mg Tab [Nitrostat] 1 ea SL PRN 05/17/17 Insulin Detemir [Levemir Pen] 45 unit SUBCU BID 05/10/18 Sertraline HCl 50 mg PO DAILY 05/10/18 Simvastatin 20 mg PO BEDTIME 05/10/18 Carvedilol [Coreg] 12.5 mg PO BID 11/02/18 Hydralazine HCl 50 mg PO TID 03/02/19 Insulin Aspart [Novolog] 100 unit SC TID 03/02/19 Meloxicam 15 mg PO DAILY 03/02/19 Metoclopramide HCl 5 mg PO AC 03/02/19 Acetaminophen W/ Codeine [Tylenol W/ CODEINE #3] 1 ea PO Q6H PRN 05/15/19 Naproxen Sodium [Aleve] 220 mg PO Q8H PRN 05/15/19 Review of Systems - Review of Systems Review of Systems: 07/08/20 21:23 Accuracy is limited due to dementia. Constitutional: States: no symptoms reported EENTM: States: no symptoms reported Respiratory: States: no symptoms reported Cardiology: States: no symptoms reported Gastrointestinal/Abdominal: States: nausea - Mild Genitourinary: States: no symptoms reported Musculoskeletal: States: no symptoms reported Skin: States: no symptoms reported Neurological: States: see HPI Endocrine: States: no symptoms reported Hematologic/Lymphatic: States: no symptoms reported All other Systems: No Change from Baseline Past Medical History (General) - Patient Medical History Hx Seizures: No Hx Stroke: Yes - right side weakness Hx Dementia: No Hx Asthma: No Hx of COPD: No Hx Cardiac Disorders: Yes - [place] X2 Hx Congestive Heart Failure: Yes Hx Pacemaker: No Hx Hypertension: Yes Hx Thyroid Disease: No Hx Diabetes: Yes Hx Gastroesophageal Reflux: Yes Hx Renal Disease: Yes Hx Cancer: No Hx of HIV: No Hx Hepatitis C: No Hx MRSA: No - Vaccination History Hx Tetanus, Diphtheria Vaccination: Yes Hx Influenza Vaccination: Yes Hx Pneumococcal Vaccination: Yes - Social History Hx Tobacco Use: Yes Hx Chewing Tobacco Use: No Hx Alcohol Use: No Hx Substance Use: No Hx Substance Use Treatment: No Hx Depression: No Hx Physical Abuse: No Hx Emotional Abuse: No Hx Suspected Abuse: No - Female History Patient : No Family Medical History - Family History Mother Family History: Unknown Age (years): 86 Living Status: Age at (years of age): 86 Cause of : [place] Hx Family Asthma: No Hx Family Congestive Heart Failure: No Hx Family Hypertension: No Hx Family Stroke: No Hx Cardiac Disease: Yes - mother/son Hx Family Diabetes: Yes - Sons Hx Family Cancer: Yes - cervical cancer-mom;sister Physical Exam - Physical Exam General Appearance: Alert, Comfortable, No apparent distress Eye Exam: bilateral normal Ears, Nose, Throat: hearing grossly normal, normal pharynx Neck: non-tender, supple Respiratory: lungs clear, normal breath sounds, no respiratory distress, no accessory muscle use Cardiovascular/Chest: normal peripheral pulses, regular rate, rhythm, no edema Peripheral Pulses: radial,right: 2+, radial,left: 2+ Gastrointestinal/Abdominal: non tender, soft Rectal Exam: deferred Back Exam: no CVA tenderness, no vertebral tenderness Extremity: normal range of motion, non-tender, normal inspection, no pedal edema, normal capillary refill 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 He is oriented x2. Skin Exam: normal color Comments: Blood pressures are elevated in the 2 teens over 1 teens. Progress - Progress Progress: 07/08/20 21:27 The patient is an 79-year-old male brought to the emergency room secondary to increased agitation at home and medical noncompliance at home. The patient is found to have a hypertensive emergency with a subdural hematoma. At this point it appears to be having minimal mass-effect. The patient is being started on a Cardene drip. The patient was given doses of his oral home medications upon arrival before we had the CT scan done.. Additionally he was given his home doses essentially of his insulin upon arrival, given the elevated glucose. Blood pressures and blood sugars will obviously have to be followed. The only blood thinning type medication I see on his medication list is Plavix. A coagulation panel is pending. The patient is being transferred for higher level and specialty care. Acceptance is appreciated. has been contacted in regards to transfer. leticia reynolds 288 critical care time spent is 40 minutes 07/08/20 21:29 - Results/Orders Results/Orders: Acute abdominal series shows no definitive acute pathology. CT scan of the head without contrast shows trace parafalcine and left tentorial acute subdural hematoma measuring up to 3 cm in thickness. See reports for further details. EKG shows old Q waves in inferior leads. Normal axis otherwise. Poor R wave progression. No definitive acute ST segment changes or T wave changes indicative of acute ischemia when compared to previous EKGs. Borderline prolonged QT interval. Laboratory Tests 07/08/20 07/08/20 07/08/20 19:55 19:55 19:55 WBC 11.5 H RBC 5.58 Hgb 16.4 Hct 47.8 MCV 85.6 MCH 29.5 MCHC 34.4 RDW 14.3 Plt Count 194 MPV 9.8 Absolute Neuts (auto) 8.00 H Absolute Lymphs (auto) 2.60 Absolute Monos (auto) 0.80 Absolute Eos (auto) 0.10 Absolute Basos (auto) 0.10 Neutrophils % 69.3 Lymphocytes % 22.6 Monocytes % 6.6 Eosinophils % 0.6 L Basophils % 0.9 Sodium 133 L Potassium 3.0 L Chloride 95 L Carbon Dioxide 25 Anion Gap 16.0 BUN 13 Creatinine 1.33 H BUN/Creatinine Ratio 9.8 L Random Glucose 532 H* Serum Osmolality 290.0 Calcium 9.1 Magnesium 1.9 Total Bilirubin 0.8 AST 18 ALT 17 Alkaline Phosphatase 122 H Creatine Kinase 56 CK-MB (CK-2) 2.6 CK-MB (CK-2) % Not Reportable Troponin I 0.03 B-Natriuretic Peptide 133.0 H Serum Total Protein 7.6 Albumin 4.0 Globulin 3.6 H Albumin/Globulin Ratio 1.1 Amylase 47 Lipase 38 TSH 3.71 Urine Color Urine Appearance Urine pH Ur Specific [place] Urine Protein Urine Glucose (UA) Urine Ketones Urine Blood Urine Nitrite Urine Bilirubin Urine Urobilinogen Ur Leukocyte Esterase Urine RBC Urine WBC Ur Epithelial Cells Urine Bacteria Urine Yeast 07/08/20 19:55 WBC RBC Hgb Hct MCV MCH MCHC RDW Plt Count MPV Absolute Neuts (auto) Absolute Lymphs (auto) Absolute Monos (auto) Absolute Eos (auto) Absolute Basos (auto) Neutrophils % Lymphocytes % Monocytes % Eosinophils % Basophils % Sodium Potassium Chloride Carbon Dioxide Anion Gap BUN Creatinine BUN/Creatinine Ratio Random Glucose Serum Osmolality Calcium Magnesium Total Bilirubin AST ALT Alkaline Phosphatase Creatine Kinase CK-MB (CK-2) CK-MB (CK-2) % Troponin I B-Natriuretic Peptide Serum Total Protein Albumin Globulin Albumin/Globulin Ratio Amylase Lipase TSH Urine Color Yellow Urine Appearance Clear Urine pH 7.0 Ur Specific [place] 1.015 Urine Protein 100 H Urine Glucose (UA) 500 H Urine Ketones Negative Urine Blood Trace-intact H Urine Nitrite Negative Urine Bilirubin Negative Urine Urobilinogen 0.2 Ur Leukocyte Esterase Negative Urine RBC 1-3 Urine WBC 0-1 Ur Epithelial Cells 0 Urine Bacteria 0 Urine Yeast 1+ budding Departure - Departure Clinical Impression: Subdural hematoma, Hypertensive emergency Altered mental state Qualifiers: Altered mental status type: unspecified Qualified Code(s): R41.82 - Altered mental status, unspecified Uncontrolled diabetes mellitus Qualifiers: Diabetes mellitus type: type 2 Glycemic state: with hyperglycemia Qualified Code(s): E11.65 - Type 2 diabetes mellitus with hyperglycemia Condition: Poor Departure Forms: ED Discharge - Pt. Copy, Patient Portal Self Enrollment Referrals: Tenzin Hatch MD [Primary Care Provider] - 1-2 Weeks Home Medications: Ambulatory Orders Lisinopril 40 mg PO DAILY 11/06/13 Isosorbide Mononitrate [Imdur] 60 mg PO DAILY 06/24/14 amLODIPine BESYLATE [Norvasc] 10 mg PO DAILY 06/24/14 Furosemide [Lasix] 20 mg PO BID 04/25/16 Levothyroxine Sodium [Synthroid] 50 mcg PO DAILY 04/25/16 Pregabalin [Lyrica] 75 mg PO BID 08/01/16 Clopidogrel Bisulfate [Plavix] 75 mg PO DAILY 08/15/16 Pantoprazole Sodium 40 mg PO BEDTIME 11/12/16 Albuterol Sulfate [Proair Hfa] 2 puff INH Q4H PRN 05/17/17 Nitroglycerin 0.4 mg Tab [Nitrostat] 1 ea SL PRN 05/17/17 Insulin Detemir [Levemir Pen] 45 unit SUBCU BID 05/10/18 Sertraline HCl 50 mg PO DAILY 05/10/18 Simvastatin 20 mg PO BEDTIME 05/10/18 Carvedilol [Coreg] 12.5 mg PO BID 11/02/18 Hydralazine HCl 50 mg PO TID 03/02/19 Insulin Aspart [Novolog] 100 unit SC TID 03/02/19 Meloxicam 15 mg PO DAILY 03/02/19 Metoclopramide HCl 5 mg PO AC 03/02/19 Acetaminophen W/ Codeine [Tylenol W/ CODEINE #3] 1 ea PO Q6H PRN 05/15/19 Naproxen Sodium [Aleve] 220 mg PO Q8H PRN 05/15/19 Transfer to Outside Facility - Transfer Information Decision to Transfer Date: 07/08/20 Decision to Transfer Time: 21:30 Reason for Transfer: required specialist not available Accepting Provider:: dr oakes Accepting Facility: [facility]
[2020-07-08] MEDS ORDERED: niCARdipine HCL 25 MG in SODIUM CHLORIDE 0.9% 250ML 240 ML IVPB SCH (21:30)
[2020-07-08 21:41] VITALS: TEMP 98.1; O2SAT 98
[2020-07-08 21:42] VITALS: BP 191/97
== END 2020-07-08 22:00 | disposition short-term general hospital (02) ==
LOC: ER 20:09
DX: I62.00 Nontraumatic subdural hemorrhage, unspecified (principal); I16.1 Hypertensive emergency; E11.65 Type 2 diabetes mellitus with hyperglycemia; R41.82 Altered mental status, unspecified; R11.0 Nausea; R45.1 Restlessness and agitation; E11.22 Type 2 diabetes mellitus with diabetic chronic kidney disease; I13.0 Hypertensive heart and chronic kidney disease with heart failure and stage 1 through stage 4 chronic kidney disease, or unspecified chronic kidney disease; I50.9 Heart failure, unspecified; N18.9 Chronic kidney disease, unspecified; F03.90 Unspecified dementia, unspecified severity, without behavioral disturbance, psychotic disturbance, mood disturbance, and anxiety; I25.2 Old myocardial infarction; K21.9 Gastro-esophageal reflux disease without esophagitis; I69.351 Hemiplegia and hemiparesis following cerebral infarction affecting right dominant side; Z91.14 Patient's other noncompliance with medication regimen; Z20.828 Contact with and (suspected) exposure to other viral communicable diseases; Z79.02 Long term (current) use of antithrombotics/antiplatelets; Z87.891 Personal history of nicotine dependence; Z79.899 Other long term (current) drug therapy; Z79.4 Long term (current) use of insulin
CPT/HCPCS: 36415; 70450; 74019; 80053; 81001; 82150; 82550; 82553; 82948; 83690; 83735; 83880; 84443; 84484; 85025; 85610; 85730; 87635; 93005; J1815; J7050

== ENCOUNTER 2020-07-14 11:38 | Emergency (ER) | payer MEDICARE, OTHER ==
--- NOTE | 2020-07-14 12:40 | ED.PDOC ---
History of Present Illness - General Chief Complaint: Lower Extremity Injury Stated Complaint: RLE pain Time Seen by Provider: 07/14/20 12:33 Source: patient, RN notes reviewed, Vital Signs reviewed Exam Limitations: no limitations - History of Present Illness Initial Comments: Patient is an 79-year-old white male who presents with complaints of right lower extremity pain and swelling. This pain is been ongoing times months. The pain is throbbing in nature. It is constant. Nothing makes it better or worse. halfway sent the patient here to evaluate for DVT. Occurred: other - Months Pain - Lower Extremity: moderate: Right Thigh/Hip, Right Leg, Right Calf Method of Injury: unknown Improving Factors: nothing Worsening Factors: nothing Allergies/Adverse Reactions: Allergies NO KNOWN ALLERGY Allergy (Verified 07/14/20 12:00) Home Medications: Ambulatory Orders Lisinopril 40 mg PO DAILY 11/06/13 Isosorbide Mononitrate [Imdur] 60 mg PO DAILY 06/24/14 amLODIPine BESYLATE [Norvasc] 10 mg PO DAILY 06/24/14 Furosemide [Lasix] 20 mg PO BID 04/25/16 Levothyroxine Sodium [Synthroid] 50 mcg PO DAILY 04/25/16 Pregabalin [Lyrica] 75 mg PO BID 08/01/16 Clopidogrel Bisulfate [Plavix] 75 mg PO DAILY 08/15/16 Pantoprazole Sodium 40 mg PO BEDTIME 11/12/16 Albuterol Sulfate [Proair Hfa] 2 puff INH Q4H PRN 05/17/17 Nitroglycerin 0.4 mg Tab [Nitrostat] 1 ea SL PRN 05/17/17 Insulin Detemir [Levemir Pen] 45 unit SUBCU BID 05/10/18 Sertraline HCl 50 mg PO DAILY 05/10/18 Simvastatin 20 mg PO BEDTIME 05/10/18 Carvedilol [Coreg] 12.5 mg PO BID 11/02/18 Hydralazine HCl 50 mg PO TID 03/02/19 Insulin Aspart [Novolog] 100 unit SC TID 03/02/19 Meloxicam 15 mg PO DAILY 03/02/19 Metoclopramide HCl 5 mg PO AC 03/02/19 Acetaminophen W/ Codeine [Tylenol W/ CODEINE #3] 1 ea PO Q6H PRN 05/15/19 Naproxen Sodium [Aleve] 220 mg PO Q8H PRN 05/15/19 Review of Systems - Review of Systems Constitutional: States: no symptoms reported, see HPI. Denies: chills, fever, malaise, weakness EENTM: States: no symptoms reported. Denies: eye pain, blurred vision, double vision Respiratory: States: no symptoms reported. Denies: see HPI, cough, short of breath, stridor Cardiology: States: no symptoms reported. Denies: chest pain, palpitations, syncope Gastrointestinal/Abdominal: States: no symptoms reported. Denies: abdominal pain, diarrhea, nausea, vomiting Genitourinary: States: no symptoms reported. Denies: dysuria, frequency Musculoskeletal: States: see HPI, joint pain, muscle pain, muscle stiffness. Denies: back pain, neck pain Skin: States: no symptoms reported. Denies: change in color, rash Neurological: States: no symptoms reported, numbness, paresthesia, tingling, tremors, weakness Endocrine: States: no symptoms reported, increased hunger, increased thirst, increased urine Hematologic/Lymphatic: States: no symptoms reported, blood clots, easy bleeding All other Systems: No Change from Baseline Past Medical History (General) - Patient Medical History Hx Seizures: No Hx Stroke: Yes - right side weakness Hx Dementia: No Hx Asthma: No Hx of COPD: No Hx Cardiac Disorders: Yes - [place] X2 Hx Congestive Heart Failure: Yes Hx Pacemaker: No Hx Hypertension: Yes Hx Thyroid Disease: No Hx Diabetes: Yes Hx Gastroesophageal Reflux: Yes Hx Renal Disease: Yes Hx Cancer: No Hx of HIV: No Hx Hepatitis C: No Hx MRSA: No - Vaccination History Hx Tetanus, Diphtheria Vaccination: Yes Hx Influenza Vaccination: Yes Hx Pneumococcal Vaccination: Yes - Social History Hx Tobacco Use: Yes Hx Chewing Tobacco Use: No Hx Alcohol Use: No Hx Substance Use: No Hx Substance Use Treatment: No Hx Depression: No Hx Physical Abuse: No Hx Emotional Abuse: No Hx Suspected Abuse: No - Activities of Daily Living Group Home/Assisted Living (if applicable):: [facility] Agency (if applicable):: None - Female History Patient is a Female of Child Bearing Age (10 -59 yrs old): No Patient : No Family Medical History - Family History Mother Family History: Unknown Age (years): 86 Living Status: Age at (years of age): 86 Cause of : [place] Hx Family Asthma: No Hx Family Congestive Heart Failure: No Hx Family Hypertension: No Hx Family Stroke: No Hx Cardiac Disease: Yes - mother/son Hx Family Diabetes: Yes - Sons Hx Family Cancer: Yes - cervical cancer-mom;sister Physical Exam - Physical Exam General Appearance: Alert, Comfortable, Well Developed, Well Hydrated, Well Nourished Eyes, Ears, Nose, Throat: PERRL/EOMI, normal ENT inspection, pharynx normal Neck: non-tender, full range of motion, supple, normal inspection Cardiovascular/Respiratory: regular rate, rhythm, no M/R/G, normal peripheral pulses, no JVD, normal breath sounds, no respiratory distress Gastrointestinal/Abdominal: non-tender, no organomegaly Back: normal inspection, no CVA tenderness, no vertebral tenderness Thigh/Hip: no evidence of injury, normal ROM, soft tissue tenderness Leg: no evidence of injury, normal ROM, soft tissue tenderness Knee: normal inspection, non-tender, no evidence of injury Ankle: normal inspection, non-tender, no evidence of injury, normal ROM Foot: normal inspection, non-tender, no evidence of injury, normal ROM Neuro/Tendon: normal sensation, normal motor functions, normal tendon functions, responds to pain Mental Status: alert, oriented x 3 Skin: normal color, warm/dry Progress - Results/Orders Results/Orders: EXAM DESCRIPTION: Venous,Lower Extremity RT: ULTRASOUND. CLINICAL HISTORY: r ight leg pain COMPARISON: None Available. TECHNIQUE: Cosby-scale and doppler sonographic evaluation of the deep venous system of the right lower extremity. FINDINGS: Doppler evaluation shows normal color flow and normal phasicity and augmentation of the right common femoral vein, right femoral vein, popliteal vein, greater saphenous vein, junction with the CFV. Also normal color flow and normal phasicity and augmentation of the peroneal, and posterior tibial vein. The right lower extremity deep veins were completely compressible; normal occlusion with transducer pressure. Cosby-scale survey showed no echogenic thrombus within these veins. IMPRESSION: 1. Duplex ultrasound evaluation of the right lower extremity deep venous system showing no evidence of thrombosis. Electronically signed by: Maldonado Joel MD 07/14/2020 1:18 PM CDT Vital Signs 07/14/20 07/14/20 12:02 12:21 Temperature 97.6 F Pulse Rate [ 65 65 brachial] Respiratory 18 18 Rate Blood Pressure 151/71 [Right Arm] O2 Sat by Pulse 98 Oximetry Departure - Departure Clinical Impression: Leg pain Qualifiers: Laterality: right Qualified Code(s): M79.604 - Pain in right leg Time of Disposition: 13:44 Disposition: Discharge to SNF Condition: Good Departure Forms: ED Discharge - Pt. Copy, Patient Portal Self Enrollment Instructions: DI for Leg Pain, Active Range of Motion Exercises, Back and Hips, Sciatica Exercises Diet: resume usual diet Activity: increase activity as tolerated Referrals: Tenzin Hatch MD [Primary Care Provider] - 1-5 Days Home Medications: Ambulatory Orders Lisinopril 40 mg PO DAILY 11/06/13 Isosorbide Mononitrate [Imdur] 60 mg PO DAILY 06/24/14 amLODIPine BESYLATE [Norvasc] 10 mg PO DAILY 06/24/14 Furosemide [Lasix] 20 mg PO BID 04/25/16 Levothyroxine Sodium [Synthroid] 50 mcg PO DAILY 04/25/16 Pregabalin [Lyrica] 75 mg PO BID 08/01/16 Clopidogrel Bisulfate [Plavix] 75 mg PO DAILY 08/15/16 Pantoprazole Sodium 40 mg PO BEDTIME 11/12/16 Albuterol Sulfate [Proair Hfa] 2 puff INH Q4H PRN 05/17/17 Nitroglycerin 0.4 mg Tab [Nitrostat] 1 ea SL PRN 05/17/17 Insulin Detemir [Levemir Pen] 45 unit SUBCU BID 05/10/18 Sertraline HCl 50 mg PO DAILY 05/10/18 Simvastatin 20 mg PO BEDTIME 05/10/18 Carvedilol [Coreg] 12.5 mg PO BID 11/02/18 Hydralazine HCl 50 mg PO TID 03/02/19 Insulin Aspart [Novolog] 100 unit SC TID 03/02/19 Meloxicam 15 mg PO DAILY 03/02/19 Metoclopramide HCl 5 mg PO AC 03/02/19 Acetaminophen W/ Codeine [Tylenol W/ CODEINE #3] 1 ea PO Q6H PRN 05/15/19 Naproxen Sodium [Aleve] 220 mg PO Q8H PRN 05/15/19
--- NOTE | 2020-07-14 13:20 | US ---
EXAM DESCRIPTION: Venous,Lower Extremity RT: ULTRASOUND. CLINICAL HISTORY: right leg pain COMPARISON: None Available. TECHNIQUE: Cosby-scale and doppler sonographic evaluation of the deep venous system of the right lower extremity. FINDINGS: Doppler evaluation shows normal color flow and normal phasicity and augmentation of the right common femoral vein, right femoral vein, popliteal vein, greater saphenous vein, junction with the CFV. Also normal color flow and normal phasicity and augmentation of the peroneal, and posterior tibial vein. The right lower extremity deep veins were completely compressible; normal occlusion with transducer pressure. Cosby-scale survey showed no echogenic thrombus within these veins. IMPRESSION: 1. Duplex ultrasound evaluation of the right lower extremity deep venous system showing no evidence of thrombosis. Electronically signed by: Maldonado Joel MD 07/14/2020 1:18 PM CDT
[2020-07-14 14:01] VITALS: BP 178/81; TEMP 97.4; O2SAT 99
== END 2020-07-14 13:57 ==
LOC: ER 11:38
DX: M79.604 Pain in right leg (principal); I25.2 Old myocardial infarction; K21.9 Gastro-esophageal reflux disease without esophagitis; N18.9 Chronic kidney disease, unspecified; I50.9 Heart failure, unspecified; E11.22 Type 2 diabetes mellitus with diabetic chronic kidney disease; I13.0 Hypertensive heart and chronic kidney disease with heart failure and stage 1 through stage 4 chronic kidney disease, or unspecified chronic kidney disease; I69.351 Hemiplegia and hemiparesis following cerebral infarction affecting right dominant side; Z87.891 Personal history of nicotine dependence; Z79.4 Long term (current) use of insulin; Z79.899 Other long term (current) drug therapy

== ENCOUNTER 2020-08-30 19:28 | Emergency (ER) | payer MEDICARE, MEDICAID ==
[2020-08-30 19:50] VITALS: TEMP 98.2
[2020-08-30] MEDS ORDERED: cloNIDine HCL 0.1 MG TAB PO ONE ×2 (20:06→21:06)
[2020-08-30] MEDS ORDERED: cloNIDine HCL 0.1 MG TAB ONE (20:06)
--- NOTE | 2020-08-30 21:49 | ED.PDOC ---
History of Present Illness - General Chief Complaint: General Stated Complaint: COVId test Time Seen by Provider: 08/30/20 19:44 Source: patient, RN notes reviewed - History of Present Illness Initial Comments: The patient is an 79 year old M recently hospitalized for frequent falls but release home who presents to the ED for medical clearance to return to shelter. The patient reportedly fired his home healthcare aides and cannot recall if he has been taking his medications. He denies any complaints at this time and states "I just want to go back to the shelter." Allergies/Adverse Reactions: Allergies NO KNOWN ALLERGY Allergy (Verified 07/14/20 12:00) Home Medications: Ambulatory Orders Lisinopril 40 mg PO DAILY 11/06/13 Isosorbide Mononitrate [Imdur] 60 mg PO DAILY 06/24/14 amLODIPine BESYLATE [Norvasc] 10 mg PO DAILY 06/24/14 Furosemide [Lasix] 20 mg PO BID 04/25/16 Levothyroxine Sodium [Synthroid] 50 mcg PO DAILY 04/25/16 Pregabalin [Lyrica] 75 mg PO BID 08/01/16 Clopidogrel Bisulfate [Plavix] 75 mg PO DAILY 08/15/16 Pantoprazole Sodium 40 mg PO BEDTIME 11/12/16 Albuterol Sulfate [Proair Hfa] 2 puff INH Q4H PRN 05/17/17 Nitroglycerin 0.4 mg Tab [Nitrostat] 1 ea SL PRN 05/17/17 Insulin Detemir [Levemir Pen] 45 unit SUBCU BID 05/10/18 Sertraline HCl 50 mg PO DAILY 05/10/18 Simvastatin 20 mg PO BEDTIME 05/10/18 Carvedilol [Coreg] 12.5 mg PO BID 11/02/18 Hydralazine HCl 50 mg PO TID 03/02/19 Insulin Aspart [Novolog] 100 unit SC TID 03/02/19 Meloxicam 15 mg PO DAILY 03/02/19 Metoclopramide HCl 5 mg PO AC 03/02/19 Acetaminophen W/ Codeine [Tylenol W/ CODEINE #3] 1 ea PO Q6H PRN 05/15/19 Naproxen Sodium [Aleve] 220 mg PO Q8H PRN 05/15/19 Review of Systems - Review of Systems Constitutional: Denies: chills, fever, malaise EENTM: Denies: nose pain, nose congestion Cardiology: Denies: chest pain, palpitations Gastrointestinal/Abdominal: Denies: abdominal pain, diarrhea, nausea, vomiting Musculoskeletal: States: no symptoms reported Skin: States: no symptoms reported Neurological: States: weakness - generalized Endocrine: States: no symptoms reported Hematologic/Lymphatic: States: no symptoms reported All other Systems: Reviewed and Negative Past Medical History (General) - Patient Medical History Hx Seizures: No Hx Stroke: Yes - right side weakness Hx Dementia: No Hx Asthma: No Hx of COPD: No Hx Cardiac Disorders: Yes - [place] X2 Hx Congestive Heart Failure: No Hx Pacemaker: No Hx Hypertension: Yes Hx Thyroid Disease: No Hx Diabetes: Yes Hx Gastroesophageal Reflux: Yes Hx Renal Disease: Yes Hx Cancer: No Hx of HIV: No Hx Hepatitis C: No Hx MRSA: No - Vaccination History Hx Tetanus, Diphtheria Vaccination: Yes Hx Influenza Vaccination: Yes Hx Pneumococcal Vaccination: Yes - Social History Hx Tobacco Use: Yes Hx Chewing Tobacco Use: No Hx Alcohol Use: No Hx Substance Use: No Hx Substance Use Treatment: No Hx Depression: No Hx Physical Abuse: No Hx Emotional Abuse: No Hx Suspected Abuse: No - Activities of Daily Living Hospice Agency (if applicable):: None - Female History Patient is a Female of Child Bearing Age (10 -59 yrs old): No Patient : No Family Medical History - Family History Mother Family History: Unknown Age (years): 86 Living Status: Age at (years of age): 86 Cause of : [place] Hx Family Asthma: No Hx Family Congestive Heart Failure: No Hx Family Hypertension: No Hx Family Stroke: No Hx Cardiac Disease: Yes - mother/son Hx Family Diabetes: Yes - Sons Hx Family Cancer: Yes - cervical cancer-mom;sister Physical Exam - Physical Exam General Appearance: Alert, No apparent distress Ears, Nose, Throat: hearing grossly normal, normal ENT inspection Neck: non-tender, full range of motion Respiratory: no respiratory distress, no accessory muscle use Cardiovascular/Chest: normal peripheral pulses, regular rate, rhythm Gastrointestinal/Abdominal: non tender, soft Neurologic: no motor/sensory deficits, alert, oriented x 3 Skin Exam: normal color, warm/dry Progress - Progress Progress: 08/30/20 21:47 Patient reassessed, workup as below. He has hyperglycemia without dehydration, DKA, or HHS. He also has asymptomatic hypertension, s/p clonidine in the Emergency Department. Suspect medication non-compliance. Will resume usual home medications. Okay to transfer to shelter. - Results/Orders Results/Orders: Laboratory Results - last 24 hr 08/30/20 08/30/20 20:15 20:15 WBC 7.6 RBC 4.96 Hgb 15.0 Hct 43.3 MCV 87.2 MCH 30.2 MCHC 34.7 RDW 14.2 Plt Count 141 MPV 9.1 Absolute Neuts (auto) 4.10 Absolute Lymphs (auto) 2.50 Absolute Monos (auto) 0.60 Absolute Eos (auto) 0.30 Absolute Basos (auto) 0.10 Neutrophils % 53.7 Lymphocytes % 32.9 Monocytes % 8.5 Eosinophils % 3.9 Basophils % 1.0 Sodium 134 L Potassium 3.4 L Chloride 99 L Carbon Dioxide 24 Anion Gap 14.4 BUN 12 Creatinine 1.24 BUN/Creatinine Ratio 9.7 L Random Glucose 459 H* Serum Osmolality 288.4 Calcium 9.1 Departure - Departure Clinical Impression: Encounter for medical screening examination Time of Disposition: 21:49 Disposition: Discharge to SNF Condition: Fair Departure Forms: ED Discharge - Pt. Copy, Patient Portal Self Enrollment Diet: resume usual diet Activity: increase activity as tolerated Referrals: Tenzin Hatch MD [Primary Care Provider] - 1-2 Weeks Home Medications: Ambulatory Orders Lisinopril 40 mg PO DAILY 11/06/13 Isosorbide Mononitrate [Imdur] 60 mg PO DAILY 06/24/14 amLODIPine BESYLATE [Norvasc] 10 mg PO DAILY 06/24/14 Furosemide [Lasix] 20 mg PO BID 04/25/16 Levothyroxine Sodium [Synthroid] 50 mcg PO DAILY 04/25/16 Pregabalin [Lyrica] 75 mg PO BID 08/01/16 Clopidogrel Bisulfate [Plavix] 75 mg PO DAILY 08/15/16 Pantoprazole Sodium 40 mg PO BEDTIME 11/12/16 Albuterol Sulfate [Proair Hfa] 2 puff INH Q4H PRN 05/17/17 Nitroglycerin 0.4 mg Tab [Nitrostat] 1 ea SL PRN 05/17/17 Insulin Detemir [Levemir Pen] 45 unit SUBCU BID 07/25/18 Sertraline HCl 50 mg PO DAILY 05/10/18 Simvastatin 20 mg PO BEDTIME 05/10/18 Carvedilol [Coreg] 12.5 mg PO BID 11/02/18 Hydralazine HCl 50 mg PO TID 03/02/19 Insulin Aspart [Novolog] 100 unit SC TID 03/02/19 Meloxicam 15 mg PO DAILY 03/02/19 Metoclopramide HCl 5 mg PO AC 03/02/19 Acetaminophen W/ Codeine [Tylenol W/ CODEINE #3] 1 ea PO Q6H PRN 05/15/19 Naproxen Sodium [Aleve] 220 mg PO Q8H PRN 05/15/19 Additional Instructions: Resume prior shelter medications.
[2020-08-30] MEDS ORDERED: INSULIN, REG.(HUMAN) 100 U/ML VIAL SUBCU ONE (22:00)
[2020-08-30] MEDS ORDERED: INSULIN, REG.(HUMAN) 100 U/ML VIAL ONE (22:00)
[2020-08-30 22:14] VITALS: BP 185/98; O2SAT 95
== END 2020-08-30 22:10 ==
LOC: ER 19:28
DX: Z20.828 Contact with and (suspected) exposure to other viral communicable diseases (principal); E11.65 Type 2 diabetes mellitus with hyperglycemia; E11.22 Type 2 diabetes mellitus with diabetic chronic kidney disease; I12.9 Hypertensive chronic kidney disease with stage 1 through stage 4 chronic kidney disease, or unspecified chronic kidney disease; N18.9 Chronic kidney disease, unspecified; I69.351 Hemiplegia and hemiparesis following cerebral infarction affecting right dominant side; I25.2 Old myocardial infarction; K21.9 Gastro-esophageal reflux disease without esophagitis; Z79.4 Long term (current) use of insulin; Z79.899 Other long term (current) drug therapy; Z79.02 Long term (current) use of antithrombotics/antiplatelets; Z87.891 Personal history of nicotine dependence

== ENCOUNTER 2020-09-11 14:24 | Emergency (ER) | payer MEDICARE, MEDICAID ==
--- NOTE | 2020-09-11 14:53 | ED.PDOC ---
History of Present Illness - General Time Seen by Provider: 09/11/20 14:30 Source: RN notes reviewed, Vital Signs reviewed, EMS notes reviewed Exam Limitations: clinical condition, other - altered mental status Additional Information: .Patient, presents to the ER with altered mental status, per EMS this patient was last seen in the morning, then they found her unresponsive at the half-way facility, when EMS arrived at the scene he was found unresponsive his usual neurological baseline is talkative and able to ambulate, and they found him unresponsive with pulled over his mouth, they were able to suction some of the tobacco from his mild the patient did exhibit some signs of peripheral cyanosis ER, he was more responsive but still having some peripheral cyanosis difficulty breathing, apneic spells, and bilateral lung crackles, No known Covid exposure Patient has a past medical history of subdural hematoma unsteadiness, gait abnormalities, diabetes hypokalemia dementia hypertension coronary artery disease congestive heart failure and multiple falls - History of Present Illness Timing/Duration: other - last seen normal was this morning Prearrival Treatment: no prearrival treatment Improving Factors: nothing Worsening Factors: nothing Associated Symptoms: denies symptoms Allergies/Adverse Reactions: Allergies NO KNOWN ALLERGY Allergy (Verified 09/11/20 14:56) Home Medications: Ambulatory Orders Lisinopril 40 mg PO DAILY 11/06/13 Isosorbide Mononitrate [Imdur] 60 mg PO DAILY 06/24/14 amLODIPine BESYLATE [Norvasc] 10 mg PO DAILY 06/24/14 Furosemide [Lasix] 20 mg PO BID 04/25/16 Levothyroxine Sodium [Synthroid] 50 mcg PO DAILY 04/25/16 Pregabalin [Lyrica] 75 mg PO BID 08/01/16 Clopidogrel Bisulfate [Plavix] 75 mg PO DAILY 08/15/16 Pantoprazole Sodium 40 mg PO BEDTIME 11/12/16 Albuterol Sulfate [Proair Hfa] 2 puff INH Q4H PRN 05/17/17 Nitroglycerin 0.4 mg Tab [Nitrostat] 1 ea SL PRN 05/17/17 Insulin Detemir [Levemir Pen] 45 unit SUBCU BID 05/10/18 Sertraline HCl 50 mg PO DAILY 05/10/18 Simvastatin 20 mg PO BEDTIME 05/10/18 Carvedilol [Coreg] 12.5 mg PO BID 11/02/18 Hydralazine HCl 50 mg PO TID 03/02/19 Insulin Aspart [Novolog] 100 unit SC TID 03/02/19 Meloxicam 15 mg PO DAILY 03/02/19 Metoclopramide HCl 5 mg PO AC 03/02/19 Acetaminophen W/ Codeine [Tylenol W/ CODEINE #3] 1 ea PO Q6H PRN 05/15/19 Naproxen Sodium [Aleve] 220 mg PO Q8H PRN 05/15/19 Review of Systems - Review of Systems Unable to Obtain Due To: other - altered mental status Past Medical History (General) - Patient Medical History Hx Seizures: No Hx Stroke: Yes - right side weakness Hx Dementia: No Hx Asthma: No Hx of COPD: No Hx Cardiac Disorders: Yes - [place] X2 Hx Congestive Heart Failure: No Hx Pacemaker: No Hx Hypertension: Yes Hx Thyroid Disease: No Hx Diabetes: Yes Hx Gastroesophageal Reflux: Yes Hx Renal Disease: Yes Hx Cancer: No Hx of HIV: No Hx Hepatitis C: No Hx MRSA: No - Vaccination History Hx Tetanus, Diphtheria Vaccination: Yes Hx Influenza Vaccination: Yes Hx Pneumococcal Vaccination: Yes - Social History Hx Tobacco Use: Yes Hx Chewing Tobacco Use: No Hx Alcohol Use: No Hx Substance Use: No Hx Substance Use Treatment: No Hx Depression: No Hx Physical Abuse: No Hx Emotional Abuse: No Hx Suspected Abuse: No - Female History Patient : No Family Medical History - Family History Mother Family History: Unknown Age (years): 86 Living Status: Age at (years of age): 86 Cause of : [place] Hx Family Asthma: No Hx Family Congestive Heart Failure: No Hx Family Hypertension: No Hx Family Stroke: No Hx Cardiac Disease: Yes - mother/son Hx Family Diabetes: Yes - Sons Hx Family Cancer: Yes - cervical cancer-mom;sister Physical Exam - Physical Exam General Appearance: Lethargic, Obvious distress, Ill Appearing, Obese, Other - unresponsive Eye Exam: bilateral other - pint point sluggish pupils Ear Exam: bilateral ear: auricle normal, canal normal Nasal Exam: normal inspection Throat Exam: normal mouth inspection Neck: supple Cardiovascular/Respiratory: tachycardia, accessory muscle use - bilateral , other - tachycardia, Abdominal Exam: other - non distention, no acute abdomen Skin Exam: other - pitting edema plus 2 Progress - Progress Progress: Patient, with a long history of medical concerns, half-way resident, presents to the ER because he was found with altered mental status, patient Accu-Chek which echocardiogram is normal patient does have a history of traumati c subdural hematoma son was present for possible hemorrhagic stroke series patient arrived at baseline is awake and alert and patient arrived clearly respiratory distress after tachypneic and bilateral rales and crackles. Patient was intubated the patient, since patient was exhibiting peripheral cyanosis, patient was intubated using etomidate and succinylcholine without any complications, chest x-ray shows some perihilar enhancement, tube is in the right place, I saw patient head CT I did not see any evidence of infection abnormalities but there was a lot artifact, did not think I did see the presence of the old subdural hematoma. patiennt is covid positive Hypokalemia order blood cultures lactic acid Rocephin and Zithromax Decadron and remdesivir IV patinet EKG did not show any acute ischemic changes 09/11/20 15:28 09/11/20 15:[address] did not show Any evidence of intracranial abnormalities Departure - Departure Clinical Impression: COVID-19 Respiratory failure Qualifiers: Chronicity: acute Respiratory failure complication: hypoxia Qualified Code(s): J96.01 - Acute respiratory failure with hypoxia Altered mental status Qualifiers: Altered mental status type: unspecified Qualified Code(s): R41.82 - Altered mental status, unspecified Disposition: Transfer to Hospital Condition: Serious Referrals: Tenzin Hatch MD [Primary Care Provider] - 1-2 Weeks Home Medications: Ambulatory Orders Lisinopril 40 mg PO DAILY 11/06/13 Isosorbide Mononitrate [Imdur] 60 mg PO DAILY 06/24/14 amLODIPine BESYLATE [Norvasc] 10 mg PO DAILY 06/24/14 Furosemide [Lasix] 20 mg PO BID 04/25/16 Levothyroxine Sodium [Synthroid] 50 mcg PO DAILY 04/25/16 Pregabalin [Lyrica] 75 mg PO BID 08/01/16 Clopidogrel Bisulfate [Plavix] 75 mg PO DAILY 08/15/16 Pantoprazole Sodium 40 mg PO BEDTIME 11/12/16 Albuterol Sulfate [Proair Hfa] 2 puff INH Q4H PRN 05/17/17 Nitroglycerin 0.4 mg Tab [Nitrostat] 1 ea SL PRN 05/17/17 Insulin Detemir [Levemir Pen] 45 unit SUBCU BID 05/10/18 Sertraline HCl 50 mg PO DAILY 05/10/18 Simvastatin 20 mg PO BEDTIME 05/10/18 Carvedilol [Coreg] 12.5 mg PO BID 11/02/18 Hydralazine HCl 50 mg PO TID 03/02/19 Insulin Aspart [Novolog] 100 unit SC TID 03/02/19 Meloxicam 15 mg PO DAILY 03/02/19 Metoclopramide HCl 5 mg PO AC 03/02/19 Acetaminophen W/ Codeine [Tylenol W/ CODEINE #3] 1 ea PO Q6H PRN 05/15/19 Naproxen Sodium [Aleve] 220 mg PO Q8H PRN 05/15/19 Transfer to Outside Facility - Transfer Information Decision to Transfer Date: 09/11/20 Decision to Transfer Time: 15:27 Reason for Transfer: ICU Accepting Facility: [facility]
[2020-09-11] MEDS ORDERED: MIDAZOLAM INJ 5 MG/5 ML VIAL IV ONE ×2 (14:55→16:19)
[2020-09-11] MEDS ORDERED: AZITHROMYCIN IV 500 MG in SODIUM CHLORIDE 0.9% 250ML 250 ML IVPB ONE (14:58)
[2020-09-11] MEDS ORDERED: cefTRIAXone SODIUM 500 MG in SODIUM CHL 0.9% 50ML MIN-BAG+ 50 ML IVPB ONE (14:58)
[2020-09-11] MEDS ORDERED: DEXAMETHASONE INJ 10 MG/ML VIAL IV ONE (14:58)
[2020-09-11] MEDS ORDERED: ETOMIDATE INJECTION 2 MG/ML 20ML VIAL IV ONE (15:00)
[2020-09-11] MEDS ORDERED: MIDAZOLAM HCL 10 MG/10 ML INJ IV ONE (15:00)
[2020-09-11] MEDS ORDERED: REMDESIVIR 200 MG in SODIUM CHLORIDE 0.9% 250ML 250 ML IVPB ONE (15:01)
--- NOTE | 2020-09-11 15:37 | CT ---
PROCEDURE: Head CLINICAL HISTORY: 79 years Male ams COMPARISON: 12/08/2019 TECHNIQUE: Contiguous axial CT images obtained through the brain without IV contrast. This exam was performed according to our department optimization program which includes automated exposure control, adjustment of the mA and/or kv according to patient size and/or use of iterative reconstruction technique. FINDINGS: The ventricles and sulci are prominent consistent with atrophic changes. Microvascular ischemic changes. No midline shift or mass effect. No mass lesions. No acute hemorrhage. Atherosclerotic calcifications. No fluid or significant mucosal thickening in the visualized paranasal sinuses. No depressed calvarial fractures. IMPRESSION: Motion artifact degrades images. No acute intracranial abnormality is identified. Generalized atrophy with microvascular ischemic changes. Electronically signed by: Lauren Nieto MD 09/11/2020 3:36 PM [employer]DER
--- NOTE | 2020-09-11 15:39 | RAD ---
EXAM DESCRIPTION: Chest,1 View CLINICAL HISTORY: 79 years Male ams EXAM DESCRIPTION: Chest,1 View CLINICAL HISTORY: 79 years Male ams COMPARISON: 07/08/2020 FINDINGS: Cardiac size is within normal limits. Mild prominence of the central pulmonary vasculature and interstitial. Question developing interstitial infiltrate or edema. Recommend clinical correlation. No pneumothorax or pleural fluid. Endotracheal tube and nasogastric tube are in place. IMPRESSION: Prominent interstitial markings particularly in the periphery. Question developing multifocal pneumonia or edema. COMPARISON: None. FINDINGS: The cardiomediastinal silhouette appears unremarkable. No consolidating infiltrates or pleural effusions. No pneumothorax. IMPRESSION: No acute abnormality is identified. Electronically signed by: Lauren Nieto MD 09/11/2020 3:38 PM RAG GRADER
[2020-09-11] MEDS ORDERED: MIDAZOLAM INJ 5 MG/5 ML VIAL ONE (16:19)
[2020-09-11 16:44] VITALS: BP 128/76
[2020-09-11] MEDS ORDERED: SODIUM CHLORIDE 0.9% 250ML 250 ML ONE (17:00)
[2020-09-11 17:12] VITALS: TEMP 96.8; O2SAT 99
== END 2020-09-11 17:12 | disposition short-term general hospital (02) ==
LOC: ER 14:24
DX: U07.1 COVID-19 (principal); J96.01 Acute respiratory failure with hypoxia; R41.82 Altered mental status, unspecified; R00.0 Tachycardia, unspecified; I62.00 Nontraumatic subdural hemorrhage, unspecified; E66.9 Obesity, unspecified; K21.9 Gastro-esophageal reflux disease without esophagitis; I25.2 Old myocardial infarction; N18.9 Chronic kidney disease, unspecified; E11.22 Type 2 diabetes mellitus with diabetic chronic kidney disease; I13.0 Hypertensive heart and chronic kidney disease with heart failure and stage 1 through stage 4 chronic kidney disease, or unspecified chronic kidney disease; I50.9 Heart failure, unspecified; I69.351 Hemiplegia and hemiparesis following cerebral infarction affecting right dominant side; F03.90 Unspecified dementia, unspecified severity, without behavioral disturbance, psychotic disturbance, mood disturbance, and anxiety; R29.6 Repeated falls; Z87.891 Personal history of nicotine dependence; Z79.4 Long term (current) use of insulin; Z79.899 Other long term (current) drug therapy; I25.10 Atherosclerotic heart disease of native coronary artery without angina pectoris; Z68.33 Body mass index [BMI] 33.0-33.9, adult
CPT/HCPCS: 31500; 36415; 70450; 71045; 80053; 82948; 83605; 83615; 83735; 83880; 84484; 85025; 85379; 85384; 85610; 85730; 86140; 87040; 87186; 87635; 93005; 94002; 94770; J0696; J1100; J2250; J7050